=== PATIENT | male | born 1955 | race Caucasian/White ===

== ENCOUNTER 2023-02-10 19:54 | Outpatient (REF) | payer SELFPAY ==
[2023-02-10 15:43] LABS: ALT 36 U/L (16-63); AST 28 U/L (15-37); Albumin 3.8 g/dL (3.4-5.0); Alkaline Phosphatase 88 U/L (46-116); Anion Gap 9.4 mmol/L (3-11); BUN 13 mg/dL (7-18); Bilirubin, Total 0.3 mg/dL (0.2-1.0); CO2 25.6 mmol/L (21.0-32.0); Calcium 9.1 mg/dL (8.5-10.1); Calculated LDL 156 mg/dL (<100); Chloride 101 mmol/L (98-107); Cholesterol 228 mg/dL (<200); Estimated GFR 83.52 (mL/min/1.73m2); Glucose 102 mg/dL (74-106); HDL Cholesterol 51 mg/dL (40-60); Potassium 3.6 mmol/L (3.5-5.1); Sodium 136 mmol/L (136-145); Total Protein 7.8 g/dL (6.4-8.2); Triglyceride 106 mg/dL (<150)
--- OUTSIDE RECORDS SUMMARY | 2023-02-10 19:57 | XMS_ITS | CCD ---
Author Name Unknown Address [address] [place] [address] [phone] Organization Unknown Address [address] [place] [address] [phone] Care Team Providers Care Procurement Professional Logistics Name Role Phone JAIDEN OLEARY Attending Physician [phone] JAIDEN OLEARY Rounding (Secondary) Physician [phone] Vital Signs Unknown or Not Available. Allergies Allergy Code Allergy Type Reaction Status No Known Drug Allergies 0 No known drug allergies Active Procedures Unknown or Not Available. History of Immunizations Unknown or Not Available. Problems Unknown or Not Available. Results Unknown or Not Available. Active Medications Unknown or Not Available. Medications Administered During Visit Unknown or Not Available. Encounters Encounter Diagnosis Diagnosis Code Start Date Refusal of treatment by patient [id number] 04/29/2022 Social History Smoking Status Code Start Date End Date Former smoker [id number] Patient Decision Aids Unknown or Not Available. Discharge Instructions You were admitted to [facility] on 04/29/2022 08:29 with a principal diagnosis of Procedure and treatment not carried out because of patient's decision for other reasons You were discharged from [facility] on 04/29/2022 11:05 Should you have any questions prior to discharge, please contact a member of your healthcare team. If you have left the hospital and have any questions, please contact your primary care physician. Chief Complaint and Reason For Visit Unknown or Not Available. Function Status Unknown or Not Available. Plan of Care Unknown or Not Available. Referral/Transition of Care Unknown or Not Available.
--- OUTSIDE RECORDS SUMMARY | 2023-02-10 19:57 | XMS_ITS | CCD ---
Author Name Unknown Address [address] [place] [address] [phone] Organization Unknown Address [address] [address] [phone] Care Team Providers Care Hoop Driving Machine Operator Helper Name Role Phone MARYANA MOSER Attending Physician [phone] MARYANA MOSER Rounding (Secondary) Physician [phone] Vital Signs Unknown or Not Available. Allergies [...] Encounters Encounter Diagnosis Diagnosis Code Start Date Dislocation of acromioclavicular joint [id number] 03/06/2022 Social History Smoking Status Code Start Date End Date Former smoker 1425124 Patient Decision Aids Unknown or Not Available. Discharge Instructions You were admitted to [facility] on 03/06/2022 12:22 with a principal diagnosis of Dislocation of left acromioclavicular joint, 100%-200% displacement, initial encounter You were discharged from [facility] on 03/06/2022 00:00 Should you have any questions prior to [...]
--- OUTSIDE RECORDS SUMMARY | 2023-02-10 19:57 | XMS_ITS | CCD ---
Author Name Unknown Address [address] [place] [address] [phone] Organization Unknown Address [address] [place] [address] [phone] Care Team Providers Care Sprinkling System Irrigator Name Role Phone LION FRAGA Attending Physician [phone] LION FRAGA Rounding (Secondary) Physician [phone] Vital Signs Unknown or Not Available. 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 Discharge Instructions You were admitted to [facility] on 02/14/2022 12:22 with a principal diagnosis of Atherosclerotic heart disease of [place] coronary artery without angina pectoris You were discharged from [facility] on 02/14/2022 00:00 Should you have any questions prior [...]
--- OUTSIDE RECORDS SUMMARY | 2023-02-10 19:57 | XMS_ITS | CCD ---
Author Name Unknown Address [address] [place] [address] [phone] Organization Unknown Address [address] [place] [address] [phone] Care Team Providers Care Customer Service Leader Name Role Phone LION FRAGA Attending Physician [phone] LION FRAGA Rounding (Secondary) Physician [phone] Vital Signs Unknown or Not Available. Allergies Allergy Code Allergy Type Reaction Status No Known Drug Allergies 0 No known drug allergies Active Procedures Unknown or Not Available. History of Immunizations Unknown or Not Available. Problems Unknown or Not Available. Results BASIC METABOLIC PANEL (BMP) - Collect Date/Time: 10/02/2022 09:44 Test Name Code Test Result Test Units Test Ref Rang e GLUCOSE 2345-7 108 mg/dL L=70 H=116 BUN 3094-0 21 mg/dL L=6 H=25 CREATININE 2160-0 1.51 mg/dL L=0.67 H=1.17 SODIUM SERUM 2951-2 139 mmol/L L=136 H=145 POTASSIUM SERUM 2823-3 4.0 mmol/L L=3.4 H=5 .2 CHLORIDE SERUM 2075-0 99 mmol/L L=96 H=110 CARBON DIOXIDE (CO2) 2028-9 35 mmol/L L=22 H=34 ANION GAP 87726-8 5.3 mmol/L CALCIUM SERUM 86278-3 9.3 mg/dL L=8.2 H=10. 2 AGE 67 years eGFR (non-Afr.Amer.) 33610-8 47 mL/min eGFR (Afr-Lebanese) 70366-7 56 mL/min Active Medications Unknown or Not Available. Medications Administered During Visit Unknown or Not Available. 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 Discharge Instructions You were admitted to [facility] on 10/02/2022 15:35 with a principal diagnosis of Atherosclerotic heart disease of [place] coronary artery without angina pectoris You had the following tests done:BASIC METABOLIC PANEL (BMP) You were discharged from [facility] on 10/02/2022 00:00 Should you have any questions prior [...]
[2023-02-12 09:45] LABS: Hepatitis C Ab w Rflx HCV PCR Negative (Negative)
[2023-02-12 10:06] LABS: HIV-1/2 Ag & Ab Screen Negative (Negative)
== END 2023-02-10 19:55 | disposition home or self-care (01) ==
LOC: NCHCN 19:54
PROVIDERS: PCP Nurse Practitioner Family; Visit Provider Nurse Practitioner Family
DX: I10 Essential (primary) hypertension (principal); I25.10 Atherosclerotic heart disease of native coronary artery without angina pectoris; E66.9 Obesity, unspecified; Z11.4 Encounter for screening for human immunodeficiency virus [HIV]; I25.2 Old myocardial infarction; Z13.1 Encounter for screening for diabetes mellitus; Z11.59 Encounter for screening for other viral diseases
CPT/HCPCS: 80053; 80061; 86803; 87389; 83036

== ENCOUNTER 2023-04-17 09:44 | Outpatient (REF) | payer SELFPAY ==
[2023-04-17 16:17] LABS: BUN 16 mg/dL (7-18); CREATININE 1.1 mg/dL (0.70-1.30); Calcium 9.2 mg/dL (8.5-10.1); Calculated LDL 73 mg/dL (<100); Chloride 104 mmol/L (98-107); Cholesterol 128 mg/dL (<200); Glucose 94 mg/dL (74-106); HDL Cholesterol 42 mg/dL (40-60); Sodium 139 mmol/L (136-145); Triglyceride 65 mg/dL (<150)
== END 2023-04-17 09:45 | disposition home or self-care (01) ==
LOC: NCHCN 09:44
PROVIDERS: PCP Nurse Practitioner Family; Visit Provider Nurse Practitioner Family
DX: I10 Essential (primary) hypertension (principal); E78.00 Pure hypercholesterolemia, unspecified; I25.10 Atherosclerotic heart disease of native coronary artery without angina pectoris
CPT/HCPCS: 80048; 80061

== ENCOUNTER 2023-07-29 16:39 | Outpatient (REF) | payer SELFPAY ==
[2023-07-29 21:24] LABS: Anion Gap 7.9 mmol/L (3-11); BUN 12 mg/dL (7-18); CO2 27.1 mmol/L (21.0-32.0); CREATININE 1.1 mg/dL (0.70-1.30); Chloride 104 mmol/L (98-107); Estimated GFR 74.04 (mL/min/1.73m2); Glucose 113 mg/dL (74-106); Potassium 4.1 mmol/L (3.5-5.1); Sodium 139 mmol/L (136-145)
== END 2023-07-29 16:40 | disposition home or self-care (01) ==
LOC: NCHCN 16:39
PROVIDERS: PCP Nurse Practitioner Family; Visit Provider Nurse Practitioner Family
DX: I10 Essential (primary) hypertension (principal)
CPT/HCPCS: 80048

== ENCOUNTER 2024-06-23 16:25 | Outpatient (REF) | payer SELFPAY ==
[2024-06-23 14:55] LABS: ALT 36 U/L (16-63); AST 22 U/L (15-37); Albumin 3.5 g/dL (3.4-5.0); Alkaline Phosphatase 81 U/L (46-116); Anion Gap 7.5 mmol/L (3-11); BUN 12 mg/dL (7-18); Bilirubin, Total 0.43 mg/dL (0.2-1.0); CO2 28.5 mmol/L (21.0-32.0); CREATININE 1.1 mg/dL (0.70-1.30); Calcium 9.7 mg/dL (8.5-10.1); Calculated LDL 74 mg/dL (<100); Chloride 104 mmol/L (98-107); Cholesterol 141 mg/dL (<200); Estimated GFR 73.58 (mL/min/1.73m2); Glucose 91 mg/dL (74-106); HDL Cholesterol 56 mg/dL (40-60); Potassium 4.5 mmol/L (3.5-5.1); Sodium 140 mmol/L (136-145); Total Protein 7.4 g/dL (6.4-8.2); Triglyceride 59 mg/dL (<150)
--- OUTSIDE RECORDS SUMMARY | 2024-06-23 16:40 | XMS_ITS ---
Author Organization Unknown Address [address] [place] [address] [phone] Phone Care Team Providers Care Senior Project Leader/Team Lead Name Role Phone PHILLY Killian Attending Unavailable DORON Hawkins Primary Unavailable Social History Type Status Start Date End Date Code Code Syst em Smoking History Former smoker 3428466 SNOMED CT Sex Male Hospital Discharge Instructions Should you have any questions prior to discharge, please contact a member of your healthcare team. If you have left the hospital and have any questions, please contact your primary care physician. Reason For Referral No Data Found Allergies and Adverse Reactions Allergy Substance Reaction Severity Start Date Concern Status Co de Code System No Known Drug Allergies Moderate Active 611925772 SNOMED-CT Plan of Treatment CT CHEST W/O CONTRAST 03/25/2023 Encounters Encounter Diagnosis Start Date Code Code Sys tem 04/10/2022 [id number] SNOMED-CT Personal Care Team Section Performer Name Performer Role Active Date Inactive Da samaria
--- OUTSIDE RECORDS SUMMARY | 2024-06-23 16:40 | XMS_ITS ---
Author Organization Unknown Address [address] [place] [address] [phone] Phone Care Team Providers Care Senior Javascript Developer Name Role Phone ANIRUDH HWANG Attending Unavailable DORON Hawkins Primary Unavailable Social History Type Status Start Date End Date Code Code Syst em Smoking History Former smoker 4958930 SNOMED CT Sex Male Hospital Discharge Instructions [...] System No Known Drug Allergies Moderate Active 766555467 SNOMED-CT Plan of Treatment CT CHEST W/O CONTRAST 03/25/2023 Encounters Encounter Diagnosis Start Date Code Code Sys tem Refusal of treatment by patient 04/29/2022 [id number] SNOMED-CT Personal Care Team Section Performer Name Performer Role Active Date Inactive Da te
--- OUTSIDE RECORDS SUMMARY | 2024-06-23 16:40 | XMS_ITS ---
Author Organization Unknown Address [address] [place] [address] [phone] Phone Care Team Providers Care Entry Level Marketing Assistant Name Role Phone DESIRAE HOLLINS Registered Nurse Unavailable YAJAIRA Lee Attending Unavailable DORON Hawkins Primary Unavailable UNLISTED PROVIDER - REQUESTED Xhandoff Un available Results XR SHOULDER 2V OR MORE LT* - Completed: 02/15/2022 05:31 LOINC: LEFT SHOULDER - 4 VIEWS: No priors. There is a left acromioclavicular joint separation. No fracture is identified. The soft tissues are unremarkable. IMPRESSION:Left AC joint separation. Dictated by: ANTIA GILBERT MD Transcribed by: JANET 02/17/22/19:07 D Monday, February 14, 2022 2:36:24 PM [id number] Electronically Reviewed and Signed By: FARIHA GILBERT MD 02/18/22 09:17 Copy for: 185 HEALTH INFORMATION MGMT DISCHARGED Social History Type Status Start Date End Date Code Code Syst em Smoking History Former smoker 5916580 SNOMED CT Sex Male Vital Signs Vital Sign Value Unit Henefer Value Henefer Unit Date/Time Recent/Initial? Code Code System Body Mass Index 45.89 kg/m2 02/14/2022 13:55 Initial 34887 -5 LOINC Systolic Blood Pressure 139 mm[Hg] 02/14/2022 13:55 Initial 8480- 6 LOINC Diastolic Blood Pressure 77 mm[Hg] 02/14/2022 13:55 Initial 8462- 4 LOINC Body Surface Area 2.12 m2 02/14/2022 13:55 Initial 3140- 1 LOINC Height 152.400 0 cm 60.00 in 02/14/2022 13:55 Initial 8302- 2 LOINC O2 Saturation 100 % 2021 15:58 Most Recent 19886 -5 LOINC O2 Saturation 96 % 2021 13:55 Initial 66789 -5 LOINC Pulse 48.0 /min 02/14/2022 15:58 Most Recent 8867- 4 LOINC Pulse 55.0 /min 02/14/2022 13:55 Initial 8867- 4 LOINC Respiration 17 /min 02/15/20 15:58 Most Recent 9279- 1 LOINC Respiration 20 /min 02/15/20 13:55 Initial 9279- 1 LOINC Temperature 36.7 Marisel 98.1 F 02/15/20 13:55 Initial 8310- 5 LOINC Weight 106.59 kg 235.00 lbs 02/14/2022 13:55 Initial 39334 -7 [facility] Hospital Discharge Instructions Should you have any questions prior to discharge, please contact a member of your healthcare team. If you have left the hospital and have any questions, please contact your primary care physician. Reason For Referral No Data Found Allergies and Adverse Reactions Allergy Substance Reaction Severity Start Date Concern Status Co de Code System No Known Drug Allergies Moderate Active 444509654 SNOMED-CT Plan of Treatment CT CHEST W/O CONTRAST 03/25/2023 Encounters Encounter Diagnosis Start Date Code Code Sys tem Unspecified dislocation of l eft acromioclavicular joint, initial encounter 02/14/2022 SNOMED-CT Personal Care Team Section Performer Name Performer Role Active Date Inactive Da samaria
--- OUTSIDE RECORDS SUMMARY | 2024-06-23 16:40 | XMS_ITS ---
Author Organization Unknown Address [address] [place] [address] [phone] Phone Care Team Providers Care Hand Stonecutter Name Role Phone EHSAN Harris Attending Unavailable DORON Hawkins Primary Unavailable Social History Type Status Start Date End Date Code Code Syst em Smoking History Former smoker 0697488 SNOMED CT Sex Male Hospital Discharge Instructions [...] System No Known Drug Allergies Moderate Active 582527185 SNOMED-CT Plan of Treatment CT CHEST W/O CONTRAST 03/25/2023 Encounters Encounter Diagnosis Start Date Code Code Sys tem Dislocation of acromioclavicular joint 03/06/2022 26 2564195 SNOMED-CT Personal Care Team Section Performer Name Performer Role Active Date Inactive Da samaria
--- OUTSIDE RECORDS SUMMARY | 2024-06-23 16:40 | XMS_ITS ---
Author Organization Unknown Address [address] [place] [address] [phone] Phone Care Team Providers Care Discount Clerk Name Role Phone PHILLY Killian Attending Unavailable Social History Type Status Start Date End Date Code Code Syst em Smoking History Former smoker 1306849 SNOMED CT Sex Male Hospital Discharge Instructions [...] System No Known Drug Allergies Moderate Active 034966352 SNOMED-CT Plan of Treatment CT CHEST W/O CONTRAST 03/25/2023 Encounters Encounter Diagnosis Start Date Code Code Sys tem Atherosclerotic heart diseas e of [place] coronary artery without angina pectoris 02/14/2022 SNOMED-CT Personal Care Team Section Performer Name Performer Role Active Date Inactive Da te
--- OUTSIDE RECORDS SUMMARY | 2024-06-23 16:41 | XMS_ITS ---
Author Organization [facility] Address [address] [place] [address] Care Team Providers Care Concrete Mixing Plant Laborer Name Role Phone Jaz Lyon Primary Care Provider Active Problems Problem Noted Date Diagnosed Date Patient nonadherent with med ication regimen due to financial hardship 05/31/2024 HFrEF (heart failure with re duced ejection fraction) ([facility]) 05/30/2024 NSTEMI (non-ST elevated myocardial infarction) ( [facility]) 05/27/2024 Acute on chronic combined sy stolic and diastolic congestive heart failure ([facility]) 05/27/2024 Nonrheumatic aortic valve stenosis 05/27/2024 STEMI (ST elevation myocardial infarction) ([facility]) 10/19/2023 Non-recurrent unilateral ing uinal hernia without obstruction or gangrene 03/31/2019 ST elevation myocardial infarction (STEMI) ([facility]) 10/08/2015 BPH (benign prostatic hyperplasia) 10/08/2015 Obesity 10/08/2015 HLD (hyperlipidemia) 10/08/2015 Depression 10/08/2015 Tubular adenoma of colon 10/08/2015 Melanoma ([facility]) 10/08/2015 Overview: S/p excision 2008 HTN (hypertension) 10/08/2015 Current Oncology Plans No current plan information found. Past Plans No past plan information found. Radiation Treatments * No radiation treatments are documented for this patient in [facility]. Treatments may have been administered in another system. Lifetime Dose Tracking * Chemical Lifetime Dose Automatic Entry Manual Entr y Fluoro Time 15.8 minutes 0 minutes 15.8 minutes Air Kerma 936 mGy 0 mGy 936 mGy Dose Area Product 72,302 mGy-cm2 0 mGy-cm2 72,302 m Gy-cm2
--- OUTSIDE RECORDS SUMMARY | 2024-06-23 16:41 | XMS_ITS ---
Author Organization Unknown Address [address] [place] [address] [phone] Phone Care Team Providers Care Carpenter Form Name Role Phone PHILLY Killian Attending Unavailable DORON Hawkins Primary Unavailable Results BASIC METABOLIC PANEL (BMP) - Collect Date/Time: 10/02/2022 09:44 [facility] ID: [id number] - [id number] [address], [place], [address] LOINC: 35594-1 Test Value Unit Reference Range Code Code System Flag GLUCOSE 108 mg/dL L=70 H=116 2345-7 LOINC BUN 21 mg/dL L=6 H=25 3094-0 LOINC CREATININE 1.51 mg/dL L=0.67 H=1.17 2160-0 LOINC H SODIUM SERUM 139 mmol/L L=136 H=145 2951-2 LOINC POTASSIUM SERUM 4.0 mmol/L L=3.4 H=5.2 2823-3 LOINC CHLORIDE SERUM 99 mmol/L L=96 H=110 2075-0 LOINC CARBON DIOXIDE (CO2) 35 mmol/L L=22 H=34 2028-9 LOINC H ANION GAP 5.3 mmol/L 84490-6 LOINC CALCIUM SERUM 9.3 mg/dL L=8.2 H=10.2 97076-2 LOINC AGE 67 years eGFR (non-Afr.Amer.) 47 mL/min 84818-8 LOINC eGFR (Afr-[place] Islander) 56 mL/min 09096-6 LOINC Social History Type Status Start Date End Date Code Code Syst em Smoking History Former smoker 7237093 SNOMED CT Sex Male Hospital Discharge Instructions [...] System No Known Drug Allergies Moderate Active 932934263 SNOMED-CT Plan of Treatment CT CHEST W/O CONTRAST 03/25/2023 Encounters Encounter Diagnosis Start Date Code Code Sys tem 10/02/2022 [id number] SNOMED-CT Personal Care Team Section Performer Name Performer Role Active Date Inactive Rod mera
--- OUTSIDE RECORDS SUMMARY | 2024-06-23 16:41 | XMS_ITS | Clinical Summary ---
Author Organization [facility] Address [address] [place] [address] Care Team Providers Care Punch Finisher Name Role Phone Jaz Lyon Primary Care Provider Allergies Active Allergy Reactions Criticality Noted Date Comments Fosinopril Cough 10/08/2015 Medications Medication Sig Dispensed Refills Start Date End Date Status Multivitamins with Minerals tablet Take 1 Tab by mouth daily Active acetaminophen (TYLENOL) 325 mg capsule Take by mouth as needed. Active diclofenac sodium gel Please see attached for detailed directions. 08/10/2023 Active nicotine (NICODERM CQ) 21 mg/24 hr patch APPLY 1 PATCH TO SKIN ONCE A DAY 07/08/2023 Active aspirin chewable 81 mg tabletIndication s:Coronary artery disease involving eyak coronary artery of eyak heart without angina pectoris Take 1 Tablet by mouth daily. 30 Tablet 11 06/01/2024 Active losartan (COZAAR) 25 mg tabletIndication s:HFrEF (heart failure with reduced ejection fraction) ([facility]) Take 1 Tablet by mouth daily. 30 Tablet 11 05/31/2024 Active rosuvastatin (CRESTOR) 40 mg tabletIndication s:Coronary artery disease involving eyak coronary artery of eyak heart without angina pectoris Take 1 Tablet by mouth daily. 90 Tablet 3 06/01/2024 Active spironolactone (ALDACTONE) 25 mg tabletIndication s:HFrEF (heart failure with reduced ejection fraction) ([facility]) Take 1 Tablet by mouth daily. 90 Tablet 3 06/01/2024 Active metoprolol SUCCinate (TOPROL-XL) 25 mg tabletIndication s:HFrEF (heart failure with reduced ejection fraction) ([facility]),Morales ry artery disease involving eyak coronary artery of eyak heart without angina pectoris Take 1 Tablet by mouth daily. 90 Tablet 3 05/31/2024 Active buPROPion (WELLBUTRIN XL) 150 mg XL tablet Take 300 mg by mouth daily. 4 Discontinued(Isabella ent Stopped Taking) terazosin (HYTRIN) 10 mg capsule Take 10 mg by mouth at bedtime 4 Discontinued hydrochlorothiaz joe (HYDRODIURIL) 25 mg tablet Take 25 mg by mouth daily 4 Discontinued(Isabella ent Stopped Taking) aspirin 81 mg EC tablet Take 1 Tab by mouth daily 90 Tab 3 10/09/2015 4 Discontinued metoprolol SUCCinate (TOPROL-XL) 25 mg tablet Take 1 Tablet by mouth daily. 90 Tablet 3 10/22/2023 4 Discontinued rosuvastatin (CRESTOR) 40 mg tablet Take 1 Tablet by mouth daily for 90 days. 90 Tablet 3 10/22/2023 4 Discontinued spironolactone (ALDACTONE) 25 mg tablet Take 1 Tablet by mouth daily for 90 days. 90 Tablet 3 10/22/2023 4 Discontinued nicotine polacrilex (COMMIT) 2 mg lozenge HOLD 1 PIECE TO INSIDE OF MOUTH (BUCCAL) EVERY TWO HOURS NEEDED NEEDED FOR NICOTINE CRAVINGS 07/08/2023 4 Discontinued losartan (COZAAR) 25 mg tablet Take 1 Tablet by mouth daily. 30 Tablet 5 05/31/2024 4 Discontinued metoprolol SUCCinate (TOPROL-XL) 25 mg tabletIndication s:HFrEF (heart failure with reduced ejection fraction) ([facility]),Morales ry artery disease involving eyak coronary artery of eyak heart without angina pectoris Take 1 Tablet by mouth daily. 90 Tablet 3 05/31/2024 4 Discontinued Active Problems Problem Noted Date Diagnosed Date Patient nonadherent with med ication regimen due to financial hardship 05/31/2024 HFrEF (heart failure with re duced ejection fraction) ([facility]) 05/30/2024 NSTEMI (non-ST elevated myocardial infarction) ( [facility]) 05/27/2024 Acute on chronic combined sy stolic and diastolic congestive heart failure ([facility]) 05/27/2024 Nonrheumatic aortic valve stenosis 05/27/2024 STEMI (ST elevation myocardial infarction) ([facility]) 10/19/2023 Non-recurrent unilateral ing uinal hernia without obstruction or gangrene 03/31/2019 ST elevation myocardial infarction (STEMI) ([facility]) 10/08/2015 BPH (benign prostatic hyperplasia) 10/08/2015 Obesity 10/08/2015 HLD (hyperlipidemia) 10/08/2015 Depression 10/08/2015 Tubular adenoma of colon 10/08/2015 Melanoma ([facility]) 10/08/2015 Overview: S/p excision 2009 HTN (hypertension) 10/08/2015 Encounters Date Type Department Care Team Description 06/13/2024 Telephone [facility] Cardiology - [address] [place], [place] [phone] Wilberto Ocasio MD Appointment Related 06/13/2024 Telephone [facility] Cardiothoracic Surgery [address] [phone] Livier Ribera MD Appointment Related (Cancel 1000 appt on 06/13/24) 06/02/2024 Telephone [facility] Cardiothoracic Surgery [address] [phone] Livier Ribera MD Appointment Related 05/30/2024 13:10 EDT Ancillary Procedure [facility] Vascular Surgery [address] [id number] 05/30/2024 13:05 EDT Ancillary Procedure [facility] Vascular Surgery [address] [id number] 05/28/2024 11:09 EDT - 05/28/2024 12:09 EDT Surgery [facility] Invasive Cardiology Unit [address] [place] [id number] Don Mcgregor MD Left Heart Cath 05/27/2024 8:15 EDT - 05/31/2024 11:04 EDT Hospital Encounter [facility] Specialty Surgery Unit [address] [place] [id number] Glenis Cifuentes MD Carey, Kevin T, MD Khadanga, Sherrie, MD Acute on chronic combined systolic and diastolic congestive heart failure (HCC-CMS) (Primary Dx); Nonrheumatic aortic valve stenosis; NSTEMI (non-ST elevated myocardial infarction) ([facility]); HFrEF (heart failure with reduced ejection fraction) ([facility]); Primary hypertension; Coronary artery disease involving eyak coronary artery of eyak heart without angina pectoris; CAD, multiple vessel Discharge Disposition: Home or Self Care 05/27/2024 Travel from Last 3 Months Immunizations Name Administration Dates Next Due Influenza Vaccine Quad (AFLURIA) PF 0.5 ml IM (3 yrs+) 10/09/2015 Surgical History Surgery Date Site/Laterality Comments ORTHOPEDIC SURGERY CARDIAC SURGERY HERNIA REPAIR Medical History Medical History Date Comments Hypertension Obesity Melanoma ([facility]) 2008 excised Right inguinal hernia Heart attack ([facility]) Family History Medical History Relation Comments Heart Attack Brother Relation Status Comments Brother Social History Tobacco Use Types Packs/Day Years Used Date Smoking Tobacco: Former Cigarettes 0.5 20 1 - 07/08/2015 Smokeless Tobacco: Never Tobacco Cessation:Counseling Given: Not Answered Alcohol Use Standard Drinks/Week Comments Not Currently 8 (1 standard drink = 0.6 oz pur e alcohol) rare PHQ-2 Answer Date Recorded PHQ-2 Score 0 04/22/2020 PRAPARE - Transportation Answer Date Re corded In the past 12 months, has l ack of transportation kept you from medical appointments or from getting medications? No 09/22 In the past 12 months, has l ack of transportation kept you from meetings, work, or from getting things needed for daily living? No 10/19/2023 Housing Stability Vital Sign Answer Charli e Recorded In the last 12 months, was t here a time when you were not able to pay the mortgage or rent on time? No 05/30/2024 Number of Times Moved in the Last Year Not on fi le 05/30/2024 At any time in the past 12 m [facility], were you homeless or living in a nursing home (including now)? No 05/30/2024 Interpersonal Safety Answer Date Record ed Physically Hurt Never 04/22/2020 Verbally Threaten Not on file 04/22/2020 Sex and Gender Information Value Date Recorded Sex Assigned at Not on file Gender Identity Male 11/13/2019 2:37 EST Sexual Orientation Not on file Obstetrics History Last Filed Vital Signs Vital Sign Reading Time Taken Comments Blood Pressure 150/90 05/31/2024 0805 EDT Pulse 64 05/28/2024 1225 EDT Temperature 36.8 ??C (98.2 ??F) 05/31/2024 0805 EDT Respiratory Rate 18 05/31/2024 0805 EDT Oxygen Saturation 97% 05/31/2024 0420 EDT Inhaled Oxygen Concentration - - Weight 88.9 kg (195 lb 15.8 oz) 05/31/2024 0420 EDT Height 175.3 cm (5' 9) 05/27/2024 1305 EDT Body Mass Index 28.94 05/27/2024 1305 EDT Plan of Treatment Upcoming Encounters Date Type Department Care Team (Late st Contact Info) Description 07/12/2024 16:45 EDT Office Visit [facility] Cardiology - [address] [id number] [place] [address] Wilberto Ocasio MD [address] [phone] Health Maintenance Due Date Last Done Comments RSV Immunization ( o r 60+ Years) (1 - 1-dose 60+ series) 2017 Fall Risk Screening 2022 COVID-19 Vaccine ( season) 2024 Hepatitis C Screen Completed 02/10/2023 Medical Devices Implanted Type Area Manager Configuration Device Identifier Shelf Expiration Date Model / Serial / Lot Stent Rangel 3.0 X 22mm Red [employer] Rx Coronary Stent System [employer] [id number] x - [id number] Implanted:Qt y: 1 on 10/19/2023 by Eva Bryan MD at [facility] Drug Eluting Stent N/A: Coronary [employer] [id number] 06/11/2026 [id number] / / [id number] Procedures Procedure Name Priority Date/Time Associated Diagnosis Comments ECG REPORT - SCANNED 2024 12:17 EDT BASIC METABOLIC PANEL (BMP) Routine 05/31/2024 8:17 EDT US VEIN MAPPING Routine 05/30/2024 14:08 EDT US CAROTID-VERTEBRAL DUPLEX Routine 05/30/2024 14:07 EDT HEPARIN LEVEL - UNFRACTIONATED HEPARIN STAT 05/30/2024 5:50 EDT VITAMIN D (25,OH) Routine 05/30/2024 5:5 0 EDT MAGNESIUM Routine 05/30/2024 5:50 EDT ELECTROLYTES Routine 05/30/2024 5:50 EDT CREATININE Routine 05/30/2024 5:50 EDT BUN Routine 05/30/2024 5:50 EDT HEPARIN LEVEL - UNFRACTIONATED HEPARIN STAT 05/29/2024 18:24 EDT HEPARIN LEVEL - UNFRACTIONATED HEPARIN STAT 05/29/2024 12:21 EDT MAGNESIUM Add-On 05/29/2024 5:47 EDT HEPARIN LEVEL - UNFRACTIONATED HEPARIN STAT 05/29/2024 5:47 EDT ELECTROLYTES Routine 05/29/2024 5:47 EDT CREATININE Routine 05/29/2024 5:47 EDT BUN Routine 05/29/2024 5:47 EDT COMPLETE BLOOD COUNT AND DIFFERENTIAL Routine 05/29/2024 5:47 EDT CARDIAC CATHETERIZATION Routine 05/28/20 11:52 EDT NSTEMI (non-ST elevated myocardial infarction) ([facility]) HEPARIN LEVEL - UNFRACTIONATED HEPARIN STAT 05/28/2024 3:12 EDT ELECTROLYTES Routine 05/28/2024 3:12 EDT CREATININE Routine 05/28/2024 3:12 EDT BUN Routine 05/28/2024 3:12 EDT HEPARIN LEVEL - UNFRACTIONATED HEPARIN STAT 05/27/2024 21:02 EDT TROPONIN I Routine 05/27/2024 18:32 EDT TRANSTHORACIC ECHO (TTE) COMPLETE Routine 05/27/2024 14:55 EDT HEPARIN LEVEL - UNFRACTIONATED HEPARIN STAT 05/27/2024 14:48 EDT ECG REPORT - SCANNED 05/27/2024 13:45 EDT TROPONIN I STAT 05/27/2024 11:48 EDT XR CHEST 2 VIEWS STAT 05/27/2024 8:39 EDT LIPID PROFILE (INCLUDES CHOLESTEROL, TRIGLYCERIDES, HDL, LDL) Add-On 05/27/2024 8:27 EDT NT PRO BNP STAT Add-on 05/27/2024 8:27 EDT HOLD BLUE TOP STAT 05/27/2024 8:27 EDT MAGNESIUM STAT 05/27/2024 8:27 EDT TROPONIN I STAT 05/27/2024 8:27 EDT BASIC METABOLIC PANEL (BMP) STAT 05/27/2024 8:27 EDT HEMOGLOBIN A1C Add-On 05/27/2024 8:26 EDT COMPLETE BLOOD COUNT AND DIFFERENTIAL STAT 05/27/2024 8:26 EDT EKG 12-LEAD STAT 05/27/2024 8:24 EDT HEPATITIS C AB W REFLEX TO HCV RNA BY PCR Routine 02/10/2023 8:40 EDT from Last 3 Months or Most Recently Relevant to Health Maintenance Results * ECG REPORT - SCANNED (2024 12:17 EDT) 2024 12:1 7 EDT Scan 2 Patient Care Director PROCEDURE/MINOR SHARITA GICAL ORDERABLES * (ABNORMAL) BASIC METABOLIC PANEL (BMP) (05/31/2024 8:17 EDT) Only the most recent of2 resultswithin the time period is included. Sodium 140 136 - 145 mmol/L 05/31/2024 9:18 [facility] Potassium 3.8 3.5 - 5.0 mmol/L 05/31/2024 9:18 [facility] Chloride 104 96 - 110 mmol/L 05/31/2024 9:18 [facility] CO2 Total 24 22 - 32 mmol/L 05/31/2024 9:18 [facility] Anion Gap 12 5 - 14 mmol/L 05/31/2024 9:18 [facility] Glucose 139(H) 70 - 99 mg/dl 05/31/2024 9:18 [facility] Calcium 9.5 8.5 - 10.5 mg/dL 05/31/2024 9:18 [facility] BUN 15 10 - 26 mg/dL 05/31/2024 9:18 [facility] Creatinine 0.97 0.66 - 1.25 mg/dL 05/31/2024 9:18 [facility] eGFR 86 >60 mL/min/1.73 m2 05/31/2024 9:18 [facility] Blood VENOUS BLOOD / Unknown Venipuncture / Unknown 05/31/2024 8:17 EDT 05/31/2024 8:49 EDT Manjual Harkins NP CHEMISTRY & BLOOD GAS ORDERABLES [facility] [address], [place] [phone] * US VEIN MAPPING: CABG (05/30/2024 14:08 EDT) Left GSPT jean-paul 0.51 cm [facility] Right GSPT jean-paul 0.53 cm [facility] POINT [facility] CARE Left GSMC jean-paul 0.32 cm [facility] POINT OF CARE Right GSMC jean-paul 0.35 cm [facility] POINT OF CARE Left GSK jean-paul 0.42 cm [facility] P OINT OF CARE Right GSK jean-paul 0.39 cm [facility] POINT OF CARE Left GSDT jean-paul 0.43 cm [facility] POINT OF CARE Right GSDT jean-paul 0.51 cm [facility] POINT OF CARE Left GSJ jean-paul 0.72 cm [facility] P OINT OF CARE Right GSJ jean-paul 0.73 cm [facility] POINT OF CARE UPPER ARTERIAL LEFT ULNAR DISTAL DIAMETER 0.31 cm [facility] POINT OF CARE LEFT UA RADIAL MID SYS DIAMETER 0.37 cm [facility] POINT OF CARE Left GSMT jean-paul 0.47 cm [facility] POINT OF CARE Right GSMT jean-paul 0.48 cm [facility] POINT OF CARE Left Great Saphenous Vein Ankle Diameter 0.26 cm [facility] POINT O F CARE Right Great Saphenous Vein Ankle Diameter 0.35 cm [facility] POINT O F CARE UPPER ARTERIAL LEFT RADIAL PROX DIAMETER 0.40 cm [facility] POINT OF CARE Left GSPC jean-paul 0.37 cm [facility] POINT OF CARE Right GSPC jean-paul 0.31 cm [facility] POINT OF CARE Left GSDC jean-paul 0.38 cm [facility] POINT OF CARE Right GSDC jean-paul 0.36 cm [facility] POINT OF CARE UPPER ARTERIAL LEFT RADIAL DIST DIAMETER 0.34 cm [facility] POINT OF CARE Anatomical Region Laterality Modality Vascular Ultrasound Narrative 06/01/2024 7:43 EDT ?The left jackson arch is complete. ?Negative for deep and superficial vein thrombosis in the bilateral lower extremities. ?The bilateral great saphenous veins were measured and evaluated as below: Left Upper Arterial The left palmar arch was Complete. Right Lower Venous Other The right external iliac, common femoral, proximal greater saphenous, proximal profunda femoris, femoral, and popliteal veins demonstrate normal Doppler flow/waveforms and compression. Left Lower Venous Other The left external iliac, common femoral, proximal greater saphenous, proximal profunda femoris, femoral, and popliteal veins demonstrate normal Doppler flow/waveforms and compression. CABG HPI and Indications Pre-op mapping for CABG. CABG Past Medical History CAD, Hyperlipidemia, Former tobacco use and Hypertension. Oniel Lee PA-C IMG US VASCULAR ORDE ALEJANDRO * US CAROTID-VERTEBRAL DUPLEX BILATERAL (05/30/2024 14:07 EDT) Left CCA dist sys -42 cm/s [facility] POINT OF CARE Left CCA dist turpin -12 cm/s [facility] POINT [facility] C[facility] Left CCA prox sys 51 cm/s [facility] POINT [facility] C[facility] Left CCA prox turpin 11 cm/s [facility] POINT OF CARE Left ICA dist sys -31 cm/s [facility] POINT OF CARE Left ICA dist turpin -13 cm/s [facility] POINT OF CARE Left ICA prox sys -92 cm/s [facility] POINT OF CARE Left ICA prox turpin -26 cm/s [facility] POINT OF CARE Left ECA sys -74 cm/s [facility] P OINT OF CARE Left subclavian sys 59 cm/s [facility] POINT OF CARE Left vertebral sys 36 cm/s [facility] POINT OF CARE LEFT VERTEBRAL ARTERY D 11 cm/s [facility] POINT OF CARE Left prox ICA/distal CCA sys ratio 2.2 [facility] POINT OF CARE Right cca dist sys 29 cm/s [facility] POINT OF CARE Right CCA dist turpin 8 cm/s [facility] POINT OF CARE Right CCA prox sys 35 cm/s [facility] POINT OF CARE Right CCA prox turpin 7 cm/s [facility] POINT OF CARE Right ICA dist sys -49 cm/s [facility] POINT OF CARE Right ICA dist turpin -18 cm/s [facility] POINT OF CARE Right ICA mid sys 32 cm/s [facility] POINT OF CARE Right ICA mid turpin 12 cm/s [facility] POINT OF CARE Right ICA prox sys -81 cm/s [facility] POINT OF CARE Right ICA prox turpin -27 cm/s [facility] POINT OF CARE Right eca sys -73 cm/s [facility] POINT OF CARE Right subclavian sys 68 cm/s [facility] POINT O F CARE Right vertebral sys 31 cm/s [facility] POINT OF CARE RIGHT VERTEBRAL ARTERY D 12 cm/s [facility] POINT OF CARE Right prox ICA/distal CCA sys ratio 2.8 [facility] POINT OF CARE Anatomical Region Laterality Modality Vascular Ultrasound Narrative 06/01/2024 7:41 EDT ?16-49% stenosis within the bilateral proximal internal carotid arteries. ?The bilateral vertebral arteries are patent with normal antegrade flow. Right Carotid Plaque in the right proximal internal carotid was irregular and calcified. The right vertebral artery had antegrade flow. Left Carotid Plaque in the left proximal internal carotid was irregular and calcified. The left vertebral artery had antegrade flow. Cerebrovascular HPI and Indications Pre-operative workup for CABG Cerebrovascular Past Medical History CAD, Hyperlipidemia, Hypertension and Former tobacco use. Oniel Lee PA-C IMG US VASCULAR ORDLorin ALLEN * (ABNORMAL) VITAMIN D (25,OH) (05/30/2024 5:50 EDT) 25OH Vitamin D Tot 14(L) 30 - 100 ng/mL 05/30/2024 11:41 EDT [facility] Comment: Vitamin D 25,OH Interpretive Ranges: Deficiency: ??<10.0 ng/mL Insufficiency: ??10.0 - 30.0 ng/mL Sufficiency: ??30.0 - 100.0 ng/mL Toxicity: ??>100.0 ng/mL Blood VENOUS BLOOD / Unknown Venipuncture / Unknown 05/30/2024 5:50 EDT 05/30/2024 6:17 EDT Doe Urbina MD CHEMISTRY & BLOOD GA S ORDERABLES Performing Organization Address [facility] Co de Phone Number [facility] [address] [place] [address] * HEPARIN LEVEL - UNFRACTIONATED HEPARIN (05/30/2024 5:50 EDT) Only the most recent of7 resultswithin the time period is included. Heparin Level-UFH 0.38 Therapeutic Range: 0.30 - 0.70 IU/mL 05/30/2024 6:46 EDT [facility] Comment:Unfractionated hepar in therapeutic range = 0.3-0.7 IU/ml - This test is not intended for monitoring direct Xa inhibitors, direct thrombin inhibitors, or fondaparinux.- Exogenous ATIII is NOT supplied in this assay. For unexpected or persistently low levels, consider measuring patient's ATIII level. Results will be overestimated in the presence of direct Xa inhibitors (rivaroxaban, apixaban, edoxaban). Blood VENOUS BLOOD / Unknown Venipuncture / Unknown 05/30/2024 5:50 EDT 05/30/2024 6:14 EDT Doe Urbina MD HEMATOLOGY & PF4 ORD ERABLES Performing Organization Address City/[facility]/ZIP Co de Phone Number [facility] [address] [place] [address] * BUN (05/30/2024 5:50 EDT) Only the most recent of3 resultswithin the time period is included. BUN 13 10 - 26 mg/dL 05/30/2024 6:49 EDT [facility] Blood VENOUS BLOOD / Unknown Venipuncture / Unknown 05/30/2024 5:50 EDT 05/30/2024 6:17 EDT Glenis Tafoya MD CHEMISTRY & BLOOD GA S ORDERABLES Performing Organization Address City/[facility] Co de Phone Number [facility] [address] [place] [address] * MAGNESIUM (05/30/2024 5:50 EDT) Only the most recent of3 resultswithin the time period is included. Magnesium 2.1 1.7 - 2.8 mg/dL 05/30/2024 6:49 EDT [facility] Blood VENOUS BLOOD / Unknown Venipuncture / Unknown 05/30/2024 5:50 EDT 05/30/2024 6:17 EDT Doe Urbina MD CHEMISTRY & BLOOD GA S ORDERABLES Performing Organization Address [facility] de Phone Number [facility] [address] [place] [id number] * CREATININE (05/30/2024 5:50 EDT) Only the most recent of3 resultswithin the time period is included. Creatinine 0.93 0.66 - 1.25 mg/dL 05/30/2024 6:49 EDT [facility] eGFR 91 >60 mL/min/1.73 m2 05/30/2024 6:49 EDT [facility] Blood VENOUS BLOOD / Unknown Venipuncture / Unknown 05/30/2024 5:50 EDT 05/30/2024 6:17 EDT Glenis Tafoya MD CHEMISTRY & BLOOD GA S ORDERABLES Performing Organization Address [facility] Co de Phone Number [facility] [address] [place] [id number] * ELECTROLYTES (05/30/2024 5:50 EDT) Only the most recent of3 resultswithin the time period is included. Sodium 139 136 - 145 mmol/L 05/30/2024 6:49 EDT [facility] Potassium 4.1 3.5 - 5.0 mmol/L 05/30/2024 6:49 T [facility] Chloride 106 96 - 110 mmol/L 05/30/2024 6:49 [facility] CO2 Total 22 22 - 32 mmol/L 05/30/2024 6:49 EDT [facility] Anion Gap 11 5 - 14 mmol/L 05/30/2024 6:49 [facility] Blood VENOUS BLOOD / Unknown Venipuncture / Unknown 05/30/2024 5:50 EDT 05/30/2024 6:17 EDT Glenis Tafoya MD CHEMISTRY & BLOOD GA S ORDERABLES [facility] [address] [phone] * COMPLETE BLOOD COUNT AND DIFFERENTIAL (05/29/2024 5:47 EDT) Only the most recent of2 resultswithin the time period is included. WBC 7.06 4.00 - 10.40 K/cmm 05/29/2024 5:59 [facility] RBC 4.65 4.36 - 5.78 M/cmm 05/29/2024 5:59 [facility] Hemoglobin 14.4 13.8 - 17.3 g/dL 05/29/2024 5:59 [facility] HCT 41.9 39.5 - 50.2 % 05/29/2024 5:59 [facility] MCV 90 81 - 95 fL 05/29/2024 5:59 [facility] MCH 31.0 27.6 - 33.0 pg 05/29/2024 5:59 [facility] MCHC 34.4 32.8 - 36.4 g/dL 05/29/2024 5:59 [facility] RDW-CV 13.2 <14.2 % 05/29/2024 5:59 [facility] RDW-SD 43.6 <46.0 fl 05/29/2024 5:59 [facility] PLT 151 141 - 377 K/cmm 05/29/2024 5:59 [facility] MPV 11.2 9.5 - 12.7 fL 05/29/2024 5:59 [facility] % Neutrophils 70.4 % 05/29/2024 5:59 [facility] % Lymphocytes 16.4 % 05/29/2024 5:59 [facility] % Monocytes 9.9 % 05/29/2024 5:59 [facility] % Eosinophils 2.5 % 05/29/2024 5:59 [facility] % Basophils 0.7 % 05/29/2024 5:59 [facility] % Immature Grans 0.1 % 05/29/20 5:59 [facility] Absolute Neutrophils 4.96 2.20 - 8.85 K/cmm 05/29/2024 5:59 [facility] Absolute Lymphocytes 1.16 1.09 - 3.30 K/cmm 05/29/2024 5:59 [facility] Absolute Monocytes 0.70 0.10 - 0.80 K/cmm 05/29/2024 5:59 [facility] Absolute Eosinophils 0.18 0.03 - 0.61 K/cmm 05/29/2024 5:59 [facility] ABS Basophils 0.05 0.01 - 0.11 K/cmm 05/29/2024 5:59 [facility] Absolute Immature Grans 0.01 0.00 - 0.06 K/cmm 05/29/2024 5:59 [facility] Type of Differential: Auto 05/29/2024 5:59 [facility] Blood VENOUS BLOOD / Unknown Venipuncture / Unknown 05/29/2024 5:47 EDT 05/29/2024 5:52 EDT Glenis Tafoya MD PACKAGES & DNA PROBE ORDERABLES [facility] [address] [place] [address] * LEFT HEART CATH (05/28/2024 11:52 EDT) Anatomical Region Laterality Modality Pediatric Intensive Physician 05/28/2024 11:3 8 EDT Narrative 06/01/2024 9:26 EDT Cardiology [address] [place] [address] Catheterization Laboratory Study Patient: René Rivera Study Date: ??05/28/2024 ? : ? 1955 Referring: Doe Urbina MD Diagnostic Attending: ??Don Mcgregor ATTESTATION: IDr. Libyb was the initial author of this report. Dr. Don Mcgregor was present and supervising for the entire procedure. I, Dr. Don Mcgregor have reviewed and agreed with the findings of this report. PROCEDURE PLAN: A diagnostic study was performed without intervention. RESEARCH STUDY: Patient is not enrolled in any research studies. IMPRESSIONS: The study demonstrates severe coronary artery disease, predominantly involving the LAD and RCA, status post drug-eluting stent placement. Stent restenosis is present. Residual at risk territory is large. Coronary bypass grafting is indicated. SUMMARY: 1. History of present illness: Dyspnea. Known aortic stenosis. 2. LAD: Proximal vessel stenosis: There is a diffuse, 80%in-stent recurrent stenosis. 3. 2nd diagonal: Proximal vessel stenosis: There is an 80%stenosis. 4. Right coronary: Mid-vessel stenosis: There is a 99%stenosis. There is DOE grade 0 flow (no flow) ?? across the lesion. RECOMMENDATIONS: A cardiac surgeon should be consulted for coronary artery bypass grafting. This consultation has been discussed with the referring physician. HISTORY: Dyspnea. ??Known aortic stenosis. ??PMH: ??Congestive Heart Failure LABS, PRIOR TESTS, PROCEDURES AND SURGERY: Blood tests: ?Serum creatinine (current admission) of 0.88 mg/dl. Hematocrit of 42.7%. ??Hemoglobin (pre-procedure) of 14.3 g/dl. STUDY DATA: Location: ??Catheterization laboratory. Sex: male. Patient is 68year(s) old. Height: 175.3cm. Weight: 91.6kg. BSA: 2.14m^2. PROCEDURES PERFORMED: ?Right radial artery access. ?Right coronary angiography. ?Left coronary angiography. ANESTHESIA: Conscious sedation was administered. PROCEDURE: 1. The patient was brought to the laboratory in an in the fasting state state. A baseline ECG was ?? recorded. Surface ECG leads, automatic cuff blood pressure measurements, and pulse oximetric ?? signals were monitored. 2. The planned puncture sites were prepped with chlorhexidine and draped in the usual sterile ?? manner. 3. Local anesthesia was provided. 2% Lidocaine was administered to the access site(s). 4. A 6FR/.021 GlideSheath Slender sheath was advanced into the right radial artery access. A ?? catheter was placed through the sheath in the right radial artery access. 5. Selective right coronary angiography was performed. A 5 FR Edwin catheter was introduced. ?? Contrast was injected. Images were obtained using multiple projections. 6. Selective left coronary angiography was performed. A 5 FR Edwin catheter was introduced. Contrast ?? was injected. Images were obtained using multiple projections. 7. Right radial artery hemostasis was obtained. 8. Right radial artery hemostasis was obtained. Mechanical compression was applied. STUDY COMPLETION: The estimated blood loss was 10ml. All catheters introduced during the procedure were removed. ?? The patient tolerated the procedure well. Radiation exposure: ??Fluoroscopy time: 2.2min. Total time: 2.2min. Contrast: ?? Isovue 45ml (total dose). ??Isovue 155ml (wasted). CORONARY ARTERIES: The coronary circulation is right dominant. Left main: ??There are minor luminal irregularities. LAD: Prior intervention: stent, in the proximal LAD. ??Proximal vessel stenosis: There is a diffuse, 80%in-stent recurrent stenosis. 2nd diagonal: ??Proximal vessel stenosis: There is an 80%stenosis. 2nd obtuse marginal: ??Proximal vessel stenosis: There is a 40%stenosis. Right coronary: ??Mid-vessel stenosis: There is a 99%stenosis. ??There is DOE grade 0 flow (no flow) across the lesion. Right posterior descending: Collateral flow from the second septal to the mid RPDA. RCA posterolateral extension: Collateral flow from the distalcircumflex. Electronically signed by Don Mcgregor Jr., MD 2024-06-01 09:26 Procedure Note Don Mcgregor MD - 06/01/[address] [place] [address] Catheterization Laboratory Study Patient: René Rivera Study Date: 05/28/2024 : 1955 Referring: Doe Urbina MD Diagnostic Attending: Don Mcgregor ATTESTATION: Dr. Libby Weber was the initial author of this report. Dr. Don Mcgregor was present and supervising for the entire procedure. Gus, Dr. Don Mcgregor have reviewed and agreed with the findings of this report. PROCEDURE PLAN: A diagnostic study was performed without intervention. RESEARCH STUDY: Patient is not enrolled in any research studies. IMPRESSIONS: The study demonstrates severe coronary artery disease, predominantly involving the LAD and RCA, status post drug-eluting stent placement. Stent restenosis is present. Residual at risk territory is large. Coronary bypass grafting is indicated. SUMMARY: 1. History of present illness: Dyspnea. Known aortic stenosis. 2. LAD: Proximal vessel stenosis: There is a diffuse, 80%in-stentrecurrent stenosis. 3. 2nd diagonal: Proximal vessel stenosis: There is an 80%stenosis. 4. Right coronary: Mid-vessel stenosis: There is a 99%stenosis. There isTIMI grade 0 flow (no flow) across the lesion. RECOMMENDATIONS: A cardiac surgeon should be consulted for coronary artery bypass grafting. This consultation has been discussed with the referring physician. HISTORY: Dyspnea. Known aortic stenosis. PMH: Congestive Heart Failure LABS, PRIOR TESTS, PROCEDURES AND SURGERY: Blood tests: Serum creatinine (current admission) of 0.88 mg/dl. Hematocrit of 42.7%. Hemoglobin (pre-procedure) of 14.3 g/dl. STUDY DATA: Location: Catheterization laboratory. Sex: male. Patient is 68year(s) old. Height: 175.3cm. Weight: 91.6kg. BSA: 2.14m^2. PROCEDURES PERFORMED: Right radial artery access. Right coronary angiography. Left coronary angiography. ANESTHESIA: Conscious sedation was administered. PROCEDURE: 1. The patient was brought to the laboratory in an in the fasting statestate. A baseline ECG was recorded. Surface ECG leads, automatic cuff blood pressuremeasurements, and pulse oximetric signals were monitored. 2. The planned puncture sites were prepped with chlorhexidine and drapedin the usual sterile manner. 3. Local anesthesia was provided. 2% Lidocaine was administered to theaccess site(s). 4. A 6FR/.021 GlideSheath Slender sheath was advanced into the rightradial artery access. A catheter was placed through the sheath in the right radial arteryaccess. 5. Selective right coronary angiography was performed. A 5 FR Jackycatheter was introduced. Contrast was injected. Images were obtained using multipleprojections. 6. Selective left coronary angiography was performed. A 5 FR Jackycatheter was introduced. Contrast was injected. Images were obtained using multiple projections. 7. Right radial artery hemostasis was obtained. 8. Right radial artery hemostasis was obtained. Mechanical compression wasapplied. STUDY COMPLETION: The estimated blood loss was 10ml. All catheters introduced during the procedure were removed. The patient tolerated the procedure well. Radiation exposure: Fluoroscopy time: 2.2min. Total time: 2.2min. Contrast: Isovue 45ml (total dose). Isovue 155ml (wasted). CORONARY ARTERIES: The coronary circulation is right dominant. Left main: There are minor luminal irregularities. LAD: Prior intervention: stent, in the proximal LAD. Proximal vessel stenosis: There is a diffuse, 80%in-stent recurrent stenosis. 2nd diagonal: Proximal vessel stenosis: There is an 80%stenosis. 2nd obtuse marginal: Proximal vessel stenosis: There is a 40%stenosis. Right coronary: Mid-vessel stenosis: There is a 99%stenosis. There is DOE grade 0 flow (no flow) across the lesion. Right posterior descending: Collateral flow from the second septal to the mid RPDA. RCA posterolateral extension: Collateral flow from the distalcircumflex. Electronically signed by Don Mcgregor Jr., MD 2024-06-01 09:26 Doe Urbina MD CARDIAC CATH ORDERAB LES * (ABNORMAL) TROPONIN I (05/27/2024 18:32 EDT) Only the most recent of3 resultswithin the time period is included. Troponin I (ng/mL) 0.064(H) <0.034 ng/mL 05/27/2024 19:10 EDT [facility] Blood VENOUS BLOOD / Unknown Venipuncture / Unknown 05/27/2024 18:32 EDT 05/27/2024 18:38 EDT Narrative [facility] - 05/27/2024 19:10 EDT The results of this assay can be falsely lowered due to the consumption of Biotin. Glenis Tafoya MD CHEMISTRY & BLOOD GA S ORDERABLES [facility] [address] [place] [id number] * TRANSTHORACIC ECHO (TTE) COMPLETE W/DOPPLER W/CF W/ CONTRAST (05/27/2024 14:55 EDT) Mitral deceleration time 257 ms [facility] AV DOI 0.35 [facility] LV Diastolic Volume 167 mL [facility] LV Systolic Volume 97 mL [facility] Mitral A-wave peak velocity 0.6 m/s [facility] AR Max Chinedu 3.75 m/s [facility] Mitral E-wave peak velocity 0.7 m/s [facility] Mitral peak gradient, D 2 mmHg [facility] Aortic peak gradient, S 41 mmHg [facility] Stroke volume (SV), LVOT DP 81 ml [facility] Aortic valve VTI, S 71.9 cm [facility] Aortic valve peak velocity, S 3.2 m/s [facility] LVOT VTI, S 23.5 cm [facility] LVOT peak velocity, S 1.1 m/s [facility] LVOT area 3.5 cm2 [facility] LVOT ID, S 2.1 cm [facility] LV IVRT, DP 99 msec [facility] AV LVOT peak gradient 5 mmHg [facility] Velocity ratio, mean, LVOT/AV 0.37 [facility] Aortic mean gradient, S 24 mmHg [facility] AV regurgitation pressure 1/2 time 614 ms [facility] Aortic valve area, peak velocity 1.2 cm2 [facility] Aortic valve area VTI 1.1 cm2 [facility] LVOT mean gradient, S 3 mmHg [facility] LV ejection fraction, 1-p A4C 38 % [facility] LV ejection fraction, 1-p A2C 34 % [facility] Aortic valve mean velocity, S 2.2 m/s [facility] Aortic valve area 1.3 cm2 [facility] Aortic root ID 3.5 cm [facility] Ascending aorta ID, a-p 3.5 cm [facility] EF 37 % [facility] LV ID, ES, PLAX 4.6 2.1 - 4.0 cm [facility] LV PW thickness, ED, PLAX 1.1 0.6 - 1.1 cm [facility] LV ID, ED, PLAX 5.8 3.5 - 6.0 cm [facility] LV E/e', lateral 5.7 [facility] LA volume, ES, BP 70.0 ml [facility] LA Atrial Length A2C 5.7 cm [facility] LA volumes, ES, A4C 58.0 ml [facility] Pulmonic valve mean velocity, S 1 cm/s [facility] LA ID/bsa, A-P 1.7 cm/m2 [facility] LA ID, A-P, ES 3.7 cm [facility] LV end-diastolic volume, 1-p A4C 201 ml [facility] LV end diastolic volume 1-p A2C 216 ml [facility] Stroke index (SV/bsa) LVOT DP 36.0 ml/m2 [facility] LA/aortic root ratio 1.06 [facility] LV E/e', lateral 12.8 [facility] LV E/e', medial 13.9 [facility] LV e', lateral 5.70 cm/s [facility] LV e', medial 5.20 cm/s [facility] LVOT mean velocity, S 0.8 m/s [facility] IVS thickness, ED, PLAX 1.0 cm [facility] Aortic Valve Regurgitant Pressure Gradient 56.3 mmHg [facility] Aortic Insufficiency Deceleration Time 179 cm/s2 [facility] LV E/e', average 13 [facility] GLS 8.0 % [facility] Anatomical Region Laterality Modality Ultrasound Narrative 05/27/2024 16:09 EDT ?Left??Ventricle: The left ventricular cavity was in the upper limits of normal in size. Left ventricular systolic function was moderately decreased with an ejection fraction of 35-40%. There was severe hypokinesis to akinesis of the mid-apical anterior, anterolateral gustafson and entire apex. ?Right??Ventricle: The right ventricular cavity was normal in size. Right ventricular systolic function was normal. ?Aortic??Valve: There was moderate aortic valve stenosis. There was trace aortic valve regurgitation. AV Peak Velocity: 3.2 m/s. AV Mean Gradient: 24 mmHg. AV Area VTI: 1.1 cm2. ?Mitral??Valve: There was mild mitral regurgitation. Left Ventricle The left ventricular cavity was in the upper limits of normal in size. Left ventricular systolic function was moderately decreased with an ejection fraction of 35-40%. Left ventricular diastolic parameters were normal. Left ventricular wall thickness was at the upper limits of normal. There was severe hypokinesis to akinesis of the mid-apical anterior, anterolateral gustafson and entire apex. Global longitudinal strain was abnormal (-8%). No left ventricular thrombus visualized. Right Ventricle The right ventricular cavity was normal in size. Right ventricular systolic function was normal. Left Atrium Left atrial cavity was in the upper limits of normal in size. Right Atrium The right atrium was normal in size. IVC/SVC The inferior vena cava was normal in size. The inferior vena cava demonstrated a diameter of <=21 mm and collapses >50%; therefore, the right atrial pressure is estimated at 0-5 mmHg. Mitral Valve Mitral valve structure was normal. There was mild mitral regurgitation. There was no significant mitral valve stenosis. Tricuspid Valve Tricuspid valve structure was normal. There was trace tricuspid valve regurgitation. There was no tricuspid valve stenosis. Aortic Valve The aortic valve structure was probably trileaflet. The aortic leaflets moderately calcified. There was moderate aortic valve stenosis. There was trace aortic valve regurgitation. AV Peak Velocity: 3.2 m/s. AV Mean Gradient: 24 mmHg. AV Area VTI: 1.1 cm2. Pulmonic Valve The pulmonic valve was not well visualized. There was no significant pulmonic valve regurgitation. There was no pulmonic valve stenosis. Ascending Aorta The aortic root was normal in size. The visualized proximal ascending aorta was normal in size. Pericardium There was no pericardial effusion. Pulmonic Artery Unable to assess pulmonary artery pressure due to suboptimal tricuspid regurgitation envelope. Study Details Study status: Routine. Transthoracic echocardiography. M-Mode, complete 2D, complete spectral Doppler, and color Doppler.The study was interpreted by [facility]. Pertinent images and digital data are archived for permanent storage and are available for subsequent review. Scanning was performed from the apical, parasternal, subcostal and suprasternal acoustic windows. Definity contrast was used during the study. Overall the study quality was suboptimal. Images were obtained using cardiac ultrasound machine EPIQ #14. Doe Urbina MD CARDIAC ECHO ORDERAB LES * ECG REPORT - SCANNED (05/27/2024 13:45 EDT) 05/27/2024 13:4 5 EDT Scan 2 Patient Care Director PROCEDURE/MINOR SHARITA GICAL ORDERABLES * XR CHEST 2 VIEWS (05/27/2024 8:39 EDT) Anatomical Region Laterality Modality Computed Radiogr aphy 05/27/2024 8:51 EDT Impressions 05/27/2024 8:51 EDT Interstitial pulmonary edema. I have personally reviewed the images and the above interpretation and agree with the findings. [id number] Narrative 05/27/2024 8:51 EDT XR CHEST 2 VIEWS ??05/27/2024 8:30 AM Clinical History/comments: chest pain Comparison: None. Technique: Frontal and lateral views of the chest. Findings: Lungs: Indistinctness of the pulmonary vasculature. Interlobular septal thickening is present in the lung bases. No lobar consolidation. Pleura/diaphragms: Trace fissural fluid. No pneumothorax. Cardiac and mediastinal contours: Coronary stents in place. The cardiomediastinal silhouette is normal in size and contour. Soft tissues and extrathoracic findings: ??Normal. Bones: Normal. Resulting Agency Comment [id number] Procedure Note Sixto Brown MD - 05/27/2024 XR CHEST 2 VIEWS 05/27/2024 8:30 AM Clinical History/comments: chest pain Comparison: None. Technique: Frontal and lateral views of the chest. Findings: Lungs: Indistinctness of the pulmonary vasculature. Interlobular septalthickening is present in the lung bases. No lobar consolidation. Pleura/diaphragms: Trace fissural fluid. No pneumothorax. Cardiac and mediastinal contours: Coronary stents in place. Thecardiomediastinal silhouette is normal in size and contour. Soft tissues and extrathoracic findings: Normal. Bones: Normal. IMPRESSION Interstitial pulmonary edema. I have personally reviewed the images and the above interpretation andagree with the findings. [id number] Glenis Tafoya MD IMG DIAGNOSTIC IMAGI NG ORDERABLES * HOLD BLUE TOP (05/27/2024 8:27 EDT) Hold Hold 05/27/2024 9:45 EDT [facility] Blood VENOUS BLOOD / Unknown Venipuncture / Unknown 05/27/2024 8:27 EDT 05/27/2024 8:36 EDT Glenis Tafoya MD LAB INFO SERVICE AND SUPPORT & PHONE RESULT Performing Organization Address City/[facility] Co de Phone Number [facility] [address] [place] [address] * (ABNORMAL) NT PRO BNP (05/27/2024 8:27 EDT) NT-pro BNP 3,420(H) <299 pg/mL 05/27/2024 9:53 EDT [facility] Comment: In the acute setting NT-proBNP values <300 pg/mL have a 98% NPV for excluding acute heart failure. In outpatient populations, NT-proBNP values <125 have a 99% NPV for excluding heart failure. Blood VENOUS BLOOD / Unknown Venipuncture / Unknown 05/27/2024 8:27 EDT 05/27/2024 8:30 EDT Glenis Tafoya MD CHEMISTRY & BLOOD GA S ORDERABLES [facility] [address] [place] [address] * (ABNORMAL) LIPID PROFILE (INCLUDES CHOLESTEROL, TRIGLYCERIDES, HDL, LDL) (05/27/2024 8:27 EDT) Cholesterol 183 <200 mg/dL 05/27/2024 14:59 EDT [facility] Comment:Note that therapeuti c goals will differ between patients based on cardiac risk factors and current medical therapy. HDL 39(L) >=40 mg/dl 05/27/2024 14:59 EDT [facility] Comment:Note that therapeuti c goals will differ between patients based on cardiac risk factors and current medical therapy. LDL, Calculated 129 <160 mg/dL 14:59 T [facility] Comment:Note that therapeuti c goals will differ between patients based on cardiac risk factors and current medical therapy. Triglyceride 75 <=150 mg/dL 05/27/2024 14:59 EDT [facility] Comment:Note that therapeuti c goals will differ between patients based on cardiac risk factors and current medical therapy. Chol/HDL Ratio 4.7 See Note 05/27/2024 14:59 T [facility] Comment:No reference range h as been established for CHOL/HDL ratio. Non HDL Cholesterol 144 <160 mg/dL 05/27/2024 14:59 T [facility] Comment:Note that therapeuti c goals will differ between patients based on cardiac risk factors and current medical therapy. Blood VENOUS BLOOD / Unknown Venipuncture / Unknown 05/27/2024 8:27 EDT 05/27/2024 8:30 EDT Glenis Tafoya MD CHEMISTRY & BLOOD GA S ORDERABLES [facility] [address], [place] [id number] * HEMOGLOBIN A1C (05/27/2024 8:26 EDT) Hemoglobin A1c 5.3 <5.7 % 05/27/2024 20:16 EDT [facility] Comment: Glycemic Status References: Normal: ??<5.7% Pre-Diabetes: ??5.7% - 6.4% Diagnostic of Diabetes: ??> or = 6.5% (if confirmed) Est Avg Glucose 105 mg/dL 20:16 EDT [facility] Comment:The eAG represents t he A1c result expressed as average glucose in mg/dL. Blood VENOUS BLOOD / Unknown Venipuncture / Unknown 05/27/2024 8:26 EDT 05/27/2024 8:30 EDT Glenis Tafoya MD CHEMISTRY & BLOOD GA S ORDERABLES Performing Organization Address [facility]/State/[facility] Co de Phone Number [facility] [address] [place] [address] * EKG 12-LEAD (05/27/2024 8:24 EDT) 05/27/2024 8:24 EDT Narrative [facility] - 05/27/2024 13:30 EDT ?[facility] ? Test Date: ?2024-05-27 Pat Name: ? RENÉ RIVERA ? Department: ?? ED ? Room: ? AC01 Gender: ? Male ? 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 [id number] : ?1955 ? Requested By: ALTON Archer Number: [id number] ? Reading MD: ?? DOE URBINA MD ? Measurements Intervals ?[place] ? Rate: ? 71 ? P: ?38 LA: ? 189 ?QRS: ?30 QRSD: ? 102 ?T: ?93 QT: ? 376 ? QTc: ?410 ? Interpretive Statements SINUS RHYTHM WITH OCCASIONAL SUPRAVENTRICULAR PREMATURE COMPLEXES ANTERIOR MYOCARDIAL INFARCTION , PROBABLY RECENT ACUTE HI Compared to ECG 10/22/2023 07:50:59 Sinus bradycardia no longer present Myocardial infarct finding still present I reviewed the tracing and have either agreed or edited the findings in this report. Electronically Signed On 05-27-2024 13:30:19 EDT by DOE URBINA MD. Procedure Note Doe Urbina MD - 05/27/2024 [facility] Test Date: 2024-05-27 Pat Name: RENÉ RIVERA Department: ED Room: [facility] Gender: Male Concaving Machine Operator: [id number] : 1955 Requested By: ALTON ANGELES Order Number: [id number] Reading MD: DOE URBINA MD Measurements Intervals [place] Rate: 71 P: 38 LA: 189 QRS: 30 QRSD: 102 T: 93 QT: 376 QTc: 410 Interpretive Statements SINUS RHYTHM WITH OCCASIONAL SUPRAVENTRICULAR PREMATURE COMPLEXES ANTERIOR MYOCARDIAL INFARCTION , PROBABLY RECENT ACUTE HI Compared to ECG 10/22/2023 07:50:59 Sinus bradycardia no longer present Myocardial infarct finding still present I reviewed the tracing and have either agreed or edited the findings inthis report. Electronically Signed On 05-27-2024 13:30:19 EDT by DOE TELLEZ. Glenis Tafoya MD CARDIAC ECG ORDERABL ES Performing Organization Address [facility] Co de Phone Number [facility] * HEPATITIS C AB W REFLEX TO HCV RNA BY PCR (02/10/2023 8:40 EDT) Hep C Antibody Negative Negative 02/12/2023 9:40 EDT [facility] Blood VENOUS BLOOD / Unknown 02/10/2023 8:40 EDT 02/11/2023 18:03 EDT Provider Outr Resulting Lab CHEMISTRY & BLOOD GAS ORDERABLES Performing Organization Address [facility] Co de Phone Number [facility] [address] [place] [address] from Last 3 Months or Most Recently Relevant to Health Maintenance Advance Directives For more information, please contact: [phone] * Limitation of Treatment (Latest Code Status on File) Date Activated Date Inactivated Comments 05/27/2024 15:07 05/31/2024 13:04 Question Answer Comments When the patient has NO PULSE: DNR When the patient HAS A PULSE and is in respiratory distress/failure: Do not intubate (DNI) Who Made the Decision? Patient * Full Code Date Activated Date Inactivated Comments 05/27/2024 14:29 05/27/2024 15:07 Question Answer Comments When the patient has NO PULSE: Full Code / CPR Who Made the Decision? Default/Not Discussed * Full Code Date Activated Date Inactivated Comments 10/19/2023 2:15 10/22/2023 12:58 Question Answer Comments When the patient has NO PULSE: Full Code / CPR Who Made the Decision? Default/Not Discussed * Full Code Date Activated Date Inactivated Comments 10/08/2015 7:36 10/09/2015 16:08 Question Answer Comments Reason for decision includes: Full code consistent with overall plan of care Who participated in the discussion? Not Discusse d * Full Code Date Activated Date Inactivated Comments 10/08/2015 7:15 10/08/2015 7:36 Question Answer Comments Reason for decision includes: Full code consistent with overall plan of care Who participated in the discussion? Patient Care Teams Punch Finisher Relationship Specialty Start Date End Date Jaz Lyon [place] [facility] [address] [place] [address] PCP - General Family Medicine - Primary Care 05/27/24
--- OUTSIDE RECORDS SUMMARY | 2024-06-23 16:41 | XMS_ITS | Referral Summary ---
Author Organization [facility] Address [address] [place] [address] Care Team Providers Care Physical Medicine Physician Name Role Phone Jaz Lyon Primary Care Provider Encounters Date Type Department Care Team Description 06/13/2024 Telephone [facility] Cardiology - [address] [place], [place] [phone] Wilberto Ocasio MD Appointment Related 06/13/2024 Telephone [facility] Cardiothoracic Surgery [address] [id number] Livier Ribera MD Appointment Related (Cancel 1000 appt on 06/13/24) 06/02/2024 Telephone [facility] Cardiothoracic Surgery [address] [phone] Livier Ribera MD Appointment Related 05/27/2024 8:15 EDT - 05/31/2024 11:04 EDT Hospital Encounter [facility] Specialty Surgery Unit [address] [place] [phone] Glenis Tafoya MD Carey, Kevin T, MD Khadanga, Sherrie, MD Acute on chronic combined systolic and diastolic congestive heart failure (HCC-CMS) (Primary Dx); Nonrheumatic aortic valve stenosis; NSTEMI (non-ST elevated myocardial infarction) (HCC-CMS); HFrEF (heart failure with reduced ejection fraction) ([facility]); Primary hypertension; Coronary artery disease involving otoe-missouria coronary artery of otoe-missouria heart without angina pectoris; CAD, multiple vessel Discharge Disposition: Home or Self Care 05/30/2024 13:10 EDT Ancillary Procedure [facility] Vascular Surgery [facility] [address] [place] [address] 05/30/2024 13:05 EDT Ancillary Procedure [facility] Vascular Surgery [facility] [address] [place] [address] 05/28/2024 11:09 EDT - 05/28/2024 12:09 EDT Surgery [facility] Invasive Cardiology Unit [address] [place] [address] Don Mcgregor MD Left Heart Cath 05/27/2024 Travel from Last 3 Months Allergies Active Allergy Reactions Criticality Noted Date [...] 81 mg tabletIndication s:Coronary artery disease involving otoe-missouria coronary artery of otoe-missouria heart without angina pectoris Take 1 Tablet by mouth daily. 30 Tablet 11 06/01/2024 Active losartan (COZAAR) 25 mg tabletIndication s:HFrEF (heart failure with reduced ejection fraction) ([facility]) Take 1 Tablet by mouth daily. 30 Tablet 11 05/31/2024 Active rosuvastatin (CRESTOR) 40 mg tabletIndication s:Coronary artery disease involving otoe-missouria coronary artery of otoe-missouria heart without angina pectoris Take 1 Tablet by mouth daily. 90 Tablet 3 06/01/2024 Active spironolactone (ALDACTONE) 25 mg tabletIndication s:HFrEF (heart failure with reduced ejection fraction) ([facility]-CMS) Take 1 Tablet by mouth daily. 90 Tablet 3 06/01/2024 Active metoprolol SUCCinate (TOPROL-XL) 25 mg tabletIndication s:HFrEF (heart failure with reduced ejection fraction) ([facility]),[place] artery disease involving otoe-missouria coronary artery of otoe-missouria heart without angina pectoris Take 1 Tablet [...] s:HFrEF (heart failure with reduced ejection fraction) ([facility]),[place] artery disease involving otoe-missouria coronary artery of otoe-missouria heart without angina pectoris Take 1 Tablet by mouth daily. 90 Tablet 3 05/31/2024 4 Discontinued Active Problems Problem Noted Date Diagnosed Date Patient nonadherent with med ication regimen due to financial hardship 05/31/2024 HFrEF (heart failure with re duced ejection fraction) ([facility]) 05/30/2024 NSTEMI (non-ST elevated myocardial infarction) ( [facility]) 05/27/2024 Acute on chronic combined sy stolic and diastolic congestive heart failure ([facility]) 05/27/2024 Nonrheumatic aortic valve stenosis 05/27/2024 STEMI (ST elevation myocardial infarction) ([facility]) 10/19/2023 Non-recurrent unilateral ing uinal hernia without obstruction or gangrene 03/31/2019 ST elevation myocardial infarction (STEMI) ([facility]) 10/08/2015 BPH (benign prostatic hyperplasia) 10/08/2015 Obesity 10/08/2015 HLD (hyperlipidemia) 10/08/2015 Depression 10/08/2015 Tubular adenoma of colon 10/08/2015 Melanoma ([facility]) 10/08/2015 Overview: S/p excision 2008 HTN (hypertension) 10/08/2015 Immunizations Name Administration Dates Next Due Influenza Vaccine Quad (AFLURIA) PF 0.5 ml IM (3 yrs+) 10/09/2015 Social History Tobacco Use Types Packs/Day Years [...] any time in the past 12 [address] [place], were you homeless or living in a penitentiary (including now)? No 05/30/2024 Interpersonal Safety Answer Date Record ed Physically Hurt Never 04/22/2020 Verbally Threaten Not on file 04/22/2020 Sex and Gender Information Value Date Recorded Sex Assigned at Not on file Gender Identity Male 11/13/2019 2:37 EST Sexual Orientation Not on file Last Filed Vital Signs Vital Sign Reading [...] Body Mass Index 28.94 05/27/2024 1305 EDT Functional Status Functional Status Response Date of Assess ment Are you deaf or do you have serious difficulty h earing? No 05/27/2024 Are you blind or do you have serious difficulty seeing, even when wearing glasses? No 10/19/2023 Do you have serious difficul ty walking or climbing stairs? (5 years old or older) No 10/19/2023 Do you have difficulty dress ing or bathing? (5 years old or older) No 10/19/2023 Because of a physical, menta l, or emotional condition, do you have difficulty doing errands alone such as visiting a doctor's office or shopping? (15 years old or older) No 10/19/2023 Cognitive Status Response Date of Assessm ent Because of a physical, menta l, or emotional condition, do you have serious difficulty concentrating, remembering, or making decisions? (5 years old or older) No 10/19/2023 Plan of Treatment Upcoming Encounters Date Type Department Care Team (Late st Contact Info) Description 07/12/2024 16:45 EDT Office Visit [facility] Cardiology [place] [address] [place] [address] Wilberto Ocasio MD [address] [employer] [address] [place] [phone] Medical Devices Implanted Type Area Timber Treating Tank Operator Device Identifier Shelf Expiration Date Model / Serial / Lot Stent [place] 3.0 X 22mm [employer] Coronary Stent System [place] [id number] x - [id number] Implanted:Qt y: 1 on 10/19/2023 by Eva Bryan MD at [facility] Drug Eluting Stent N/A: Coronary [employer] [id number] 06/11/2026 [id number] / / [id number] Procedures Procedure Name Priority Date/Time Associated Diagnosis [...] 11:52 EDT NSTEMI (non-ST elevated myocardial infarction) (HCC-CMS) HEPARIN LEVEL - UNFRACTIONATED HEPARIN STAT 05/28/2024 [...] EDT) 2024 12:1 7 EDT Scan 2 Grain Elevator Motor Starter PROCEDURE/MINOR SHARITA GICAL ORDERABLES * (ABNORMAL) BASIC METABOLIC PANEL (BMP) (05/31/2024 8:17 EDT) Only the most recent of2 resultswithin the time period is included. Sodium 140 136 - 145 mmol/L 05/31/2024 9:18 [facility] Potassium 3.8 3.5 - 5.0 mmol/L 05/31/2024 9:18 [facility] Chloride 104 96 - 110 mmol/L 05/31/2024 9:18 [facility] CO2 Total 24 22 - 32 mmol/L 05/31/2024 9:18 [facility] Anion Gap 12 5 - 14 mmol/L 05/31/2024 9:18 [facility] Glucose 139(H) 70 - 99 mg/dl 05/31/2024 9:18 [facility] Calcium 9.5 8.5 - 10.5 mg/dL 05/31/2024 9:18 [facility] BUN 15 10 - 26 mg/dL 05/31/2024 9:18 EDT [facility] Creatinine 0.97 0.66 - 1.25 mg/dL 05/31/2024 9:18 EDT [facility] eGFR 86 >60 mL/min/1.73 m2 05/31/2024 9:18 EDT [facility] Blood VENOUS BLOOD / Unknown Venipuncture / Unknown 05/31/2024 8:17 EDT 05/31/2024 8:49 EDT Manjula Harkins NP CHEMISTRY & BLOOD GAS ORDERABLES [facility] [address] [place] [address] * US VEIN MAPPING: CABG (05/30/2024 14:08 [...] Hypertension. Oniel Lee PA-C IMG US VASCULAR DANICA ALLEN * US CAROTID-VERTEBRAL DUPLEX BILATERAL (05/30/2024 14:07 [...] use. Oniel Lee PA-C IMG US VASCULAR ORDE ALEJANDRO * (ABNORMAL) VITAMIN D (25,OH) (05/30/2024 5:50 EDT) 25OH Vitamin D Tot 14(L) 30 - 100 ng/mL 05/30/2024 11:41 EDT [facility] Comment: Vitamin D 25,OH Interpretive Ranges: Deficiency: ??<10.0 ng/mL Insufficiency: ??10.0 - 30.0 ng/mL Sufficiency: ??30.0 - 100.0 ng/mL Toxicity: ??>100.0 ng/mL Blood VENOUS BLOOD / Unknown Venipuncture / Unknown 05/30/2024 5:50 EDT 05/30/2024 6:17 EDT Doe Urbina MD CHEMISTRY & BLOOD GA S ORDERABLES Performing Organization Address [facility] Co de Phone Number [facility] [address] [place] [address] * HEPARIN LEVEL - UNFRACTIONATED HEPARIN (05/30/2024 5:50 EDT) Only the most recent of7 resultswithin the time period is included. [facility] Heparin Level-UFH 0.38 Therapeutic Range: 0.30 - 0.70 IU/mL 05/30/2024 6:46 EDT [facility] Comment:Unfractionated hepar in therapeutic range [...] & PF4 ORD ERABLES Performing Organization Address [facility] Co de Phone Number [facility] [address] [place] [address] * BUN (05/30/2024 5:50 EDT) Only the most recent of3 resultswithin the time period is included. Pathologist [facility] BUN 13 10 - 26 mg/dL 05/30/2024 6:49 EDT [facility] Blood VENOUS BLOOD / Unknown Venipuncture / Unknown 05/30/2024 5:50 EDT 05/30/2024 6:17 EDT Glenis Tafoya MD CHEMISTRY & BLOOD GA S ORDERABLES [facility] [address] [place] [address] * MAGNESIUM (05/30/2024 5:50 EDT) Only the most recent of3 resultswithin the time period is included. Magnesium 2.1 1.7 - 2.8 mg/dL 05/30/2024 6:49 EDT [facility] Blood VENOUS BLOOD / Unknown Venipuncture / Unknown 05/30/2024 5:50 EDT 05/30/2024 6:17 EDT Doe Urbina MD CHEMISTRY & BLOOD GA S ORDERABLES Performing Organization Address City/[facility] Co de Phone Number [facility] [address] [place] [address] * CREATININE (05/30/2024 5:50 EDT) Only the most recent of3 resultswithin the time period is included. Creatinine 0.93 0.66 - 1.25 mg/dL 05/30/2024 6:49 EDT [facility] eGFR 91 >60 mL/min/1.73 m2 05/30/2024 6:49 EDT [facility] Blood VENOUS BLOOD / Unknown Venipuncture / Unknown 05/30/2024 5:50 EDT 05/30/2024 6:17 EDT Glenis Tafoya MD CHEMISTRY & BLOOD GA S ORDERABLES [facility] [address] [place] [address] * ELECTROLYTES (05/30/2024 5:50 EDT) Only the most recent of3 resultswithin the time period is included. Pathologist [facility] Sodium 139 136 - 145 mmol/L 05/30/2024 6:49 EDT [facility] Potassium 4.1 3.5 - 5.0 mmol/L 05/30/2024 6:49 EDT [facility] Chloride 106 96 - 110 mmol/L 05/30/2024 6:49 EDT [facility] CO2 Total 22 22 - 32 mmol/L 05/30/2024 6:49 EDT [facility] Anion Gap 11 5 - 14 mmol/L 05/30/2024 6:49 T [facility] Blood VENOUS BLOOD / Unknown Venipuncture / Unknown 05/30/2024 5:50 EDT 05/30/2024 6:17 EDT Glenis Tafoya MD CHEMISTRY & BLOOD GA S ORDERABLES [facility] [address] [place] [address] * COMPLETE BLOOD COUNT AND DIFFERENTIAL (05/29/2024 5:47 EDT) Only the most recent of2 resultswithin the time period is included. WBC 7.06 4.00 - 10.40 K/cmm 05/29/2024 5:59 EDT [facility] RBC 4.65 4.36 - 5.78 M/cmm 05/29/2024 5:59 EDT [facility] Hemoglobin 14.4 13.8 - 17.3 g/dL 05/29/2024 5:59 EDT [facility] HCT 41.9 39.5 - 50.2 % 05/29/2024 5:59 EDT [facility] MCV 90 81 - 95 fL 05/29/2024 5:59 EDT [facility] MCH 31.0 27.6 - 33.0 pg 05/29/2024 5:59 [facility] MCHC 34.4 32.8 - 36.4 g/dL 05/29/2024 5:59 [facility] RDW-CV 13.2 <14.2 % 05/29/2024 5:59 [facility] RDW-SD 43.6 <46.0 fl 05/29/2024 5:59 [facility] PLT 151 141 - 377 K/cmm 05/29/2024 5:59 [facility] MPV 11.2 9.5 - 12.7 fL 05/29/2024 5:59 [facility] % Neutrophils 70.4 % 05/29/2024 5:59 [facility] % Lymphocytes 16.4 % 05/29/2024 5:59 [facility] % Monocytes 9.9 % 05/29/2024 5:59 [facility] % Eosinophils 2.5 % 05/29/2024 5:59 [facility] % Basophils 0.7 % 05/29/2024 5:59 [facility] % Immature Grans 0.1 % 05/29/20 5:59 [facility] Absolute Neutrophils 4.96 2.20 - 8.85 K/cmm 05/29/2024 5:59 [facility] Absolute Lymphocytes 1.16 1.09 - 3.30 K/cmm 05/29/2024 5:59 [facility] Absolute Monocytes 0.70 0.10 - 0.80 K/cmm 05/29/2024 5:59 [facility] Absolute Eosinophils 0.18 0.03 - 0.61 K/cmm 05/29/2024 5:59 [facility] ABS Basophils 0.05 0.01 - 0.11 K/cmm 05/29/2024 5:59 [facility] Absolute Immature Grans 0.01 0.00 - 0.06 K/cmm 05/29/2024 5:59 EDT [facility] Type of Differential: Auto 05/29/2024 5:59 EDT [facility] Blood VENOUS BLOOD / Unknown Venipuncture / Unknown 05/29/2024 5:47 EDT 05/29/2024 5:52 EDT Glenis Tafoya MD PACKAGES & DNA PROBE ORDERABLES [facility] [address] [place] [address] * LEFT HEART CATH (05/28/2024 11:52 EDT) Anatomical Region Laterality Modality Produce Specialist 05/28/2024 11:3 8 EDT Narrative 06/01/2024 9:26 EDT Cardiology [address] [place] [address] Catheterization Laboratory Study Patient: René Rivera Study Date: ??05/28/2024 ? : ? 1955 Referring: Doe Urbina MD Diagnostic Attending: ??Don Mcgregor ATTESTATION: IDr. Libby was the initial author of this report. [...] Note Don Mcgregor MD - 06/01/[address] [place] [address] Catheterization Laboratory Study Patient: René Rivera Study Date: 05/28/2024 : 1955 Referring: Doe Urbina MD Diagnostic Attending: Don Mcgregor ATTESTATION: I, Dr. Libby Jeronimo was the initial author of this report. [...] (ng/mL) 0.064(H) <0.034 ng/mL 05/27/2024 19:10 EDT [facility] Blood VENOUS BLOOD / Unknown Venipuncture / Unknown 05/27/2024 18:32 EDT 05/27/2024 18:38 EDT Narrative [facility] - 05/27/2024 19:10 EDT The results of this assay can be falsely lowered due to the consumption of Biotin. Glenis Tafoya MD CHEMISTRY & BLOOD GA S ORDERABLES [facility] [address] [place] [address] * TRANSTHORACIC ECHO (TTE) COMPLETE W/DOPPLER W/CF [...] Aortic valve mean velocity, S 2.2 m/s [facility] POINT OF CARE Aortic valve area 1.3 cm2 [facility] POINT OF CARE Aortic root ID 3.5 cm [facility] POINT [facility] C[facility] Ascending aorta ID, a-p 3.5 cm [facility] POINT OF CARE EF 37 % [facility] POIN T OF CARE LV ID, ES, PLAX 4.6 2.1 - 4.0 cm [facility] C[facility] LV PW thickness, ED, PLAX 1.1 0.6 - 1.1 cm [facility] LV ID, ED, PLAX 5.8 3.5 - 6.0 cm [facility] C[facility] LV E/e', lateral 5.7 [facility] POINT [facility] C[facility] LA volume, ES, BP 70.0 ml [facility] LA Atrial Length A2C 5.7 cm [facility]INT [facility] C[facility] LA volumes, ES, A4C 58.0 ml [facility] Pulmonic valve mean velocity, S 1 cm/s [facility] LA ID/bsa, A-P 1.7 cm/m2 [facility] LA ID, A-P, ES 3.7 cm [facility] LV end-diastolic volume, 1-p A4C 201 ml [facility] POINT [facility] CARE LV end diastolic volume 1-p A2C 216 ml [facility] POINT OF CARE Stroke index (SV/bsa) LVOT DP 36.0 ml/m2 [facility] LA/aortic root ratio 1.06 [facility] LV E/e', lateral 12.8 [facility]INT [facility] LV E/e', medial 13.9 [facility] N POINT OF CARE LV e', lateral 5.70 cm/s [facility] POINT OF CARE LV e', medial 5.20 cm/s [facility] C[facility] LVOT mean velocity, S 0.8 m/s [facility] POINT OF CARE IVS thickness, ED, PLAX 1.0 cm [facility] POINT OF CARE Aortic Valve Regurgitant Pressure [...] color Doppler.The study was interpreted by [facility]. Pertinent images and [...] EDT) 05/27/2024 13:4 5 EDT Scan 2 Grain Elevator Motor Starter PROCEDURE/MINOR SHARITA GICAL ORDERABLES * XR CHEST 2 VIEWS (05/27/2024 8:39 EDT) Anatomical Region Laterality Modality Computed Radiogr aphy 05/27/2024 8:51 EDT Impressions 05/27/2024 8:51 EDT Interstitial pulmonary edema. I have personally reviewed the images and the above interpretation and agree with the findings. [id number] Narrative 05/27/2024 8:51 EDT XR CHEST 2 [...] findings: ??Normal. Bones: Normal. Resulting Agency Comment [id number] Procedure Note Sixto Brown MD - 05/27/2024 [...] the above interpretation andagree with the findings. [id number] Glenis Tafoya MD IMG DIAGNOSTIC IMAGI NG ORDERABLES * HOLD BLUE TOP (05/27/2024 8:27 EDT) Hold Hold 05/27/2024 9:45 EDT [facility] Blood VENOUS BLOOD / Unknown Venipuncture / Unknown 05/27/2024 8:27 EDT 05/27/2024 8:36 EDT Glenis Tafoya MD LAB INFO SERVICE AND SUPPORT & PHONE RESULT [facility] [address] [place] [address] * (ABNORMAL) NT PRO BNP (05/27/2024 8:27 EDT) NT-pro BNP 3,420(H) <299 pg/mL 05/27/2024 9:53 EDT [facility] Comment: In the acute setting NT-proBNP values <300 pg/mL have a 98% NPV for excluding acute heart failure. In outpatient populations, NT-proBNP values <125 have a 99% NPV for excluding heart failure. Blood VENOUS BLOOD / Unknown Venipuncture / Unknown 05/27/2024 8:27 EDT 05/27/2024 8:30 EDT Glenis Tafoya MD CHEMISTRY & BLOOD GA S ORDERABLES Performing Organization Address [facility] Co de Phone Number [facility] [address] [place] [address] * (ABNORMAL) LIPID PROFILE (INCLUDES CHOLESTEROL, TRIGLYCERIDES, HDL, LDL) (05/27/2024 8:27 EDT) Cholesterol 183 <200 mg/dL 05/27/2024 14:59 EDT [facility] Comment:Note that therapeuti c goals will differ between patients based on cardiac risk factors and current medical therapy. HDL 39(L) >=40 mg/dl 05/27/2024 14:59 EDT [facility] Comment:Note that therapeuti c goals will differ between patients based on cardiac risk factors and current medical therapy. LDL, Calculated 129 <160 mg/dL 14:59 EDT [facility] Comment:Note that therapeuti c goals will differ between patients based on cardiac risk factors and current medical therapy. Triglyceride 75 <=150 mg/dL 05/27/2024 14:59 T [facility] Comment:Note that therapeuti c goals will differ between patients based on cardiac risk factors and current medical therapy. Chol/HDL Ratio 4.7 See Note 05/27/2024 14:59 T [facility] Comment:No reference range h as been established for CHOL/HDL ratio. Non HDL Cholesterol 144 <160 mg/dL 05/27/2024 14:59 T [facility] Comment:Note that therapeuti c goals will differ between patients based on cardiac risk factors and current medical therapy. Blood VENOUS BLOOD / Unknown Venipuncture / Unknown 05/27/2024 8:27 EDT 05/27/2024 8:30 EDT Glenis Tafoya MD CHEMISTRY & BLOOD GA S ORDERABLES Performing Organization Address City/[facility]/ZIP Co de Phone Number [facility] [address] [place] [address] * HEMOGLOBIN A1C (05/27/2024 8:26 EDT) Hemoglobin A1c 5.3 <5.7 % 05/27/2024 20:16 EDT [facility] Comment: Glycemic Status References: Normal: ??<5.7% Pre-Diabetes: ??5.7% - 6.4% Diagnostic of Diabetes: ??> or = 6.5% (if confirmed) Est Avg Glucose 105 mg/dL 20:16 EDT [facility] Comment:The eAG represents t he A1c result expressed as average glucose in mg/dL. Blood VENOUS BLOOD / Unknown Venipuncture / Unknown 05/27/2024 8:26 EDT 05/27/2024 8:30 EDT Glenis Tafoya MD CHEMISTRY & BLOOD GA S ORDERABLES [facility] [address] [place] [address] * EKG 12-LEAD (05/27/2024 8:24 EDT) 05/27/2024 8:24 EDT Narrative [facility] EKG - 05/27/2024 13:30 EDT ?[facility] Emergency ? Test Date: ?2024-05-27 Pat Name: ? RENÉ RIVERA ? Department: ?? ED ? Room: ? AC01 Gender: ? Male ? Business Data Analyst: ?? [id number] : ?1955 ? Requested By: ALTON ANGELES Order Number: [id number] ? Reading MD: ?? DOE URBINA MD ? Measurements Intervals ?[place] ? Rate: ? 71 ? P: ?38 KS: ? 189 ?QRS: ?30 QRSD: ? 102 [...] Note Doe Urbina MD - 05/27/2024 [facility] Test Date: 2024-05-27 Pat Name: RENÉ RIVERA Department: ED Room: [facility] Gender: Male Business Data Analyst: [id number] : 1955 Requested By: ALTON ANGELES Order Number: [id number] Reading MD: DOE URBINA MD Measurements Intervals [place] Rate: 71 P: 38 KS: 189 QRS: 30 QRSD: 102 T: 93 [...] Glenis Tafoya MD CARDIAC ECG ORDERABL ES [facility] EKG * HEPATITIS C AB W REFLEX TO HCV RNA BY PCR (02/10/2023 8:40 EDT) Hep C Antibody Negative Negative 02/12/2023 9:40 EDT [facility] Blood VENOUS BLOOD / Unknown 02/10/2023 8:40 EDT 02/11/2023 18:03 EDT Provider Outr Resulting Lab CHEMISTRY & BLOOD GAS ORDERABLES [facility] [address] [place] [address] from Last 3 Months or Most Recently Relevant to Health Maintenance Advance Directives For more information, please contact: [phone] * Limitation of Treatment (Latest Code Status [...] participated in the discussion? Patient Care Teams Physical Medicine Physician Relationship Specialty Start Date End Date Jaz Lyon PA [address] [place] [address] PCP - General Family Medicine - Primary Care 05/27/24
--- OUTSIDE RECORDS SUMMARY | 2024-06-23 16:41 | XMS_ITS | Encounter Summary ---
Author Organization [facility] Address [address] [place] [address] Care Team Providers Care Honeycomb Blanket Maker Name Role Phone Jaz Lyon Primary Care Provider Reason for Visit * Reason Onset Date Comments Appointment Related 06/13/2024 Encounter Details Date Type Department Care Team (Late st Contact Info) Description 06/13/2024 Telephone [facility] Cardiology - [address] [place] [address] Wilberto Ocasio MD 1 [facility] [address] [place] [address] Appointment Related Social History Tobacco Use Types Packs/Day Years Used Date Smoking Tobacco: Former Cigarettes 0.5 20 1 - 07/08/2015 Smokeless Tobacco: Never Alcohol Use Standard Drinks/Week Comments Not Currently [...] any time in the past 12 m onths, were you homeless or living in a long term (including now)? No 05/30/2024 Interpersonal Safety Answer Date Record ed Physically Hurt Never 04/22/2020 Verbally Threaten Not on file 04/22/2020 Sex and Gender Information Value Date Recorded Sex Assigned at Not on file Gender Identity Male 11/13/2019 2:37 EST Sexual Orientation Not on file documented as of this encounter Functional Status Functional Status Response Date of [...] (5 years old or older) No 10/19/2023 documented as of this encounter Miscellaneous Notes * Telephone Encounter - Adriana Feldman - 06/13/2024 0807 EDT Left message for patient as we have a cancellation with Dr. Ocasio tomorrow 06/14, at 4:45. documented in this encounter Plan of Treatment Upcoming Encounters Date Type Department Care Team (Late st Contact Info) Description 07/12/2024 16:45 EDT Office Visit [facility] Cardiology - [place] [address] Wilberto Ocasio MD 1 [facility] [address] [place] [address] documented as of this encounter Visit Diagnoses Not on filedocumented in this encounter Care Teams Honeycomb Blanket Maker Relationship Specialty Start Date End Date Jaz Lyon PA [address] [place] [address] PCP - General Family Medicine - Primary Care 05/27/24 documented as of this encounter
--- OUTSIDE RECORDS SUMMARY | 2024-06-23 16:41 | XMS_ITS | Encounter Summary ---
Author Organization [facility] Address [address] [place] [address] Care Team Providers Care Space And Missile Operations Spacelift Name Role Phone Jaz Lyon Primary Care Provider Reason for Visit * Reason Onset Date Comments Appointment Related 06/13/2024 Cancel 1000 appt on 06/13/24 Encounter Details Date Type Department Care Team (Late st Contact Info) Description 06/13/2024 Telephone [facility] [address] [place], [place] [address] Livier Ribera MD [address] [facility], [address] [place] [address] Appointment Related (Cancel 1000 appt on 06/13/24) Social History Tobacco Use Types Packs/Day Years [...] any time in the past 12 m [facility], were you homeless or living in a detention (including now)? No 05/30/2024 Interpersonal Safety Answer [...] encounter Miscellaneous Notes * Telephone Encounter - Tabatha Chapin - 06/13/2024 0749 EDT PAS Message: Patient called to cancel their appointment with Livier Ribera MD on 06/13/24 at 1000 due to wanting to wait and see what Dr. Ocasio says before scheduling. Patient would like a call back to reschedule? No, patient will call back to reschedule. documented in this encounter Plan of Treatment Upcoming Encounters Date Type Department Care Team (Late st Contact Info) Description 07/12/2024 16:45 EDT [facility] Cardiology [place] [address] Wilberto Ocasio MD 1 [facility] [address] [place] [address] documented as of this encounter Visit Diagnoses Not on filedocumented in this encounter Care Teams Space And Missile Operations Spacelift Relationship Specialty Start Date End Date Jaz Lyon PA [address] [place] [address] PCP - General Family Medicine - Primary Care 05/27/24 documented as of this encounter
--- OUTSIDE RECORDS SUMMARY | 2024-06-23 16:41 | XMS_ITS | Encounter Summary ---
Author Organization [facility] Address [address] [place] [address] Care Team Providers Care Safety Teacher Name Role Phone Jaz Lyon Primary Care Provider Reason for Visit * Reason Onset Date Comments Appointment Related 06/02/2024 Encounter Details Date Type Department Care Team (Late st Contact Info) Description 06/02/2024 Telephone [facility] Cardiothoracic Surgery - [address] [address] Livier Ribera MD 111 [facility], [address] [place] [address] Appointment Related Social History Tobacco Use Types [...] any time in the past 12 m [facility], were you homeless or living in a usp (including now)? No 05/30/2024 Interpersonal Safety Answer [...] encounter Miscellaneous Notes * Telephone Encounter - Farhana Murphy - 06/02/2024 1442 EDT TC to patient to advise of two appointments on 06/13. Patient is aware to arrive at 8:00 am for an 8:15 am Echocardiogram. At 10:00 am, patient will meet with Dr Ribera in the clinic. Did not reachpatient, but left details on his voicemail. Waiting for patient to call the office and confirm these appointments. documented in this encounter Plan of Treatment Upcoming Encounters Date Type Department Care Team (Late st Contact Info) Description 07/12/2024 16:45 EDT Office Visit [facility] Cardiology [place] [address] Wilberto Ocasio MD 1 [facility] [address] [place] [address] documented as of this encounter Visit Diagnoses Not on filedocumented in this encounter Care Teams Safety Teacher Relationship Specialty Start Date End Date Jaz Lyon PA [facility] [address] [place], [place] [phone] PCP - General Family Medicine - Primary Care 05/27/24 documented as of this encounter
--- OUTSIDE RECORDS SUMMARY | 2024-06-23 16:41 | XMS_ITS ---
Author Organization Unknown Address [address] [place] [phone] Phone Care Team Providers Care Auto Specialty Services Manager Name Role Phone TIFFANIE PAINTING Registered Nurse Unavailab rosalino Garcia Attending Unavailable UNLISTED PROVIDER - REQUESTED Xhandoff Un available Results TROPONIN HIGH SENSITIVITY* - Collect Date/Time: 10/18/2023 23:30 [facility] ID: [id number] [address] [place] [address], [address] LOINC: 48467-9 Test Value Unit Reference Range Code Code System Flag TROPONIN HS 166.9 pg/mL L=0.0 H=60.4 HH Specimen seq. ADM. PTT PARTIAL THROMBOPLASTIN T MIKE* - Collect Date/Time: 10/18/2023 23:30 [facility] ID: [id number] [address] [place] [address], [id number] LOINC: 49682-6 Test Value Unit Reference Range Code Code System Flag PTT 27.0 seconds L=24.5 H=32.8 92206-0 LOINC PT PROTHROMBIN TIME* - Colle ct Date/Time: 10/18/2023 23:30 [facility] ID: [id number] [address] [place] [address], [address] LOINC: 5902-2 Test Value Unit Reference Range Code Code System Flag PROTIME 10.2 seconds L=9.3 H=11.4 5902-2 LOINC INR 0.98 L=2.00 H=3.00 92680-2 LOINC L COMPREHENSIVE METABOLIC PANE L (CMP) - Collect Date/Time: 10/18/2023 23:30 [facility] ID: [id number] [address] [place] [address], [address] LOINC: 59050-9 Test Value Unit Reference Range Code Code System Flag GLUCOSE 154 mg/dL L=70 H=116 2345-7 LOINC H BUN 15 mg/dL L=6 H=25 3094-0 LOINC CREATININE 1.16 mg/dL L=0.67 H=1.17 2160-0 LOINC SODIUM SERUM 136 mmol/L L=136 H=145 2951-2 LOINC POTASSIUM SERUM 3.3 mmol/L L=3.4 H=5.2 2823-3 LOINC L CHLORIDE SERUM 98 mmol/L L=96 H=110 2075-0 LOINC CARBON DIOXIDE (CO2) 29 mmol/L L=22 H=34 2028-9 LOINC ANION GAP 8.8 mmol/L 72205-7 LOINC CALCIUM SERUM 9.6 mg/dL L=8.2 H=10.2 26490-8 LOINC BILIRUBIN TOTAL 0.5 mg/dL L=0.0 H=1.3 1975-2 LOINC ALK. PHOS. 82 U/L L=46 H=116 6768-6 LOINC SGOT (AST) 21 U/L L=15 H=37 1920-8 LOINC SGPT (ALT) 24 U/L L=12 H=78 1742-6 LOINC TOTAL PROTEIN 7.5 gm/dL L=6.0 H=8.0 2885-2 LOINC ALBUMIN 3.4 gm/dL L=3.4 H=5.0 1751-7 LOINC AGE 68 years eGFR (non-Afr.Amer.) 63 mL/min 14114-1 LOINC eGFR (Afr-Cypriot) 76 mL/min 31727-9 [facility] - Colle ct Date/Time: 10/18/2023 23:30 [facility] ID: [id number] [address] [place], [place], [address] LOINC: 89615-6 Test Value Unit Reference Range Code Code System Flag WBC 9.19 th/cmm L=5.00 H=10.00 6690-2 LOINC NEUT % 79.5 % L=40.0 H=80.0 LYMPH % 10.8 % L=10.0 H=50.0 MONO % 7.0 % L=2.0 H=12.0 71031-8 LOINC EOS % 1.7 % L=0.0 H=8.0 BASO % 0.5 % L=0.0 H=3.0 IG % 0.5 % L=0.0 H=1.1 2514-8 LOINC NRBC % 0.0 % L=0.0 H=0.0 47041-5 LOINC NEUT abs count 7.3 th/cmm L=1.6 H=8.4 751-8 LOINC LYMPH abs count 1.0 th/cmm L=1.5 H=4.0 731-0 LOINC L MONO abs count 0.6 th/cmm L=0.2 H=1.0 742-7 LOINC EOS abs count 0.2 th/cmm L=0.0 H=0.5 711-2 LOINC BASO abs count 0.1 th/cmm L=0.0 H=0.2 704-7 LOINC IG abs count 0.1 th/cmm L=0.0 H=0.1 20434-7 LOINC NRBC abs count 0.0 mil/cmm L=0.0 H=0.0 71720-4 LOINC RBC 5.18 mil/cmm L=4.30 H=6.20 789-8 LOINC HEMOGLOBIN 15.9 gm/dL L=13.0 H=17.0 718-7 LOINC HEMATOCRIT 48 % L=45 H=52 4544-3 LOINC MCV 92 fL L=82 H=92 787-2 LOINC MCH 30.7 pg L=27.0 H=31.0 785-6 LOINC MCHC 33.3 % L=32.0 H=36.0 786-4 LOINC RDW-SD 43.8 fL L=39.0 H=49.0 788-0 LOINC PLATELET COUNT 169 th/cmm L=150 H=450 777-3 LOINC BNP (PRO-B NATRIURETIC PEPTI DE) - Collect Date/Time: 10/18/2023 23:30 [facility] ID: [id number] [address] [place] [address], [address] LOINC: 07842-6 Test Value Unit Reference Range Code Code System Flag NT-proBNP 1684.0 pg/mL L=0.0 H=125 55749-9 LOINC H XR CHEST PORTABLE OR 1V - Co mpleted: 10/18/2023 23:37 LOINC: [facility] RADIOLOGY [place], [place] [address] PACS PIPE CAULKER REPORT Patient Name: TRUDY RIVERA Mitra MRN: Sex: : Age: [id number] M [id number] Account: Accession: Admit: StayType: [id number] 10/18/2023 E/R Ordered: Order ID: Submitted: Ordering Provider: 10/18/2023 23:25 [id number] DIMA MEDINA Completed: Technologist: Resulted: 10/18/2023 23:37 CLB 10/19/2023 08:00 Study Description: XR CHEST PORTABLE OR 1V Study Reason: Chest Pain TECHNIQUE: 2D digital imaging was performed. COMPARISON: Prior chest x-ray 2015. FINDINGS: Single AP view Cardiomegaly again noted. Left coronary artery stent noted. Mediastinum unchanged. Pulmonary venous hypertension pattern. No obvious airspace pulmonary edema. No curly B-lines. No obvious pleural effusions. IMPRESSION: As above. Recommend nonportable PA and lateral views when clinically possible. Report Digitally Signed by Johnnie Monterroso on 10/19/2023 08:00 AM EST Social History Type Status Start Date End Date Code Code Syst em Smoking History Former smoker 4003005 SNOMED CT Sex Male Vital Signs Vital Sign Value Unit [place] Value [place] Unit Date/Time Recent/Initial? Code Code System Body Mass Index 36.76 kg/m2 10/18/2023 23:25 Initial 29961 -5 LOINC Systolic Blood Pressure 211 mm[Hg] 10/18/2023 23:25 Initial 8480- 6 LOINC Diastolic Blood Pressure 151 mm[Hg] 10/18/2023 23:25 Initial 8462- 4 LOINC Body Surface Area 2.34 m2 10/18/2023 23:25 Initial 3140- 1 LOINC Height 175.260 0 cm 69.00 in 10/18/2023 23:25 Initial 8302- 2 LOINC O2 Saturation 99 % 2023 23:25 Initial 63694 -5 LOINC Pulse 99.0 /min 10/18/2023 23:25 Initial 8867- 4 LOINC Respiration 20 /min 10/18/19 24 23:25 Initial 9279- 1 LOINC Temperature 36.0 Marisel 96.8 F 10/18/19 24 23:25 Initial 8310- 5 LOINC Weight 112.90 kg 248.90 lbs 10/18/2023 23:25 Initial 03356 -7 LOINC Hospital Discharge Instructions Should you have any questions prior to discharge, please contact a member of your healthcare team. If you have left the hospital and have any questions, please contact your primary care physician. Reason For Referral No Data Found Allergies and Adverse Reactions Allergy Substance Reaction Severity Start Date Concern Status Co de Code System No Known Drug Allergies Moderate Active 098604806 SNOMED-CT Plan of Treatment CT CHEST W/O CONTRAST 03/25/2023 Encounters Encounter Diagnosis Start Date Code Code Sys tem Acute ST segment elevation myocardial infarction 10/18 088319227 SNOMED-CT Personal Care Team Section Performer Name Performer Role Active Date Inactive Da te
--- OUTSIDE RECORDS SUMMARY | 2024-06-23 16:42 | XMS_ITS | Encounter Summary ---
Author Organization [facility] Address [address] [place] [address] Care Team Providers Care Slip Injector And Applicator Name Role Phone Jaz Lyon Primary Care Provider Encounter Details Date Type Department Care Team (Late st Contact Info) Description 05/30/2024 13:10 EDT Ancillary Procedure [facility] Vascular Surgery - Main [place] [address] [place], [place] [phone] Social History Tobacco Use Types Packs/Day Years [...] any time in the past 12 m [facility], were you homeless or living in a skilled nursing (including now)? No 05/30/2024 Interpersonal Safety Answer [...] No 10/19/2023 documented as of this encounter Plan of Treatment Upcoming Encounters Date Type Department Care Team (Late st Contact Info) Description 07/12/2024 16:45 EDT Office Visit [facility] Cardiology [place] [address] Wilberto Ocasio MD 1 [facility] 1 [place] [address] documented as of this encounter Procedures Procedure Name Priority Date/Time Associated Diagnosis Comments US CAROTID-VERTEBRAL DUPLEX Routine 05/30/2024 14:07 EDT documented in this encounter Results * US CAROTID-VERTEBRAL DUPLEX BILATERAL (05/30/2024 14:07 [...] Former tobacco use. Oniel Lee PA-C IMG VASCULAR ORDLorin ALLEN documented in this encounter Visit Diagnoses Not on filedocumented in this encounter Care Teams Slip Injector And Applicator Relationship Specialty Start Date End Date Jaz Lyon PA [address] [place] [address] PCP - General Family Medicine - Primary Care 05/27/24 documented as of this encounter
--- OUTSIDE RECORDS SUMMARY | 2024-06-23 16:42 | XMS_ITS | Encounter Summary ---
Author Organization [facility] Address [address] [place] [address] Care Team Providers Care Service Coordinator Elderly Facility Name Role Phone Jaz Lyon Primary Care Provider Encounter Details Date Type Department Care Team (Latest Contact Info) Description 05/27/2024 Travel Social History Tobacco Use Types Packs/Day Years [...] things needed for daily living? No 10/19/2023 Interpersonal Safety Answer Date Record ed Physically [...] Info) Description 07/12/2024 16:45 EDT Office Visit [facility] Cardiology - [address] [place], [place] [phone] Wilberto Ocasio MD 1 [facility] [address] [place] [phone] documented as of this encounter Visit Diagnoses Not on filedocumented in this encounter Care Teams Service Coordinator Elderly Facility Relationship Specialty Start Date End Date Jaz Lyon PA [address] [place] [address] PCP - General Family Medicine - Primary Care 05/27/24 documented as of this encounter
--- OUTSIDE RECORDS SUMMARY | 2024-06-23 16:42 | XMS_ITS | Encounter Summary ---
Author Organization [facility] Address [address] [place] [address] Care Team Providers Care Wet Sander Name Role Phone Jaz Lyon Primary Care Provider Reason for Referral * Cardiology (Routine/Next Available) - Receiving Office to Obtain Authorization Specialty Diagnoses / Procedures Referred By Contac t Referred To Contact Diagnoses HFrEF (heart failure with reduced ejection fraction) ([facility]) CAD, multiple vessel Procedures TRANSTHORACIC ECHO (TTE) COMPLETE GA ECHO TTHRC R-T 2D W/WOM-MODE COMPL SPEC&COLR D Shawna Tracy NP [address] [phone] [facility] Referral ID Status Reason Start Date Expiration Date Visits Requested Visits Authorized [id number] Receiving Office to Obtain Authorization 05/31/2024 1 1 * Consult (Routine/Next Available) - Closed Specialty Diagnoses / Procedures Referred By Contac t Referred To Contact Cardiothoracic Surgery Diagnoses 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 angina pectoris CAD, multiple vessel Shawna Tracy NP [address] [phone] Livier Ribera MD 111 [facility], [address] [place] [address] Referral ID Status Reason Start Date Expiration Date V isits Requested Visits Authorized [id number] Closed Specialty Services Required 05/31/2024 1 1 Question Answer Reason for Request: follow up after recent hospitalization- same day echocardiogram requested by Dr. Ribera Expected Discharge Date (Inpatient Only): 05/31/2024 * Follow Up (Routine/Next Available) - New Request Specialty Diagnoses / Procedures Referred By Clarissa salas Referred To Contact Diagnoses Nonrheumatic aortic valve stenosis NSTEMI (non-ST elevated myocardial infarction) ([facility]) HFrEF (heart failure with reduced ejection fraction) ([facility]) Primary hypertension Manjula Harkins NP [address] [place] [phone] [address]az Lorenzo [address] [phone] Referral ID Status Reason Start Date Expiration Date Visits Requested Visits Authorized [id number] New Request Continuity of Care 05/30/2024 1 1 Question Answer Reason for Request: NSTEMI, LHC MV CAD, HFrEF, mod Expected Discharge Date (Inpatient Only): 05/31/2024 * Follow Up (Routine/Next Available) - Receiving Office to Obtain Authorization Specialty Diagnoses / Procedures Referred By Clarissa salas Referred To Contact Cardiology Diagnoses Nonrheumatic aortic valve stenosis NSTEMI (non-ST elevated myocardial infarction) ([facility]) HFrEF (heart failure with reduced ejection fraction) ([facility]) Primary hypertension Manjula Harkins NP [address] [phone] Wilberto Ocasio MD [address] [place] [phone] Referral ID Status Reason Start Date Expiration Date Visits Requested Visits Authorized [id number] Receiving Office to Obtain Authorization Specialty Services Required 05/30/2024 1 1 Question Answer Please choose one of the following condition categories: Chest Pain Is an acute coronary syndrome suspected? No Is the patient at low risk of CAD (Man age <45, Woman age <55, no known history of coronary artery disease, symptoms more likely non-anginal: non-exertional, lateral, lasting seconds, sharp, pleuritic or positional)? No Does the patient have a known history of CAD (imaging evidence of CAD, positive stress test, history of stents or CABG in the past)? Yes Select '2 Weeks' as 'Expected date' below, ensure patient is on Aspirin and high intensity statin unless contraindicated. Obtain EKG, lipid panel, a1c (if feasible), liver enzymes, BMP, blood pressure, click 'Yes' to continue Yes Scheduling Comments (optional ? describe specific scheduling needs if applicable): [facility] [place] [facility] Reason for Request: NSTEMI - LHC MV CAD, HFrEF Expected Discharge Date (Inpatient Only): 05/31/2024 Comments [facility] [place] [facility] Reason for Visit * Reason Comments Chest Pain BIBEMS from home--pt reporting 5/10 chest pain starting this morning, radiating to neck, pt diaphoretic on EMS arrival, SOB. Hx of CT and CHF. Pt reports not taking lasix for past 4 months, pitting edema in BLE. SpO2 84% on RA on EMS arrival, 94% on RA in ED. Pt received 324 aspirin, 3 doses SL nitro, and 1 nitro paste with EMS. A&Ox4 on arrival. Encounter Details Date Type Department Care Team (Late st Contact Info) Description 05/27/2024 8:15 EDT - 05/31/2024 11:04 EDT Hospital Encounter [facility] [address] [place] [phone] Glenis Tafoya MD 111 [facility], [address] [place] [address] Doe Urbina MD 62 [facility] [address] [place] [address] Dacia Rawls MD 62 [facility] [address] [place] [phone] Acute on chronic combined systolic and diastolic congestive heart failure (HCC-CMS) (Primary Dx); Nonrheumatic aortic valve stenosis; NSTEMI (non-ST elevated myocardial infarction) ([facility]); HFrEF (heart failure with reduced ejection fraction) ([facility]); Primary hypertension; 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 angina pectoris; CAD, multiple vessel Discharge Disposition: Home or Self Care Social History Tobacco Use Types Packs/Day Years [...] any time in the past 12 m [facility], were you homeless or living in a fpc (including now)? No 05/30/2024 Interpersonal Safety Answer Date Record ed Physically Hurt Never 04/22/2020 Verbally Threaten Not on file 04/22/2020 Sex and Gender Information Value Date Recorded Sex Assigned at Not on file Gender Identity Male 11/13/2019 2:37 EST Sexual Orientation Not on file documented as of this encounter Last Filed Vital Signs Vital Sign Reading [...] Body Mass Index 28.94 05/27/2024 1305 EDT documented in this encounter Functional Status Functional Status Response [...] No 10/19/2023 documented as of this encounter Discharge Summaries * Shawna Tracy NP - 05/31/2024 0952 EDT Images from the original note were not included. Cardiology Discharge Summary Primary Care Provider: Jaz Lyon Attending Physician: Dacia Rawls MD Admit Date: 05/27/2024 Discharge Date: 05/31/24 Disposition: home Please note: Items to follow up on are listed in red. Problems Presenting chief complaint: chest pain Final Hospital Diagnosis: NSTEMI, Acute on Chronic HFrEF Additional Problems Managed in the Hospital Active Hospital Problems Diagnosis Date Noted *Acute on chronic combined systolic and diastolic congestive heart failure ([facility]) 05/27/2024 Patient nonadherent with medication regimen due to financial hardship 05/31/2024 HFrEF (heart failure with reduced ejection fraction) ([facility]) 05/30/2024 NSTEMI (non-ST elevated myocardial infarction) ([facility]) 05/27/2024 Nonrheumatic aortic valve stenosis 05/27/2024 Resolved Hospital Problems No resolved problems to display. Cardiac Imaging & Procedures Transthoracic Echocardiogram Results have been documented within the past 5 years for the following orders TRANSTHORACIC ECHO (TTE) COMPLETE Interpretation Summary Left Ventricle: The left ventricular cavity was in the upper limits of normal in size. Left ventricular systolic function was moderately decreased with an ejection fraction of 35-40%. There was severe hypokinesis to akinesis of the mid-apical anterior, anterolateral gustafson and entire apex. Right Ventricle: The right ventricular cavity was normal in size. Right ventricular systolic function was normal. Aortic Valve: There was moderate aortic valve stenosis. There was trace aortic valve regurgitation.AV Peak Velocity: 3.2 m/s. AV Mean Gradient: 24 mmHg. AV Area VTI: 1.1 cm2. Mitral Valve: There was mild mitral regurgitation. Invasive Coronary Angiogram (Left Heart Catheterization) Procedures by Don Mcgregor MD (05/28/2024 11:47) Diagnostic Cardiac Study Results Left main: Minor luminal irregularities. Left anterior descending: Prox 80% edge restenosis of prior stent, with 20% ISR. Ostial D2 70%. (Two LEBRON layers) Left circumflex: Distal 50%. Right coronary artery: Dominant. 100% prox with collaterals from LCA. Post-Procedure Diagnostic Conclusion: Cardiac surgery is indicated. ISR of prior stents, poor medical compliance. LAD/RCA disease, mod LCx disease. Plan: Aspirin 81mg PO daily. High intensity statin therapy PO daily. Transthoracic echocardiography. CTS Consult Discontinue P2Y12 therapy Hospital Course René Rivera is a 68 y.o. male with CAD s/p PCI with LAD stent in 2015 (thrombosed after stopping clopidogrel, re-stented 09/2023 in setting of STEMI), HFrEF with prior EF of 40-45%, mod ( echo10/19/23), HTN, HLD, BPH, depression, medication nonadherence due to lack of insurance, who presented on 05/27/24 with recurrent chest after stopping all his medications except aspirin back in January 2024 due to cost. He was admitted to Cardiology service for NSTEMI and Acute on Chronic HFrEF. Initial work up notable for EKG with ST elevation in V3 and submillimeter in V4 not meeting STEMI criteria with ST ischemic changes, troponin mildly elevated 0.035-->0.086-->0.064. Transthoracic echocardiogram revealed LVEF of 35-40%, severe hypokinesis to akinesis of the mid-apical anterior,anterolateral gustafson and entire apex, moderate (AV Peak Velocity: 3.2 m/s. AV Mean Gradient: 24 mm Hg. AV Area VTI: 1.1 cm2), and mild MR. Underwent invasive coronary angiography on 05/28/24 and was found to have proximal 80% edge restenosis of prior stent, with 20% in stent restenosis with 2 prior stents in that area. Cardiothoracic surgery was then consulted for consideration of CABG. Patient has been instructed on cardiac catheterization access site care and instructions given in After Visit Summary (AVS). Patient was counseled on tobacco use and is in action stage to quit using NRT at discharge through Quit Line. For heart failure management, patient was successfully diuresed inpatient, with goal output achieved on IV Lasix 20 mg and 40 mg (two doses total). Guideline Directed Medical Therapy (GDMT) for heartfailure was titrated inpatient, with patient discharged on a regimen of losartan 25 mg daily, spironolactone 25 mg daily, and metoprolol succinate 25 mg daily. Patient remained euvolemic without requiring maintenance diuresis with a loop diuretic. Heart failure nurse education completed inpatient to emphasize importance of lifestyle changes which included: weighing self daily to monitor for fluidstatus changes, working toward a healthy weight, limiting sodium to 2g/day, limiting fluids to 2L (64 oz, or 8 cups)/day, taking medications as prescribed, being active, treating coexisting co-morbidities, using CPAP if known LEONIDES. Financial services as well as Case management met with patient to assist with obtaining insurance coverage. Additionally patient has been referred to [facility], he knows he must call to complete application. Case management provided 30 days of medications at discharge. Hospitalization course was otherwise uncomplicated. In the 24 hrs prior to discharge, telemetry free of arrhythmias and patient ambulatory on day of discharge without angina off heparin drip, and hasbeen deemed stable to pursue CABG outpatient. Cardiothoracic surgery recommended heart failure optimization prior to surgery. Patient has been referred to follow up with Cardiology at [facility] in 4 weeks with Wilberto Ocasio MD (as a new patient). Cardiac Rehab not ordered until patient has been evaluated outpatient. See below for items needing follow up at appointments. Patient has been referred to follow up with PCP for post discharge visit in 2-4 weeks. Items to Follow up on At Post-Discharge Appointment(s): Management of Chronic Coronary Disease: [ ] Goal >50% LDL reduction or LDL-C <70, ideally <55 per guidelines. LDL was noted to be 129 during admission (not taking statin prior to arrival). [ ] aspirin 81 mg daily indefinitely, decision made to not place on DAPT this admission per attendings Dr. Mcgregor and Dr. Rawls after ISR was found to be the NSTEMI precipitant [ ] high intensity statin daily for life (or maximally tolerated dose) Heart Failure Follow Up [ ] Further Goal Directed Medical Therapy (GDMT) titration at follow up appointments. Suggested next step: add empagliflozin after HAP coverage/insurance started if affordable. If this is pursued, monitor for UTI (has history of BPH but no retention noted here) [ ] Diuretic titration [ ] Repeat TTE in 4 weeks same day as CTS appointment per Dr. Ribera Lab Follow up: [ ] See lab orders. Patient knows to come to any [facility] lab location in 1 week. Labs to be copied to PCP and Dr. Ocasio [ ] PCP or cardiology outpatient appointment: recheck lipid panel in 6-8 weeks, recommend escalation of lipid therapy if LDL not at goal Primary Care Follow Up Appointment: Referred to PCP for post discharge follow up in 2-4 weeks [ ] Cardiovascular health: [ ] influenza, Covid-19, pneumococcal vaccinations per CDC guidelines [ ] Mediterranean and DASH diet [ ] habitual physical activity including activities to reduce sitting time and to increase aerobic and resistance exercise (ideally 150 minutes/week of moderate intensity exercise, or 20-30 min/day most days) [ ] Maintain or work toward a healthy weight [ ] QUIT tobacco, avoid e-cigarettes [ ] Limit alcohol to 2 drinks/day for men, 1 drink/day for women; nondrinkers should not start drinking. Of note, any amount of alcohol increases risk for episodes of atrial fibrillation. [ ] Goal BP <130/80 [ ] consider sleep study outpatient if risk factors or concern for LEONIDES [ ] follow up on incidental findings on imaging studies: [ ] mild carotid artery disease on US, needs routine monitoring US CAROTID-VERTEBRAL DUPLEX (05/30/2024 14:07) Discharge Medication List: Medication List START taking these medications aspirin chewable 81 mg tablet; Take 1 Tablet by mouth daily.; Start taking on: June 01, 2024; Replaces: aspirin 81 mg EC tablet losartan 25 mg tablet; Commonly known as: COZAAR; Take 1 Tablet by mouth daily. rosuvastatin 40 mg tablet; Commonly known as: CRESTOR; Take 1 Tablet by mouth daily.; Start taking on: June 01, 2024 spironolactone 25 mg tablet; Commonly known as: ALDACTONE; Take 1 Tablet by mouth daily.; Start taking on: June 01, 2024 CONTINUE taking these medications metoprolol SUCCinate 25 mg tablet; Commonly known as: TOPROL-XL; Take 1 Tablet by mouth daily. nicotine 21 mg/24 hr patch; Commonly known as: NICODERM CQ TylenoL 325 mg capsule; Generic drug: acetaminophen STOP taking these medications aspirin 81 mg EC tablet; Replaced by: aspirin chewable 81 mg tablet nicotine polacrilex 2 mg lozenge; Commonly known as: COMMIT terazosin 10 mg capsule; Commonly known as: HYTRIN ASK your doctor about these medications diclofenac sodium gel Multivitamins with Minerals tablet tablet Medications were carefully reconciled at discharge and checked for affordability. Non-Cardiac Imaging & Procedures US VEIN MAPPING US CAROTID-VERTEBRAL DUPLEX TRANSTHORACIC ECHO (TTE) COMPLETE Final Result XR CHEST 2 VIEWS Final Result Interstitial pulmonary edema. I have personally reviewed the images and the above interpretation and agree with the findings. [id number] OTR [employer] PROCEDURE (Results Pending) TRANSTHORACIC ECHO (TTE) COMPLETE (Results Pending) Transition of Care Plans Condition at Admission: Serious Condition at Discharge Good Assessment at Discharge BP (!) 150/90 (BP Cuff Location: Right arm, BP Patient Position: Sitting) Pulse 64 Temp 36.8 ??C (98.2 ??F) (Oral) Resp 18 Ht 175.3 cm (69) Wt 88.9 kg (195 lb 15.8 oz) SpO2 97% BMI 28.94 kg/m?? Physical Exam Vitals and nursing note reviewed. Constitutional: General: He is not in acute distress. Appearance: Normal appearance. He is not ill-appearing or diaphoretic. Eyes: Pupils: Pupils are equal, round, and reactive to light. Neck: Thyroid: No thyromegaly. Vascular: No carotid bruit, hepatojugular reflux or JVD. Trachea: Trachea normal. Cardiovascular: Rate and Rhythm: Normal rate and regular rhythm. Heart sounds: Murmur heard. Systolic murmur is present with a grade of 2/6. No friction rub. No gallop. Pulmonary: Effort: Pulmonary effort is normal. Breath sounds: Examination of the right-lower field reveals decreased breath sounds. Examination ofthe left-lower field reveals decreased breath sounds. Decreased breath sounds present. No wheezing,rhonchi or rales. Chest: Chest wall: No tenderness. Abdominal: General: Bowel sounds are normal. There is no distension. Palpations: Abdomen is soft. Tenderness: There is no abdominal tenderness. There is no guarding. Musculoskeletal: General: Normal range of motion. Cervical back: Normal range of motion. Right lower leg: No edema. Left lower leg: No edema. Skin: General: Skin is warm and dry. Capillary Refill: Capillary refill takes less than 2 seconds. Neurological: General: No focal deficit present. Mental Status: He is alert and oriented to person, place, and time. Mental status is at baseline. Psychiatric: Mood and Affect: Mood normal. Behavior: Behavior normal. Thought Content: Thought content normal. Judgment: Judgment normal. Is the patient being discharged with a diagnosis of Heart Failure? 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 Results Pending at Discharge Test results still pending from this admission None Last Lab Results at Discharge BMP: Lab Results Component Value Date NA 140 05/31/2024 K 3.8 05/31/2024 CL 104 05/31/2024 CO2 24 05/31/2024 BUN 15 05/31/2024 CREATININE 0.97 05/31/2024 SERGLU 139 (H) 05/31/2024 CALCIUM 9.5 05/31/2024 CALCGFR 86 05/31/2024 CBC: Lab Results Component Value Date WBC 7.06 05/29/2024 HGB 14.4 05/29/2024 HCT 41.9 05/29/2024 MCV 90 05/29/2024 PLT 151 05/29/2024 Lipid Profile: Lab Results Component Value Date CHOL 183 05/27/2024 TRIG 75 05/27/2024 HDL 39 (L) 05/27/2024 LDLBASE 129 05/27/2024 CHOLHDL 4.7 05/27/2024 Lab Results Component Value Date HGBA1C 5.3 05/27/2024 Discharge Follow Up Referrals & Appointments: Follow-up appointments and procedures Amb Consult/Follow Up Primary Care Physician Outside of Network Reason for Request: NSTEMI, LHC MV CAD, HFrEF, mod Expected Discharge Date (Inpatient Only): 05/31/2024 Authorizing Provider: Manjula Harkins NP Amb Consult/Follow Up Cardiology [facility] [place] [facility] Please choose one of the following condition categories: Chest Pain Is an acute coronary syndrome suspected?: No Is the patient at low risk of CAD (Man age <45, Woman age <55, no known history of coronary artery disease, symptoms more likely non-anginal: non-exertional, lateral, lasting seconds, sharp, pleuritic or positional)?: No Does the patient have a known history of CAD (imaging evidence of CAD, positive stress test, history of stents or CABG in the past)?: Yes Select '2 Weeks' as 'Expected date' below, ensure patient is on Aspirin and high intensity statin unless contraindicated. Obtain EKG, lipid panel, a1c (if feasible), liver enzymes, BMP, blood pressure, click 'Yes' to continue: Yes Scheduling Comments (optional - describe specific scheduling needs if applicable): [facility] [place] [facility] Reason for Request: NSTEMI - LHC MV CAD, HFrEF Expected Discharge Date (Inpatient Only): 05/31/2024 Authorizing Provider: Manjula Harkins NP Amb Consult/Follow Up Cardiothoracic Surgery Reason for Request: follow up after recent hospitalization- same day echocardiogram requested by Dr. Ribera Expected Discharge Date (Inpatient Only): 05/31/2024 Authorizing Provider: Shawna Tracy NP Lab Follow Up: Follow-up labs and tests TRANSTHORACIC ECHO (TTE) COMPLETE Complete by: May 31, 2024 Authorizing Provider: Shawna Tracy NP Basic Metabolic Panel (BMP) Complete by: Jun 07, 2024 (Approximate) Scheduling Instructions: Blood Test and Fasting How long do I have to fast for before a blood test? - If a fasting blood test is ordered, you should not have anything to eat or drink (except water) for at least eight hours. This usually involves an overnight fast. - You should continue to take any prescription medications, unless your physician directed you not to take them. - Smoking and exercise may affect your results as well, so you should refrain from these activitiesas much as possible during this time. If you have any concerns about refraining from food for this period of time, talk to your physician. Authorizing Provider: Shawna Tracy, LEAD ETL DEVELOPER Reviewed discharge plan of care and patient seen with Dr. Rawls, the attending dressage judge on service. I spent a total of 7 minutes on the date of this encounter meeting with the patient and reviewing documentation/coordinating care as described in the above note. We discussed discharge instructions, medications, and activity restrictions. At time of discharge, patient felt well and wishes to be disc harged. Discharge medications and instructions reviewed with patient who verbalized understanding. Questions answered to his satisfaction. Shawna Tracy, MSN, CHIMNEY SUPERVISOR BRICK-C Nurse Practitioner, [facility] Cardiology Associated attestation - Dacia Rawls MD - 05/31/2024 1220 EDT Patient provided with meds; follow up arranged with outpatient cardiology (Dr. Ocasio) and CTS for further discussion regarding surgical intervention. I interviewed and examined the patient on the day of discharge and agree with the findings and planof care to include discharge documented in the resident's/fellow's note. I personally spent more than 30 minutes discharging the patient. Dacia Rawls MD [employer], #[id number] documented in this encounter Discharge Instructions * Discharge Instr - Other Orders* Yolie Pierce RN - 05/30/2024 12:54 EDT Remember the acronym GILBERTO - Diet: low salt (2000mg of sodium per day). Avoid high sodium foods. - Activity: daily moderate activity for 30 minutes - Medication administration: refer to the After Visit Summary - Everyday weight: weigh yourself daily and record in weight log - Symptom monitoring and follow though: call your doctor's office If you experience rapid weight gain (3 pounds in a day or 5 or more pounds in a week), increased shortness of breath, or increase legswelling. Be sure to check your Heart Failure Zone every day. At the time of discharge, it is expected that you will have been started on new cardiac medications. Continue these medications until advised by a doctor. New refills will be required at follow up with your primary care provider or dressage judge. * Attachments The following attachments cannot be sent through Care Everywhere. * Heart Failure (Filipino) * Heart Failure Zones: General Info (Filipino) documented in this encounter Medications at Time of Discharge Medication Sig Dispensed Refills Start Date End Date acetaminophen (TYLENOL) 325 mg capsule Take by mouth as needed. aspirin chewable 81 mg tabletIndications:Morales ry artery disease involving rosebud coronary artery of rosebud heart without angina pectoris Take 1 Tablet by mouth daily. 30 Tablet 11 06/01/2024 diclofenac sodium gel Please see attached for detailed directions. 08/10/2023 losartan (COZAAR) 25 mg tabletIndications:HFrEF (heart failure with reduced ejection fraction) ([facility]) Take 1 Tablet by mouth daily. 30 Tablet 11 05/31/2024 metoprolol SUCCinate (TOPROL-XL) 25 mg tabletIndications:HFrEF (heart failure with reduced ejection fraction) ([facility]),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 angina pectoris Take 1 Tablet by mouth daily. 90 Tablet 3 05/31/2024 Multivitamins with Minerals tablet Take 1 Tab by mouth daily nicotine (NICODERM CQ) 21 mg/24 hr patch APPLY 1 PATCH TO SKIN ONCE A DAY 07/08/2023 rosuvastatin (CRESTOR) 40 mg tabletIndications:Morales ry artery disease involving rosebud coronary artery of rosebud heart without angina pectoris Take 1 Tablet by mouth daily. 90 Tablet 3 06/01/2024 spironolactone (ALDACTONE) 25 mg tabletIndications:HFrEF (heart failure with reduced ejection fraction) ([facility]-CMS) Take 1 Tablet by mouth daily. 90 Tablet 3 06/01/2024 documented as of this encounter Ordered Prescriptions Prescription Sig Dispensed Refills Start Date End Da te metoprolol SUCCinate (TOPROL-XL) 25 mg tabletIndications:HFrEF (heart failure with reduced ejection fraction) (HCC-CMS),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 angina pectoris Take 1 Tablet by mouth daily. 90 Tablet 3 05/31/2024 spironolactone (ALDACTONE) 25 mg tabletIndications:HFrEF (heart failure with reduced ejection fraction) (HCC-CMS) Take 1 Tablet by mouth daily. 90 Tablet 3 06/01/2024 rosuvastatin (CRESTOR) 40 mg tabletIndications:Coronar y artery disease involving rosebud coronary artery of rosebud heart without angina pectoris Take 1 Tablet by mouth daily. 90 Tablet 3 06/01/2024 losartan (COZAAR) 25 mg tabletIndications:HFrEF (heart failure with reduced ejection fraction) (HCC-CMS) Take 1 Tablet by mouth daily. 30 Tablet 05/31/2024 aspirin chewable 81 mg tabletIndications:Coronar y artery disease involving rosebud coronary artery of rosebud heart without angina pectoris Take 1 Tablet by mouth daily. 30 Tablet 11 06/01/2024 metoprolol SUCCinate (TOPROL-XL) 25 mg tabletIndications:HFrEF (heart failure with reduced ejection fraction) ([facility]-CMS),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 angina pectoris Take 1 Tablet by mouth daily. 90 Tablet 3 05/31/2024 05/31/2024 losartan (COZAAR) 25 mg tablet Take 1 Tablet by mouth daily. 30 Tablet 5 05/31/2024 05/31/2024 documented in this encounter Discharge Disposition Disposition Code Departure Means Destination Comment s Home or Self Shelter documented in this encounter Progress Notes * Miroslava Blair - 05/31/2024 1104 EDT DISCHARGE DATE/TIME: 05/31/24 DESTINATION: Home (If discharging to [facility]) COVID swab ordered and completed: TRANSPORTATION: Taxi- [employer] ACCEPTING MD AND NUMBER: WONG RN REPORT/UNIT: NA SENIOR EXECUTIVE COMPENSATION ANALYST/CHARGE/MD NOTIFIED (Y/N): Y FORMS: (Acute to acute, COLST, MOLST, JONNA, Screen, PASRR, Ambulance): NA IM SIGNED (Y/NA): NA HOME HEALTH: Not recommended DME: NA PHARMACY/PRESCRIPTIONS: Sent home with 30 days of prescriptions paid for by CM as patient is uninsured. Patient given info about HAP MEDS TO BEDS UTILIZED : YES Patient and/or family who participated in discharge plan: Patient OTHER: Patient stated that he needed help coordinating ride home. He wanted cab set up for 11:45. CM returned to room to let patient know about ride and patient had left the floor. He told nursing he did not want to wait for ride and would find his own way home. CM was concerned about this as patient lives in [place]. CM tracked patient down in pharmacy gave patient information about cab ride set up with [employer] to his home in [place] at 11:45 and asked him to be out front of the [employer] atthat time for the ride. Patient stated he need to go to security to receive some items and then would proceed to the ride at 11:45. Patient has information about Medicaid, Medicare, Financial Assistance and Hap for follow up at home. Needs to return in one month for follow up surgery. Miroslava Blair MS, CCC-OFFICE AUTOMATION TECHNICIAN Registered Private Duty Nurse II * Manjula Harkins NP - 05/30/2024 1602 EDT Cardiology Progress note Service Date: 05/30/2024 Admit Date: 05/27/2024 8:15 Reason for Admission: 68 y.o. male admitted with a chief complaint of chest pain and SOB and now with a principal diagnosis of NSTEMI and MV CAD on [facility] 05/28/24. Events/ Procedures in the last 24 Hours: -NAEO Subjective/Objective Subjective Mr. Rivera reports he ambulated 5 laps while on heparin gtt without chest pain or dyspnea. Mr Rivera denies chest pain, chest pressure/discomfort with exertion, dyspnea, fatigue, palpitations, paroxysmal nocturnal dyspnea, lower extremity edema, lightheadedness. Review of Systems A ten point review of systems was performed. Pertinent positives are listed above in HPI, all others are negative. Objective Vital Signs Patient Vitals for the past 8 hrs: BP Heart Rate Resp Temp SpO2 05/30/24 1251 130/88 56 BPM 16 36.6 ??C (97.9 ??F) 93 % Weight: No data found. No intake or output data in the 24 hours ending 05/30/24 1742 Physical Exam General appearance: alert, cooperative, no distress Skin: Skin color, temperature, turgor normal. No rashes apparent Eyes: conjunctivae/corneas clear. PERRL, EOM's intact Throat/Mouth: normal findings: oropharynx pink & moist without lesions or evidence of thrush Neck: supple, symmetrical, trachea midline, no carotid bruit, and no JVD Lungs: clear to auscultation bilaterally Heart: regular rate and rhythm, S1, S2 normal, + systolic murmur, no rub Abdomen: soft, non-tender; bowel sounds normal; no organomegaly Extremities: extremities warm, no cyanosis, 1+ pitting edema L>R to mid diaz chica, 2+ radial, DP, PT pulses bilat Neurologic: Grossly normal, moving all 4 extremities, no focal deficit Mental Status: awake and alert; oriented to person, place, and time Psych: normal mood and affect Is PICC or central line present? No, PICC/Central line not present. Medications Reviewed: Current Facility-Administered Medications Medication Route Frequency acetaminophen (TYLENOL) tablet 650 mg oral Q6H PRN aspirin chewable tablet 81 mg oral DAILY bisacodyL (DULCOLAX) suppository 10 mg rectal Daily PRN losartan (COZAAR) tablet 25 mg oral DAILY metoprolol SUCCinate (TOPROL-XL) tablet 25 mg oral DAILY nicotine polacrilex (COMMIT) 2 mg lozenge 2 mg oral Q4H PRN polyethylene glycol 3350 (MIRALAX) packet 17 g oral Daily PRN ramelteon (ROZEREM) tablet 8 mg oral AT BEDTIME PRN rosuvastatin (CRESTOR) tablet 40 mg oral DAILY senna (SENOKOT) tablet 2 Tablet oral QHS sodium chloride 0.9 % (flush) flush 5 mL intravenous Q8H spironolactone (ALDACTONE) tablet 25 mg oral DAILY Labs Reviewed: CBC: Recent Labs 05/29/24 0547 WBC 7.06 HGB 14.4 HCT 41.9 MCV 90 PLT 151 BMP: Recent Labs 05/28/24 0312 05/29/24 0547 05/30/24 0550 CREATININE 0.88 0.85 0.93 BUN 14 16 13 NA 138 136 139 K 3.2* 4.5 4.1 CL 103 105 106 CO2 26 21* 22 MG -- 2.0 2.1 Coags: No results for input(s): PROTIME, INR, PTT in the last 72 hours. LFTs: No results for input(s): ALT, AST, GGT, ALKPHOS, TBIL in the last 72 hours. Cardiac Biomarkers: Recent Labs 05/27/24 1832 TROPONINI 0.064* Lipids: No results for input(s): CHOL, TRIG, HDL, LDLBASE, CHOLHDL in the last 72 hours. [facility] 05/28/24 Dr. Mcgregor Diagnostic Cardiac Study Results Left main: Minor luminal irregularities. Left anterior descending: Prox 80% edge restenosis of prior stent, with 20% ISR. Ostial D2 70%. (Two LEBRON layers) Left circumflex: Distal 50%. Right coronary artery: Dominant. 100% prox with collaterals from LCA. Post-Procedure Diagnostic Conclusion: Cardiac surgery is indicated. ISR of prior stents, poor medical compliance. LAD/RCA disease, mod LCx disease. Echo 05/27/2024: Left Ventricle The left ventricular cavity was in the upper limits of normal in size. Left ventricular systolic function was moderately decreased with an ejection fraction of 35-40%. Left ventriculardiastolic parameters were normal. Left ventricular wall thickness [...] The right atrium was normal in size. Aortic Valve The aortic valve structure was probably trileaflet. The aortic leaflets moderately calcified. There was moderate aortic valve stenosis. There was trace aortic valve regurgitation. AV Peak Velocity: 3.2 m/s. AV Mean Gradient: 24 mmHg. AV Area VTI: 1.1 cm2. Mitral Valve Mitral valve structure was normal. There was mild mitral regurgitation. There was no significant mitral valve stenosis. Tricuspid Valve Tricuspid valve structure was normal. There was trace tricuspid valve regurgitation. There was no tricuspid valve stenosis. Pulmonic Valve The pulmonic valve was not well visualized. There was no significant pulmonic valve regurgitation. There was no pulmonic valve stenosis. Pulmonic Artery Unable to assess pulmonary artery pressure due to suboptimal tricuspid regurgitation envelope. Ascending Aorta The aortic root was normal in size. The visualized proximal ascending aorta was normal in size. Pericardium There was no pericardial effusion. IVC/SVC The inferior vena cava was normal in size. The inferior vena cava demonstrated a diameter of <=21 mm and collapses >50%; therefore, the right atrial pressure is estimated at 0-5 mmHg. Telemetry: yes, Normal sinus rhythm, PVC/PACs Assessment/Plan Assessment/Plan Rodney Rivera is a 68 y.o. male w/ PMH of HTN, HLD, BPH, depression, HFrEF (EF 40-45%), CAD s/p PCIwith LAD stent in 2015 (thrombosed after stopping clopidogrel, re-stented 09/2023 in setting of STEMI), mod (echo 10/19/23) who presents with dyspnea after stopping all his medications except aspirin due to cost in January 2024, admitted for NSTEMI, found to have MV CAD on [facility] 05/28/24 , mod - AV area 1.1 cm2 echo 05/27/24, CTS consulted appreciate recs. CM and outpatient pharmacy contacted as well regarding identifying affordable meds for improvement in med compliance. #NSTEMI #MV CAD - C 05/28/24 #HFrEF exacerbation - LVEF 35-40% Echo (TTE) 05/27/24 #mod (AV mean grad 24 mmHg, AV area 1.1 cm2 Echo TTE 05/27/24) #HTN #HLD #BPH -Cont ASA 81mg daily -Restarted on Metoprolol 25mg XL daily -Started Losartan 25mg daily 05/30/24 - hx of cough with leeann-i -Restarted Spironolactone 25mg daily -Restarted Rosuvastatin 40mg daily -Discontinued empagliflozin, isosorbide mononitrate, ezetimibe that were restarted inpt due to unaffordable as he does not currently have medical or medication insurance -discontinued heparin gtt 05/30 afternoon -daily BMP -class 1 tele - HF nurse consult- appreciate HF education and written information - 2 gram sodium restriction, 2L fluid restriction, daily weights - ambulate in alvarez off heparin, assess for anginal symptoms #Nicotine dependence - Patient previously smoking 3/4 pack per day. - 2mg lozenges q4h PRN # Currently does not have medical or medication insurance - See CM note 05/30/24- provided with info to call and start applicationf for [facility] program to assist with medication cost - [facility] financial depart were helping him apply for Medicaid and he was given [employer] information to call and to request assistance with applying for Medicare - VTE Prophylaxis Compression Stockings and Ambulate Discharge Plan Home or self care pending CT surg schedule availability Dr Rawls is the attending today at time of service, was on site and available for questions at all times. I spent a total of 35 minutes at the patient's bedside and in direct floor time, solely dedicated to this patient, on this date of service. Manjula Harkins NP 05/30/2024 * Miroslava Blair - 05/30/2024 1307 EDT Initial Case Management/Social Work Assessment and Discharge Plan/Readmission Risk Assessment REASON FOR ADMISSION: Acute on chronic combined systolic and diastolic congestive heart failure (HCC-CMS) Patient understands reason for admission: Yes PATIENT INFO VERIFIED: PCP, Contact Info, Address Type of housing (single family, condo, apartment, prison, single room occupancy, [facility] funded hotel room, group fpc) - [facility] Who does the patient live with? Alone Does the patient have access to their own bedroom/bathroom/kitchen - or is it shared with others? Own Discharge Delay Risk Assessment 1. Disease/Medical Condition: Diseases or conditions that result in ADL decline or continuous medical treatment 2. Hospitalization: Unplanned admission 3. Family Structure: Living alone Major Barrier day total 1-6: 2 Risk for Delayed Discharge: At Risk For Delayed Discharge 7. Economic situation: Worried about living expenses, Uninsured Major Barrier day total 7-8: 2 Risk for Delayed Discharge: At Risk For Delayed Discharge Minor or major discharge risk delay(s) present?: No discharge barriers identified (BARRIERS PRESENT) Does the patient meet criteria to be escalated?: Yes How was escalation determined?: Registered Private Duty Nurse discretion LIVING ARRANGEMENTS AND ACCESSIBILITY ISSUES: Living Arrangements: Alone, Private residence Levels: 1 Stairs to enter: 1 Handicap access: Railings into home Bathroom located on bedroom level?: Yes What in home social supports are available to the patient? Children Is 24/7 care available? No ADVANCED DIRECTIVES, POA &/or COLST IN PLACE: DIRECTIVES FOR FINANCES: TRANSPORTATION: Transportation: Self, Family Final Discharge Destination: Home CULTURAL, PROTESTANT and/or LANGUAGE factors affecting health care/discharge planning: Spiritual/Cultural Requests: Completed Insurance Information: Self Pay Nutrition: DISCHARGE RISK ASSESSMENT: Lives at home with limited or no community support;Polypharmacy, > 7 medications;Diagnosis of CHF Total # selected above: Score of 2 - 4: This patient is at MODERATE RISK for re-hospitalization Tentative plan to address the risk of re-hospitalization for those at HIGH MODERATE RISK: Bring risk factors to attention of team to be addressed RAPT TOOL: Age: [age] Gender: Male Ambulation distance: 2 or more blocks (600ft) Gait device: None Community Services: Home health, MOW, [facility]-none of one time a week Will you live with someone who will care for you?: No RAPT Tool Score: 8 Expected Discharge Disposition: Home or Self Care SBIRT: SASQ (Single Alcohol Screening Question) How many times in the past year have you had 5 or more drinks in a single day?: Never How many times in the past year have you used an illegal drug or used a prescription medication fornon-medical reasons?: Never Intervention in place/initiated?: No, not indicated FUNCTIONAL STATUS: Activities patient requires assistance: None Assistive Devices: None COMMUNITY RESOURCES/SUPPORTS: Primary Care Provider: Jaz Lyon PCP Verified: Specialists: None Type of Home Health Services: None DME Provider: Pharmacy: [facility]/pharmacy #[id number] - [place], [place] - [address] [facility] [address] Home Health: Other: [facility] TRANSITION PLAN: 68 y.o. male presented with dyspnea admitted for NSTEMI and volume overload. CM met with patient at bedside. Patient reports living alone in a one story [facility] in [place], [place]. Patient reports that he is an independent ambulator at baseline without the use of an assistive device.Patient is independent with all ADLs and IADLs including driving. Patient denies any or other community service supports. He does have social support from his children. At this time the patient is concerned about not having insurance to pay for his hospital stay or medications. He reported that he had spoken with the [facility] financial services department. They were able to help him apply for Medicaid. They gave him a card for [employer] to assist him in applying for Medicare. Patient called [employer] and left a message. They are also going to give him the paperwork toapply for the [facility] financial assistance program. CM gave the patient information to call to start application for HAP program to assist with the cost of medications. Patient states he will call this afternoon. CM will continue to follow and address needs as they arise. Miroslava Blair MS, CCC-OFFICE AUTOMATION TECHNICIAN Registered Private Duty Nurse II MIROSLAVA BLAIR 05/30/2024 13:07 * Lasha Pan - 05/30/2024 1253 EDT [facility] Spiritual Care General Clerk Note Re: René Rivera : 1955, AGE: 68 y.o. ROOM: [facility]/[id number] Spirituality: Taoist Patient is Taoist and has been Anointed (In cases of end of life care this would be considered Last Rites.) BACKGROUND Request for Taoist Sacraments ASSESSMENT Patient is Taoist and a professor of communication and writing was requested for prayer and sacramental needs Upset that he has not been able to attend christian for the past year due to health and transportationproblems. Rodney was comforted and encouraged by the support and visit INTERVENTIONS Supportive presence, active listening, spiritual counseling, prayer and sacraments Family support CARE PLAN The unit stonemason helper will be available for further spiritual support as needed. RECOMMENDATIONS Please reach out if their is need for further sacramental support TIME STAMP: 45 minutes Thank you for the opportunity to provide for this patient's/family's spiritual needs. LASHA PAN, [facility] General Clerk Manager Laboratory * Delfino Duron MD - 05/29/2024 0718 EDT Medicine Progress Note Service Date: 05/29/2024 Admit Date: 05/27/2024 8:15 Reason for Admission: 68 y.o. male presented with dyspnea admitted for NSTEMI and volume overload. 24 Hour Events: - NAEO Subjective Doing well this AM. Reports breathing comfortably, with no chest pain. Leg swelling feels at baseline. Understands that the [facility] revealed re-occlusion of his stents and that multiple vessels are impacted; anxious to meet with the surgery team tomorrow but agrees it's best to get all the information you can before making any decisions. Review of Systems: A 10 point ROS was performed with pertinent positives and negatives noted in the HPI Subjective/Objective Objective Vital Signs: BP Min: 129/87 Max: 164/102 BP MAP Min: 96 mm Hg Max: 115 mm Hg Pulse From Oximetry Min: 61 BPM Max: 98 BPM Resp Min: 15 Max: 18 Temp Min: 36.6 ??C (97.9 ??F) Max: 37.5 ??C (99.5 ??F) SpO2 Min: 95 % Max: 98 % O2 Device: None O2 Flow Rate (L/min) Min: 0 l/min Max: 2 l/min Weight : 91.6 kg (202 lb) Weight Min: 91.6 kg (202 lb) Min taken time: 05/27/24 1641 Max: 108 kg (238 lb) Max taken time: 05/27/24 1305 I&O: Intake/Output Summary (Last 24 hours) at 05/29/2024 0719 Last data filed at 05/29/2024 0419 Gross per 24 hour Intake 445 ml Output 1525 ml Net -1080 ml Physical Exam General: Alert and oriented, NAD HEENT: Normocephalic/atraumatic, face is symmetric, no scars/discoloration/masses, moist mucus membranes, conjunctivae/sclera clear Resp: Normal WOB on RA. CTA b/l, no stridor/wheezes/rales/rhonchi CVS: RRR, no gallops, soft systolic murmur present GI: No abd distension, normal BS, soft and non-tender to palpation Psych: Normal affect Extremities: Appear warm & well perfused, trace LE edema up to knee Skin: Warm, dry Labs: CBC: Recent Labs 05/27/24 0826 05/29/24 0547 WBC 11.24* 7.06 NEUTROABS 9.33* 4.96 HGB 14.3 14.4 MCV 93 90 PLT 151 151 Electrolytes: Recent Labs 05/27/24 0827 05/28/24 0312 05/29/24 0547 NA 140 138 136 K 3.5 3.2* 4.5 CL 106 103 105 CO2 26 26 21* BUN 17 14 16 CREATININE 0.94 0.88 0.85 CALCGFR 89 95 96 MG 2.0 -- -- Calcium: Recent Labs 05/27/24 0827 CALCIUM 8.6 Cardiac Markers: Recent Labs 05/27/24 0827 05/27/24 1148 05/27/24 1832 TROPONINI 0.035* 0.086* 0.064* NTBNP 3,420* -- -- Lipids: Recent Labs 05/27/24 0827 CHOL 183 TRIG 75 LDLBASE 129 HDL 39* Diabetic markers: Recent Labs 05/27/24 0826 HGBA1C 5.3 Imaging: - XR CHEST 2 VIEWS Result Date: 05/27/2024 Interstitial pulmonary edema. I have personally reviewed the images and the above interpretation and agree with the findings. [id number] [facility] - Diagnostic Cardiac Study Results Left main: Minor luminal irregularities. Left anterior descending: Prox 80% edge restenosis of prior stent, with 20% ISR. Ostial D2 70%. (Two LEBRON layers) Left circumflex: Distal 50%. Right coronary artery: Dominant. 100% prox with collaterals from LCA. Post-Procedure Diagnostic Conclusion: Cardiac surgery is indicated. ISR of prior stents, poor medical compliance. LAD/RCA disease, mod LCx disease. Assessment/Plan Assessment 68 y.o. male w/ PMH s/o HTN, HLD, BPH, depression, HFrEF (EF 40-45%), CAD s/p PCI with LAD stent [id number] (thrombosed after stopping clopidogrel, re-stented 09/2023 iso STEMI) who presents with dyspneaafter stopping all his medications except aspirin d/t cost, admitted for concern of re-occlusion and NSTEMI. Plan for restarting BRICK OR BLOCK MAKER meds, CT surgery consult, and for financial supports. Plan #NSTEMI Presented with dyspnea, no CP. Concern for re-occlusion iso missing medications since stopping everything except ASA. Trop peaked at 0.086. Cardiac surgery is indicated. ISR of prior stents, poor medical compliance. LAD/RCA disease, mod LCx disease. -restarting BRICK OR BLOCK MAKER cardiac meds -ASA 81mg/day - spironolactone 25mg - isosorbitride mononitrate 30mg - empagliflozin 10mg - metoprolol succinate 25mg -Hep gtt -hold BRICK OR BLOCK MAKER plavix -rosuvastatin 40mg/day -tele -consult nutrition #HFrEF exacerbation #mod TTE in September with left ventricular systolic function was mild to moderately decreased with an ejection fraction of 40-45% with hypokinesis of the mid-apical inferoseptal wall and apex; now with akinesis of anterolateral gustafson and entire apex, and an EF reduced to 35-40%. Now appearing euvolemic. -GDMT as above -consult HF ed #Medication non-adherence Stopped medications, doctor's appts, and cardiac rehab d/t losing insurance and cost. -Consult CM, appreciate recs and support -Make sure there's good f/u with PCP and cards after d/c #HTN #HLD #BPH -Holding BRICK OR BLOCK MAKER hydrochlorothiazide 25mg, terazosin 10mg; can evaluate pressures this admission following addition of GDMT medications. - Started ezetimibe 10mg daily #Nicotine dependence - Patient previously smoking 3/4 pack per day. - 2mg lozenges q4h PRN Code: DNR Diet: DIET HEART HEALTHY VTE Prophylaxis: hep gtt Consults: none Discharge Plan: pending clinical improvement DELFINO DURON MD 05/29/2024 7:22 05/29/24 7:19 Associated attestation - Doe Urbina MD - 05/29/2024 1234 EDT I have personally seen and examined the patient and reviewed the attached note and agree with the general findings unless noted otherwise. Doe Urbina MD Cardiology Attending * Antonietta Mares - 05/28/2024 4536 EDT [facility] Spiritual Care Note Re: René Rivera : 1955, AGE: 68 y.o. ROOM: [facility]/[id number] Spirituality: Taoist BACKGROUND Initial visit with patient in context of spiritual care order placed to support Sabianism patient. Visit ended after brief time due to arrival of treatment food service team member and patient's wish to speak with them. ASSESSMENT Beliefs & Values Patient stated he is Sabianism, and karly is very important part of his life. 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 Karly was of support during dissolution of his marriage several years ago. Patient says I'm a 'Roaming Taoist' - after his local parish in [place] closed, he has attendedvarious other area churches. Connections To be assessed Coping To be assessed Meaning Making To be assessed INTERVENTIONS General Clerk introduced self and spiritual care; initiated spiritual assessment. Compassionate presence. CARE PLAN Visit curtailed due to arrival of another treatment food service team member. This stonemason helper will refer to -call stonemason helper for follow-up. RECOMMENDATIONS NA TIME STAMP: 10 minutes ANTONIETTA MARES [facility] General Clerk [place] 131 Thank you for the opportunity to provide for this patient's/family's spiritual needs. * Nai Lozano - 05/28/2024 1141 EDT Medicine Progress Note Service Date: 05/28/2024 Admit Date: 05/27/2024 8:15 Reason for Admission: 68 y.o. male presented with dyspnea admitted for NSTEMI and volume overload. 24 Hour Events: - NAEO Subjective Doing well this AM. Resp improved. Reports having not taken any of this meds other than ASA since January d/t cost and now doesn't have insurance. Otherwise has been trying to improve his health by eating better and walking more. Feels LE edema chronic but improved with exercise. Was not able to complete previous cardiac rehab d/t cost. Also stopped seeing PCP. Review of Systems: A 10 point ROS was performed with pertinent positives and negatives noted in the HPI Subjective/Objective Objective Vital Signs: BP Min: 126/80 Max: 156/96 BP MAP Min: 91 mm Hg Max: 110 mm Hg Pulse From Oximetry Min: 61 BPM Max: 68 BPM Resp Min: 15 Max: 25 Temp Min: 36.6 ??C (97.9 ??F) Max: 37.3 ??C (99.1 ??F) SpO2 Min: 94 % Max: 98 % O2 Device: Nasal cannula O2 Flow Rate (L/min) Min: 0 l/min Max: 2 l/min Weight : 91.6 kg (202 lb) Weight Min: 91.6 kg (202 lb) Min taken time: 05/27/24 1641 Max: 108 kg (238 lb) Max taken time: 05/27/24 1305 I&O: Intake/Output Summary (Last 24 hours) at 05/28/2024 1141 Last data filed at 05/28/2024 0750 Gross per 24 hour Intake 711 ml Output 2275 ml Net -1564 ml Physical Exam General: Alert and oriented, NAD HEENT: Normocephalic/atraumatic, face is symmetric, no scars/discoloration/masses, moist mucus membranes, conjunctivae/sclera clear Resp: Normal WOB on RA. CTA b/l, no stridor/wheezes/rales/rhonchi CVS: RRR, no gallops, systolic murmur present GI: No abd distension, normal BS, soft and non-tender to palpation Psych: Normal affect Extremities: Appear warm & well perfused, normal (2+) peripheral pulses and trace LE edema up to knee Skin: Warm, dry Medications: reviewed Labs: CBC: Recent Labs 05/27/24 0826 WBC 11.24* NEUTROABS 9.33* HGB 14.3 MCV 93 PLT 151 Anemia studies: No results found for: IRON, TIBC, LABIRON, FERRITIN, [id number], FOLATE Electrolytes: Recent Labs 05/27/24 0827 05/28/24 0312 NA 140 138 K 3.5 3.2* CL 106 103 CO2 26 26 BUN 17 14 CREATININE 0.94 0.88 CALCGFR 89 95 MG 2.0 -- Coags: No results for input(s): PROTIME, INR, PTT in the last 72 hours. Hepatic function/Nutrition: No results for input(s): AST, ALT, ALKPHOS, TBIL, CONJBILI, UNCONJBILI, TP, LABALBU, LIPASE in the last 72 hours. Calcium: Recent Labs 05/27/24 0827 CALCIUM 8.6 Lactic Acid: No results for input(s): LACTICACID, LACTATE in the last 72 hours. Inflammatory Markers: No results for input(s): DDIMER, SEDRATE, CRP, LDH, FIBRINOGEN, PSGN in the last 72 hours. Cardiac Markers: Recent Labs 05/27/24 0827 05/27/24 1148 05/27/24 1832 TROPONINI 0.035* 0.086* 0.064* NTBNP 3,420* -- -- Lipids: Recent Labs 05/27/24 0827 CHOL 183 TRIG 75 LDLBASE 129 HDL 39* Thyroid Function: No results found for: TSH, FRET4, FREET4, P8WMOC2 Diabetic markers: Recent Labs 05/27/24 0826 HGBA1C 5.3 BGLs: No results for input(s): GLUCOSEPOC in the last 72 hours. UA: Imaging: - XR CHEST 2 VIEWS Result Date: 05/27/2024 Interstitial pulmonary edema. I have personally reviewed the images and the above interpretation and agree with the findings. [id number] Micro: - COVID: No results found for: COVIDUV Assessment/Plan Assessment 68 y.o. male w/ PMH s/o HTN, HLD, BPH, depression, HFrEF (EF 40-45%), CAD s/p PCI with LAD stent [id number] (thrombosed after stopping clopidogrel, re-stented 09/2023 iso STEMI) who presents with dyspneaafter stopping all his medications except aspirin d/t cost, admitted for concern of re-occlusion and NSTEMI. Plan for C today, restart BRICK OR BLOCK MAKER meds, and for financial supports. Plan #NSTEMI Presented with dyspnea, no CP. Concern for re-occlusion iso missing medications since stopping everything except ASA. S/p aspirin load. Trop peaked at 0.086. -restarting BRICK OR BLOCK MAKER cardiac meds -ASA 81mg/day - spironolactone 25mg - isosorbitride mononitrate 30mg - empagliflozin 10mg - metoprolol succinate 25mg -Hep gtt -hold BRICK OR BLOCK MAKER plavix -rosuvastatin 40mg/day -tele -[facility] -consult nutrition #HFrEF exacerbation #mod TTE in September with left ventricular systolic function was mild to moderately decreased with an ejection fraction of 40-45% with hypokinesis of the mid-apical inferoseptal wall and apex; now with akinesis of anterolateral gustafson and entire apex, and an EF reduced to 35-40%. -GDMT as above -consider diuresis after LHC -consult HF ed #Medication non-adherence Stopped medications, doctor's appts, and cardiac rehab d/t losing insurance and cost. -Consult CM, appreciate recs and support -Make sure there's good f/u with PCP and cards after d/c #HTN #HLD #BPH -Holding BRICK OR BLOCK MAKER hydrochlorothiazide 25mg, terazosin 10mg; can evaluate pressures this admission following addition of GDMT medications. #Nicotine dependence - Patient previously smoking 3/4 pack per day. - 2mg lozenges q4h PRN Code: DNR Diet: DIET NPO AFTER MIDNIGHT with Exceptions - Allow; meds, sips VTE Prophylaxis: hep gtt Consults: none Discharge Plan: pending clinical improvement Nai Lozano MD Internal Medicine PGY-2 Pager #[phone] 05/28/24 11:41 Associated attestation - Shawna Siddiqui MD - 05/28/2024 9331 EDT I have seen and evaluated the patient. I agree with the assessment and plan as outlined by Dr. Lozano. CTS consult. Shawna Siddiqui MD [facility] * Dell Sanderson RN - 05/27/2024 7603 EDT FOUR EYES SKIN ASSESSMENT Four Eyes skin assessment was performed on admission to the unit by CUONG Herman and CUONG Chow Patient has the following devices at the time of this assessment: Peripheral IV. Device related pressure injury present? No All skin intact verified by: Dell Sanderson RN. Last Margarito Score: Instructions: Add LDA for any identified wounds Add Elmore image for any suspected PI or non surgical wounds Order wound consult if suspected PI identified If Margarito is < or = to 16, initiate Pressure Injury Prevention Bundle ([id number]). 05/27/2024 17:16 documented in this encounter H&P Notes * Delfino Duron MD - 05/27/2024 1402 EDT Hospital Medicine Admission History & Physical Service Date: 05/27/2024 Admit Date: 05/27/2024 Primary Care Provider: Jaz Lyon Chief Complaint: Chest Pain, Shortness of breath HPI René Rivera is a 68 y.o. male with a PMHx of HTN, HLD, BPH, depression, HFrEF with prior EF of40-45%, CAD s/p PCI with LAD stent in 2015 (thrombosed after stopping clopidogrel, re-stented 09/2023 iso STEMI) who presents with recurrent chest pain after stopping all his medications except aspirin back in January due to cost. Patient states that he had been trying to exercise more this summer since his last heart attack, with lots of walking, biking and swimming, but has been experiencing an achy 5/10 chest pain for a couple weeks with exertion, for which he would sit and take a break with good resolution. When he woke up at 06:00 this morning, his chest pain suddenly worsened with a severe onset of shortness of breath, which felt similar to his two pervious STEMI episodes and had a neighbor called EMS for him. He took 3 of his Aspirin 81mg, and EMS gave him an additional aspirin 81mg. The chest pain does not radiate to anywhere else and his shortness of breath improved after receiving Nitroglycerin; he reports no shortness of breath or chest pain at the time of admission. He also describes that his leg edema has been unchanged and that they have had some swelling and heaviness for many years, often worse inthe winter time. Patient quit smoking this morning; previously had smoked 3/4 pack a day for the last 2 years after a successful 6 years of cessation following his first heart attack in 2016. Not currently using alcohol for the last 3 months, though has significant previous usage. Patient notes that he isn't currently following up with a dressage judge and has also not been able to see his PCP due to cost. He lives alone and is [employer]; karly plays a large role in his life. Review of Systems A complete 10 point ROS was performed and pertinent positive and negative findings listed in HPI, otherwise negative. Past Medical History: Diagnosis Date Heart attack (HCC-CMS) Hypertension Melanoma (HCC-CMS) 2009 excised Obesity Right inguinal hernia Past Surgical History: Procedure Laterality Date CARDIAC SURGERY HERNIA REPAIR ORTHOPEDIC SURGERY Social History Tobacco Use Smoking status: Former Current packs/day: 0.00 Average packs/day: 0.5 packs/day for 20.0 years (10.0 ttl pk-yrs) Types: Cigarettes Start date: 07/08/1995 Quit date: 07/08/2015 Years since quittin.8 Smokeless tobacco: Never Substance Use Topics Alcohol use: Not Currently Alcohol/week: 8.0 standard drinks of alcohol Types: 8 Cans of beer per week Comment: rare Family History Problem Relation Age of Onset Heart Attack Brother 65 Allergies Allergen Reactions Fosinopril Cough Objective Vitals Temp: [35.6 ??C (96 ??F)] , Heart Rate: [67 BPM-83 BPM] , Pulse: [68-83] , Resp: [13-25] , BP: (141-154)/(74-91) , SpO2: [94 %-96 %] , Numeric Pain Level (Scale 1-10): 6 Weight: Weight : (!) 108 kg (238 lb) Body mass index is 35.15 kg/m??. Physical Exam General: Resting comfortably in bed, no acute distress Head: Normocephalic, atraumatic Eyes: EOM intact, sclera anicteric, no conjunctival pallor Ears: External ears normal, hearing intact to voice Nose: No discharge or deformities Mouth: Moist mucus membranes, no exudates or pharyngeal erythema Neck: Supple, nontender Chest/Back: No rib cage tenderness, no midline back pain, no CVA tenderness Heart: Regular rate end rhythm, systolic murmur Lungs: Subtle crackles in bilateral lung brower, to mid field. Abdomen: No tenderness to palpation, nondistended, no guarding, peritoneal signs, or masses : Deferred Extremities: 1+ pitting edema in both legs proximal to the tibia MSK: Normal ROM, no deformities or tenderness to extremities Neuro: Alert and oriented X4. CN II-XII grossly intact. Freely moves all extremities, speech is normal without evidence of aphasia or dysphonia. Gait is normal without ataxia Skin: [place], warm, and dry. No rashes, lesions, or ecchymosis Psych: Normal mood and affect, normal behavior Labs I have personally reviewed Recent Labs 05/27/24 0826 WBC 11.24* RBC 4.57 HGB 14.3 HCT 42.7 MCV 93 MCH 31.3 MCHC 33.5 PLT 151 NEUTROABS 9.33* Recent Labs 05/27/24 0827 NA 140 K 3.5 CL 106 CO2 26 BUN 17 CREATININE 0.94 CALCIUM 8.6 MG 2.0 Recent Labs 05/27/24 1148 TROPONINI 0.086* Imaging XR CHEST 2 VIEWS 05/27/2024 8:30 AM Interstitial pulmonary edema. TTE 05/27/24 Left Ventricle: The left ventricular cavity was in the upper limits of normal in size. Left ventricular systolic function was moderately decreased with an ejection fraction of 35-40%. There was severe hypokinesis to akinesis of the mid-apical anterior, anterolateral gustafson and entire apex. Right Ventricle: The right ventricular cavity was normal in size. Right ventricular systolic function was normal. Aortic Valve: There was moderate aortic valve stenosis. There was trace aortic valve regurgitation.AV Peak Velocity: 3.2 m/s. AV Mean Gradient: 24 mmHg. AV Area VTI: 1.1 cm2. Mitral Valve: There was mild mitral regurgitation. Assessment René Rivera is a 68 y.o. male with a PMHx significant for HTN, HLD, BPH, depression, CAD s/p PCI with LAD stent in 2015 (thrombosed after stopping clopidogrel, re-stented 09/2023 iso STEMI) who presents with recurrent chest pain after stopping all his medications except aspirin back in January due to cost, raising concern for repeated occlusion. Patient likely to benefit from case management support in connecting to insurance coverage and ongoing medical and social supports. Plan #STEMI Symptomatic, with a history of angina with exertion. ECG without ST elevations. Troponin elevated and currently uptrending, 0.035 -> 0.086. Concerning for occlusive ischemia. - NPO at midnight pending possible intervention - Loaded with aspirin 324mg at symptom onset - begun on heparin gtt in ED - TTE with severe hypokinesis to akinesis of the mid-apical anterior, anterolateral gustafson and entire apex. - will plan to resume BRICK OR BLOCK MAKER cardiac medications tomorrow - spironolactone 25mg - isosorbitride mononitrate 30mg - empagliflozin 10mg - metoprolol succinate 25mg - aspirin 81 mg daily - holding clopidogrel 75 mg daily - telemetry - trop trending to peak - lipid profile and A1c ordered Volume overload, HFrEF - TTE in September with left ventricular systolic function was mild to moderately decreased with an ejection fraction of 40-45% with hypokinesis of the mid-apical inferoseptal wall and apex; now with akinesis of anterolateral gustafson and entire apex, and an EF reduced to 35-40%. - received lasix 20mg in ED HTN HLD BPH Holding BRICK OR BLOCK MAKER hydrochlorothiazide 25mg, terazosin 10mg; can evaluate pressures this admission following addition of GDMT medications. Nicotine dependence - Patient previously smoking 3/4 pack per day. - 2mg lozenges q4h PRN VTE Prophylaxis Pharmacologic Prophylaxis: heparin gtt Code: Limitation of Treatment DNR Do not intubate (DNI) Discharge Plan Home or self care Consults None Admission status Inpatient admission due to anticipated duration of hospitalization is two midnights or greater due to NSTEMI. DELFINO DURON MD 05/27/2024 15:31 Associated attestation - Doe Urbina MD - 05/27/2024 1715 EDT I have personally seen and examined the patient and reviewed the attached note and agree with the general findings unless noted otherwise. Doe Urbina MD Cardiology Attending documented in this encounter Procedure Notes * Don Mcgregor MD - 05/28/2024 1147 EDT Cardiovascular Catheterization Laboratory Preliminary Report -- Catheterization Date of Service/Procedure: 05/28/2024 Attending Physician: Don Mcgregor MD Fellow: Libby Jeronimo MD Pre-Procedure Diagnosis /NCDR Indication: René Rivera is a 68 y.o. year old male with ACS <= 24 hrs and stable known CAD. Chest Pain Symptom Assessment: Typical Angina Heart Failure: No CHSA Clinical Frailty Scale: 4: Vulnerable Prior Stress Testing? No Anesthesia: A moderate level of anesthesia/conscious sedation was used in addition to local anesthesia. Access: Right radial artery Procedure: He was brought to [facility] Cardiac Catheterization Laboratory for the procedure: Diagnostic coronary/graft angiography. Closure: TR Band Post-Procedure Condition: The condition of the patient was Good. Complications: None. IV Contrast Total: 45 mL X-ray Dose: 229 mGy Estimated Blood Loss: Minimal. Unless otherwise noted,there were no specimens removed, cultures obtained, or drains retained. Research Study: Patient is not enrolled in a research study. Diagnostic Cardiac Study Results Left main: Minor luminal irregularities. Left anterior descending: Prox 80% edge restenosis of prior stent, with 20% ISR. Ostial D2 70%. (Two LEBRON layers) Left circumflex: Distal 50%. Right coronary artery: Dominant. 100% prox with collaterals from LCA. Post-Procedure Diagnostic Conclusion: Cardiac surgery is indicated. ISR of prior stents, poor medical compliance. LAD/RCA disease, mod LCx disease. Plan: Aspirin 81mg PO daily. High intensity statin therapy PO daily. Transthoracic echocardiography. CTS Consult Discontinue P2Y12 therapy At the completion of the procedure, the attending physician has explained the findings, therapies, any complications and treatment plan to the patient. With the patients consent, all family members and patient support persons who were present at the conclusion of the procedure have been notified ofthese results and treatment plans as well. Don Mcgregor MD PagerNumber: [phone] 05/28/2024 11:47 documented in this encounter Consult Notes * Oniel Lee PA-C - 05/30/2024 1012 EDT Cardiothoracic Surgery Consult Chief Complaint: Dyspnea, CAD, moderate HPI: Our service was asked to consult on René Rivera for consideration of cardiac surgery. Thepatient is a 68 y.o. male with a history of HTN, HLD, BPH, depression, HFrEF, CAD s/p PCI to LAD [id number] (thrombosed after stopping clopidogrel requiring repeat PCI 09/2023) who presented to the hospital with exertional chest pain and shortness of breath that felt similar to his previous STEMI episodes. Mr. Rivera reports that his primary symptom was shortness of breath that led to his hospitalization. He also notes long-standing lower extremity swelling that has worsened in recent months. Since admission his breathing is improving and his LE swelling has improved. He denies chest pain, syncope, orthopnea. He was previously on plavix, but he reports stopping this in January due to his prescription running out. He reports quitting smoking around the time of his first stent in 2016. Per chart review there is documentation that he has been smoking more recently. He reports a history of alcohol use, though he says he has not had beer in 3-4 months. He reports putting whiskey in his coffee. Denies other drug use. Has not seen a dentist in years and reports that his fillings are falling out. PMH PSH Past Medical History: Diagnosis Date Heart attack ([facility]) Hypertension Melanoma ([facility]) 2009 excised Obesity Right inguinal hernia Past Surgical History: Procedure Laterality Date CARDIAC SURGERY HERNIA REPAIR ORTHOPEDIC SURGERY Social History Family History Social History Tobacco Use Smoking status: Former Current packs/day: 0.00 Average packs/day: 0.5 packs/day for 20.0 years (10.0 ttl pk-yrs) Types: Cigarettes Start date: 07/08/1995 Quit date: 07/08/2015 Years since quittin.9 Smokeless tobacco: Never Substance Use Topics Alcohol use: Not Currently Alcohol/week: 8.0 standard drinks of alcohol Types: 8 Cans of beer per week Comment: rare Family History Problem Relation Age of Onset Heart Attack Brother 65 Medications Current Outpatient Medications Medication Instructions acetaminophen (TYLENOL) 325 mg capsule PRN aspirin 81 mg, oral, DAILY buPROPion (WELLBUTRIN XL) 300 mg, DAILY diclofenac sodium gel Please see attached for detailed directions. hydroCHLOROthiazide (HYDRODIURIL) 25 mg, DAILY metoprolol SUCCinate (TOPROL-XL) 25 mg, oral, DAILY Multivitamins with Minerals tablet 1 Tablet, DAILY nicotine (NICODERM CQ) 21 mg/24 hr patch APPLY 1 PATCH TO SKIN ONCE A DAY nicotine polacrilex (COMMIT) 2 mg lozenge HOLD 1 PIECE TO INSIDE OF MOUTH (BUCCAL) EVERY TWO HOURS NEEDED NEEDED FOR NICOTINE CRAVINGS terazosin (HYTRIN) 10 mg, AT BEDTIME Allergies Allergies Allergen Reactions Fosinopril Cough ROS: I performed a 10 point review of systems. Pertinent positives per HPI. All others negative. OBJECTIVE: VS: Blood pressure (!) 146/91, pulse 64, temperature 36.7 ??C (98.1 ??F), temperature source Oral, resp. rate 16, height 175.3 cm (69), weight 89.4 kg (197 lb 1.5 oz), SpO2 95%. Gen: awake, alert, NAD HEENT: soft, no carotid bruits, no cervical lymphadenopathy, poor dentition Chest: No obvious chest wall deformities. CV: RRR, +S1S2, +Systolic murmur, 2+ DP & radials bilat Pulm: CTAB, no crackles, wheezes or rhonchi Abd/GI: Soft, NT, ND, +BS Skin/Ext: Warm, dry, no obvious lesions, 1+ pitting edema to mid tibia Neuro: Awake, A&Ox3, ADAME well Psych: Awake, A&Ox3, normal exam Labs: Lab Results Component Value Date/Time WBC 7.06 05/29/2024 05:47 HGB 14.4 05/29/2024 05:47 HCT 41.9 05/29/2024 05:47 PLT 151 05/29/2024 05:47 NA 139 05/30/2024 05:50 K 4.1 05/30/2024 05:50 CL 106 05/30/2024 05:50 CO2 22 05/30/2024 05:50 BUN 13 05/30/2024 05:50 CREATININE 0.93 05/30/2024 05:50 INR 1.1 10/08/2015 08:57 HGBA1C 5.3 05/27/2024 08:26 Chest x-ray (05/27/24): Interstitial pulmonary edema. TTE (05/27/24): Left Ventricle: The left ventricular cavity was in the upper limits of normal in size. Left ventricular systolic function was moderately decreased with an ejection fraction of 35-40%. There was severe hypokinesis to akinesis of the mid-apical anterior, anterolateral gustafson and entire apex. Right Ventricle: The right ventricular cavity was normal in size. Right ventricular systolic function was normal. Aortic Valve: There was moderate aortic valve stenosis. There was trace aortic valve regurgitation.AV Peak Velocity: 3.2 m/s. AV Mean Gradient: 24 mmHg. AV Area VTI: 1.1 cm2. Mitral Valve: There was mild mitral regurgitation. LHC (05/28/24): Left main: Minor luminal irregularities. Left anterior descending: Prox 80% edge restenosis of prior stent, with 20% ISR. Ostial D2 70%. (Two LEBRON layers) Left circumflex: Distal 50%. Right coronary artery: Dominant. 100% prox with collaterals from LCA. I personally visualized the cardiologic images and reviewed the laboratory values. STS ACSD Operative Risk Calculator Procedure Type: CABG + AVR Perioperative Outcome Estimate % Operative Mortality 2.96% Morbidity & Mortality 13.9% Stroke 1.84% Renal Failure 1.83% Reoperation 4.8% Prolonged Ventilation 9.65% Deep Sternal Wound Infection 0.194% Long Hospital Stay (>14 days) 9.37% Short Hospital Stay (<6 days) 24.8% ASSESSMENT: René Rivera is a 68 y.o. male with a history of HTN, HL, CAD, poor medication compliance who presented with multivessel CAD. Patient will be discussed with Dr. Ribera when available. Risk Factors HTN Yes HLD Yes GERD No Diabetes Mellitus No Cardiac Family History Yes COPD Unknown Atrial Fibrillation No Alcohol Abuse Unknown CHF Yes Tobacco Yes PLAN: Discussed with Dr. Ribera - we recommend outpatient follow up in 3-4 weeks after heart failure optimization. Repeat echo at that time. Routine pre-operative lab work in place. Will need T&S drawn day before surgery. Vein Mapping and Carotid studies ordered. Chest imaging completed. LHC & Echo completed. Medication Instructions (as applicable): Continue heparin gtt per protocol, do not stop pre-operatively. Please hold LEEANN/ARB the day before and day of surgery. If patient is on insulin please order insulin gtt starting the evening before surgery. If patient is MSSA/MRSA positive will need CHG/mupirocin BID x5 days (or sooner) pre-op. If MSSA/MRSA negative, will just need CHG the night before and morning of surgery. Patient should be on ASA unless contraindicated. For patients with CAD, they should additionally beon a BB and high intensity statin unless contraindicated. Appreciate care by primary team, please contact our team with any changes or concerns. Will continue to follow daily. Oniel Lee PA-C Cardiothoracic Surgery, pager #[phone] 05/30/2024 10:12 Associated attestation - Livier Ribera MD - 05/31/2024 1444 EDT Attestation: I saw and examined the patient 06/01/2024. I agree with the resident's/LEAD ETL DEVELOPER/PA's findingsand plans as documented. 62-year-old patient presented with shortness of breath and chest pain along with worsening lower extremity edema. Of note he had recently stopped taking his medications. Heart catheterization revealed multivessel disease, and TTE showed an EF of 35 to 40%, severe hypokinesis to akinesis of the mid apical anterior, anterolateral gustafson, and entire apex. There was also moderate aortic valve stenosis. He came in with heart failure symptoms with just a mildly increased troponin bump in the setting ofpoor medication compliance. Would recommend discharge to home with medical optimization, and then he should return to see me in clinic along with a repeat TTE in 4 weeks. Can discuss revascularization and possible AVR at that time. Livier Ribera MD 05/31/2024 14:40 * Ashli Gomez RD - 05/29/2024 1226 EDTAssociated Order(s): CONSULT NUTRITION Cx for diet education: Wt Readings from Last 12 Encounters: 05/27/24 91.6 kg (202 lb) 10/19/23 (!) 112.8 kg (248 lb 10.9 oz) 11/13/19 (!) 111.1 kg (245 lb) 03/31/19 (!) 111.6 kg (246 lb) Pt has lost ~50# since 10/14 d/t exercise and cutting back calories. He has been walking, biking andswimming. He is on a limited budget and is unable to spend money on fresh F/V. We discussed low sodium diet for his CHF: he doesn't use added salt, reads labels and has been cutting back on foods that are hi in sodium as able. We discussed using frozen F/V as a substitute for fresh. HH diet has mostly same parameters: avoiding processed foods, avoiding fast food restaurants, cured meats. Writing infor provided and he verbalized good understanding D/t age would check vit D level Ashli Gomez RD * Keyur Ortiz - 05/29/2024 1141 EDTAssociated Order(s): CONSULT PASTORAL CARE [facility] Spiritual Care Note Re: René Rivera : 1955, AGE: 68 y.o. ROOM: [facility]/[place] [id number] BACKGROUND Follow up visit with patient who was visited by stonemason helperwarner Mares yesterday. 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 He reflected on times when he leanedon his karly to support him through difficult times and wonders what God's will is for his upcomingchoice to pursue heart surgery vs not. Patient accepted stonemason helper's offer to make a referral to a professor of communication and writing so that he may receive Sacraments such as confession and communion. Values community and being of service. Connections Patient spoke about a complex dynamic with his children and ex-spouse. He has friends and feels that at times it is difficult to discuss things. Patient likes to attend Mass and go to Adoration however has not been able to do this recently. Coping Patient expressed finding it important to follow Taoist [employer] karly practices such as saying therosary, attending christian, going to adoration, and being of service to others. Patient expressed worry about cost of his medications and possible surgery. Meaning Making Patient finds meaning through his karly. He also likes to camp and spend time in nature. Being of service to others also seems to bring his life meaning. INTERVENTIONS Active and empathetic listening, validation and affirmation of feelings and strength, assessed needfor specific clergy support, theological reflection CARE PLAN General Clerk made request for a professor of communication and writing visit for sacramental support. RECOMMENDATIONS Continue to affirm and validate feelings; provide space for exploration of surgery vs not TIME STAMP: 30 minutes KEYUR ORTIZ [facility] Chaplain [place] 131 Thank you for the opportunity to provide for this patient's/family's spiritual needs. documented in this encounter ED Notes * Aleta Castellanos RN - 05/27/2024 1505 EDT Cardiology admitting team at bedside to speak with patient. * Aleta Castellanos RN - 05/27/2024 1359 EDT dental service technician at bedside to perform echo. * Aleta Castellanos RN - 05/27/2024 1035 EDT Pt ambulatory to bathroom with steady gait, voided 400mL light yellow urine in urinal. * Aleta Castellanos RN - 05/27/2024 1017 EDT Pt independently ambulatory to bathroom with steady gait. 400mL clear yellow urine voided. Pt returned to [facility], placed back on continuous cardiac monitoring, reporting chest pain 6/10 at this time. * Aleta Castellanos RN - 05/27/2024 0847 EDT Medical student at bedside to evaluate patient. * Aleta Castellanos RN - 05/27/2024 0833 EDT Pt reports that he hasn't been taking any of his medications for the past several months due to finances. Pt states he has not been able to afford any of his medications, and has also not been ableto see his PCP for several months due to finances. Pt states he is supposed to be taking HTN medications and lasix. * Teddy Davis - 05/27/2024 0827 EDT 12 Lead EKG Performed by TEDDY DAVIS and shown to Dr. Tafoya. * Jason Ashton MD - 05/27/2024 0815 EDT Emergency Department Visit Medical Decision Making Relevant Data as of 05/27/24 1600 Fri May 27, 2024 0830 EKG on my independent interpretation shows sinus rhythm, rate 71, anterolateral Q waves (previously demonstrated on old EKG in 11/10/2023) no reciprocal depressions [AC] 0929 68-year-old male with history of CAD status post multiple left heart cath and recent LEBRON to the LAD in October 2023, who presents with chest pain and shortness of breath that worsened this morning but began in previous days. Of note, patient is not taking medications except for aspirin due tocost. Currently uninsured. Patient was hypoxic in the field, treated with aspirin and nitro. Improvement in shortness of breath and hypoxia on arrival, chest pain persist at 4-10. Patient appears comfortable on exam but has evidence of mild fluid overload with lower extremity edema. Chest x-ray shows some degree of interstitial edema. Patient's first troponin was subtly elevated, consistent with NSTEMI, with nonischemic EKG. Given his medication noncompliance, history of CAD and elevated troponin, will discuss with cardiology [CW] 6092 Discussed case with cardiology. They agree to admit the patient for decompensated CHF, medication noncompliance, troponin elevation [CW] Relevant Data User Index [AC] Glenis Tafoya MD [CW] Jason Ashton MD 09:38 Phone consultation with cardiology. 11:38 Phone consultation with cardiology who will come see the patient. At this time, the patient was hemodynamically stable for admission to Cardiology under the care of Dr. Urbina. Medical Decision Making Problems Addressed: Acute on chronic combined systolic and diastolic congestive heart failure (HCC- CMS): complicated acute illness or injury Amount and/or Complexity of Data Reviewed Labs: ordered. Radiology: ordered. Risk OTC drugs. Prescription drug management. Decision regarding hospitalization. Final diagnoses: Acute on chronic combined systolic and diastolic congestive heart failure (HCC-CMS) Disposition: Admitted Chief complaint: Chest Pain HPI Rodney Rivera is a 68 y.o. male with a history of 2 STEMI's, hyperlipidemia, hypertension, aorticstenosis, melanoma, and depression who presents to the ED via EMS for chest pain. Per EMS, the patient was given Asprin and Nitroglycerin en route. Patient states that he had been experiencing a constant achy 5/10 chest pain for a couple weeks which hasn't been a show stopper and could live with it. Patient reports that he woke up around 06:00 this morning and when he rolled over, his chest pain suddenly worsened with a severe onset of shortness of breath. Patient reports that he knew he was having a heart attack as it felt similar to his two pervious episodes and had a neighbor call EMS for him as his phone was in the other room and moving exacerbated the shortness of breath. Patient details that the chest pain does not radiate to anywhere else and his shortness of breath has since been alleviated after receiving Nitroglycerin. Patient notes that he regularly takes Asprin and took 3 81 mg Asprin's this morning after the onset of the chest pain. Patient notes that he wasn't experiencing lightheadedness or dizziness until after having received the Nitroglycerin. Patient denies chills, fever, cough, or sore throat. Patient reports that he has had stents placed in the past and replaced as well due to occlusion of those stents. Patient reports that he hasn't been taking any of his prescribed medications since December due to cost besides the Asprin and hasn't seen a PCP in awhile for the same reason. Patient notes that he isn't currently following up with a dressage judge. History was provided by: Patient, EMS, EMR. Records reviewed include: Prior cardiology notes, prior discharge from October Patient's pertinent PMH, FH, SH were reviewed and edited as necessary. Nursing notes reviewed. A medical screening exam was performed. Physical Exam BP 141/74 Pulse 68 Temp (!) 35.6 ??C (96 ??F) (Oral) Resp 25 Ht 175.3 cm (69) Wt (!) 108kg (238 lb) SpO2 96% BMI 35.15 kg/m?? Physical Exam General: Resting comfortably in bed with eyes closed, no acute distress Head: Normocephalic, atraumatic Eyes: EOM intact, sclera anicteric, no conjunctival pallor Ears: External ears normal, hearing intact to voice Nose: No discharge or deformities Mouth: Moist mucus membranes, no exudates or pharyngeal erythema Neck: Supple, nontender Chest/Back: No rib cage tenderness, no midline back pain, no CVA tenderness Heart: Regular rate end rhythm, systolic murmur Lungs: Subtle crackles in bilateral lung brower. Abdomen: No tenderness to palpation, nondistended, no guarding, peritoneal signs, or masses : Deferred Extremities: 1+ pitting edema in both legs proximal to the tibia MSK: Normal ROM, no deformities or tenderness to extremities Neuro: Alert and oriented X4. CN II-XII grossly intact. Freely moves all extremities, speech is normal without evidence of aphasia or dysphonia. Gait is normal without ataxia Skin: [place], warm, and dry. No rashes, lesions, or ecchymosis Psych: Normal mood and affect, normal behavior Procedures Procedures This documentation is recorded by Bhupinder Pina acting as Scribe under the direction and presence of Glenis Tafoya MD and Jason Ashton MD. Glenis Tafoya MD and Jason Ashton MD: I personally performed the services recorded by thescribe in my presence. I confirm the scribe's documentation has been reviewed by me to accurately and completely record my work, treatment, procedures, and medical decision making. Note has been documented by Bhupinder Pina on 05/27/2024 Associated attestation - Glenis Tafoya MD - 05/27/2024 1623 EDT I, Glenis Tafoya MD, performed a history and exam of this patient and discussed the case with the resident. I have reviewed and edited this note, and the documentation is consistent with my findings,assessment and plan. I fully participated in the medical decision making. documented in this encounter Miscellaneous Notes * Plan of Care - Tiffany Salamanca RN - 05/31/2024 0941 EDT Discharge Note D - Patient ordered for discharge today, home with self care. A - Patient given prescriptions, medication information sheets and After Visit Summary. Medication list, follow up appointments and care instructions reviewed with patient. IVs removed with catheter intact, and ID band removed. R - Patient questions reviewed and addressed prior to discharge. Patient left the unit ambulatory with personal beongings in stable condition. No distress noted. 05/31/2024 9:41 TIFFANY SALAMANCA RN * Plan of Care - Carolyn Ruelas RN - 05/31/2024 0450 EDT Images from the original note were not included. Data: HD 4 for nstemi. Action: Heparin drip discontinued prior to start of shift. Pt ambulated multiple times around the unit, with no reports of CP or EKG changes noted on telemetry. Compliant with 2L fluid restriction. Continues to have 7/10 L shoulder pain (baseline musculoskeletal) treated with tylenol prn and heating pads. Response: Pt ready for DC Problem: Daily Care Plan Goals Goal: Care Plan Documentation Outcome: Ongoing Flowsheets (Taken 05/30/20242029) Area of Focus: Discharge Plan Goal This Shift: DC 05/31 CAROLYN RUELAS RN 05/31/2024 4:51 * Heart Failure Education - Yolie Pierce RN - 05/30/2024 1258 EDT Heart failure nurse clinician reviewed heart failure education with pt at the bedside this morning.Please see Education tab for education provided and pt's response. Yolie Pierce RN, CHFN Heart Failure Nurse Clinician Secure Chat or pager #[phone] * Plan of Care - Melanie Mcpherson RN - 05/30/2024 1213 EDT Images from the original note were not included. Problem: High Fall Risk: Goal: Patient will Remain Free of Falls due to Med. Side Effects Outcome: Ongoing Problem: Daily Care Plan Goals Goal: Care Plan Documentation Outcome: Ongoing Problem: Sensory: Goal: Ability to compensate for vision loss will be supported Outcome: Ongoing Problem: Safety: Goal: Ability to remain free from injury related to excessive bleeding will improve Outcome: Ongoing Goal: Will remain free from falls Outcome: Ongoing Problem: Medication: Goal: Risk for medication side effects will decrease Outcome: Ongoing * Plan of Care - Dorian William RN - 05/29/2024 1429 EDT Data: Assumed care of patient at 0700, POD 1 from [facility] showing multivessel disease. NSR on tele withsome PVCs, BP elevated this AM, improved following medications. Ambulating independently in the room and hallways, heparin gtt infusing as ordered. Action: Scheduled meds given as ordered, patient with 7 beats of VTACH this afternoon, asymptomatic, MD notified. Repositioning self in the chair/bed. Response: Up in the chair, call camarena within reach, awaiting formal CT surgery consult this week. DORIAN WILLIAM RN 05/29/2024 14:29 ' * Plan of Care - Yara Brandt LICSW - 05/28/2024 1803 EDT CM Note: Chart reviewed to include H&P. 05/28/24 1802 Discharge Delay Risk Assessment 1. Disease/Medical Condition 5 2. Hospitalization 2 3. Family Structure 1 (Unable to verify at time of chart review) Major Barrier day total 1-6 3 Risk for Delayed Discharge At Risk For Delayed Discharge 7. Economic situation 1;2 Major Barrier day total 7-8 2 Risk for Delayed Discharge At Risk For Delayed Discharge Minor or major discharge risk delay(s) present? No discharge barriers identified (BARRIERS PRESENT) Does the patient meet criteria to be escalated? Yes How was escalation determined? Per screening tool CM to follow and to assess for discharge planning needs. LAWANDA CABAN, [facility] # [id number] Covering Weekend CM * Plan of Care - Dell Sanderson RN - 05/28/2024 1659 EDT Images from the original note were not included. Data: René Rivera is a 68 y.o. male with a PMHx of HTN, HLD, BPH, depression, HFrEF with priorEF of 40-45%, CAD s/p PCI with LAD stent in 2015 (thrombosed after stopping clopidogrel, re-stented09/2023 iso STEMI) who presents with recurrent chest pain. Action: Patient return to room from brine room laborer post left heart cath with TR band to right wrist. TR band removed following hospital guidelines and time frame. Response: Patient toleration TR band removal. Will continue to monitor closely. DELL SANDERSON RN 05/28/2024 Problem: High Fall Risk: Goal: Patient will Remain Free of Falls due to Med. Side Effects Outcome: Ongoing Problem: Daily Care Plan Goals Goal: Care Plan Documentation Outcome: Ongoing Problem: Safety: Goal: Ability to remain free from injury related to excessive bleeding will improve Outcome: Ongoing Problem: Medication: Goal: Risk for medication side effects will decrease Outcome: Ongoing DELL SANDERSON RN 05/28/2024 documented in this encounter Plan of Treatment Upcoming Encounters Date Type Department Care Team (Late st Contact Info) Description 07/12/2024 16:45 EDT Office Visit [facility] Cardiology - [facility] [address] [place] [address] Wilberto Ocasio MD [address] [facility] [address] [place] [id number] Scheduled Orders Name Type Priority Associated Diagnoses Order Schedule TRANSTHORACIC ECHO (TTE) COMPLETE Echocardiography Routine HFrEF (heart failure with reduced ejection fraction) ([facility]) CAD, multiple vessel Expected: 05/31/2024, Expires: 05/31/2026 BASIC METABOLIC PANEL (BMP) Lab Routine HFrEF (heart failure with reduced ejection fraction) ([facility]) Expected: 06/07/2024 (Approximate), Expires: 06/30/2024 Scheduled Referrals Name Type Priority Associated Diagnoses Order Schedule AMB CONS/FOLLOW UP CARDIOLOGY Outpatient Referral Routine/Next Available Nonrheumatic aortic valve stenosis NSTEMI (non-ST elevated myocardial infarction) (HCC-CMS) HFrEF (heart failure with reduced ejection fraction) (HCC-CMS) Primary hypertension Expected: 06/13/2024 (Approximate), Expires: 05/30/2025 AMB CONS/FOLLOW UP PRIMARY CARE PHYSICIAN - EXTERNAL Outpatient Referral Routine/Next Available Nonrheumatic aortic valve stenosis NSTEMI (non-ST elevated myocardial infarction) ([facility]) HFrEF (heart failure with reduced ejection fraction) ([facility]) Primary hypertension Expected: 06/06/2024 (Approximate), Expires: 05/30/2025 AMB CONS/FOLLOW UP CARDIOTHORACIC SURGERY Outpatient Referral Routine/Next Available 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 angina pectoris CAD, multiple vessel Expected: 06/21/2024 (Approximate), Expires: 05/31/2025 documented as of this encounter Procedures Procedure Name Priority Date/Time Associated Diagnosis Comments ECG REPORT - SCANNED 2024 12:17 EDT BASIC METABOLIC PANEL (BMP) Routine 05/31/2024 8:17 EDT US VEIN MAPPING Routine 05/30/2024 14:08 EDT US CAROTID-VERTEBRAL DUPLEX Routine 05/30/2024 14:07 EDT VITAMIN D (25,OH) Routine 05/30/2024 5:5 0 EDT HEPARIN LEVEL - UNFRACTIONATED HEPARIN STAT 05/30/2024 5:50 EDT BUN Routine 05/30/2024 5:50 EDT MAGNESIUM Routine 05/30/2024 5:50 EDT CREATININE Routine 05/30/2024 5:50 EDT ELECTROLYTES Routine 05/30/2024 5:50 EDT HEPARIN LEVEL - UNFRACTIONATED HEPARIN STAT 05/29/2024 18:24 EDT HEPARIN LEVEL - UNFRACTIONATED HEPARIN STAT 05/29/2024 12:21 EDT HEPARIN LEVEL - UNFRACTIONATED HEPARIN STAT 05/29/2024 5:47 EDT COMPLETE BLOOD COUNT AND DIFFERENTIAL Routine 05/29/2024 5:47 EDT BUN Routine 05/29/2024 5:47 EDT MAGNESIUM Add-On 05/29/2024 5:47 EDT CREATININE Routine 05/29/2024 5:47 EDT ELECTROLYTES Routine 05/29/2024 5:47 EDT CARDIAC CATHETERIZATION Routine 05/28/20 24 11:52 EDT NSTEMI (non-ST elevated myocardial infarction) ([facility]) HEPARIN LEVEL - UNFRACTIONATED HEPARIN STAT 05/28/2024 3:12 EDT BUN Routine 05/28/2024 3:12 EDT CREATININE Routine 05/28/2024 3:12 EDT ELECTROLYTES Routine 05/28/2024 3:12 EDT HEPARIN LEVEL - UNFRACTIONATED HEPARIN STAT 05/27/2024 21:02 EDT TROPONIN I Routine 05/27/2024 18:32 EDT TRANSTHORACIC ECHO (TTE) COMPLETE Routine 05/27/2024 14:55 EDT HEPARIN LEVEL - UNFRACTIONATED HEPARIN STAT 05/27/2024 14:48 EDT ECG REPORT - SCANNED 05/27/2024 13:45 EDT TROPONIN I STAT 05/27/2024 11:48 EDT XR CHEST 2 VIEWS STAT 05/27/2024 8:39 EDT HOLD BLUE TOP STAT 05/27/2024 8:27 EDT TROPONIN I STAT 05/27/2024 8:27 EDT NT PRO BNP STAT Add-on 05/27/2024 8:27 EDT MAGNESIUM STAT 05/27/2024 8:27 EDT LIPID PROFILE (INCLUDES CHOLESTEROL, TRIGLYCERIDES, HDL, LDL) Add-On 05/27/2024 8:27 EDT BASIC METABOLIC PANEL (BMP) STAT 05/27/2024 8:27 EDT COMPLETE BLOOD COUNT AND DIFFERENTIAL STAT 05/27/2024 8:26 EDT HEMOGLOBIN A1C Add-On 05/27/2024 8:26 EDT EKG 12-LEAD STAT 05/27/2024 8:24 EDT documented in this encounter Results * ECG REPORT - SCANNED (2024 12:17 EDT) 2024 12:1 7 EDT Scan 2 Human Geography Instructor PROCEDURE/MINOR SHARITA GICAL ORDERABLES * (ABNORMAL) BASIC METABOLIC PANEL (BMP) (05/31/2024 8:17 EDT) Sodium 140 136 - 145 mmol/L 05/31/2024 9:[address] [facility] Potassium 3.8 3.5 - 5.0 mmol/L 05/31/2024 9:[address] [facility] Chloride 104 96 - 110 mmol/L 05/31/2024 9:[address] [facility] CO2 Total 24 22 - 32 mmol/L 05/31/2024 9:[address] [facility] Anion Gap 12 5 - 14 mmol/L 05/31/2024 9:[address] [facility] Glucose 139(H) 70 - 99 mg/dl 05/31/2024 9:[address] [facility] Calcium 9.5 8.5 - 10.5 mg/dL 05/31/2024 9:[address] [facility] BUN 15 10 - 26 mg/dL 05/31/2024 9:[address] [facility] Creatinine 0.97 0.66 - 1.25 mg/dL 05/31/2024 9:[address] [facility] eGFR 86 >60 mL/min/1.73 m2 05/31/2024 9:[address] [facility] Blood VENOUS BLOOD / Unknown Venipuncture / Unknown 05/31/2024 8:17 EDT 05/31/2024 8:49 EDT Manjula Harkins LEAD ETL DEVELOPER CHEMISTRY & BLOOD GAS ORDERABLES [facility] [address] [place] [address] * US VEIN MAPPING: CABG (05/30/2024 14:08 [...] use and Hypertension. Oniel Lee PA-C IMG VASCULAR DANICA ALLEN * US CAROTID-VERTEBRAL DUPLEX [...] Hyperlipidemia, Hypertension and Former tobacco use. Oniel B Jesus PA-C IMG US VASCULAR ORDE RABLES * MAGNESIUM (05/30/2024 5:50 EDT) [facility] Magnesium 2.1 1.7 - 2.8 mg/dL 05/30/2024 6:[address] [facility] Blood VENOUS BLOOD / Unknown Venipuncture / Unknown 05/30/2024 5:50 EDT 05/30/2024 6:17 EDT Doe Urbina MD CHEMISTRY & BLOOD GA S ORDERABLES [facility] [address] [place] [address] * HEPARIN LEVEL - UNFRACTIONATED HEPARIN (05/30/2024 5:50 EDT) [facility] Heparin Level-UFH 0.38 Therapeutic Range: 0.30 - 0.70 IU/mL 05/30/2024 6:[address] [facility] Comment:Unfractionated hepar in therapeutic [...] Urbina MD HEMATOLOGY & PF4 ORD ERABLES [facility] [address] [place] [address] * (ABNORMAL) VITAMIN D (25,OH) (05/30/2024 5:50 EDT) [facility] 25OH Vitamin D Tot 14(L) 30 - 100 ng/mL 05/30/2024 11:[address] [facility] Comment: Vitamin D 25,OH Interpretive Ranges: Deficiency: ??<10.0 ng/mL Insufficiency: ??10.0 - 30.0 ng/mL Sufficiency: ??30.0 - 100.0 ng/mL Toxicity: ??>100.0 ng/mL Blood VENOUS BLOOD / Unknown Venipuncture / Unknown 05/30/2024 5:50 EDT 05/30/2024 6:17 EDT Doe Urbina MD CHEMISTRY & BLOOD GA S ORDERABLES Performing Organization Address [facility] de Phone Number [facility] [address] [place] [address] * ELECTROLYTES (05/30/2024 5:50 EDT) Sodium 139 136 - 145 mmol/L 05/30/2024 6:[address] [facility] Potassium 4.1 3.5 - 5.0 mmol/L 05/30/2024 6:[address] [facility] Chloride 106 96 - 110 mmol/L 05/30/2024 6:[address] [facility] CO2 Total 22 22 - 32 mmol/L 05/30/2024 6:[address] [facility] Anion Gap 11 5 - 14 mmol/L 05/30/2024 6:[address] [facility] Blood VENOUS BLOOD / Unknown Venipuncture / Unknown 05/30/2024 5:50 EDT 05/30/2024 6:17 EDT Glenis Tafoya MD CHEMISTRY & BLOOD GA S ORDERABLES Performing Organization Address [facility] Phone Number [facility] [address] [place] [address] * CREATININE (05/30/2024 5:50 EDT) Creatinine 0.93 0.66 - 1.25 mg/dL 05/30/2024 6:[address] [facility] eGFR 91 >60 mL/min/1.73 m2 05/30/2024 6:[address] [facility] Blood VENOUS BLOOD / Unknown Venipuncture / Unknown 05/30/2024 5:50 EDT 05/30/2024 6:17 EDT Glenis Tafoya MD CHEMISTRY & BLOOD GA S ORDERABLES [facility] [address] [place] [address] * BUN (05/30/2024 5:50 EDT) BUN 13 10 - 26 mg/dL 05/30/2024 6:[address] [facility] Blood VENOUS BLOOD / Unknown Venipuncture / Unknown 05/30/2024 5:50 EDT 05/30/2024 6:17 EDT Glenis Tafoya MD CHEMISTRY & BLOOD GA S ORDERABLES Performing Organization Address [facility] de Phone Number [facility] [address] [place] [address] * HEPARIN LEVEL - UNFRACTIONATED HEPARIN (05/29/2024 18:24 EDT) Heparin Level-UFH 0.40 Therapeutic Range: 0.30 - 0.70 IU/mL 05/29/2024 18:[address] [facility] Comment:Unfractionated hepar in therapeutic [...] BLOOD / Unknown Venipuncture / Unknown 05/29/2024 18:24 EDT 05/29/2024 18:31 EDT Doe Urbina MD HEMATOLOGY & PF4 ORD ERABLES Performing Organization Address City/[facility]/ZIP Co de Phone Number [facility] [address] [place], [place] [phone] * HEPARIN LEVEL - UNFRACTIONATED HEPARIN (05/29/2024 12:21 EDT) Heparin Level-UFH 0.43 Therapeutic Range: 0.30 - 0.70 IU/mL 05/29/2024 12:[address] [facility] Comment:Unfractionated hepar in therapeutic [...] BLOOD / Unknown Venipuncture / Unknown 05/29/2024 12:21 EDT 05/29/2024 12:26 EDT Doe Urbina MD HEMATOLOGY & PF4 ORD ERABLES Performing Organization Address [facility] Co de Phone Number [facility] [address] [place] [phone] * MAGNESIUM (05/29/2024 5:47 EDT) Magnesium 2.0 1.7 - 2.8 mg/dL 05/29/2024 8:[address] [facility] Blood VENOUS BLOOD / Unknown Venipuncture / Unknown 05/29/2024 5:47 EDT 05/29/2024 6:08 EDT Doe Urbina MD CHEMISTRY & BLOOD GA S ORDERABLES [facility] [address] [place] [id number] * COMPLETE BLOOD COUNT AND DIFFERENTIAL (05/29/2024 5:47 EDT) WBC 7.06 4.00 - 10.40 K/cmm 05/29/2024 5:59 [facility] RBC 4.65 4.36 - 5.78 M/cmm 05/29/2024 5:59 [facility] Hemoglobin 14.4 13.8 - 17.3 g/dL 05/29/2024 5:59 [facility] HCT 41.9 39.5 - 50.2 % 05/29/2024 5:59 [facility] MCV 90 81 - 95 fL 05/29/2024 5:59 [facility] MCH 31.0 27.6 - 33.0 pg 05/29/2024 5:59 [facility] MCHC 34.4 32.8 - 36.4 g/dL 05/29/2024 5:59 [facility] RDW-CV 13.2 <14.2 % 05/29/2024 5:59 [facility] RDW-SD 43.6 <46.0 fl 05/29/2024 5:59 [facility] PLT 151 141 - 377 K/cmm 05/29/2024 5:59 [facility] MPV 11.2 9.5 - 12.7 fL 05/29/2024 5:59 [facility] % Neutrophils 70.4 % 05/29/2024 5:59 [facility] % Lymphocytes 16.4 % 05/29/2024 5:59 [facility] % Monocytes 9.9 % 05/29/2024 5:59 [facility] % Eosinophils 2.5 % 05/29/2024 5:59 [facility] % Basophils 0.7 % 05/29/2024 5:59 [facility] % Immature Grans 0.1 % 09/08/20 24 5:[address] [facility] Absolute Neutrophils 4.96 2.20 - 8.85 K/cmm 05/29/2024 5:59 [facility] Absolute Lymphocytes 1.16 1.09 - 3.30 K/cmm 05/29/2024 5:59 [facility] Absolute Monocytes 0.70 0.10 - 0.80 K/cmm 05/29/2024 5:59 [facility] Absolute Eosinophils 0.18 0.03 - 0.61 K/cmm 05/29/2024 5:59 [facility] ABS Basophils 0.05 0.01 - 0.11 K/cmm 05/29/2024 5:59 [facility] Absolute Immature Grans 0.01 0.00 - 0.06 K/cmm 05/29/2024 5:59 [facility] Type of Differential: Auto 05/29/2024 5:59 [facility] Blood VENOUS BLOOD / Unknown Venipuncture / Unknown 05/29/2024 5:47 EDT 05/29/2024 5:52 EDT Glenis Tafoya MD PACKAGES & DNA PROBE ORDERABLES [facility] [address] [place] [id number] * HEPARIN LEVEL - UNFRACTIONATED HEPARIN (05/29/2024 5:47 EDT) Heparin Level-UFH 0.27 Therapeutic Range: 0.30 - 0.70 IU/mL 05/29/2024 6:[address] [facility] Comment: Unfractionated heparin therapeutic range = 0.3-0.7 IU/ml - This test is not intended for monitoring direct Xa inhibitors, direct thrombin inhibitors, or fondaparinux.- Exogenous ATIII is NOT supplied in this assay. For unexpected or persistently low levels, consider measuring patient's ATIII level. Results will be overestimated in the presence of direct Xa inhibitors (rivaroxaban, apixaban, edoxaban). Sample retested, result confirmed Blood VENOUS BLOOD / Unknown Venipuncture / Unknown 05/29/2024 5:47 EDT 05/29/2024 5:57 EDT Doe Urbina MD HEMATOLOGY & PF4 ORD ERABLES Performing Organization Address City/[facility]/ZIP Co de Phone Number [facility] [address] [place] [address] * (ABNORMAL) ELECTROLYTES (05/29/2024 5:47 EDT) Sodium 136 136 - 145 mmol/L 05/29/2024 6:[address] [facility] Potassium 4.5 3.5 - 5.0 mmol/L 05/29/2024 6:[address] [facility] Chloride 105 96 - 110 mmol/L 05/29/2024 6:[address] [facility] CO2 Total 21(L) 22 - 32 mmol/L 05/29/2024 6:[address] [facility] Anion Gap 10 5 - 14 mmol/L 05/29/2024 6:[address] [facility] Blood VENOUS BLOOD / Unknown Venipuncture / Unknown 05/29/2024 5:47 EDT 05/29/2024 6:08 EDT Glenis Tafoya MD CHEMISTRY & BLOOD GA S ORDERABLES Performing Organization Address [facility] Co de Phone Number [facility] [address] [place] [address] * CREATININE (05/29/2024 5:47 EDT) Creatinine 0.85 0.66 - 1.25 mg/dL 05/29/2024 6:[address] [facility] eGFR 96 >60 mL/min/1.73 m2 05/29/2024 6:[address] [facility] Blood VENOUS BLOOD / Unknown Venipuncture / Unknown 05/29/2024 5:47 EDT 05/29/2024 6:08 EDT Glenis Tafoya MD CHEMISTRY & BLOOD GA S ORDERABLES Performing Organization Address City/[facility]/ZIP Co de Phone Number [facility] [address] [place] [address] * BUN (05/29/2024 5:47 EDT) BUN 16 10 - 26 mg/dL 05/29/2024 6:[address] [facility] Blood VENOUS BLOOD / Unknown Venipuncture / Unknown 05/29/2024 5:47 EDT 05/29/2024 6:08 EDT Glenis Tafoya MD CHEMISTRY & BLOOD GA S ORDERABLES Performing Organization Address City/[facility] Co de Phone Number [facility] [address] [place] [address] * LEFT HEART CATH (05/28/2024 11:52 EDT) Anatomical Region Laterality Modality Conveyor Console Operator 05/28/2024 11:3 8 EDT Narrative 06/01/2024 9:26 EDT [address] [place], [place] [id number] Catheterization Laboratory Study Patient: René Rivera Study Date: ??05/28/2024 ? : ? 1955 Referring: Doe Urbina MD Diagnostic Attending: ??Don Mcgregor ATTESTATION: I, Dr. Libby Jeronimo was [...] Note Don Mcgregor MD - 06/01/[address] [place] [id number] Catheterization Laboratory Study Patient: René Rivera Study [...] Urbina MD CARDIAC CATH ORDERAB LES * HEPARIN LEVEL - UNFRACTIONATED HEPARIN (05/28/2024 3:12 EDT) Heparin Level-UFH 0.32 Therapeutic Range: 0.30 - 0.70 IU/mL 05/28/2024 3:[address] [facility] Comment:Unfractionated hepar in therapeutic [...] VENOUS BLOOD / Unknown Venipuncture / Unknown 05/28/2024 3:12 EDT 05/28/2024 3:26 EDT Doe Urbina MD HEMATOLOGY & PF4 ORD ERABLES Performing Organization Address [facility]/ZIP Co de Phone Number [facility] [address] [place] [address] * (ABNORMAL) ELECTROLYTES (05/28/2024 3:12 EDT) Pathologist [facility] Sodium 138 136 - 145 mmol/L 05/28/2024 4:[address] [facility] Potassium 3.2(L) 3.5 - 5.0 mmol/L 05/28/2024 4:[address] [facility] Chloride 103 96 - 110 mmol/L 05/28/2024 4:[address] [facility] CO2 Total 26 22 - 32 mmol/L 05/28/2024 4:[address] [facility] Anion Gap 9 5 - 14 mmol/L [facility]/28[facility]2024 [facility] Blood VENOUS BLOOD / Unknown Venipuncture / Unknown 05/28/2024 3:12 EDT 05/28/2024 3:24 EDT Glenis Tafoya MD CHEMISTRY & BLOOD GA S ORDERABLES Performing Organization Address [facility]/ZIP Co de Phone Number [facility] [address] [place] [phone] * CREATININE (05/28/2024 3:12 EDT) [facility] Creatinine 0.88 0.66 - 1.25 mg/dL 05/28/2024 4:[address] [facility] eGFR 95 >60 mL/min/1.73 m2 05/28/2024 4:[address] [facility] Blood VENOUS BLOOD / Unknown Venipuncture / Unknown 05/28/2024 3:12 EDT 05/28/2024 3:24 EDT Glenis Tafoya MD CHEMISTRY & BLOOD GA S ORDERABLES [facility] [address] [place] [address] * BUN (05/28/2024 3:12 EDT) [facility] BUN 14 10 - 26 mg/dL 05/28/2024 4:[address] [facility] Blood VENOUS BLOOD / Unknown Venipuncture / Unknown 05/28/2024 3:12 EDT 05/28/2024 3:24 EDT Glenis Tafoya MD CHEMISTRY & BLOOD GA S ORDERABLES Performing Organization Address City/[facility]/ZIP Co de Phone Number [facility] [address] [place] [id number] * HEPARIN LEVEL - UNFRACTIONATED HEPARIN (05/27/2024 21:02 EDT) Pathologist [facility] Heparin Level-UFH 0.43 Therapeutic Range: 0.30 - 0.70 IU/mL 05/27/2024 21:[address] [facility] Comment:Unfractionated hepar in therapeutic [...] BLOOD / Unknown Venipuncture / Unknown 05/27/2024 21:02 EDT 05/27/2024 21:08 EDT Glenis Tafoya MD HEMATOLOGY & PF4 ORD ERABLES Performing Organization Address [facility]/ZIP Co de Phone Number [facility] [address] [place] [address] * (ABNORMAL) TROPONIN I (05/27/2024 18:32 EDT) [facility] Troponin I (ng/mL) 0.064(H) <0.034 ng/mL 05/27/2024 19:[address] [facility] Blood VENOUS BLOOD / Unknown Venipuncture / Unknown 05/27/2024 18:32 EDT 05/27/2024 18:[address] [facility] - 05/27/2024 19:10 EDT The results of this assay can be falsely lowered due to the consumption of Biotin. Glenis Tafoya MD CHEMISTRY & BLOOD GA S ORDERABLES Performing Organization Address [facility] Co de Phone Number [facility] [address] [place] [id number] * TRANSTHORACIC ECHO (TTE) COMPLETE W/DOPPLER W/CF W/ CONTRAST (05/27/2024 14:55 EDT) [facility] Mitral deceleration time 257 ms [facility] POIN [...] CARE LVOT mean velocity, S 0.8 m/s [facility] POINT OF CARE IVS thickness, ED, PLAX [...] Urbina MD CARDIAC ECHO ORDERAB LES * HEPARIN LEVEL - UNFRACTIONATED HEPARIN (05/27/2024 14:48 EDT) Heparin Level-UFH 0.04 Therapeutic Range: 0.30 - 0.70 IU/mL 05/27/2024 15:[address] [facility] Comment:Unfractionated hepar in therapeutic [...] BLOOD / Unknown Venipuncture / Unknown 05/27/2024 14:48 EDT 05/27/2024 14:54 EDT Glenis Tafoya MD HEMATOLOGY & PF4 ORD ERABLES Performing Organization Address [facility] Co de Phone Number [facility] [address] [place] [address] * ECG REPORT - SCANNED (05/27/2024 13:45 EDT) 05/27/2024 13:4 5 EDT Scan 2 Human Geography Instructor PROCEDURE/MINOR SHARITA GICAL ORDERABLES * (ABNORMAL) TROPONIN I (05/27/2024 11:48 EDT) Troponin I (ng/mL) 0.086(H) <0.034 ng/mL 05/27/2024 12:[address] [facility] Blood VENOUS BLOOD / Unknown Venipuncture / Unknown 05/27/2024 11:48 EDT 05/27/2024 11:[address] [facility] - 05/27/2024 12:20 EDT The results of this assay can be falsely lowered due to the consumption of Biotin. Glenis Tafoya MD CHEMISTRY & BLOOD GA S ORDERABLES Performing Organization Address [facility]/ZIP Co de Phone Number [facility] [address] [place] [address] * XR CHEST 2 VIEWS (05/27/2024 8:39 EDT) Anatomical Region Laterality Modality Computed Radiogr aphy 05/27/2024 8:51 EDT Impressions 05/27/2024 8:51 EDT Interstitial pulmonary edema. I have personally reviewed the images and the above interpretation and agree with the findings. [id number] Narrative 05/27/2024 8:51 EDT XR CHEST 2 [...] findings: ??Normal. Bones: Normal. Resulting Agency Comment [id number] Procedure Note Sixto Brown MD - 05/27/2024 [...] the above interpretation andagree with the findings. [id number] Glenis Tafoya MD IMG DIAGNOSTIC IMAGI NG ORDERABLES * (ABNORMAL) LIPID PROFILE (INCLUDES CHOLESTEROL, TRIGLYCERIDES, HDL, LDL) (05/27/2024 8:27 EDT) Cholesterol 183 <200 mg/dL 05/27/2024 14:[address] [facility] Comment:Note that therapeuti c goals will differ between patients based on cardiac risk factors and current medical therapy. HDL 39(L) >=40 mg/dl 05/27/2024 14:59 [facility] Comment:Note that therapeuti c goals will differ between patients based on cardiac risk factors and current medical therapy. LDL, Calculated 129 <160 mg/dL 14:59 [facility] Comment:Note that therapeuti c goals will differ between patients based on cardiac risk factors and current medical therapy. Triglyceride 75 <=150 mg/dL 05/27/2024 14:59 [facility] Comment:Note that therapeuti c goals will differ between patients based on cardiac risk factors and current medical therapy. Chol/HDL Ratio 4.7 See Note 05/27/2024 14:59 [facility] Comment:No reference range h as been established for CHOL/HDL ratio. Non HDL Cholesterol 144 <160 mg/dL 05/27/2024 14:59 [facility] Comment:Note that therapeuti c goals will differ between patients based on cardiac risk factors and current medical therapy. Blood VENOUS BLOOD / Unknown Venipuncture / Unknown 05/27/2024 8:27 EDT 05/27/2024 8:30 EDT Glenis Tafoya MD CHEMISTRY & BLOOD GA S ORDERABLES [facility] [address] [place] [address] * (ABNORMAL) NT PRO BNP (05/27/2024 8:27 EDT) NT-pro BNP 3,420(H) <299 pg/mL 05/27/2024 9:[address] [facility] Comment: In the acute setting NT-proBNP values <300 pg/mL have a 98% NPV for excluding acute heart failure. In outpatient populations, NT-proBNP values <125 have a 99% NPV for excluding heart failure. Blood VENOUS BLOOD / Unknown Venipuncture / Unknown 05/27/2024 8:27 EDT 05/27/2024 8:30 EDT Glenis Tafoya MD CHEMISTRY & BLOOD GA S ORDERABLES [facility] [address] [place] [address] * HOLD BLUE TOP (05/27/2024 8:27 EDT) Hold Hold 05/27/2024 9:[address] [facility] Blood VENOUS BLOOD / Unknown Venipuncture / Unknown 05/27/2024 8:27 EDT 05/27/2024 8:36 EDT Glenis Tafoya MD LAB INFO SERVICE AND SUPPORT & PHONE RESULT Performing Organization Address [facility] de Phone Number [facility] [address] [place] [address] * MAGNESIUM (05/27/2024 8:27 EDT) Pathologist [facility] Magnesium 2.0 1.7 - 2.8 mg/dL 05/27/2024 8:[address] [facility] Blood VENOUS BLOOD / Unknown Venipuncture / Unknown 05/27/2024 8:27 EDT 05/27/2024 8:30 EDT Glenis Tafoya MD CHEMISTRY & BLOOD GA S ORDERABLES Performing Organization Address [facility] Co de Phone Number [facility] [address] [place] [address] * (ABNORMAL) TROPONIN I (05/27/2024 8:27 EDT) Troponin I (ng/mL) 0.035(H) <0.034 ng/mL 05/27/2024 9:[address] [facility] Blood VENOUS BLOOD / Unknown Venipuncture / Unknown 05/27/2024 8:27 EDT 05/27/2024 8:[address] [facility] - 05/27/2024 9:09 EDT The results of this assay can be falsely lowered due to the consumption of Biotin. Glenis Tafoya MD CHEMISTRY & BLOOD GA S ORDERABLES Performing Organization Address City/[facility]/ZIP Co de Phone Number [facility] [address] [place] [address] * (ABNORMAL) BASIC METABOLIC PANEL (BMP) (05/27/2024 8:27 EDT) Sodium 140 136 - 145 mmol/L 05/27/2024 8:[address] [facility] Potassium 3.5 3.5 - 5.0 mmol/L 05/27/2024 8:[address] [facility] Chloride 106 96 - 110 mmol/L 05/27/2024 8:[address] [facility] CO2 Total 26 22 - 32 mmol/L 05/27/2024 8:[address] [facility] Anion Gap 8 5 - 14 mmol/L 05/27/2024 8:55 [facility] Glucose 124(H) 70 - 99 mg/dl 05/27/2024 8:[address] [facility] Calcium 8.6 8.5 - 10.5 mg/dL 05/27/2024 8:55 [facility] BUN 17 10 - 26 mg/dL 05/27/2024 8:55 [facility] Creatinine 0.94 0.66 - 1.25 mg/dL 05/27/2024 8:[address] [facility] eGFR 89 >60 mL/min/1.73 m2 05/27/2024 8:55 [facility] Blood VENOUS BLOOD / Unknown Venipuncture / Unknown 05/27/2024 8:27 EDT 05/27/2024 8:30 EDT Glenis Tafoya MD CHEMISTRY & BLOOD GA S ORDERABLES Performing Organization Address City/[facility]/ZIP Co de Phone Number [facility] [address] [place] [address] * HEMOGLOBIN A1C (05/27/2024 8:26 EDT) Pathologist [facility] Hemoglobin A1c 5.3 <5.7 % 05/27/2024 20:[address] [facility] Comment: Glycemic Status References: Normal: ??<5.7% Pre-Diabetes: ??5.7% - 6.4% Diagnostic of Diabetes: ??> or = 6.5% (if confirmed) Est Avg Glucose 105 mg/dL 20:[address] [facility] Comment:The eAG represents t he A1c result expressed as average glucose in mg/dL. Blood VENOUS BLOOD / Unknown Venipuncture / Unknown 05/27/2024 8:26 EDT 05/27/2024 8:30 EDT Glenis Tafoya MD CHEMISTRY & BLOOD GA S ORDERABLES [facility] [address] [place], [place] [id number] * (ABNORMAL) COMPLETE BLOOD COUNT AND DIFFERENTIAL (05/27/2024 8:26 EDT) [facility] WBC 11.24(H) 4.00 - 10.40 K/cmm 05/27/2024 9:00 [facility] RBC 4.57 4.36 - 5.78 M/cmm 05/27/2024 9:00 [facility] Hemoglobin 14.3 13.8 - 17.3 g/dL 05/27/2024 9:00 [facility] HCT 42.7 39.5 - 50.2 % 05/27/2024 9:00 [facility] MCV 93 81 - 95 fL 05/27/2024 [facility]00 [facility] MCH 31.3 27.6 - 33.0 pg 05/27/2024 9:00 [facility] MCHC 33.5 32.8 - 36.4 g/dL 05/27/2024 9:00 [facility] RDW-CV 13.4 <14.2 % 05/27/2024 9:00 [facility] RDW-SD 46.3(H) <46.0 fl 05/27/2024 9:00 [facility] PLT 151 141 - 377 K/cmm 05/27/2024 9:00 [facility] MPV 11.5 9.5 - 12.7 fL 05/27/2024 9:00 [facility] % Neutrophils 82.9 % 05/27/2024 9:00 [facility] % Lymphocytes 7.5 % 05/27/2024 9:00 [facility] % Monocytes 6.9 % 05/27/2024 9:00 [facility] % Eosinophils 2.0 % 05/27/2024 9:00 [facility] % Basophils 0.4 % 05/27/2024 9:00 [facility] % Immature Grans 0.3 % 05/27/20 9:00 [facility] Absolute Neutrophils 9.33(H) 2.20 - 8.85 K/cmm 05/27/2024 9:00 [facility] Absolute Lymphocytes 0.84(L) 1.09 - 3.30 K/cmm 05/27/2024 9:00 [facility] Absolute Monocytes 0.77 0.10 - 0.80 K/cmm 05/27/2024 9:00 [facility] Absolute Eosinophils 0.22 0.03 - 0.61 K/cmm 05/27/2024 9:00 [facility] ABS Basophils 0.05 0.01 - 0.11 K/cmm 05/27/2024 9:00 [facility] Absolute Immature Grans 0.03 0.00 - 0.06 K/cmm 05/27/2024 9:00 [facility] Type of Differential: Auto 05/27/2024 9:[address] [facility] Blood VENOUS BLOOD / Unknown Venipuncture / Unknown 05/27/2024 8:26 EDT 05/27/2024 8:30 EDT Glenis Tafoya MD PACKAGES & DNA PROBE ORDERABLES Performing Organization Address [facility]/State/ZIP Co de Phone Number [facility] [address] [place] [address] * EKG 12-LEAD (05/27/2024 8:24 EDT) 05/27/2024 8:[address] [facility] EKG - 05/27/2024 13:30 EDT ?[facility] ? Test Date: ?2024-05-27 Pat Name: ? RENÉ MIGUEL ? Department: ?? ED ? Room: ? AC01 Gender: ? Male ? Api Product Manager: ?? [id number] : ?1955 ? Requested By: ALTON ANGELES Order Number: [id number] ? Reading : ?? DOE URBINA MD ? Measurements Intervals ?[place] ? Rate: ? 71 ? P: ?38 GA: ? 189 ?QRS: ?30 QRSD: ? 102 ?T: ?93 QT: ? 376 ? QTc: ?410 ? Interpretive Statements SINUS RHYTHM WITH OCCASIONAL SUPRAVENTRICULAR PREMATURE COMPLEXES ANTERIOR MYOCARDIAL INFARCTION , PROBABLY RECENT ACUTE CT Compared to ECG 10/22/2023 07:50:59 Sinus bradycardia no longer present Myocardial infarct finding still present I reviewed the tracing and have either agreed or edited the findings in this report. Electronically Signed On 05-27-2024 13:30:19 EDT by DOE URBINA MD. Procedure Note Doe Urbina MD - 05/27/2024 [facility] Test Date: 2024-05-27 Pat Name: RENÉ RIVERA Department: ED Room: [facility] Gender: Male Api Product Manager: [id number] : 1955 Requested By: ALTON ANGELES Order Number: [id number] Reading MD: DOE URBINA MD Measurements Intervals [place] Rate: 71 P: 38 GA: 189 QRS: 30 QRSD: 102 T: 93 QT: 376 QTc: 410 Interpretive Statements SINUS RHYTHM WITH OCCASIONAL SUPRAVENTRICULAR PREMATURE COMPLEXES ANTERIOR MYOCARDIAL INFARCTION , PROBABLY RECENT ACUTE CT Compared to ECG 10/22/2023 07:50:59 Sinus bradycardia no longer present Myocardial infarct finding still present I reviewed the tracing and have either agreed or edited the findings inthis report. Electronically Signed On 05-27-2024 13:30:19 EDT by DOE TELLEZ. Glenis Tafoya MD CARDIAC ECG ORDERABL ES [facility] EKG documented in this encounter Visit Diagnoses Diagnosis Acute on chronic combined systolic and diastolic congestive heart failure (HCC-CMS)- Primary Acute on chronic combined systolic and diastolic heart failure Acute on chronic combined systolic and diastolic congestive heart failure (HCC- CMS) Acute on chronic combined systolic and diastolic heart failure Nonrheumatic aortic valve stenosis Aortic valve disorders NSTEMI (non-ST elevated myocardial infarction) ([facility]-CMS) Acute myocardial infarction, subendocardial infarction, episode of care unspecified HFrEF (heart failure with reduced ejection fraction) ([facility]-CMS) Heart failure, unspecified Primary hypertension Unspecified essential hypertension 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 angina pectoris CAD, multiple vessel Coronary atherosclerosis of unspecified type of vessel, rosebud or graft NSTEMI (non-ST elevated myocardial infarction) ([facility]) Acute myocardial infarction, subendocardial infarction, episode of care unspecified Nonrheumatic aortic valve stenosis Aortic valve disorders HFrEF (heart failure with reduced ejection fraction) ([facility]-CMS) Heart failure, unspecified Patient nonadherent with medication regimen due to financial hardship NSTEMI (non-ST elevated myocardial infarction) ([facility]) Acute myocardial infarction, subendocardial infarction, episode of care unspecified documented in this encounter Admitting Diagnoses Diagnosis NSTEMI (non-ST elevated myocardial infarction) ([facility]-CMS) Acute myocardial infarction, subendocardial infarction, episode of care unspecified documented in this encounter Administered Medications Inactive Administered Medications - up to 3 most recent administrations Medication Order MAR Action Action Date Dose Rate Site acetaminophen (TYLENOL) tablet 650 mg 650 mg, oral, EVERY 6 HOURS PRN, Starting on Thu05/27/24 at 1432, Until Thu05/31/24 at 1304, Pain, Fever, Routine Given 05/31/2024 4:20 EDT 650 mg Given 05/30/2024 20:30 EDT 650 mg Given 05/30/2024 7:25 EDT 650 mg aspirin chewable tablet 81 mg 81 mg, oral, DAILY, First dose on 05/28/24 at 0900, Until Discontinued, Routine Given 05/31/2024 8:14 EDT 81 mg Given 05/30/2024 8:12 EDT 81 mg Given 05/29/2024 8:13 EDT 81 mg empagliflozin (JARDIANCE) tablet 10 mg 10 mg, oral, DAILY, First dose on 05/28/24 at 0900, Until Discontinued, Indications: chronic heart failure, Routine Given 05/30/2024 8:11 EDT 10 mg Given 05/29/2024 8:13 EDT 10 mg Given 05/28/2024 9:00 EDT 10 mg ezetimibe (ZETIA) tablet 10 mg 10 mg, oral, DAILY, First dose on 05/29/24 at 0900, Until Discontinued, Routine Given 05/30/2024 8:12 EDT 10 mg Given 05/29/2024 8:13 EDT 10 mg furosemide (LASIX) injection 20 mg 20 mg, intravenous, NOW X1, 1 dose, On Thu05/27/24 at 0930, STAT Given 05/27/2024 9:40 EDT 20 mg furosemide (LASIX) injection 40 mg 40 mg, intravenous, NOW X1, 1 dose, On Thu05/27/24 at 1745, Routine Given 05/27/2024 18:15 EDT 40 mg heparin 100 units/mL bolus from bag 3,000 Units 3,000 Units (rounded from 2,996 Units = 35 Units/kg ? 85.6 kg Adjusted weight), intravenous, EVERY 6 HOURS PRN, Starting on Thu05/27/24 at 2004, Until Thu05/30/24 at 1503, per current UFH level, STAT Given 05/29/2024 6:30 EDT 3,000 Units heparin 100 units/mL bolus from bag 6,000 Units 6,000 Units (rounded from 5,992 Units = 70 Units/kg ? 85.6 kg Adjusted weight), intravenous, NOW X1, 1 dose, On Thu05/27/24 at 1415, STAT Given 05/27/2024 14:58 EDT 6,000 Units heparin in 1/2 NS 25,000 unit/250 mL infusion 0-35 Units/kg/hr ? 85.6 kg Adjusted weight (0-29.96 mL/hr, rounded to 0-30 mL/hr), intravenous, CONTINUOUS, Starting on Thu05/27/24 at 1415, Until Thu05/30/24 at 1503, STAT New Bag 05/30/2024 6:22 EDT 1,450 Units/hr 14.5 mL/hr Rate Documented 05/29/2024 16:35 EDT 1,450 Units/hr 14.5 m L/hr New Bag 05/29/2024 13:25 EDT 1,450 Units/hr 14.5 mL/hr isosorbide MONOnitrate (IMDUR) CR tablet 30 mg 30 mg, oral, DAILY, First dose on Thu05/28/24 at 0900, Until Discontinued, Routine Given 05/30/2024 8:11 EDT 30 mg Given 05/29/2024 8:13 EDT 30 mg Given 05/28/2024 8:59 EDT 30 mg losartan (COZAAR) tablet 25 mg 25 mg, oral, DAILY, First dose on Thu05/30/24 at 1315, Until Discontinued, Routine Given 05/31/2024 8:14 EDT 25 mg Given 05/30/2024 14:22 EDT 25 mg metoprolol SUCCinate (TOPROL-XL) tablet 25 mg 25 mg, oral, DAILY, First dose on Thu05/28/24 at 0900, Until Discontinued, Routine Given 05/31/2024 8:14 EDT 25 mg Given 05/30/2024 8:11 EDT 25 mg Given 05/29/2024 8:13 EDT 25 mg nicotine polacrilex (COMMIT) 2 mg lozenge 2 mg 2 mg, oral, EVERY 4 HOURS PRN, Starting on Thu05/27/24 at 1546, Until Thu05/31/24 at 1304, Smoking Cessation, Routine Given 05/30/2024 20:41 EDT 2 mg perflutren lipid microspheres (DEFINITY) 0.165 mg in sodium chloride (PF) 1 mL 0.165 mg, intravenous, NOW X1, 1 dose, On Thu05/27/24 at 1500, Routine Given 05/27/2024 14:49 EDT 2 mL potassium chloride SA (KLOR-CON M20) tablet 40 mEq 40 mEq, oral, EVERY 2 HOURS, 2 doses, First dose on Thu05/28/24 at 0630, Last dose on Thu05/28/24 at 0800, Routine Given 05/28/2024 9:00 EDT 40 mEq Given 05/28/2024 6:25 EDT 40 mEq rosuvastatin (CRESTOR) tablet 40 mg 40 mg, oral, DAILY, First dose on Thu05/28/24 at 0900, Until Discontinued, Routine Given 05/31/2024 8:17 EDT 40 mg Given 05/30/2024 8:11 EDT 40 mg Given 05/29/2024 8:13 EDT 40 mg senna (SENOKOT) tablet 2 Tablet 2 Tablet, oral, AT BEDTIME, First dose on Thu05/27/24 at 2100, Until Discontinued, Routine Given 05/30/2024 20:30 EDT 2 Tablets Given 05/29/2024 20:28 EDT 2 Tablets Given 05/27/2024 20:58 EDT 2 Tablets sodium chloride 0.9 % (flush) flush 5 mL 5 mL, intravenous, EVERY 8 HOURS, First dose on Thu05/27/24 at 1600, Until Discontinued, Routine, Release Given 05/31/2024 8:14 EDT 5 mL Given 05/30/2024 23:25 EDT 5 mL Given 05/30/2024 16:12 EDT 5 mL spironolactone (ALDACTONE) tablet 25 mg 25 mg, oral, DAILY, First dose on Thu05/28/24 at 0900, Until Discontinued, Routine Given 05/31/2024 8:14 EDT 25 mg Given 05/30/2024 8:12 EDT 25 mg Given 05/29/2024 8:13 EDT 25 mg documented in this encounter Discontinued Medications Medication Sig Discontinue Reason Start Date End Da te hydrochlorothiazide (HYDRODIURIL) 25 mg tablet Take 25 mg by mouth daily Patient Stopped Taking 05/30/2024 buPROPion (WELLBUTRIN XL) 150 mg XL tablet Take 300 mg by mouth daily. Patient Stopped Taking 05/30/2024 metoprolol SUCCinate (TOPROL-XL) 25 mg tablet Take 1 Tablet by mouth daily. 10/22/2023 05/31/2024 losartan (COZAAR) 25 mg tablet Take 1 Tablet by mouth daily. 05/31/2024 05/31/2024 metoprolol SUCCinate (TOPROL-XL) 25 mg tabletIndications:HFrE F (heart failure with reduced ejection fraction) ([facility]),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 angina pectoris Take 1 Tablet by mouth daily. 05/31/2024 05/31/2024 terazosin (HYTRIN) 10 mg capsule Take 10 mg by mouth at bedtime 05/31/2024 aspirin 81 mg EC tablet Take 1 Tab by mouth daily 10/09/2015 05/31/2024 rosuvastatin (CRESTOR) 40 mg tablet Take 1 Tablet by mouth daily for 90 days. 10/22/2023 05/31/2024 spironolactone (ALDACTONE) 25 mg tablet Take 1 Tablet by mouth daily for 90 days. 10/22/2023 05/31/2024 nicotine polacrilex (COMMIT) 2 mg lozenge HOLD 1 PIECE TO INSIDE OF MOUTH (BUCCAL) EVERY TWO HOURS NEEDED NEEDED FOR NICOTINE CRAVINGS 07/08/2023 05/31/2024 documented as of this encounter Historical Medications * This list may reflect changes made after this encounter. Medication Sig Dispensed Refills Start Date End Date nicotine (NICODERM CQ) 21 mg/24 hr patch APPLY 1 PATCH TO SKIN ONCE A DAY 07/08/2023 diclofenac sodium gel Please see attached for detailed directions. 08/10/2023 nicotine polacrilex (COMMIT) 2 mg lozenge HOLD 1 PIECE TO INSIDE OF MOUTH (BUCCAL) EVERY TWO HOURS NEEDED NEEDED FOR NICOTINE CRAVINGS 07/08/2023 05/31/2024 added in this encounter Active and Recently Administered Medications Times are shown in EDT. Scheduled Medication Order 05/29/2024 05/30/2024 05/31/2024 aspirin chewable tablet 81 mg 81 mg, oral, DAILY, First dose on 05/28/24 at 0900, Until Discontinued, Routine 0813 (Given - Provider: Dorian William RN) 0812 (Given - Provider: Melanie Mcpherson RN) 0814 (Given - Provider: Tiffany Salamanca RN) empagliflozin (JARDIANCE) tablet 10 mg (CANCELED) 10 mg, oral, DAILY, First dose on 05/28/24 at 0900, Until Discontinued, Indications: chronic heart failure, Routine 08 (Given - Provider: Dorian William RN) 0811 (Given - Provider: Melanie Mcpherson RN) ezetimibe (ZETIA) tablet 10 mg (CANCELED) 10 mg, oral, DAILY, First dose on 05/29/24 at 0900, Until Discontinued, Routine 08 (Given - Provider: Dorian William RN) 0812 (Given - Provider: Melanie Mcpherson RN) isosorbide MONOnitrate (IMDUR) CR tablet 30 mg (CANCELED) 30 mg, oral, DAILY, First dose on 05/28/24 at 0900, Until Discontinued, Routine 812 (Given - Provider: Dorian William RN) 08 (Given - Provider: Melanie Mcpherson RN) losartan (COZAAR) tablet 25 mg 25 mg, oral, DAILY, First dose on 05/30/24 at 1315, Until Discontinued, Routine 1422 (Given - Provider: Melanie Mcpherson RN) 0814 (Given - Provider: Tiffany Salamanca RN) metoprolol SUCCinate (TOPROL-XL) tablet 25 mg 25 mg, oral, DAILY, First dose on 05/28/24 at 0900, Until Discontinued, Routine 08 (Given - Provider: Dorian William RN) 08 (Given - Provider: Melanie Mcpherson RN) 0814 (Given - Provider: Tiffany Salamanca RN) rosuvastatin (CRESTOR) tablet 40 mg 40 mg, oral, DAILY, First dose on 05/28/24 at 0900, Until Discontinued, Routine 08 (Given - Provider: Dorian William RN) 08 (Given - Provider: Melanie Mcpherson RN) 0817 (Given - Provider: Tiffany Salamanca RN) senna (SENOKOT) tablet 2 Tablet 2 Tablet, oral, AT BEDTIME, First dose on Thu05/27/24 at 2100, Until Discontinued, Routine 2027 (Given - Provider: Nancy Medina RN) 2030 (Given - Provider: Carolyn Ruelas RN) sodium chloride 0.9 % (flush) flush 5 mL 5 mL, intravenous, EVERY 8 HOURS, First dose on Thu05/27/24 at 1600, Until Discontinued, Routine, Release 0815 (Given - Provider: Dorian William RN)1634 (Given - Provider: Zak Tiwari RN)2358 (Not Given - Provider: Nancy Medina RN - Reason: Other - Comment: Given with assessment) 0812 (Given - Provider: Melanie Mcpherson RN)1612 (Given - Provider: Melanie Mcpherson RN)2325 (Given - Provider: Carolyn Ruelas, RN) 0814 (Given - Provider: Tiffany Salamanca RN) spironolactone (ALDACTONE) tablet 25 mg 25 mg, oral, DAILY, First dose on Thu05/28/24 at 0900, Until Discontinued, Routine 0813 (Given - Provider: Dorian William RN) 0812 (Given - Provider: Melanie Mcpherson RN) 0814 (Given - Provider: Tiffany Salamanca RN) Continuous Medication Order 05/29/2024 05/30/2024 05/31/2024 heparin in 1/2 NS 25,000 unit/250 mL infusion (CANCELED) 0-35 Units/kg/hr ? 85.6 kg Adjusted weight (0-29.96 mL/hr, rounded to 0-30 mL/hr), intravenous, CONTINUOUS, Starting on Thu05/27/24 at 1415, Until Thu05/30/24 at 1503, STAT 0628 (Rate Change - Provider: Nancy Medina RN)1114 (Rate Documented - Provider: Aarti Nixon RN - Comment: Added ~2hrs of volume to Alaris pump settings)1325 (New Bag - Provider: Dorian William RN)1635 (Rate Documented - Provider: Zak Tiwari RN) 0622 (New Bag - Provider: Nancy Medina RN)1515 (IV Stopped - Provider: Melanie Mcpherson RN) PRN Medication Order 05/29/2024 05/30/2024 05/31/2024 acetaminophen (TYLENOL) tablet 650 mg 650 mg, oral, EVERY 6 HOURS PRN, Starting on Thu05/27/24 at 1432, Until Thu05/31/24 at 1304, Pain, Fever, Routine 2027 (Given - Provider: Nancy Medina RN) 0725 (Given - Provider: Melanie Mcpherson RN)2029 (Given - Provider: Carolyn Ruelas, RN) 0420 (Given - Provider: Carolyn Ruelas RN) bisacodyL (DULCOLAX) suppository 10 mg 10 mg, rectal, DAILY PRN, Starting on Thu05/27/24 at 1432, Until Thu05/31/24 at 1304, Constipation, Routine heparin 100 units/mL bolus from bag 3,000 Units (CANCELED)(Linked Group 1) 3,000 Units (rounded from 2,996 Units = 35 Units/kg ? 85.6 kg Adjusted weight), intravenous, EVERY 6 HOURS PRN, Starting on Thu05/27/24 at 2004, Until Thu05/30/24 at 1503, per current UFH level, STAT 0630 (Given - Provider: Nancy Medina RN) nicotine polacrilex (COMMIT) 2 mg lozenge 2 mg 2 mg, oral, EVERY 4 HOURS PRN, Starting on Thu05/27/24 at 1546, Until Thu05/31/24 at 1304, Smoking Cessation, Routine 2040 (Given - Provider: Carolyn Ruelas RN) polyethylene glycol 3350 (MIRALAX) packet 17 g 17 g, oral, DAILY PRN, Starting on Thu05/27/24 at 1432, Until Thu05/31/24 at 1304, Constipation, Routine ramelteon (ROZEREM) tablet 8 mg 8 mg, oral, AT BEDTIME PRN, Starting on Thu05/27/24 at 1432, Until Thu05/31/24 at 1304, Sleep, Routine Linked Groups Order Group 1: heparin 100 units/mL bolus from bag 6,000 Units (CANCELED) 6,000 Units (rounded from 5,992 Units = 70 Units/kg ? 85.6 kg Adjusted weight), intravenous, EVERY 6 HOURS PRN, Starting on Thu05/27/24 at 2004, Until Thu05/30/24 at 1503, per current UFH level, STAT Or heparin 100 units/mL bolus from bag 3,000 Units (CANCELED)Jump to med 3,000 Units (rounded from 2,996 Units = 35 Units/kg ? 85.6 kg Adjusted weight), intravenous, EVERY 6 HOURS PRN, Starting on Thu05/27/24 at 2004, Until 05/30/24 at 1503, per current UFH level, STAT documented in this encounter Orders Medications Ordered That Theron ht Not Have Been Administered Count Last Ordered Date First Ordered Date fentaNYL citrate (PF) 50 mcg/mL injection 1 05/28/2024 fentaNYL citrate (PF) injection 1 4 heparin 1,000 unit/mL injection 1 4 iopamidoL (ISOVUE-370) injection 1 05/28/20 24 lidocaine (PF) 20 mg/mL (2 %) injection 1 0 05/28/2024 midazolam (PF) (VERSED) 1 mg/mL injection 1 05/28/2024 midazolam (PF) (VERSED) injection 1 024 nitroglycerin 100 mcg/mL syringe 1 05/28/20 24 potassium chloride (KLOR-CON ) packet 40 mEq 1 05/28/2024 sodium chloride 0.9 % (NS) infusion 1 05/28 verapamil (ISOPTIN) 2.5 mg/mL injection 2 0 05/28/2024 aspirin EC tablet 325 mg 1 05/27/2024 bisacodyL (DULCOLAX) suppository 10 mg 1 heparin 100 units/mL bolus f rom bag 6,000 Units 1 05/27/2024 polyethylene glycol 3350 (CT RALAX) packet 17 g 1 05/27/2024 ramelteon (ROZEREM) tablet 8 mg 1 Diet Count Last Ordered Date First Orde red Date DISCHARGE DIET 3 05/30/2024 Nursing Count Last Ordered Date First Orde red Date ACTIVITY INSTRUCTIONS 1 05/30/2024 BATHING INSTRUCTIONS 1 05/30/2024 WOUND CARE INSTRUCTIONS 2 05/30/2024 PATIENT AT LOW RISK FOR VTE: RISK OF MECHANICAL PROPHYLAXIS OUTWEIGHS 1 05/28/2024 PATIENT AT LOW RISK FOR VTE: RISK OF PHARMACOLOGIC PROPHYLAXIS OUTWEIG 1 05/28/2024 VTE PHARMACOLOGIC PROPHYLAXI S CURRENTLY ORDERED OR ON ALTERNATIVE THER 1 05/27/2024 Consult Count Last Ordered Date First Orde red Date CONSULT HEART FAILURE 1 05/28/2024 CONSULT NUTRITION 1 05/28/2024 CONSULT PASTORAL CARE 1 05/27/2024 Admission Count Last Ordered Date First Orde red Date ADMIT TO INPATIENT 1 05/27/2024 Transfer Count Last Ordered Date First Orde red Date ED BED REQUEST 1 05/27/2024 Discharge Count Last Ordered Date First Orde red Date DISCHARGE PATIENT 1 05/31/2024 Legal Count Last Ordered Date First Orde red Date MISCELLANEOUS DISCHARGE INSTRUCTIONS 2 05/2024 Case Request Count Last Ordered Date First Orde red Date CASE REQUEST OTR [employer] 1 05/28/2024 documented in this encounter Care Teams Wet Sander Relationship Specialty Start Date End Date Jaz Lyon PA [address] [place] [address] PCP - General Family Medicine - Primary Care 05/27/24 documented as of this encounter
--- OUTSIDE RECORDS SUMMARY | 2024-06-23 16:42 | XMS_ITS | Encounter Summary ---
Author Organization [facility] Address [address] [place] [address] Care Team Providers Care Patient Financial Representative Name Role Phone Jaz Lyon Primary Care Provider Reason for Visit * Reason Comments Chest Pain BIBEMS from home--pt reporting 5/10 chest pain starting this morning, radiating to neck, pt diaphoretic on EMS arrival, SOB. Hx of VA and CHF. Pt reports not taking lasix for past 4 months, pitting edema in BLE. SpO2 84% on RA on EMS arrival, 94% on RA in ED. Pt received 324 aspirin, 3 doses SL nitro, and 1 nitro paste with EMS. A&Ox4 on arrival. Encounter Details Date Type Department Care Team (Late st Contact Info) Description 05/28/2024 11:09 EDT - 05/28/2024 12:09 EDT Surgery [facility] Invasive Cardiology Unit [address] [place] [id number] Don Mcgregor MD [address] [facility], Level [address] [place] [address] Left Heart Cath Surgery Details Date/Time Status Location OR Service Patient Class Case Class Case Type Trauma Case? 05/28/24 1109 Posted [facility] Architectural Wood Model Maker Architectural Wood Model Maker 2 Interventional Cardiology Inpatient Panel 1 Procedure LRB Anes Op Region Wound Class Comments Left Heart Cath N/A None Chest Surgeon Surgeon Role Service Panel Don Mcgregor MD Primary Interventional Cardi ology 1 Libby Jeronimo DO Fellow Interventional Cardiolo gy 1 documented in this encounter Social History Tobacco Use Types Packs/Day Years [...] Sign Reading Time Taken Comments Blood Pressure 157/85 05/28/2024 1149 EDT Pulse 61 05/28/2024 0906 EDT Temperature 36.6 ??C (97.9 ??F) 05/28/2024 0906 EDT Respiratory Rate 16 05/28/2024 1149 EDT Oxygen Saturation 98% 05/28/2024 1149 EDT Inhaled Oxygen Concentration - - Weight 91.6 kg (202 lb) 05/27/2024 1641 EDT Height 175.3 cm (5' 9) 05/27/2024 [...] combined systolic and diastolic congestive heart failure ([facility]) 05/27/2024 Patient nonadherent with medication regimen due to financial hardship 05/31/2024 HFrEF (heart failure with reduced ejection fraction) ([facility]) 05/30/2024 NSTEMI (non-ST elevated myocardial infarction) ([facility]) 05/27/2024 Nonrheumatic aortic valve stenosis 05/27/2024 [...] coverage. Additionally patient has been referred to [facility], he knows he must call to complete [...] referred to follow up with Cardiology at [facility] in 4 weeks with Wilberto Ocasio MD [...] appointments. Suggested next step: add empagliflozin after [facility] coverage/insurance started if affordable. If this is pursued, monitor for UTI (has history of BPH but no retention noted here) [ ] Diuretic titration [ ] Repeat TTE in 4 weeks same day as CTS appointment per Dr. Ribera Lab Follow up: [ ] See lab orders. Patient knows to come to any [facility] lab location in 1 week. Labs to [...] above interpretation and agree with the findings. [id number] PC MAINTENANCE TECHNICIAN PROCEDURE (Results Pending) TRANSTHORACIC ECHO (TTE) COMPLETE [...] Discharge Date (Inpatient Only): 05/31/2024 Authorizing Provider: Manjual Harkins NP Amb Consult/Follow Up Cardiology [facility] [place] [facility] Please choose one of the following [...] describe specific scheduling needs if applicable): [facility] [place] [facility] Reason for Request: NSTEMI - LHC [...] talk to your physician. Authorizing Provider: Shawna Tracy NP Reviewed discharge plan of care and patient seen with Dr. Rawls, the attending concept artist on service. I spent a total of [...] answered to his satisfaction. Shawna Tracy, MSN, BIRD TENDER-C Nurse Practitioner, [facility] Cardiology Associated attestation - Dacia Rawls MD [...] minutes discharging the patient. Dacia Rawls MD Associate Material Handler, #[id number] documented in this encounter Discharge Instructions * Discharge Instr - Other Orders* Yolie Pierce, CUONG - 05/30/2024 12:54 EDT Remember the acronym [...] up with your primary care provider or concept artist. * Attachments The following attachments cannot be sent through Care Everywhere. * Heart Failure (East Timorese) * Heart Failure Zones: General Info ([place]orese) documented in this encounter Medications at Time of Discharge Medication Sig Dispensed Refills Start Date End Date acetaminophen (TYLENOL) 325 mg capsule Take by mouth as needed. aspirin chewable 81 mg tabletIndications:Morales ry artery disease involving yering[place] coronary artery of [place]ering[place] heart without angina pectoris Take 1 Tablet by mouth daily. 30 Tablet 11 06/01/2024 diclofenac sodium gel Please see attached for detailed directions. 08/10/2023 losartan (COZAAR) 25 mg tabletIndications:HFrEF (heart failure with reduced ejection fraction) ([facility]) Take 1 Tablet by mouth daily. 30 Tablet 05/31/2024 metoprolol SUCCinate (TOPROL-XL) 25 mg tabletIndications:HFrEF (heart failure with reduced ejection fraction) ([facility]),Coronary artery disease involving yering[place] coronary artery of [place] heart without angina pectoris Take 1 Tablet by mouth daily. 90 Tablet 3 05/31/2024 Multivitamins with Minerals tablet Take 1 Tab by mouth daily nicotine (NICODERM CQ) 21 mg/24 hr patch APPLY 1 PATCH TO SKIN ONCE A DAY 07/08/2023 rosuvastatin (CRESTOR) 40 mg tabletIndications:Morales ry artery disease involving y[place] coronary artery of y[place] heart without angina pectoris Take 1 Tablet by mouth daily. 90 Tablet 3 06/01/2024 spironolactone (ALDACTONE) 25 mg tabletIndications:HFrEF (heart failure with reduced ejection fraction) ([facility]) Take 1 Tablet by mouth daily. 90 Tablet 06/01/2024 documented as of this encounter Ordered Prescriptions Prescription Sig Dispensed Refills Start Date End Da te metoprolol SUCCinate (TOPROL-XL) 25 mg tabletIndications:HFrEF (heart failure with reduced ejection fraction) ([facility]),Coronary artery disease involving yering[place] coronary artery of y[place] heart without angina pectoris Take 1 Tablet by mouth daily. 90 Tablet 05/31/2024 spironolactone (ALDACTONE) 25 mg tabletIndications:HFrEF (heart failure with reduced ejection fraction) ([facility]) Take 1 Tablet by mouth daily. 90 Tablet 06/01/2024 rosuvastatin (CRESTOR) 40 mg tabletIndications:Coronar y artery disease involving yering[place] coronary artery of yering[place] heart without angina pectoris Take 1 Tablet by mouth daily. 90 Tablet 06/01/2024 losartan (COZAAR) 25 mg tabletIndications:HFrEF (heart failure with reduced ejection fraction) ([facility]) Take 1 Tablet by mouth daily. 30 Tablet 05/31/2024 aspirin chewable 81 mg tabletIndications:Coronar y artery disease involving yering[place] coronary artery of yering[place] heart without angina pectoris Take 1 Tablet by mouth daily. 30 Tablet 06/01/2024 metoprolol SUCCinate (TOPROL-XL) 25 mg tabletIndications:HFrEF (heart failure with reduced ejection fraction) ([facility]),Coronary artery disease involving y[place] coronary artery of yering[place] heart without angina pectoris Take 1 Tablet by mouth daily. 90 Tablet 3 05/31/2024 05/31/2024 losartan (COZAAR) 25 mg tablet Take 1 Tablet by mouth daily. 30 Tablet 5 05/31/2024 05/31/2024 documented in this encounter Discharge Disposition Disposition Code Departure Means Destination Comment s Home or Self Mcc documented in this encounter Progress Notes * Miroslava Blair - 05/31/2024 1104 EDT DISCHARGE DATE/TIME: 05/31/24 DESTINATION: Home (If discharging to [facility]) COVID swab ordered and completed: TRANSPORTATION: Taxi- [employer] ACCEPTING MD AND NUMBER: NA RN REPORT/UNIT: NA SALVAGE WORKER/CHARGE/MD NOTIFIED (Y/N): Y FORMS: (Acute to acute, [...] concerned about this as patient lives in [place]. CM tracked patient down in pharmacy gave patient information about cab ride set up with [employer] to his home in [place] at 11:45 and asked him to be out front of the [facility] atthat time for the ride. Patient stated he need to go to security to receive some items and then would proceed to the ride at 11:45. Patient has information about Medicaid, Medicare, Financial Assistance and Hap for follow up at home. Needs to return in one month for follow up surgery. Miroslava Blair MS, CCC-MANAGED CARE NURSE Analysis Intern II * Manjula Harkins NP - 05/30/2024 1602 EDT Cardiology Progress note Service Date: 05/30/2024 Admit Date: 05/27/2024 8:15 Reason for Admission: 68 y.o. male admitted with a chief complaint of chest pain and SOB and now with a principal diagnosis of NSTEMI and MV CAD on [facility] 05/28/24. Events/ Procedures in the [...] LDLBASE, CHOLHDL in the last 72 hours. [facility] 05/28/24 Dr. Mcgregor Diagnostic Cardiac [...] NSTEMI, found to have MV CAD on [facility] 05/28/24 , mod - AV area 1.1 cm2 echo 05/27/24, CTS consulted appreciate recs. CM and outpatient pharmacy contacted as well regarding identifying affordable meds for improvement in med compliance. #NSTEMI #MV CAD - [facility] 05/28/24 #HFrEF exacerbation - LVEF 35-40% Echo (TTE) 05/27/24 #mod (AV mean grad 24 mmHg, AV area 1.1 cm2 Echo TTE 05/27/24) #HTN #HLD #BPH -Cont ASA 81mg daily -Restarted on Metoprolol 25mg XL daily -Started Losartan 25mg daily 05/30/24 - hx of cough with ann-i -Restarted Spironolactone 25mg daily -Restarted Rosuvastatin 40mg [...] info to call and start applicationf for HAP program to assist with medication cost - [facility] financial depart were helping him apply for Medicaid and he was given tado information to call and to request assistance [...] family, condo, apartment, prison, single room occupancy, [facility] funded hotel room, group assisted) - [facility] Who does the patient live with? [...] be escalated?: Yes How was escalation determined?: Analysis Intern discretion LIVING ARRANGEMENTS AND ACCESSIBILITY ISSUES: Living Arrangements: Alone, Private residence Levels: 1 Stairs to enter: 1 Handicap access: Railings into home Bathroom located on bedroom level?: Yes What in home social supports are available to the patient? Children Is 24/7 care available? No ADVANCED DIRECTIVES, POA &/or COLST IN PLACE: DIRECTIVES FOR FINANCES: TRANSPORTATION: Transportation: Self, Family Final Discharge Destination: Home CULTURAL, ISLAM and/or LANGUAGE factors affecting health care/discharge planning: [...] device: None Community Services: Home health, MOW, SASH-none of one time a week Will you [...] Home Health Services: None DME Provider: Pharmacy: [facility]/pharmacy #[id number] - [place], [place] - [address] [facility] [address] Home Health: Other: [facility] H[facility]ITAL TRANSITION PLAN: 68 y.o. male presented with dyspnea admitted for NSTEMI and volume overload. CM met with patient at bedside. Patient reports living alone in a one story [facility] in [place], [place]. Patient reports that he is an [...] reported that he had spoken with the [facility] financial services department. They were able to help him apply for Medicaid. They gave him a card for invi to assist him in applying for Medicare. Patient called tado and left a message. They are also going to give him the paperwork toapply for the [facility] financial assistance program. CM gave the patient information to call to start application for HAP program to assist with the cost of medications. Patient states he will call this afternoon. CM will continue to follow and address needs as they arise. Miroslava Blair MS, CCC-MANAGED CARE NURSE Analysis Intern II MIROSLAVA BLAIR 05/30/2024 13:07 * Luly Pan - 05/30/2024 1253 EDT [facility] Spiritual Care Prison Classification Counselor Note Re: René Rivera : 1955, AGE: 68 y.o. ROOM: [place] [address] Spirituality: Faith Patient is Faith and has been Anointed (In cases of end of life care this would be considered Last Rites.) BACKGROUND Request for Faith Sacraments ASSESSMENT Patient is Faith and a malt house supervisor was requested for prayer and sacramental needs Upset that he has not been able to attend methodist for the past year due to health and transportationproblems. Rodney was comforted and encouraged by the support and visit INTERVENTIONS Supportive presence, active listening, spiritual counseling, prayer and sacraments Family support CARE PLAN The unit culture manager will be available for further spiritual support as needed. RECOMMENDATIONS Please reach out if their is need for further sacramental support TIME STAMP: 45 minutes Thank you for the opportunity to provide for this patient's/family's spiritual needs. LULY PAN, [facility] Prison Classification Counselor Avionics Test Technician * Delfino Duron MD - 05/29/2024 0718 EDT Medicine Progress Note Service Date: 05/29/2024 Admit Date: 05/27/2024 8:15 Reason for Admission: 68 y.o. male presented with dyspnea admitted for NSTEMI and volume overload. 24 Hour Events: - NAEO Subjective Doing well this AM. Reports breathing comfortably, with no chest pain. Leg swelling feels at baseline. Understands that the [facility] revealed re-occlusion of his stents [...] above interpretation and agree with the findings. [id number] [facility] - Diagnostic Cardiac Study Results [...] 40-45%), CAD s/p PCI with LAD stent [id number] (thrombosed after stopping clopidogrel, re-stented 09/2023 iso STEMI) who presents with dyspneaafter stopping all his medications except aspirin d/t cost, admitted for concern of re-occlusion and NSTEMI. Plan for restarting METEOROLOGICAL OBSERVER meds, CT surgery consult, and CM for financial supports. Plan #NSTEMI Presented with dyspnea, no CP. Concern for re-occlusion iso missing medications since stopping everything except ASA. Trop peaked at 0.086. Cardiac surgery is indicated. ISR of prior stents, poor medical compliance. LAD/RCA disease, mod LCx disease. -restarting METEOROLOGICAL OBSERVER cardiac meds -ASA 81mg/day - spironolactone 25mg - isosorbitride mononitrate 30mg - empagliflozin 10mg - metoprolol succinate 25mg -Hep gtt -hold METEOROLOGICAL OBSERVER plavix -rosuvastatin 40mg/day -tele -consult nutrition #HFrEF [...] cards after d/c #HTN #HLD #BPH -Holding METEOROLOGICAL OBSERVER hydrochlorothiazide 25mg, terazosin 10mg; can evaluate pressures [...] Cardiology Attending * Antonietta Mares - 05/28/2024 1151 EDT [facility] Spiritual Care Note Re: René Rivera : 1955, AGE: 68 y.o. ROOM: [facility] [address] Spirituality: Faith BACKGROUND Initial visit with patient in context of spiritual care order placed to support Congregation patient. Visit ended after brief time due to arrival of treatment coding team lead and patient's wish to speak with them. ASSESSMENT Beliefs & Values Patient stated he is Congregation, and karly is very important part of his life. He at one point considered becoming a deacon in the methodist. Karly was of support during dissolution of his marriage several years ago. Patient says I'm a 'Roaming Faith' - after his local parish in [facility], he has attendedvarious other area churches. Connections To be assessed Coping To be assessed Meaning Making To be assessed INTERVENTIONS Prison Classification Counselor introduced self and spiritual care; initiated spiritual assessment. Compassionate presence. CARE PLAN Visit curtailed due to arrival of another treatment coding team lead. This culture manager will refer to -call culture manager for follow-up. RECOMMENDATIONS NA TIME STAMP: 10 minutes ANTONIETTA MARES [facility] Prison Classification Counselor [place] [address] Thank you for the opportunity [...] Medications: reviewed Labs: CBC: Recent Labs 05/27/24 08 WBC 11.24* NEUTROABS 9.33* HGB 14.3 MCV 93 PLT 151 Anemia studies: No results found for: IRON, TIBC, LABIRON, FERRITIN, [id number], FOLATE Electrolytes: Recent Labs 05/27/24 0827 05/28/24 [...] last 72 hours. Calcium: Recent Labs 05/27/24 08 CALCIUM 8.6 Lactic Acid: No results for input(s): LACTICACID, LACTATE in the last 72 hours. Inflammatory Markers: No results for input(s): DDIMER, SEDRATE, CRP, LDH, FIBRINOGEN, PSGN in the last 72 hours. Cardiac Markers: Recent Labs 05/27/24 0827 05/27/24 1148 05/27/24 1832 TROPONINI 0.035* 0.086* 0.064* NTBNP 3,420* -- -- Lipids: Recent Labs 05/27/24826 CHOL 183 TRIG 75 LDLBASE 129 HDL 39* Thyroid Function: No results found for: TSH, FRET4, FREET4, T5EBJN4 Diabetic markers: Recent Labs 05/27/24 0826 HGBA1C 5.3 BGLs: No results for input(s): GLUCOSEPOC in the last 72 hours. UA: Imaging: - XR CHEST 2 VIEWS Result Date: 05/27/2024 Interstitial pulmonary edema. I have personally reviewed the images and the above interpretation and agree with the findings. [id number] Micro: - COVID: No results found for: COVIDUV Assessment/Plan Assessment 68 y.o. male w/ PMH s/o HTN, HLD, BPH, depression, HFrEF (EF 40-45%), CAD s/p PCI with LAD stent [id number] (thrombosed after stopping clopidogrel, re-stented 09/2023 iso STEMI) who presents with dyspneaafter stopping all his medications except aspirin d/t cost, admitted for concern of re-occlusion and NSTEMI. Plan for LHC today, restart METEOROLOGICAL OBSERVER meds, and CM for financial supports. Plan #NSTEMI Presented with dyspnea, no CP. Concern for re-occlusion iso missing medications since stopping everything except ASA. S/p aspirin load. Trop peaked at 0.086. -restarting METEOROLOGICAL OBSERVER cardiac meds -ASA 81mg/day - spironolactone 25mg - isosorbitride mononitrate 30mg - empagliflozin 10mg - metoprolol succinate 25mg -Hep gtt -hold METEOROLOGICAL OBSERVER plavix -rosuvastatin 40mg/day -tele -[facility] -consult nutrition #HFrEF exacerbation #mod [...] cards after d/c #HTN #HLD #BPH -Holding METEOROLOGICAL OBSERVER hydrochlorothiazide 25mg, terazosin 10mg; can evaluate pressures this admission following addition of GDMT medications. #Nicotine dependence - Patient previously smoking 3/4 pack per day. - 2mg lozenges q4h PRN Code: DNR Diet: DIET NPO AFTER MIDNIGHT with Exceptions - Allow; meds, sips VTE Prophylaxis: hep gtt Consults: none Discharge Plan: pending clinical improvement Nai Lozano MD Internal Medicine PGY-2 Pager #[phone] 05/28/24 11:41 Associated attestation - Shawna Siddiqui MD - 05/28/2024 3098 EDT I have seen and evaluated the patient. I agree with the assessment and plan as outlined by Dr. Lozano. CTS consult. Shawna Siddiqui MD [facility] * Virgil Sanderson RN - 05/27/2024 1715 EDT FOUR EYES SKIN ASSESSMENT Four Eyes skin assessment was performed on admission to the unit by CUONG Herman and CUONG Chow Patient has the following devices at the time of this assessment: Peripheral IV. Device related pressure injury present? No All skin intact verified by: Virgil Sanderson RN. Last Margarito Score: Instructions: Add LDA for any identified wounds Add [place] image for any suspected PI or non surgical wounds Order wound consult if suspected PI identified If Margarito is < or = to 16, initiate Pressure Injury Prevention Bundle ([id number]). 05/27/2024 17:16 documented in this encounter H&P [...] he isn't currently following up with a concept artist and has also not been able to see his PCP due to cost. He lives alone and is Congregation; karly plays a large role in his life. Review of Systems A complete 10 point ROS was performed and pertinent positive and negative findings listed in HPI, otherwise negative. Past Medical History: Diagnosis Date Heart attack ([facility]) Hypertension Melanoma ([facility]) 2008 excised Obesity Right inguinal hernia Past Surgical [...] dysphonia. Gait is normal without ataxia Skin: [place], warm, and dry. No rashes, lesions, or [...] entire apex. - will plan to resume METEOROLOGICAL OBSERVER cardiac medications tomorrow - spironolactone 25mg - [...] 20mg in ED HTN HLD BPH Holding METEOROLOGICAL OBSERVER hydrochlorothiazide 25mg, terazosin 10mg; can evaluate pressures [...] attestation - Doe Urbina MD - 05/27/2024 9135 EDT I have personally seen and examined the patient and reviewed the attached note and agree with the general findings unless noted otherwise. Doe rUbina MD Cardiology Attending documented in this encounter [...] artery Procedure: He was brought to [facility] Cardiac Catheterization Laboratory for the procedure: [...] plans as well. Don Mcgregor MD PagerNumber: [phone] 05/28/2024 11:47 documented in this encounter Consult Notes * Oniel Lee PA-C - 05/30/2024 1012 EDT Cardiothoracic Surgery Consult Chief Complaint: Dyspnea, CAD, moderate HPI: Our service was asked to consult on René Rivera for consideration of cardiac surgery. Thepatient is a 68 y.o. male with a history of HTN, HLD, BPH, depression, HFrEF, CAD s/p PCI to LAD [id number] (thrombosed after stopping clopidogrel requiring repeat PCI [...] the time of his first stent in 2015. Per chart review there is documentation that [...] Past Medical History: Diagnosis Date Heart attack ([facility]) Hypertension Melanoma ([facility]) 2009 excised Obesity Right inguinal hernia [...] protocol, do not stop pre-operatively. Please hold ANN/ARB the day before and day of surgery. [...] or concerns. Will continue to follow daily. PIERRE BahenaC Cardiothoracic Surgery, pager #[phone] 05/30/2024 10:12 Associated attestation - Livier Ribera MD - 05/31/2024 1444 EDT Attestation: I saw and examined the patient 06/01/2024. I agree with the resident's/OPTICS MANUFACTURING TECHNICIAN/PA's findingsand plans as documented. 62-year-old patient presented [...] Livier Ribera MD 05/31/2024 14:40 * Ashli Gomez, PAT - 05/29/2024 1226 EDTAssociated Order(s): CONSULT NUTRITION [...] vit D level Ashli Gomez RD * Bonifacio Ortiz - 05/29/2024 1141 EDTAssociated Order(s): CONSULT PASTORAL CARE [facility] Spiritual Care Note Re: René Rivera : 1955, AGE: 68 y.o. ROOM: [facility]/[id number] BACKGROUND Follow up visit with patient who was visited by chaplain Antonietta Mares yesterday. ASSESSMENT Beliefs & Values Patient is Faith and finds his spirituality very important. He reflected on times when he leanedon his karly to support him through difficult times and wonders what God's will is for his upcomingchoice to pursue heart surgery vs not. Patient accepted culture manager's offer to make a referral to a malt house supervisor so that he may receive Sacraments such [...] Patient expressed finding it important to follow Faith Jewish karly practices such as saying therosary, attending methodist, going to adoration, and being of service [...] specific clergy support, theological reflection CARE PLAN Prison Classification Counselor made request for a malt house supervisor visit for sacramental support. RECOMMENDATIONS Continue to affirm and validate feelings; provide space for exploration of surgery vs not TIME STAMP: 30 minutes BONIFACIO ORTIZ [facility] [place] [address] Thank you for the opportunity to provide for this patient's/family's spiritual needs. documented in this encounter ED Notes * Aleta Castellanos RN - 05/27/2024 1505 EDT Cardiology admitting team at bedside to speak with patient. * Aleta Castellanos RN - 05/27/2024 1359 EDT vehicle operator technician at bedside to perform echo. * Aleta Castellanos RN - 05/27/2024 1035 EDT Pt ambulatory to bathroom with steady gait, voided 400mL light yellow urine in urinal. * Aleta Castellanos RN - 05/27/2024 1017 EDT Pt independently ambulatory to bathroom with steady gait. 400mL clear yellow urine voided. Pt returned to [facility], placed back on continuous cardiac monitoring, reporting [...] elevated troponin, will discuss with cardiology [CW] [id number] Discussed case with cardiology. They agree to admit the patient for decompensated CHF, medication noncompliance, troponin elevation [CW] Relevant Data User Index [AC] Karthik Tafoya MD [CW] Jason Ashton MD 09:38 [...] Asprin and hasn't seen a PCP in [facility] for the same reason. Patient notes that he isn't currently following up with a concept artist. History was provided by: Patient, EMS, EMR. [...] dysphonia. Gait is normal without ataxia Skin: Embden, warm, and dry. No rashes, lesions, or ecchymosis Psych: Normal mood and affect, normal behavior Procedures Procedures This documentation is recorded by Bhupinder Pina acting as Scribe under the direction and presence of Karthik Tafoya MD and Jason Ashton MD. Karthik Tafoya MD and Jason Ashton MD: I personally performed the services recorded by yaelriall in my presence. I confirm the scribe's documentation has been reviewed by me to accurately and completely record my work, treatment, procedures, and medical decision making. Note has been documented by Bhupinder Pina on 05/27/2024 Associated attestation - Karthik Tafoya MD - 05/27/2024 1623 EDT I, Karthik Tafoya MD, performed a history and exam of this patient and discussed the case with the resident. I have reviewed and edited this note, and the documentation is consistent with my findings,assessment and plan. I fully participated in the medical decision making. documented in this encounter Miscellaneous Notes * Plan of Care - John Salamanca RN - 05/31/2024 0941 EDT Discharge [...] stable condition. No distress noted. 05/31/2024 9:41 JOHN SALAMANCA RN * Plan of Care - Lesa Ruelas RN - 05/31/2024 0450 EDT Images [...] Discharge Plan Goal This Shift: DC 05/31 LESA RUELAS RN 05/31/2024 4:51 * Heart Failure Education - Yolie Pierce RN - 05/30/2024 1258 EDT Heart failure nurse clinician reviewed heart failure education with pt at the bedside this morning.Please see Education tab for education provided and pt's response. Yolie Pierce RN, CHFN Heart Failure Nurse Clinician Secure Chat or pager #[phone] * Plan of Care - Melanie Mcpherson [...] Outcome: Ongoing * Plan of Care - Selina William RN - 05/29/2024 1429 EDT Data: Assumed care of patient at 0700, POD 1 from [facility] showing multivessel disease. NSR on [...] awaiting formal CT surgery consult this week. SELINA WILLIAM RN 05/29/2024 14:29 ' * Plan [...] assess for discharge planning needs. LAWANDA CABAN, CCM # [id number] Covering Weekend CM * Plan of Care - Virgil Sanderson RN - 05/28/2024 1534 EDT Images from the original note were not included. Data: René Rivera is a 68 y.o. male with a PMHx of HTN, HLD, BPH, depression, HFrEF with priorEF of 40-45%, CAD s/p PCI with LAD stent in 2015 (thrombosed after stopping clopidogrel, re-stented09/2023 iso STEMI) who presents with recurrent chest pain. Action: Patient return to room from label maker post left heart cath with TR band to right wrist. TR band removed following hospital guidelines and time frame. Response: Patient toleration TR band removal. Will continue to monitor closely. VIRGIL SANDERSON RN 05/28/2024 Problem: High Fall Risk: Goal: Patient will Remain Free of Falls due to Med. Side Effects Outcome: Ongoing Problem: Daily Care Plan Goals Goal: Care Plan Documentation Outcome: Ongoing Problem: Safety: Goal: Ability to remain free from injury related to excessive bleeding will improve Outcome: Ongoing Problem: Medication: Goal: Risk for medication side effects will decrease Outcome: Ongoing VIRGIL SANDERSON RN 05/28/2024 documented in this encounter Plan of Treatment Upcoming Encounters Date Type Department Care Team (Late st Contact Info) Description 07/12/2024 16:45 EDT Office Visit [place] [facility] Cardiology - [address] [place] [address] Wilberto Ocasio MD 1 [facility] Level [address] [place] [address] Scheduled Orders Name Type Priority Associated Diagnoses Order Schedule TRANSTHORACIC ECHO (TTE) COMPLETE Echocardiography Routine HFrEF (heart failure with reduced ejection fraction) ([facility]) CAD, multiple vessel Expected: 05/31/2024, Expires: 05/31/2026 BASIC METABOLIC PANEL (BMP) Lab Routine HFrEF (heart failure with reduced ejection fraction) ([facility]) Expected: 06/07/2024 (Approximate), Expires: 06/30/2024 Scheduled Referrals Name Type Priority Associated Diagnoses Order Schedule AMB CONS/FOLLOW UP CARDIOLOGY Outpatient Referral Routine/Next Available Nonrheumatic aortic valve stenosis NSTEMI (non-ST elevated myocardial infarction) ([facility]) HFrEF (heart failure with reduced ejection fraction) ([facility]) Primary hypertension Expected: 06/13/2024 (Approximate), Expires: 05/30/2025 AMB CONS/FOLLOW UP PRIMARY CARE PHYSICIAN - EXTERNAL Outpatient Referral Routine/Next Available Nonrheumatic aortic valve stenosis NSTEMI (non-ST elevated myocardial infarction) ([facility]) HFrEF (heart failure with reduced ejection fraction) ([facility]) Primary hypertension Expected: 06/06/2024 (Approximate), Expires: 05/30/2025 AMB CONS/FOLLOW UP CARDIOTHORACIC SURGERY Outpatient Referral Routine/Next Available Coronary artery disease involving [place] coronary artery of [place] heart without angina pectoris CAD, multiple vessel [...] 11:52 EDT NSTEMI (non-ST elevated myocardial infarction) ([facility]) HEPARIN LEVEL - UNFRACTIONATED HEPARIN STAT 05/28/2024 [...] EDT) 2024 12:1 7 EDT Scan 2 Distribution Estimator PROCEDURE/MINOR SHARITA GICAL ORDERABLES * (ABNORMAL) BASIC METABOLIC PANEL (BMP) (05/31/2024 8:17 EDT) Sodium 140 136 - 145 mmol/L 05/31/2024 9:18 EDT [facility] Potassium 3.8 3.5 - 5.0 mmol/L 05/31/2024 9:18 [facility] Chloride 104 96 - 110 mmol/L 05/31/2024 9:18 [facility] CO2 Total 24 22 - 32 mmol/L 05/31/2024 9:18 [facility] Anion Gap 12 5 - 14 mmol/L 05/31/2024 9:18 [facility] Glucose 139(H) 70 - 99 mg/dl 05/31/2024 9:18 [facility] Calcium 9.5 8.5 - 10.5 mg/dL 05/31/2024 9:18 [facility] BUN 15 10 - 26 mg/dL 05/31/2024 9:18 [facility] Creatinine 0.97 0.66 - 1.25 mg/dL 05/31/2024 9:18 [facility] eGFR 86 >60 mL/min/1.73 m2 05/31/2024 9:18 [facility] Blood VENOUS BLOOD / Unknown Venipuncture / Unknown 05/31/2024 8:17 EDT 05/31/2024 8:49 EDT Manjula Harkins NP CHEMISTRY & BLOOD GAS ORDERABLES [facility] [address] [place] [address] * US VEIN MAPPING: CABG (05/30/2024 14:08 [...] Oniel Lee PA-C IMG US VASCULAR ORDE ABYBRIDGETTE * US CAROTID-VERTEBRAL DUPLEX BILATERAL (05/30/2024 14:07 [...] tobacco use. Oniel Lee PA-C IMG VASCULAR ORDE RABLES * MAGNESIUM (05/30/2024 5:50 EDT) Pathologist [facility] Magnesium 2.1 1.7 - 2.8 mg/dL 05/30/2024 6:49 EDT [facility] Blood VENOUS BLOOD / Unknown Venipuncture / Unknown 05/30/2024 5:50 EDT 05/30/2024 6:17 EDT Doe Urbina MD CHEMISTRY & BLOOD GA S ORDERABLES [facility] [address] [place] [address] * HEPARIN LEVEL - UNFRACTIONATED HEPARIN (05/30/2024 5:50 EDT) Heparin Level-UFH 0.38 Therapeutic Range: 0.30 - 0.70 IU/mL 05/30/2024 6:46 EDT [facility] Comment:Unfractionated hepar in therapeutic range [...] & PF4 ORD ERABLES Performing Organization Address City/[facility]/ZIP Co de Phone Number [facility] [address] [place] [address] * (ABNORMAL) VITAMIN D (25,OH) (05/30/2024 5:50 EDT) 25OH Vitamin D Tot 14(L) 30 - 100 ng/mL 05/30/2024 11:41 EDT [facility] Comment: Vitamin D 25,OH Interpretive Ranges: Deficiency: ??<10.0 ng/mL Insufficiency: ??10.0 - 30.0 ng/mL Sufficiency: ??30.0 - 100.0 ng/mL Toxicity: ??>100.0 ng/mL Blood VENOUS BLOOD / Unknown Venipuncture / Unknown 05/30/2024 5:50 EDT 05/30/2024 6:17 EDT Doe Urbina MD CHEMISTRY & BLOOD GA S ORDERABLES Performing Organization Address [facility]/ZIP Co de Phone Number [facility] [address] [place] [address] * ELECTROLYTES (05/30/2024 5:50 EDT) Pathologist [facility] Sodium 139 136 - 145 mmol/L 05/30/2024 6:49 EDT [facility] Potassium 4.1 3.5 - 5.0 mmol/L 05/30/2024 6:49 EDT [facility] Chloride 106 96 - 110 mmol/L 05/30/2024 6:49 EDT [facility] CO2 Total 22 22 - 32 mmol/L 05/30/2024 6:49 EDT [facility] Anion Gap 11 5 - 14 mmol/L 05/30/2024 6:49 EDT [facility] Blood VENOUS BLOOD / Unknown Venipuncture / Unknown 05/30/2024 5:50 EDT 05/30/2024 6:17 EDT Karthik Tafoya MD CHEMISTRY & BLOOD GA S ORDERABLES [facility] [address] [place], [place] [id number] * CREATININE (05/30/2024 5:50 EDT) Creatinine 0.93 0.66 - 1.25 mg/dL 05/30/2024 6:49 EDT [facility] eGFR 91 >60 mL/min/1.73 m2 05/30/2024 6:49 EDT [facility] Blood VENOUS BLOOD / Unknown Venipuncture / Unknown 05/30/2024 5:50 EDT 05/30/2024 6:17 EDT Narrative Authorizing Provider Result Stormy Tafoya MD CHEMISTRY & BLOOD GA S ORDERABLES [facility] [address] [place], [place] [phone] * BUN (05/30/2024 5:50 EDT) BUN 13 10 - 26 mg/dL 05/30/2024 6:49 EDT [facility] Blood VENOUS BLOOD / Unknown Venipuncture / Unknown 05/30/2024 5:50 EDT 05/30/2024 6:17 EDT Karthik Tafoya MD CHEMISTRY & BLOOD GA S ORDERABLES [facility] [address] [place] [address] * HEPARIN LEVEL - UNFRACTIONATED HEPARIN (05/29/2024 18:24 EDT) Heparin Level-UFH 0.40 Therapeutic Range: 0.30 - 0.70 IU/mL 05/29/2024 18:52 EDT [facility] Comment:Unfractionated hepar in therapeutic range [...] Urbina MD HEMATOLOGY & PF4 ORD ERABLES [facility] [address] [place] [address] * HEPARIN LEVEL - UNFRACTIONATED HEPARIN (05/29/2024 12:21 EDT) Heparin Level-UFH 0.43 Therapeutic Range: 0.30 - 0.70 IU/mL 05/29/2024 12:48 EDT [facility] Comment:Unfractionated hepar in therapeutic range [...] & PF4 ORD ERABLES Performing Organization Address City/[facility]/ZIP Co de Phone Number [facility] [address] [place] [address] * MAGNESIUM (05/29/2024 5:47 EDT) Pathologist [facility] Magnesium 2.0 1.7 - 2.8 mg/dL 05/29/2024 8:25 EDT [facility] Blood VENOUS BLOOD / Unknown Venipuncture / Unknown 05/29/2024 5:47 EDT 05/29/2024 6:08 EDT Doe Urbina MD CHEMISTRY & BLOOD GA S ORDERABLES Performing Organization Address [facility]/ZIP Co de Phone Number [facility] [address] [place] [address] * COMPLETE BLOOD COUNT AND DIFFERENTIAL (05/29/2024 5:47 EDT) [facility] WBC 7.06 4.00 - 10.40 K/cmm 05/29/2024 5:59 EDT [facility] RBC 4.65 4.36 - 5.78 M/cmm 05/29/2024 5:59 EDT [facility] Hemoglobin 14.4 13.8 - 17.3 g/dL 05/29/2024 [facility] 41.9 39.5 - 50.2 % 05/29/2024 5:59 [facility] MCV 90 81 - 95 fL 05/29/2024 5:59 EDT [facility] MCH 31.0 27.6 - 33.0 pg 05/29/2024 5:59 EDT [facility] MCHC 34.4 32.8 - 36.4 g/dL 05/29/2024 5:59 EDT [facility] RDW-CV 13.2 <14.2 % 05/29/2024 5:59 EDT [facility] RDW-SD 43.6 <46.0 fl 05/29/2024 5:59 [facility] PLT 151 141 - 377 K/cmm 05/29/2024 5:59 [facility] MPV 11.2 9.5 - 12.7 fL 05/29/2024 5:59 [facility] % Neutrophils 70.4 % 05/29/2024 5:59 [facility] % Lymphocytes 16.4 % 05/29/2024 5:59 [facility] % Monocytes 9.9 % 05/29/2024 5:59 [facility] % Eosinophils 2.5 % 05/29/2024 5:59 [facility] % Basophils 0.7 % 05/29/2024 5:59 [facility] % Immature Grans 0.1 % 05/29/20 5:59 [facility] Absolute Neutrophils 4.96 2.20 - 8.85 K/cmm 05/29/2024 5:59 [facility] Absolute Lymphocytes 1.16 1.09 - 3.30 K/cmm 05/29/2024 5:59 [facility] Absolute Monocytes 0.70 0.10 - 0.80 K/cmm 05/29/2024 5:59 [facility] Absolute Eosinophils 0.18 0.03 - 0.61 K/cmm 05/29/2024 5:59 [facility] ABS Basophils 0.05 0.01 - 0.11 K/cmm 05/29/2024 5:59 [facility] Absolute Immature Grans 0.01 0.00 - 0.06 K/cmm 05/29/2024 5:59 [facility] Type of Differential: Auto 05/29/2024 5:59 [facility] Blood VENOUS BLOOD / Unknown Venipuncture / Unknown 05/29/2024 5:47 EDT 05/29/2024 5:52 EDT Karthik Tafoya MD PACKAGES & DNA PROBE ORDERABLES [facility] [address] [place] [address] * HEPARIN LEVEL - UNFRACTIONATED HEPARIN (05/29/2024 5:47 EDT) Heparin Level-UFH 0.27 Therapeutic Range: 0.30 - 0.70 IU/mL 05/29/2024 6:25 EDT [facility] Comment: Unfractionated heparin therapeutic range [...] & PF4 ORD ERABLES Performing Organization Address [facility] Co de Phone Number [facility] [address] [place] [address] * (ABNORMAL) ELECTROLYTES (05/29/2024 5:47 EDT) Sodium 136 136 - 145 mmol/L 05/29/2024 6:36 EDT [facility] Potassium 4.5 3.5 - 5.0 mmol/L 05/29/2024 6:36 EDT [facility] Chloride 105 96 - 110 mmol/L 05/29/2024 6:36 EDT [facility] CO2 Total 21(L) 22 - 32 mmol/L 05/29/2024 6:36 EDT [facility] Anion Gap 10 5 - 14 mmol/L 05/29/2024 6:36 EDT [facility] Blood VENOUS BLOOD / Unknown Venipuncture / Unknown 05/29/2024 5:47 EDT 05/29/2024 6:08 EDT Karthik Tafoya MD CHEMISTRY & BLOOD GA S ORDERABLES Performing Organization Address City/[facility]/ZIP Co de Phone Number [facility] [address] [place], [place] [address] * CREATININE (05/29/2024 5:47 EDT) Creatinine 0.85 0.66 - 1.25 mg/dL 05/29/2024 6:36 EDT [facility] eGFR 96 >60 mL/min/1.73 m2 05/29/2024 6:36 EDT [facility] Blood VENOUS BLOOD / Unknown Venipuncture / Unknown 05/29/2024 5:47 EDT 05/29/2024 6:08 EDT Karthik Tafoya MD CHEMISTRY & BLOOD GA S ORDERABLES Performing Organization Address City/[facility]/ZIP Co de Phone Number [facility] [address] [place], [place] [phone] * BUN (05/29/2024 5:47 EDT) BUN 16 10 - 26 mg/dL 05/29/2024 6:36 EDT [facility] Blood VENOUS BLOOD / Unknown Venipuncture / Unknown 05/29/2024 5:47 EDT 05/29/2024 6:08 EDT Karthik Tafoya MD CHEMISTRY & BLOOD GA S ORDERABLES Performing Organization Address City/[facility]/ZIP Co de Phone Number [facility] [address] [place], [place] [phone] * LEFT HEART CATH (05/28/2024 11:52 EDT) Anatomical Region Laterality Modality Architectural Wood Model Maker 05/28/2024 11:3 8 EDT Narrative 06/01/2024 9:26 EDT Cardiology [address] [place] [address] Catheterization Laboratory Study Patient: René Rivera Study [...] Note Don Mcgregor MD - 06/01/[address] [place] [address] Catheterization Laboratory Study Patient: René Rivera Study [...] 0.30 - 0.70 IU/mL 05/28/2024 3:50 EDT [facility] Comment:Unfractionated hepar in therapeutic range [...] Urbina MD HEMATOLOGY & PF4 ORD ERABLES [facility] [address] [place] [address] * (ABNORMAL) ELECTROLYTES (05/28/2024 3:12 EDT) Sodium 138 136 - 145 mmol/L 05/28/2024 4:17 EDT [facility] Potassium 3.2(L) 3.5 - 5.0 mmol/L 05/28/2024 4:17 EDT [facility] Chloride 103 96 - 110 mmol/L 05/28/2024 4:17 EDT [facility] CO2 Total 26 22 - 32 mmol/L 05/28/2024 4:17 EDT [facility] Anion Gap 9 5 - 14 mmol/L 05/28/2024 4:17 EDT [facility] Blood VENOUS BLOOD / Unknown Venipuncture / Unknown 05/28/2024 3:12 EDT 05/28/2024 3:24 EDT Karthik Tafoya MD CHEMISTRY & BLOOD GA S ORDERABLES Performing Organization Address City/[facility]/ZIP Co de Phone Number [facility] [address] [place], [place] [phone] * CREATININE (05/28/2024 3:12 EDT) Creatinine 0.88 0.66 - 1.25 mg/dL 05/28/2024 4:17 EDT [facility] eGFR 95 >60 mL/min/1.73 m2 05/28/2024 4:17 EDT [facility] Blood VENOUS BLOOD / Unknown Venipuncture / Unknown 05/28/2024 3:12 EDT 05/28/2024 3:24 EDT Karthik Tafoya MD CHEMISTRY & BLOOD GA S ORDERABLES [facility] [address] [place], [place] [phone] * BUN (05/28/2024 3:12 EDT) BUN 14 10 - 26 mg/dL 05/28/2024 4:17 EDT [facility] Blood VENOUS BLOOD / Unknown Venipuncture / Unknown 05/28/2024 3:12 EDT 05/28/2024 3:24 EDT Karthik Tafoya MD CHEMISTRY & BLOOD GA S ORDERABLES Performing Organization Address [facility]/ZIP Co de Phone Number [facility] [address] [place] [address] * HEPARIN LEVEL - UNFRACTIONATED HEPARIN (05/27/2024 21:02 EDT) Heparin Level-UFH 0.43 Therapeutic Range: 0.30 - 0.70 IU/mL 05/27/2024 21:39 EDT [facility] Comment:Unfractionated hepar in therapeutic range [...] Unknown 05/27/2024 21:02 EDT 05/27/2024 21:08 EDT Karthik Tafoya MD HEMATOLOGY & PF4 ORD ERABLES Performing Organization Address [facility] Co de Phone Number [facility] [address] [place] [phone] * (ABNORMAL) TROPONIN I (05/27/2024 18:32 EDT) Troponin I (ng/mL) 0.064(H) <0.034 ng/mL 05/27/2024 19:10 EDT [facility] Blood VENOUS BLOOD / Unknown Venipuncture / Unknown 05/27/2024 18:32 EDT 05/27/2024 18:38 EDT Narrative [facility] - 05/27/2024 19:10 EDT The results of this assay can be falsely lowered due to the consumption of Biotin. Karthik Tafoya MD CHEMISTRY & BLOOD GA S ORDERABLES Performing Organization Address City/[facility]/ZIP Co de Phone Number [facility] [address] [place] [address] * TRANSTHORACIC ECHO (TTE) COMPLETE W/DOPPLER W/CF [...] color Doppler.The study was interpreted by [facility]. Pertinent images and [...] 0.30 - 0.70 IU/mL 05/27/2024 15:27 EDT [facility] Comment:Unfractionated hepar in therapeutic range [...] Unknown 05/27/2024 14:48 EDT 05/27/2024 14:54 EDT Karthik Tafoya MD HEMATOLOGY & PF4 ORD ERABLES [facility] [address] [place] [address] * ECG REPORT - SCANNED (05/27/2024 13:45 EDT) 05/27/2024 13:4 5 EDT Scan 2 Distribution Estimator PROCEDURE/MINOR SHARITA GICAL ORDERABLES * (ABNORMAL) TROPONIN I (05/27/2024 11:48 EDT) Troponin I (ng/mL) 0.086(H) <0.034 ng/mL 05/27/2024 12:20 EDT [facility] Blood VENOUS BLOOD / Unknown Venipuncture / Unknown 05/27/2024 11:48 EDT 05/27/2024 11:52 EDT Narrative [facility] - 05/27/2024 12:20 EDT The results of this assay can be falsely lowered due to the consumption of Biotin. Karthik Tafoya MD CHEMISTRY & BLOOD GA S ORDERABLES [facility] [address] [place] [address] * XR CHEST 2 VIEWS (05/27/2024 8:39 EDT) Anatomical Region Laterality Modality Computed Radiogr aphy 05/27/2024 8:51 EDT Impressions 05/27/2024 8:51 EDT Interstitial pulmonary edema. I have personally reviewed the images and the above interpretation and agree with the findings. [id number] Narrative 05/27/2024 8:51 EDT XR CHEST 2 [...] findings: ??Normal. Bones: Normal. Resulting Agency Comment [id number] Procedure Note Sixto Brown MD - 05/27/2024 [...] the above interpretation andagree with the findings. [id number] Karthik Tafoya MD IMG DIAGNOSTIC IMAGI NG ORDERABLES * (ABNORMAL) LIPID PROFILE (INCLUDES CHOLESTEROL, TRIGLYCERIDES, HDL, LDL) (05/27/2024 8:27 EDT) Cholesterol 183 <200 mg/dL 05/27/2024 14:59 [facility] Comment:Note that therapeuti c goals will differ between patients based on cardiac risk factors and current medical therapy. HDL 39(L) >=40 mg/dl 05/27/2024 14:59 [facility] Comment:Note that therapeuti c goals will differ between patients based on cardiac risk factors and current medical therapy. LDL, Calculated 129 <160 mg/dL 14:59 [facility] Comment:Note that therapeuti c goals will differ between patients based on cardiac risk factors and current medical therapy. Triglyceride 75 <=150 mg/dL 05/27/2024 14:59 [facility] Comment:Note that therapeuti c goals will differ between patients based on cardiac risk factors and current medical therapy. Chol/HDL Ratio 4.7 See Note 05/27/2024 14:59 [facility] Comment:No reference range h as been established for CHOL/HDL ratio. Non HDL Cholesterol 144 <160 mg/dL 05/27/2024 14:59 [facility] Comment:Note that therapeuti c goals will differ between patients based on cardiac risk factors and current medical therapy. Blood VENOUS BLOOD / Unknown Venipuncture / Unknown 05/27/2024 8:27 EDT 05/27/2024 8:30 EDT Karthik Tafoya MD CHEMISTRY & BLOOD GA S ORDERABLES Performing Organization Address [facility] Co de Phone Number [facility] [address] [place], [place] [address] * (ABNORMAL) NT PRO BNP (05/27/2024 8:27 EDT) NT-pro BNP 3,420(H) <299 pg/mL 05/27/2024 9:53 EDT [facility] Comment: In the acute setting NT-proBNP values <300 pg/mL have a 98% NPV for excluding acute heart failure. In outpatient populations, NT-proBNP values <125 have a 99% NPV for excluding heart failure. Blood VENOUS BLOOD / Unknown Venipuncture / Unknown 05/27/2024 8:27 EDT 05/27/2024 8:30 EDT Karthik Tafoya MD CHEMISTRY & BLOOD GA S ORDERABLES Performing Organization Address [facility] Co de Phone Number [facility] [address] [place] [phone] * HOLD BLUE TOP (05/27/2024 8:27 EDT) Hold Hold 05/27/2024 9:45 EDT [facility] Blood VENOUS BLOOD / Unknown Venipuncture / Unknown 05/27/2024 8:27 EDT 05/27/2024 8:36 EDT Karthik Tafoya MD LAB INFO SERVICE AND SUPPORT & PHONE RESULT Performing Organization Address [facility] Co de Phone Number [facility] [address] [place], [place] [phone] * MAGNESIUM (05/27/2024 8:27 EDT) Magnesium 2.0 1.7 - 2.8 mg/dL 05/27/2024 8:55 EDT [facility] [facility] Blood VENOUS BLOOD / Unknown Venipuncture / Unknown 05/27/2024 8:27 EDT 05/27/2024 8:30 EDT Karthik Tafoya MD CHEMISTRY & BLOOD GA S ORDERABLES Performing Organization Address [facility]/ZIP Co de Phone Number [facility] [address], [place] [id number] * (ABNORMAL) TROPONIN I (05/27/2024 8:27 EDT) Troponin I (ng/mL) 0.035(H) <0.034 ng/mL 05/27/2024 9:09 EDT [facility] Blood VENOUS BLOOD / Unknown Venipuncture / Unknown 05/27/2024 8:27 EDT 05/27/2024 8:30 EDT Narrative [facility] - 05/27/2024 9:09 EDT The results of this assay can be falsely lowered due to the consumption of Biotin. Karthik Tafoya MD CHEMISTRY & BLOOD GA S ORDERABLES Performing Organization Address [facility] Co de Phone Number [facility] [address] [place], [place] [phone] * (ABNORMAL) BASIC METABOLIC PANEL (BMP) (05/27/2024 8:27 EDT) Sodium 140 136 - 145 mmol/L 05/27/2024 8:55 EDT [facility] Potassium 3.5 3.5 - 5.0 mmol/L 05/27/2024 8:55 EDT [facility] Chloride 106 96 - 110 mmol/L 05/27/2024 8:55 EDT [facility] CO2 Total 26 22 - 32 mmol/L 05/27/2024 8:55 EDT [facility] Anion Gap 8 5 - 14 mmol/L 05/27/2024 8:55 EDT [facility] Glucose 124(H) 70 - 99 mg/dl 05/27/2024 8:55 EDT [facility] Calcium 8.6 8.5 - 10.5 mg/dL 05/27/2024 8:55 EDT [facility] BUN 17 10 - 26 mg/dL 05/27/2024 8:55 EDT [facility] Creatinine 0.94 0.66 - 1.25 mg/dL 05/27/2024 8:55 EDT [facility] eGFR 89 >60 mL/min/1.73 m2 05/27/2024 8:55 EDT [facility] Blood VENOUS BLOOD / Unknown Venipuncture / Unknown 05/27/2024 8:27 EDT 05/27/2024 8:30 EDT Narrative Authorizing Provider Result Stormy Tafoya MD CHEMISTRY & BLOOD GA S ORDERABLES Performing Organization Address [facility] de Phone Number [facility] [address] [place] [address] * HEMOGLOBIN A1C (05/27/2024 8:26 EDT) Hemoglobin A1c 5.3 <5.7 % 05/27/2024 20:16 EDT [facility] Comment: Glycemic Status References: Normal: ??<5.7% Pre-Diabetes: ??5.7% - 6.4% Diagnostic of Diabetes: ??> or = 6.5% (if confirmed) Est Avg Glucose 105 mg/dL 20:16 T [facility] Comment:The eAG represents t he A1c result expressed as average glucose in mg/dL. Blood VENOUS BLOOD / Unknown Venipuncture / Unknown 05/27/2024 8:26 EDT 05/27/2024 8:30 EDT Narrative Authorizing Provider Result Stormy Tafoya MD CHEMISTRY & BLOOD GA S ORDERABLES Performing Organization Address [facility] de Phone Number [facility] [address] [place] [address] * (ABNORMAL) COMPLETE BLOOD COUNT AND DIFFERENTIAL (05/27/2024 8:26 EDT) WBC 11.24(H) 4.00 - 10.40 K/cmm 05/27/2024 9:00 [facility] RBC 4.57 4.36 - 5.78 M/cmm 05/27/2024 9:00 [facility] Hemoglobin 14.3 13.8 - 17.3 g/dL 05/27/2024 9:00 [facility] HCT 42.7 39.5 - 50.2 % 05/27/2024 9:00 [facility] MCV 93 81 - 95 fL 05/27/2024 9:00 [facility] MCH 31.3 27.6 - 33.0 pg 05/27/2024 9:00 [facility] MCHC 33.5 32.8 - 36.4 g/dL 05/27/2024 9:00 [facility] RDW-CV 13.4 <14.2 % 05/27/2024 9:00 [facility] RDW-SD 46.3(H) <46.0 fl 05/27/2024 9:00 [facility] PLT 151 141 - 377 K/cmm 05/27/2024 9:00 [facility] MPV 11.5 9.5 - 12.7 fL 05/27/2024 9:00 [facility] % Neutrophils 82.9 % 05/27/2024 9:00 [facility] % Lymphocytes 7.5 % 05/27/2024 9:00 [facility] % Monocytes 6.9 % 05/27/2024 9:00 [facility] % Eosinophils 2.0 % 05/27/2024 9:00 [facility] % Basophils 0.4 % 05/27/2024 9:00 [facility] % Immature Grans 0.3 % 05/27/20 9:00 [facility] Absolute Neutrophils 9.33(H) 2.20 - 8.85 K/cmm 05/27/2024 9:00 EDT [facility] Absolute Lymphocytes 0.84(L) 1.09 - 3.30 K/cmm 05/27/2024 9:00 EDT [facility] Absolute Monocytes 0.77 0.10 - 0.80 K/cmm 05/27/2024 9:00 EDT [facility] Absolute Eosinophils 0.22 0.03 - 0.61 K/cmm 05/27/2024 9:00 EDT [facility] ABS Basophils 0.05 0.01 - 0.11 K/cmm 05/27/2024 9:00 EDT [facility] Absolute Immature Grans 0.03 0.00 - 0.06 K/cmm 05/27/2024 9:00 EDT [facility] Type of Differential: Auto 05/27/2024 9:00 EDT [facility] Blood VENOUS BLOOD / Unknown Venipuncture / Unknown 05/27/2024 8:26 EDT 05/27/2024 8:30 EDT Karthik Tafoya MD PACKAGES & DNA PROBE ORDERABLES Performing Organization Address [facility] Co de Phone Number [facility] [address] [place] [address] * EKG 12-LEAD (05/27/2024 8:24 EDT) 05/27/2024 8:24 EDT Narrative [facility] E[facility] - 05/27/2024 13:30 EDT ?[facility] ? Test Date: ?2024-05-27 Pat Name: ? RENÉ RIVERA ? Department: ?? ED ? Room: ? AC01 Gender: ? Male ? Senior Controls Technician: ?? [id number] : ?1955 ? Requested By: TAFOYA KARTHIK Order Number: [id number] ? Reading MD: ?? DOE URBINA MD ? Measurements Intervals ?[place] ? Rate: ? 71 ? P: ?38 VT: ? 189 ?QRS: ?30 QRSD: ? 102 ?T: ?93 QT: ? 376 ? QTc: ?410 ? Interpretive Statements SINUS RHYTHM WITH OCCASIONAL SUPRAVENTRICULAR PREMATURE COMPLEXES ANTERIOR MYOCARDIAL INFARCTION , PROBABLY RECENT ACUTE VA Compared to ECG 10/22/2023 07:50:59 Sinus bradycardia no longer present Myocardial infarct finding still present I reviewed the tracing and have either agreed or edited the findings in this report. Electronically Signed On 05-27-2024 13:30:19 EDT by DOE URBINA MD. Procedure Note Doe Urbina MD - 05/27/[address] [facility] Test Date: 2024-05-27 Pat Name: RENÉ RIVERA Department: ED Room: [facility] Gender: Male Senior Controls Technician: [id number] : 1955 Requested By: ALTON ANGELES Order Number: [id number] Reading MD: DOE URBINA MD Measurements Intervals [place] Rate: 71 P: 38 VT: 189 QRS: 30 QRSD: 102 T: 93 QT: 376 QTc: 410 Interpretive Statements SINUS RHYTHM WITH OCCASIONAL SUPRAVENTRICULAR PREMATURE COMPLEXES ANTERIOR MYOCARDIAL INFARCTION , PROBABLY RECENT ACUTE VA Compared to ECG 10/22/2023 07:50:59 Sinus bradycardia no longer present Myocardial infarct finding still present I reviewed the tracing and have either agreed or edited the findings inthis report. Electronically Signed On 05-27-2024 13:30:19 EDT by DOE TELLEZ. Karthik Tafoya MD CARDIAC ECG ORDERABL ES [facility] EKG documented in this encounter Visit Diagnoses Diagnosis Acute on chronic combined systolic and diastolic congestive heart failure (HCC-CMS)- Primary Acute on chronic combined systolic and diastolic heart failure Acute on chronic combined systolic and diastolic congestive heart failure (HCC- CMS) Acute on chronic combined systolic and diastolic heart failure Nonrheumatic aortic valve stenosis Aortic valve disorders NSTEMI (non-ST elevated myocardial infarction) ([facility]-CMS) Acute myocardial infarction, subendocardial infarction, episode of care unspecified HFrEF (heart failure with reduced ejection fraction) ([facility]-CMS) Heart failure, unspecified Primary hypertension Unspecified essential hypertension Coronary artery disease involving [place] coronary artery of [place] heart without angina pectoris CAD, multiple vessel Coronary atherosclerosis of unspecified type of vessel, [place] or graft NSTEMI (non-ST elevated myocardial infarction) ([facility]-CMS) Acute myocardial infarction, subendocardial infarction, episode of care unspecified Nonrheumatic aortic valve stenosis Aortic valve disorders NSTEMI (non-ST elevated myocardial infarction) ([facility]-CMS) Acute myocardial infarction, subendocardial infarction, episode of care unspecified documented in this encounter Admitting Diagnoses Diagnosis NSTEMI (non-ST elevated myocardial infarction) ([facility]-CMS) Acute myocardial infarction, subendocardial infarction, episode of [...] mg Given 05/29/2024 8:13 EDT 81 mg fentaNYL citrate (PF) injection PRN, Starting on 05/28/24 at 1135, Until 05/28/24 at 1152, Routine, Intraprocedure Given 05/28/2024 11:35 EDT 50 mcg iopamidoL (ISOVUE-370) injection PRN, Starting on 05/28/24 at 1147, Until 05/28/24 at 1152, Routine, Intraprocedure Given 05/28/2024 11:47 EDT 45 mL losartan (COZAAR) tablet 25 mg 25 mg, oral, DAILY, First dose on 05/30/24 at 1315, Until Discontinued, Routine Given 05/31/2024 8:14 EDT 25 mg Given 05/30/2024 14:22 EDT 25 mg metoprolol SUCCinate (TOPROL-XL) tablet 25 mg 25 mg, oral, DAILY, First dose on 05/28/24 at 0900, Until Discontinued, Routine Given 05/31/2024 8:14 EDT 25 mg Given 05/30/2024 8:11 EDT 25 mg Given 05/29/2024 8:13 EDT 25 mg midazolam (PF) (VERSED) injection PRN, Starting on 05/28/24 at 1134, Until 05/28/24 at 1152, Routine, Intraprocedure Given 05/28/2024 11:34 EDT 1 mg nicotine polacrilex (COMMIT) 2 mg lozenge 2 mg 2 mg, oral, EVERY 4 HOURS PRN, Starting on Thu05/27/24 at 1546, Until Thu05/31/24 at 1304, Smoking Cessation, Routine Given 05/30/2024 20:41 EDT 2 mg rosuvastatin (CRESTOR) tablet 40 mg 40 mg, [...] mL Given 05/30/2024 16:12 EDT 5 mL sodium chloride 0.9 % (NS) infusion FA IP EQF CONTINUOUS PRN FOR ONE STEP MEDS, Starting on 05/28/24 at 1125, Until 05/28/24 at 1152, Routine, Intraprocedure New Bag 05/28/2024 11:25 EDT 25 mL/hr 25 mL/hr spironolactone (ALDACTONE) tablet 25 mg 25 mg, [...] F (heart failure with reduced ejection fraction) ([facility]),Coronary artery disease involving [place] coronary artery of [place] heart without angina pectoris Take 1 Tablet [...] Until Discontinued, Routine 0813 (Given - Provider: Selina William RN) 0812 (Given - Provider: Melanie Mcpherson RN) 0814 (Given - Provider: John Salamanca RN) empagliflozin (JARDIANCE) tablet 10 mg (CANCELED) 10 mg, oral, DAILY, First dose on 05/28/24 at 0900, Until Discontinued, Indications: chronic heart failure, Routine 0813 (Given - Provider: Selina William RN) 0811 (Given - Provider: Melanie Mcpherson RN) ezetimibe (ZETIA) tablet 10 mg (CANCELED) 10 mg, oral, DAILY, First dose on 05/29/24 at 0900, Until Discontinued, Routine 0813 (Given - Provider: Selina William RN) 0812 (Given - Provider: Melanie Mcpherson RN) isosorbide MONOnitrate (IMDUR) CR tablet 30 mg (CANCELED) 30 mg, oral, DAILY, First dose on 05/28/24 at 0900, Until Discontinued, Routine 0813 (Given - Provider: Selina William RN) 0811 (Given - Provider: Melanie Mcpherson RN) losartan (COZAAR) tablet 25 mg 25 mg, oral, DAILY, First dose on 05/30/24 at 1315, Until Discontinued, Routine 1422 (Given - Provider: Melanie Mcpherson RN) 0814 (Given - Provider: John Salamanca RN) metoprolol SUCCinate (TOPROL-XL) tablet 25 mg 25 mg, oral, DAILY, First dose on 05/28/24 at 0900, Until Discontinued, Routine 0813 (Given - Provider: Selina William RN) 0811 (Given - Provider: Melanie Vida, RN) 0814 (Given - Provider: John Salamanca RN) rosuvastatin (CRESTOR) tablet 40 mg 40 mg, oral, DAILY, First dose on 05/28/24 at 0900, Until Discontinued, Routine 0813 (Given - Provider: Selina William RN) 0811 (Given - Provider: Melanie Mcpherson RN) 0817 (Given - Provider: John Salamanca RN) senna (SENOKOT) tablet 2 Tablet 2 Tablet, oral, AT BEDTIME, First dose on Thu05/27/24 at 2100, Until Discontinued, Routine 2027 (Given - Provider: Nancy Medina RN) 2029 (Given - Provider: Lesa Ruelas RN) sodium chloride 0.9 % (flush) flush 5 mL 5 mL, intravenous, EVERY 8 HOURS, First dose on Thu05/27/24 at 1600, Until Discontinued, Routine, Release 0815 (Given - Provider: Selina William RN)1634 (Given - Provider: Zak Tiwari RN)2358 (Not Given - Provider: Nancy Medina RN - Reason: Other - Comment: Given with assessment) 0812 (Given - Provider: Melanie Mcpherson RN)1612 (Given - Provider: Melanie Mcpherson, CUONG)2325 (Given - Provider: Lesa Ruelas RN) 0814 (Given - Provider: John Salamanca RN) spironolactone (ALDACTONE) tablet 25 mg 25 mg, oral, DAILY, First dose on 05/28/24 at 0900, Until Discontinued, Routine 08 (Given - Provider: Selina William RN) 0812 (Given - Provider: Melanie Mcpherson RN) 0814 (Given - Provider: John Salamanca RN) Continuous Medication Order 05/29/2024 05/30/2024 [...] Alaris pump settings)1325 (New Bag - Provider: Selina William, RN)1635 (Rate Documented - Provider: Zak Tiwari RN) 0622 (New Bag - Provider: Nancy Medina RN)1515 (IV Stopped - Provider: Melanie Mcpherson RN) PRN Medication Order 05/29/2024 05/30/2024 05/31/2024 acetaminophen (TYLENOL) tablet 650 mg 650 mg, oral, EVERY 6 HOURS PRN, Starting on Thu05/27/24 at 1432, Until Thu05/31/24 at 1304, Pain, Fever, Routine 2027 (Given - Provider: Nancy Medina RN) 07 (Given - Provider: Melanie Mcpherson, CUONG)2029 (Given - Provider: Lesa Ruelas RN) 042 (Given - Provider: Lesa Ruelas RN) bisacodyL (DULCOLAX) suppository 10 mg [...] Smoking Cessation, Routine 2040 (Given - Provider: Lesa Ruelas RN) polyethylene glycol 3350 (MIRALAX) packet [...] 6 HOURS PRN, Starting on Thu05/27/24 at 2003, Until Thu05/30/24 at 1503, per current UFH level, STAT Or heparin 100 units/mL bolus from bag 3,000 Units (CANCELED)Jump to med 3,000 Units (rounded from 2,996 Units = 35 Units/kg ? 85.6 kg Adjusted weight), intravenous, EVERY 6 HOURS PRN, Starting on Thu05/27/24 at 2003, Until Thu05/30/24 at 1503, per current UFH level, STAT documented in this encounter Orders Medications Ordered That Theron ht Not Have Been Administered Count Last Ordered Date First Ordered Date losartan (COZAAR) tablet 25 mg 1 05/30/2024 ezetimibe (ZETIA) tablet 10 mg 1 05/28/2024 fentaNYL citrate (PF) 50 mcg/mL injection 1 05/28/2024 heparin 1,000 unit/mL injection 1 lidocaine (PF) 20 mg/mL (2 %) injection 1 0 05/28/2024 midazolam (PF) (VERSED) 1 mg/mL injection 1 05/28/2024 nitroglycerin 100 mcg/mL syringe 1 05/28/20 potassium chloride (KLOR-CON ) packet 40 mEq 1 05/28/2024 potassium chloride SA (KLOR- CON M20) tablet 40 mEq 1 05/28/2024 verapamil (ISOPTIN) 2.5 mg/mL injection 2 0 05/28/2024 acetaminophen (TYLENOL) tablet 650 mg 1 02/2024 aspirin chewable tablet 81 mg 1 05/27/2024 aspirin EC tablet 325 mg 1 05/27/2024 bisacodyL (DULCOLAX) suppository 10 mg 1 empagliflozin (JARDIANCE) tablet 10 mg 1 furosemide (LASIX) injection 20 mg 1 2023 furosemide (LASIX) injection 40 mg 1 2023 heparin 100 units/mL bolus f rom bag 3,000 Units 1 05/27/2024 heparin 100 units/mL bolus f rom bag 6,000 Units 2 05/27/2024 heparin in 09/22 NS 25,000 uni t/250 mL infusion 1 05/27/2024 isosorbide MONOnitrate (IMDU R) CR tablet 30 mg 1 05/27/2024 metoprolol SUCCinate (TOPROL -XL) tablet 25 mg 1 05/27/2024 nicotine polacrilex (COMMIT) 2 mg lozenge 2 mg 1 05/27/2024 perflutren lipid microsphere s (DEFINITY) 0.165 mg in sodium chloride (PF) 1 mL 1 05/27/2024 polyethylene glycol 3350 (VA RALAX) packet 17 g 1 05/27/2024 ramelteon (ROZEREM) tablet 8 mg 1 rosuvastatin (CRESTOR) tablet 40 mg 1 05/27 senna (SENOKOT) tablet 2 Tablet 1 4 sodium chloride 0.9 % (flush) flush 5 mL 1 05/27/2024 spironolactone (ALDACTONE) tablet 25 mg 1 0 05/27/2024 Diet Count Last Ordered Date First Orde [...] Date First Orde red Date 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
--- OUTSIDE RECORDS SUMMARY | 2024-06-23 16:42 | XMS_ITS | Encounter Summary ---
Author Organization [facility] Address [address] [place] [address] Care Team Providers Care Supervisor Compressed Yeast Name Role Phone Vladiimr Simmons MD Primary Care Provider [phone] Encounter Details Date Type Department Care Team (Latest Contact Info) Description 10/19/2023 0:53 EST - 10/22/2023 10:55 EST Hospital Encounter [facility] Cardiac Unit [address] [place], [place] [id number] James Bryan MD [address] [place], [place] [id number] STEMI (ST elevation myocardial infarction) ([facility]) Discharge Disposition: Home or Self Care Social History Tobacco Use Types Packs/Day Years Used Date Smoking Tobacco: Former Cigarettes 0.5 20 1 - 07/08/2015 Smokeless Tobacco: Never Alcohol Use Standard Drinks/Week Comments Yes 8 (1 standard drink = 0.6 oz pur e alcohol) PHQ-2 Answer Date Recorded PHQ-2 Score 0 [...] Sign Reading Time Taken Comments Blood Pressure 141/72 10/22/2023 0815 EST Pulse 73 10/20/2023 2104 EST Temperature 36.7 ??C (98.1 ??F) 10/22/2023 0815 EST Respiratory Rate 16 10/22/2023 0815 EST Oxygen Saturation 97% 10/22/2023 0815 EST Inhaled Oxygen Concentration - - Weight 112.8 kg (248 lb 10.9 oz) 10/19/2023 1107 EST Height 175.3 cm (5' 9.02) 10/19/2023 1107 EST Body Mass Index 36.71 10/19/2023 1107 EST documented in this encounter Functional Status Functional Status Response Date of Assess ment Are you deaf or do you have serious difficulty h earing? No 10/19/2023 Are you blind or do you have [...] as of this encounter Discharge Summaries * James Bryan MD - 10/22/2023 0053 EST DISCHARGE SUMMARY ADMISSION DATE: 10/19/2023 DISCHARGE DATE: 10/22/2023 Dear Linus: I had the pleasure of caring for your patient, René Rivera, when he presented in transfer from [facility] with an anterior ST elevation GA. He is an exceptionally pleasant 68-year-old gentleman who has a prior history of stents to the LAD in 2016. He had recently stopped clopidogrel therapy. Heart catheterization shows that the left main is free of significant disease. The LAD has a 99% complex lesion in the mid vessel in a stented segment. The circumflex has a patent proximal stent. There is a 40% distal lesion. The RCA is dominant and is occluded consistent with chronic total occlusion. There are left to right collaterals. This is a new occlusion and was not present at the time of his prior heart catheterization in 2016. With the patient's permission, we went on to perform percutaneous intervention to the LAD with the placement of a drug- eluting stent within the prior stents inthe mid vessel. The stent was postdilated with a 3.5 mm NC balloon. Stent apposition and expansion was evaluated with intravascular ultrasound. The patient's procedure was performed through the rightradial approach without complication. Thereafter, the patient did reasonably well. He had dyspnea at rest that resolved once he was switched from ticagrelor to clopidogrel. He had some mild chest pain that appeared to improve with the addition of isosorbide mononitrate. On his first hospital night, he had marked nocturnal bradycardia. As an outpatient, he had been taking metoprolol ER 100 mg daily. This was stopped. Subsequently, he became significantly hypertensive and ultimately appeared to do well on a dose of metoprolol ER 25 mg daily. Today, the day of discharge, his temperature is 36.8 degrees Celsius, heart rate 50 per minute, blood pressure 128/73 mmHg. He feels well. During his hospitalization, he had no lower limb edema. This had been increasing for several months prior to admission. In view of his lower limb edema,empagliflozin 10 mg daily was added. Medications at the time of discharge: Aspirin 81 mg daily. Wellbutrin. Clopidogrel 75 mg daily. Empagliflozin 10 mg daily. Ezetimibe 10 mg daily. Hydrochlorothiazide 25 mg daily. Irbesartan 75 mg daily. Isosorbide mononitrate 30 mg daily. Metoprolol succinate XL 25 mg daily. Rosuvastatin 40 mg daily. Spironolactone 25 mg daily, which is a new medication this hospitalization. I asked the patient to stop his potassium supplements. In addition, the patient will continue Terazosin 10 mg daily. In summary, the patient presented with an anterior ST elevation GA. He had a 99% lesion in the mid portion of a previously placed stent. The fresh stent was placed and he subsequently did well. 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 This is new since his prior heart catheterization years ago. Certainly, if he has further angina, this lesion is amenable to percutaneous intervention Paige will be happy to arrange this. Overall, I would hope, however, that the patient will do well on medical therapy as above. He is scheduled to see you tomorrow. Please call me with any questions. I spent 60 minutes in his care today and most of that time was in patient education and arranging continuity of care. Sincerely, James Bryan MD / RA Confirmation: [id number] Dictation ID: [id number] cc: Linus Kimbrough MD, [facility], [address], [place] [address] Vladimir Simmons MD, [facility], [address] [place] [id number] James Bryan MD, [facility], [address] [place] [id number] documented in this encounter Medications at Time of Discharge Medication Sig Dispensed Refills Start Date End Date acetaminophen (TYLENOL) 325 mg capsule Take by mouth as needed. diclofenac sodium gel Please see attached for detailed directions. 08/10/2023 Multivitamins with Minerals tablet Take 1 Tab by mouth daily nicotine (NICODERM CQ) 21 mg/24 hr patch APPLY 1 PATCH TO SKIN ONCE A DAY 07/08/2023 aspirin 81 mg EC tablet Take 1 Tab by mouth daily 90 Tab 3 10/09/2015 05/31/2024 buPROPion (WELLBUTRIN XL) 150 mg XL tablet Take 300 mg by mouth daily. 05/30/2024 clopidogreL (PLAVIX) 75 mg tablet Take 1 Tablet by mouth daily for 90 days. 30 Tablet 3 10/22/2023 01/20/2024 empagliflozin (JARDIANCE) 10 mg tabletIndications:chron ic heart failure Take 1 Tablet by mouth daily for 90 days. 90 Tablet 3 10/22/2023 01/20/2024 ezetimibe (ZETIA) 10 mg tablet Take 1 Tablet by mouth daily for 90 days. 90 Tablet 10/22/2023 01/20/2024 hydrochlorothiazide (HYDRODIURIL) 25 mg tablet Take 25 mg by mouth daily 05/30/2024 irbesartan (AVAPRO) 75 mg tablet Take 1 Tablet by mouth daily for 90 days. 90 Tablet 3 10/22/2023 01/20/2024 isosorbide MONOnitrate (IMDUR) 30 mg CR tablet Take 1 Tablet by mouth daily for 90 days. 90 Tablet 10/22/2023 01/20/2024 metoprolol SUCCinate (TOPROL-XL) 25 mg tablet Take 1 Tablet by mouth daily. 90 Tablet 3 10/22/2023 05/31/2024 nicotine polacrilex (COMMIT) 2 mg lozenge HOLD 1 PIECE TO INSIDE OF MOUTH (BUCCAL) EVERY TWO HOURS NEEDED NEEDED FOR NICOTINE CRAVINGS 07/08/2023 05/31/2024 rosuvastatin (CRESTOR) 40 mg tablet Take 1 Tablet by mouth daily for 90 days. 90 Tablet 3 10/22/2023 05/31/2024 spironolactone (ALDACTONE) 25 mg tablet Take 1 Tablet by mouth daily for 90 days. 90 Tablet 3 10/22/2023 05/31/2024 terazosin (HYTRIN) 10 mg capsule Take 10 mg by mouth at bedtime 05/31/2024 documented as of this encounter Ordered Prescriptions Prescription Sig Dispensed Refills Start Date End Da te spironolactone (ALDACTONE) 25 mg tablet Take 1 Tablet by mouth daily for 90 days. 90 Tablet 3 10/22/2023 05/31/2024 isosorbide MONOnitrate (IMDUR) 30 mg CR tablet Take 1 Tablet by mouth daily for 90 days. 90 Tablet 10/22/2023 01/20/2024 irbesartan (AVAPRO) 75 mg tablet Take 1 Tablet by mouth daily for 90 days. 90 Tablet 3 10/22/2023 01/20/2024 ezetimibe (ZETIA) 10 mg tablet Take 1 Tablet by mouth daily for 90 days. 90 Tablet 10/22/2023 01/20/2024 empagliflozin (JARDIANCE) 10 mg tabletIndications:chronic heart failure Take 1 Tablet by mouth daily for 90 days. 90 Tablet 3 10/22/2023 01/20/2024 clopidogreL (PLAVIX) 75 mg tablet Take 1 Tablet by mouth daily for 90 days. 30 Tablet 3 10/22/2023 01/20/2024 rosuvastatin (CRESTOR) 40 mg tablet Take 1 Tablet by mouth daily for 90 days. 90 Tablet 3 10/22/2023 05/31/2024 metoprolol SUCCinate (TOPROL-XL) 25 mg tablet Take 1 Tablet by mouth daily. 90 Tablet 3 10/22/2023 05/31/2024 ticagrelor (BRILINTA) 90 mg tablet Take 1 Tablet by mouth 2 times daily. 60 Tablet 11 10/19/2023 10/22/2023 documented in this encounter Discharge Disposition Disposition Code Departure Means Destination Comment s Home or Self Senior Living documented in this encounter Progress Notes * Henrique Toscano - 10/21/2023 1600 EST [facility] Spiritual Care Note Encounter is through the ____ Palliative Care Service ____ Geriatric Service Re: René Rivera : 1955, AGE: 68 y.o. ROOM: [place] [address] Spirituality: Baptism BACKGROUND Patient reported making progress in his treatment and looking at the possibility of discharge tomorrow. He requested for Communion and blessings. No immediate pastoral concern at this time. INTERVENTIONS Provided less anxious presence, Communion and blessings. CARE PLAN None RECOMMENDATIONS None TIME STAMP: 15 minutes HENRIQUE TOSCANO [facility] [address] Thank you for the opportunity to provide for this patient's/family's spiritual needs. * James Bryan MD - 10/21/2023 1253 EST Daily Progress Note Admit Date: 10/19/2023 Hospital Day: LOS: 2 days Date of Service: 10/21/2023 Chief Complaint: Status post presentation with an anterior ST elevation GA 10/19/2023 with a thrombotic lesion in the stents that had been placed in the LAD in 2016. Treated with 1 additional drug-eluting stent. The circumflex stent was widely patent. The RCA is occluded which is new compared to prior angiograms. 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 Echo post GA showed an EF of 40 to 45% with apical hypokinesis and moderate aortic stenosis. The patient has mild hypokalemia with a potassium of 3.2 mEq/L. Peak troponin was 5. The patient has had sinus bradycardia overnight that appears improved today. Subjective: The patient reports that he is doing okay. Certainly he looks better than he did yesterday. He is sitting out in a chair. He walked in the corridors earlier and reports that he had to slow down because of central chest pain. He has lower limb edema is moderate in nature. He reports thishas been going on since July. It is worse in the left leg. He also reports ongoing shortness ofbreath with activity. He reports he is urinating a lot with the diuretic therapy. He denies currentchest pain. He denies syncope. His heart rate is better overnight with no further bradycardia. He is hypertensive today. Previously he was on metoprolol ER 100 mg daily which was on hold because of br adycardia. Past family/social history: Unchanged Current Facility-Administered Medications Medication Route Frequency acetaminophen (TYLENOL) tablet 650 mg oral Q4H PRN aspirin EC tablet 81 mg oral DAILY atropine 0.1 mg/mL syringe buPROPion (WELLBUTRIN XL) XL tablet 300 mg oral DAILY clopidogreL (PLAVIX) tablet 75 mg oral DAILY empagliflozin (JARDIANCE) tablet 10 mg oral DAILY ezetimibe (ZETIA) tablet 10 mg oral DAILY furosemide (LASIX) tablet 20 mg oral DAILY irbesartan (AVAPRO) tablet 75 mg oral DAILY isosorbide MONOnitrate (IMDUR) CR tablet 30 mg oral DAILY metoprolol SUCCinate (TOPROL-XL) tablet 50 mg oral DAILY ondansetron (PF) (ZOFRAN) injection 4 mg intravenous Q8H PRN rosuvastatin (CRESTOR) tablet 40 mg oral DAILY spironolactone (ALDACTONE) tablet 25 mg oral DAILY terazosin (HYTRIN) capsule 10 mg oral QHS Review of Systems: A ten point review of systems was performed and was negative except for pertinent positives noted in the HPI Objective/Physical Exam: VS: Patient Vitals for the past 8 hrs: BP Heart Rate Resp Temp SpO2 O2 Device 10/21/23 0824 (!) 173/96 64 BPM 16 36.8 ??C (98.2 ??F) 97 % None 10/21/23 0600 -- 67 BPM -- -- -- -- 10/21/23 0500 (!) 146/97 74 BPM 18 -- 96 % None Pain: Patient Vitals for the past 8 hrs: Numeric Pain Level (Scale 1-10) 10/21/23 0929 0 10/21/23 0824 0 10/21/23 0500 0 Weight: Weight : (!) 112.8 kg (248 lb 10.9 oz) Glucose Readings (last 8 readings): No results for input(s): GLUCOSEFINGE in the last 72 hours. I&O: Intake/Output Summary (Last 24 hours) at 10/21/2023 1253 Last data filed at 10/21/2023 1036 Gross per 24 hour Intake 1245 ml Output 2125 ml Net -880 ml Exam: General appearance: alert, fatigued, cooperative Skin: Skin color, temperature, turgor normal. No rashes or lesions Neck: supple, symmetrical, trachea midline Lungs: clear to auscultation bilaterally Heart: regular rate and rhythm, systolic murmur consistent with moderate aortic stenosis Abdomen: soft, non-tender; bowel sounds normal; no masses, no organomegaly Neurologic: Grossly normal Mental Status: awake and alert; oriented to person, place, and time Extremities: Moderate bilateral lower limb edema. Normal pulses. Data Review: I have independently visualized the EKGs which show persistent ST elevation through the septal and lateral leads. Labs: I have personally reviewed CBC: Lab Results Component Value Date WBC 7.38 10/21/2023 RBC 4.49 10/21/2023 HGB 13.9 10/21/2023 HCT 39.5 10/21/2023 MCV 88 10/21/2023 MCH 31.0 10/21/2023 MCHC 35.2 10/21/2023 PLT 165 10/21/2023 NEUTROABS 5.40 11/13/2019 BMP: Lab Results Component Value Date NA 138 10/21/2023 K 3.8 10/21/2023 CL 104 10/21/2023 CO2 24 10/21/2023 BUN 12 10/21/2023 CREATININE 0.98 10/21/2023 CALCIUM 8.9 10/21/2023 MG 2.3 11/13/2019 LABALBU 3.8 10/19/2023 Coagulation: Lab Results Component Value Date PROTIME 12.5 10/08/2015 Other studies: Telemetry: yes, Normal sinus rhythm Assessment/Problems: (update problem list daily as appropriate) Patient Active Problem List Diagnosis Date Noted *(H)STEMI (ST elevation myocardial infarction) ([facility]) 10/19/2023 Priority: Medium Non-recurrent unilateral inguinal hernia without obstruction or gangrene 03/31/2019 Priority: Medium ST elevation myocardial infarction (STEMI) ([facility]) 10/08/2015 Priority: Medium BPH (benign prostatic hyperplasia) 10/08/2015 Priority: Medium Obesity 10/08/2015 Priority: Medium HLD (hyperlipidemia) 10/08/2015 Priority: Medium Depression 10/08/2015 Priority: Medium Tubular adenoma of colon 10/08/2015 Priority: Medium Melanoma ([facility]) 10/08/2015 Priority: Medium S/p excision 2009 HTN (hypertension) 10/08/2015 Priority: Medium Plan: Status post presentation with an anterior ST elevation GA 10/19/2023 with a thrombotic lesion in thestents that had been placed in the LAD in 2015. Treated with 1 additional drug-eluting stent. The circumflex stent was widely patent. The RCA is occluded which is new compared to prior angiograms. 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 Echo post GA showed an EF of 40 to 45% with apical hypokinesis and moderate aortic stenosis. The patient has mild hypokalemia with a potassium of 3.2 mEq/L. Peak troponin was 5. The patient has had sinus bradycardia overnight that appears improved today. Subjective: The patient reports that he is doing okay. Certainly he looks better than he did yesterday. He is sitting out in a chair. He walked in the corridors earlier and reports that he had to slow down because of central chest pain. He has lower limb edema is moderate in nature. He reports thishas been going on since July. It is worse in the left leg. He also reports ongoing shortness ofbreath with activity. He reports he is urinating a lot with the diuretic therapy. He denies currentchest pain. He denies syncope. His heart rate is better overnight with no further bradycardia. He is hypertensive today. Previously he was on metoprolol ER 100 mg daily which was on hold because of br adycardia. EKGs show persistent anterolateral ST elevation. Patient had some chest pain while walking in the corridor today. He is hypertensive. His metoprolol ER 100 mg daily is on hold because of initial bradycardia. Today I will restart metoprolol ER 50 mg daily. Because of his lower limb edema I have added empagliflozin and spironolactone. Because of his chest pain I have added isosorbide mononitrate. He does have a chronic occlusion of the RCA which if he has persistent chest pain would be amenable to PCI. Patient does however look significantly better than he did yesterday. Once his blood pressureis under good control and he is tolerating the above medications, I hope to send him home. This will likely be tomorrow. He has chronic diastolic congestive heart failure. Discharge Plan: Home or self care Consults: None James Bryan MD 10/21/2023 12:53 * James Bryan MD - 10/20/2023 1319 EST Daily Progress Note Admit Date: 10/19/2023 Hospital Day: LOS: 1 day Date of Service: 10/20/2023 Chief Complaint: Status post presentation with an anterior ST elevation GA 10/19/2023 with a thrombotic lesion in the stents that had been placed in the LAD in 2015. Treated with 1 additional drug-eluting stent. The circumflex stent was widely patent. The RCA is occluded which is new compared to prior angiograms. 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 Echo post GA showed an EF of 40 to 45% with apical hypokinesis and moderate aortic stenosis. The patient has mild hypokalemia with a potassium of 3.2 mEq/L. Peak troponin was 5. The patient has had sinus bradycardia overnight that appears improved today. Subjective: Patient reports that he is doing okay. Yesterday he had episodes of difficulty getting a full breath. This was suspicious for a side effect from ticagrelor and this morning his ticagrelorwas stopped and clopidogrel was substituted. He had already received a loading dose of clopidogrel yesterday. In addition overnight the patient had sinus bradycardia with an intermittent junctional rhythm. Prior to admission the patient reports that he had been on metoprolol ER 100 mg daily. The patient reports that he feels well this morning. He denies any chest pain or chest pressure. He deniessyncope, presyncope, PND or orthopnea. He has however noted that he has bilateral lower limb edema. Past family/social history: Unchanged Current Facility-Administered Medications Medication Route Frequency acetaminophen (TYLENOL) tablet 650 mg oral Q4H PRN aspirin EC tablet 81 mg oral DAILY atropine 0.1 mg/mL syringe buPROPion (WELLBUTRIN XL) XL tablet 300 mg oral DAILY clopidogreL (PLAVIX) tablet 75 mg oral DAILY ezetimibe (ZETIA) tablet 10 mg oral DAILY furosemide (LASIX) tablet 20 mg oral DAILY ondansetron (PF) (ZOFRAN) injection 4 mg intravenous Q8H PRN potassium chloride SA (KLOR-CON M20) tablet 20 mEq oral BID rosuvastatin (CRESTOR) tablet 40 mg oral DAILY terazosin (HYTRIN) capsule 10 mg oral QHS Review of Systems: A ten point review of systems was performed. Pertinent positives are listed below, all others are negative: Constitutional: positive for fatigue Objective/Physical Exam: VS: Patient Vitals for the past 8 hrs: BP Heart Rate Resp Temp SpO2 O2 Flow Rate (L/min) O2 Device 10/20/23 1149 125/65 58 BPM 18 -- 96 % -- None 10/20/23 0913 126/80 60 BPM 19 36.7 ??C (98.1 ??F) 95 % -- None 10/20/23 0549 -- -- -- -- -- 2 l/min Nasal cannula Pain: Patient Vitals for the past 8 hrs: Numeric Pain Level (Scale 1-10) 10/20/23 0913 3 10/20/23 0549 4 Weight: Weight : (!) 112.8 kg (248 lb 10.9 oz) Glucose Readings (last 8 readings): No results for input(s): GLUCOSEFINGE in the last 72 hours. I&O: Intake/Output Summary (Last 24 hours) at 10/20/2023 1319 Last data filed at 10/20/2023 0549 Gross per 24 hour Intake 900 ml Output 1700 ml Net -800 ml Exam: General appearance: alert, fatigued, cooperative Skin: Skin color, temperature, turgor normal. No rashes or lesions Head: Normocephalic, without obvious abnormality, atraumatic Neck: supple, symmetrical, trachea midline and no JVD Lungs: clear to auscultation bilaterally Heart: regular rate and rhythm, systolic murmur: holosystolic 3/6, medium pitch at 2nd left intercostal space Abdomen: soft, non-tender; bowel sounds normal; no masses, no organomegaly Neurologic: Grossly normal Mental Status: awake and alert; oriented to person, place, and time Extremities: extremities warm, atraumatic, no cyanosis or edema positive pulses bilat Data Review: I have independently visualized the EKGs which postprocedure continue to show anteriorST elevation. Labs: I have personally reviewed CBC: Lab Results Component Value Date WBC 7.17 10/20/2023 RBC 4.14 (L) 10/20/2023 HGB 13.1 (L) 10/20/2023 HCT 37.1 (L) 10/20/2023 MCV 90 10/20/2023 MCH 31.6 10/20/2023 MCHC 35.3 10/20/2023 PLT 152 10/20/2023 NEUTROABS 5.40 11/13/2019 BMP: Lab Results Component Value Date NA 134 (L) 10/20/2023 K 3.2 (L) 10/20/2023 CL 100 10/20/2023 CO2 28 10/20/2023 BUN 12 10/20/2023 CREATININE 0.92 10/20/2023 CALCIUM 8.2 (L) 10/20/2023 MG 2.3 11/13/2019 LABALBU 3.8 10/19/2023 Coagulation: Lab Results Component Value Date PROTIME 12.5 10/08/2015 Cardiac markers: Lab Results Component Value Date TROPONINI 3.020 (H) 10/20/2023 TROPONINI 3.970 (H) 10/20/2023 TROPONINI 4.760 (H) 10/19/2023 Other studies: Findings Echo: Abnormal, and reviewed by myself: EF of 40 to 45% with moderate aortic stenosis. Assessment/Problems: (update problem list daily as appropriate) Patient Active Problem List Diagnosis Date Noted *(H)STEMI (ST elevation myocardial infarction) ([facility]) 10/19/2023 Priority: Medium Non-recurrent unilateral inguinal hernia without obstruction or gangrene 03/31/2019 Priority: Medium ST elevation myocardial infarction (STEMI) ([facility]) 10/08/2015 Priority: Medium BPH (benign prostatic hyperplasia) 10/08/2015 Priority: Medium Obesity 10/08/2015 Priority: Medium HLD (hyperlipidemia) 10/08/2015 Priority: Medium Depression 10/08/2015 Priority: Medium Tubular adenoma of colon 10/08/2015 Priority: Medium Melanoma ([facility]) 10/08/2015 Priority: Medium S/p excision 2009 HTN (hypertension) 10/08/2015 Priority: Medium Plan: Status post presentation with an anterior ST elevation GA 10/19/2023 with a thrombotic lesion in thestents that had been placed in the LAD in 2017. Treated with 1 additional drug-eluting stent. The circumflex stent was widely patent. The RCA is occluded which is new compared to prior angiograms. 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 Echo post GA showed an EF of 40 to 45% with apical hypokinesis and moderate aortic stenosis. The patient has mild hypokalemia with a potassium of 3.2 mEq/L. Peak troponin was 5. The patient has had sinus bradycardia overnight that appears improved today. Subjective: Patient reports that he is doing okay. Yesterday he had episodes of difficulty getting a full breath. This was suspicious for a side effect from ticagrelor and this morning his ticagrelorwas stopped and clopidogrel was substituted. He had already received a loading dose of clopidogrel yesterday. In addition overnight the patient had sinus bradycardia with an intermittent junctional rhythm. Prior to admission the patient reports that he had been on metoprolol ER 100 mg daily and this is currently on hold. The patient reports that he feels well this morning. He denies any chest pain or chest pressure. He denies syncope, presyncope, PND or orthopnea. He has however noted that he has bilateral lower limb edema. I reviewed his home medications with him. He is unsure of the doses but feels pretty confident thathe was on terazosin, rosuvastatin, metoprolol ER 100, nitroglycerin, losartan, Zetia, aspirin and hydrochloric thiazide. He reports that he had been on clopidogrel continuously but more recently stopped it because of nosebleeds. Anticipate discharge tomorrow if the patient is doing well. Coronary angiograms reviewed. The STORE COORDINATOR of the RCA would be amenable to PCI if the patient has ischemia and discharged. Discharge Plan: Home or self care Consults: None James Bryan MD 10/20/2023 13:19 * Henirque Toscano - 10/20/2023 1234 EST [facility] Spiritual Care Note Encounter is through the ____ Palliative Care Service ____ Geriatric Service Re: René Rivera : 1955, AGE: 68 y.o. ROOM: [facility]/[place] [address] Spirituality: Baptism BACKGROUND Initial pastoral care visit during rounds. René was sitting comfortably in recliner when I stepped into his space/room. He was receptive, engaged and interactive. Patient related to the Senior Advocate in a way that could be described as chatty and openly. Patient appears to be dealing with the following pastoral/spiritual issues - painful divorce, unresolved guilt, and the need to reconnect with God. ASSESSMENT Beliefs & Values He a devout Baptism who takes delights in [employer] works of [place]. Connections Patient has good family support system. Meaning Making Karly/family and placing one's hope and trust in God. Coping He appears to be coping well INTERVENTIONS Active listening, empathic and comforting presence. Administered the Sacramental needs of patient including anointing of the sick and Holy Communion. CARE PLAN Will continue to provide support as needed by patient during his hospitalization and treatment. RECOMMENDATIONS None TIME STAMP: 35 minutes HENRIQUE TOSCANO, [facility] Senior Advocate [place] [address] Thank you for the opportunity to provide for this patient's/family's spiritual needs. * Aida Anton RN - 10/20/2023 2929 EST Images from the original note were not included. Data: STEMI S/P LHC with PCI, right radial site intact. +pulses & neuro's intact. +1-2 ANDERZ, Lasix 2 mg po given. Patient is SB-SR with HR 50-60's with occasional PVC's, no ectopy today. Patient is alert & oriented x 3 with complaints of 4/10 anterior CANALES, Tylenol 650 mg po given. Patient on RA with diminished/clear lungs. Action: Assessments documented. Medications given per NOV. Encouraged to ambulate in alvarez as tolerated. Showered. VS & telemetry monitored for acute changes Response: Patient is comfortable AIDA ANTON RN 10/20/2023 18:48 * Tanesha Donahue - 10/19/2023 2718 EST Initial Case Management/Social Work Assessment and Discharge Plan/Readmission Risk Assessment REASON FOR ADMISSION: STEMI (ST elevation myocardial infarction) ([facility]) Patient understands reason for admission: PATIENT INFO VERIFIED: Type of housing (single family, condo, apartment, chcf, single room occupancy, [facility] funded hotel room, group mcfp) - private home Who does the patient live with? Lives alone Does the patient have access to their own bedroom/bathroom/kitchen - or is it shared with others? Yes Name of housing complex (ex [facility], [facility], etc)- N/A Housing Authority/Managing Organization - N/A Community Care Providers (complex case manager, [facility] nurse, etc) name and contact information- N/A Discharge Delay Risk Assessment 2. Hospitalization: Unplanned admission 3. Family Structure: Living alone Major Barrier day total 1-6: 2 7. Economic situation: Uninsured Major Barrier day total 7-8: 1 Risk for Delayed Discharge: At Risk For Delayed Discharge Does the patient meet criteria to be escalated?: No LIVING ARRANGEMENTS AND ACCESSIBILITY ISSUES: Living Arrangements: Alone Levels: 1 Stairs to enter: 1 Handicap access: None Bathroom located on bedroom level?: Yes What in home social supports are available to the patient? Children Is 24/7 care available? No ADVANCED DIRECTIVES, POA &/or COLST IN PLACE: Healthcare Directive: No, patient does not have advance directive for healthcare treatment DIRECTIVES FOR FINANCES: TRANSPORTATION: Transportation: Family Does the patient need discharge transport arranged?: No Expected Discharge on IV Antibiotics: No Final Discharge Destination: Home CULTURAL, CHRISTIAN and/or LANGUAGE factors affecting health care/discharge planning: Spiritual/Cultural Requests: None Insurance Information: None Nutrition: DISCHARGE RISK ASSESSMENT: Total # selected above: Tentative plan to address the risk of re-hospitalization for those at HIGH MODERATE RISK: RAPT TOOL: SBIRT: FUNCTIONAL STATUS: Activities patient requires assistance: None Assistive Devices: None COMMUNITY RESOURCES/SUPPORTS: Primary Care Provider: Valdimir Simmons PCP Verified: Specialists: Type of Home Health Services: None DME Provider: Pharmacy: [id number] - [place], [place] - [address] [facility] [address] Home Health: N/A Other: POST HOSPITAL TRANSITION PLAN: Patient lives in a ranch home alone in [place], [place]. He states he is independent with self care and home management. His daughter Maru is near by. Patient has no insurance. He has Medicare A because he is over 65, but no supplemental (Part B) or insurance for medication. He said he was working with someone at [facility]. I called there and she is no longer employed there but I was told that the patient should call [place] [facility] in his area ([phone]) and they could help him complete an application and also a Medicaid application. I checked with [facility] and was told that this would be the best course of action. He will be discharged on Plavix which I believe case management can cover for one month. Patient is aware and was given the number. CM will continue to follow. TANESHA DONAHUE 10/19/2023 13:48 documented in this encounter H&P Notes * Nikki Kaminski MD MPH - 10/19/2023 0014 EST Cardiology History & Physical Admite Date: (Not on file) Date of Service: 10/19/2023 LOS: 0 days Chief Complaint: STEMI Subjective/Objective Subjective HPI: René Rivera is a 68 y.o. male presented with chest pain w/ PMHx of CAD s/p PCI and stentsto LAD and Lcx 2015. He initially developed CP that came on with rest, so he called EMS. In the ED, ECG found to have ST elevations in anterior leads. Pt was started on hep gtt and loaded with ASA 324 mg. Pt received nitroglycerin and plavix. CXR was done. Meeting the pt in the ED, the pt endorses chest pain and denies shortness of breath. Social History: Deferred Family history: Deferred Allergies: Allergies Allergen Reactions Fosinopril Cough Objective Vitals: No data found. Physical Examination: General: Alert & awake, laying in bed in NAD. Resp: Normal WOB, CTAB. CV: RRR, no extra heart sounds. No JVD appreciated. Skin: Normal color, temperature, turgor. Extr: Pulses 2+ x 4 extremities, No LE edema Labs: CBC: No results for input(s): WBC, HGB, HCT, MCV, PLT, NEUTROABS in the last 72 hours. BMP: No results for input(s): NA, K, CL, CO2, BUN, CREATININE, CALCIUM, CALCCA, CAION,MG, PHOS, LABALBU in the last 72 hours. Coags: No results for input(s): PROTIME, INR, PTT in the last 72 hours. LFT: No results for input(s): TBIL, ALKPHOS, AST, ALT, LIPASE in the last 72 hours. Cardiac Markers: No results for input(s): CK, MB, CKMBINDEX, TROPONINI in the last 72 hours. Hemoglobin A1c: No results found for requested labs within last 30 days. Lipids: No results found for requested labs within last 30 days. Thyroid Function: No results for input(s): TSH, FRET4, FREET4 in the last 72 hours. No results found for requested labs within last 30 days[address] EC10/19/23 ST-Elevations Imaging/other studies: None Assessment René Rivera is a 68 y.o. male presented w/ angina admitted for STEMI w/ a PMHx of CAD s/p PCI and stents to LAD and Lcx 2015. Based on the elevated troponin and ST changes, there is an occlusionof the anterior heart. The patient is currently stable, and would benefit from a [facility] w/ PCI. Plan #STEMI Symptomatic. ECG with ST elevations in anterior leads. Troponin elevated. Etx: likely occlusive ischemia. Loaded with aspirin 324. - C - TTE complete - aspirin 81 mg daily - clopidogrel 75 mg daily - heparin gtt - telemetry - trop trend to peak - lipid profile and A1c - atorvostatin 80 mg daily Code status: full code, not discussed Diet: NPO for now VTE Prophylaxis: Hep gtt Consults: None Discharge: Unclear, pending resolution of above Nikki Kaminksi MD, MPH Internal Medicine, PGY-2 [facility] 10/19/23 0:48 Associated attestation - James Bryan MD - 10/19/2023 0211 EST Patient seen and examined with staff counsel. Acute chest pain starting several hours prior to admission. EKG consistent with an anterior ST elevation GA. Prior coronary angiograms reviewed whichshow a long stented segment in the LAD and a stent in the circumflex artery. The culprit lesion was what is likely a thrombotic lesion in the mid portion of the stented segmentthrough the mid to distal LAD. This was treated with placement of 1 further drug-eluting stent. Thepatient did well throughout the procedure and is hemodynamically stable. He reports he felt much better after the procedure. documented in this encounter Procedure Notes * James Bryan MD - 10/19/2023 0206 EST Cardiovascular Catheterization Laboratory Preliminary Report -- Catheterization Date of Service/Procedure: 10/19/2023 Attending Physician: James Bryan MD Fellow: [facility] Pre-Procedure Diagnosis /NCDR Indication: René Rivera is a 68 y.o. year old male with ACS <= 24 hrs. Chest Pain Symptom Assessment: Typical Angina NCDR Indication for PCI: STEMI - Immediate PCI for Acute STEMI If NOT STEMI or NSTE-ACS, Syntax Score: Intermediate Heart Failure: No CHSA Clinical Frailty Scale: 4: Vulnerable Prior Stress Testing? No Anesthesia: A moderate level of anesthesia/conscious sedation was used in addition to local anesthesia. Access: Right radial artery Procedure: He was brought to [facility] Cardiac Catheterization Laboratory for the procedure: Diagnostic coronary/graft angiography, Left heart cath, Coronary intervention (PCI), and Intravascular ultrasound. Closure: TR Band Post-Procedure Condition: The condition of the patient was Good. Complications: None. IV Contrast Total: 120 mL X-ray Dose: 707mGy Estimated Blood Loss: Minimal. Unless otherwise noted,there were no specimens removed, cultures obtained, or drains retained. Research Study: Patient is not enrolled in a research study. Diagnostic Cardiac Study Results Left main: Free of significant disease Left anterior descendin% mid stent lesion. Left circumflex: Patent stent. 40% distal lesion Right coronary artery: Dominant. STORE COORDINATOR mid vessel. Left to right collaterals. Grafts: none Left Ventriculography and Hemodynamic Results LVEDP 21mmHg Endovascular Study Results None Post-Procedure Diagnostic Conclusion: PCI is indicated. Interventional Procedure: Using standard technique, the LAD vessel was stented using a single LEBRON post dilated with a 3.5mm NC balloon. Plan: See post-procedure orders. At the completion of the procedure, the attending physician has explained the findings, therapies, any complications and treatment plan to the patient. With the patients consent, all family members and patient support persons who were present at the conclusion of the procedure have been notified ofthese results and treatment plans as well. Post Interventional Conclusion/Physician Disposition: (check one main category) Inpatient procedure, continue inpatient status (no procedural complication required) James Bryan MD PagerNumber: PAS 10/19/2023 2:06 documented in this encounter Miscellaneous Notes * Plan of Care - Bisi Rojas RN - 10/22/2023 0968 EST D: Pt s/p [facility] w/ 1 stent to LDA. Endorses mild episodes of chest pain that resolve with rest. Denies SOB, nausea, and all other pain. NSR/SB on tele, VSS. A: Pt disconnected from tele, IV removed, discharge teaching and medication education provided. R: Pt discharged to home via cab. Denies further questions at this time. * Plan of Care - Tiffany Mcwilliams RN - 10/21/2023 8394 EST Data: Pt. Admitted for a STEMI, s/p LHC on w/ 1x LEBRON to LAD. NSR on tele, HR's in the 60-80's. SBP 140-150. A&O x3. Independent in room. Mild chest discomfort reported after ambulation on unit. MD aware. UOP adequate per bedside urinal. RRA access site remains CDI. Action: Updated pt. With plan of care. Response: Environmental safety maintained. Call camarena within reach. Pt. Able to make needs known. Plan for DC tomorrow. TIFFANY MCWILLIAMS RN 10/21/2023 13:39 Problem: Daily Care Plan Goals Goal: Care Plan Documentation Outcome: Ongoing Problem: High Fall Risk: Goal: Patient will Remain Free of Falls due to Med. Side Effects Outcome: Ongoing Problem: High Fall Risk: Goal: Patient Will Remain Free from Fall-Related Injury Outcome: Ongoing * Plan of Care - Marcia Sampson RN - 10/21/2023 0619 EST Data: Pt is 68 y/o M admitted for STEMI. S/p LHC via RRA w/ 1xDES to LAD (99% ISR). SR/SB with occasional junctional beats and pvcs on tele, HR=30s-70s. A&Ox3. CG assist. Heart murmur present. Action: Pt medicated per NOV. Tele and VS monitored. Care clustered to promote rest. Neuro checks and q4 vitals performed. Response: Pt resting in room with call light in reach. Remained in NSR with some occasional premature beats, pt denied symptoms or chest pain. Remains slightly hypertensive but other VSS. Pt able to ambulate and perform ADLs independently. Reports feeling very well. MARCIA SAMPSON RN 10/21/2023 2:01 Problem: Daily Care Plan Goals Goal: Care Plan Documentation 10/21/2023 0200 by Marcia Sampson, RN Outcome: Ongoing Flowsheets (Taken 10/21/2023 001 by Cheryl Estrada, CUONG) Area of Focus: Circulatory Status Goal This Shift: vss 10/21/2023 0159 by Marcia Sampson, RN Outcome: Ongoing * Plan of Care - Cheryl Estrada RN - 10/20/2023 0658 EST Images from the original note were not included. Blood pressure 115/73, temperature 36.8 ??C (98.2 ??F), temperature source Oral, resp. rate 20, height 175.3 cm (69.02), weight (!) 112.8 kg (248 lb 10.9 oz), SpO2 99 %. Data: Pt is 68 y/o M admitted for STEMI. S/p LHC via RRA w/ 1xDES to LAD (99% ISR). SR/SB with occasional junctional beats and pvcs on tele, HR=30s-70s. A&Ox3. CG assist. Action: Pt medicated per NOV. Tele and VS monitored. Patient with intermittent bradycardia, junctional beats and pauses (2-3 seconds) overnight with associated dyspnea and reported dizziness - 2L NC applied. Dr. Bryan notified and 1L fluid administered. Pads applied to patient and [place] at bedside. Atropine at bedside. Neuros intact. + CSMTs. Encouraged bedrest overnight per Dr. Bryan. Care clustered to promote rest. Response: Pt resting in room with call light in reach. SB on tele. PRN tylenol administered for shoulder pain this AM. Pt denies other pain, dizziness and dyspnea this morning. CHERYL ESTRADA RN 10/20/2023 Problem: Daily Care Plan Goals Goal: Care Plan Documentation Outcome: Ongoing Flowsheets (Taken 10/19/2023 1948) Area of Focus: Circulatory Status Goal This Shift: vss * Plan of Care - Aida Anton RN - 10/19/2023 1221 EST Images from the original note were not included. Problem: Daily Care Plan Goals Goal: Care Plan Documentation Outcome: Ongoing Flowsheets (Taken 10/19/2023 0732) Area of Focus: Respiratory Goal This Shift: Patient will have decreased work of breathing BP 112/58 (BP Cuff Location: Left arm, BP Patient Position: Semi fowlers) Temp 36.6 ??C (97.9 ??F) Resp 20 Ht 175.3 cm (69.02) Wt (!) 112.8 kg (248 lb 10.9 oz) SpO2 98% BMI 36.71 kg/m?? Data: Assumed care 0700. STEMI S/P LHC with stent to LAD with in stent restenosis. Right radial site CDI +pulses & neuro's intact. BP was 140-180 systolic, WNL after taking AM meds. Patient reported inability to catch his breath at times. Questioned possibly side affect of Dr. Elliott Pires aware. Patient had a couple 3-5 sec pauses & restless at times, & falling asleep in mid conversation. Patient showered & slept for 3 hours & feeling much better after the nap. Action: Assessment documented. & medications given per NOV. Encouraged rest Response: Patient resting comfortably AIDA ANTON RN 10/19/2023 12:21 At 12:14 At 1215 * Plan of Care - Cheryl Estrada RN - 10/19/2023 0756 EST Blood pressure (!) 159/96, temperature 36.4 ??C (97.6 ??F), temperature source Oral, resp. rate 24,height 175.3 cm (69), weight (!) 112.8 kg (248 lb 9.6 oz), SpO2 98 %. Data: Pt is 68 y/o M admitted for STEMI. S/p LHC via RRA w/ 1xDES to LAD (99% ISR). NSR w/ HR=68-90s. A&Ox3. CG assist with walker. RA with SpO2 >92%. Action: Pt admitted to MR4 from lab courier at 0215. RRA site c/d/I. Pt endorsing moderate nausea withdizziness, expressing strong desire to get out of bed. Bed rest enforced and education provided on post procedure orders. Pt did get out of bed to commode prior to bedrest, provider aware - site remains intact. Provider notified of continued nausea and elevated SBP up to 180s. 1mg PO ativan ordered and administered per NOV. Pt denies chest pain, endorses abdominal pain. Neuros intact. + CSMTs. Provider notified of pt endorsing dyspnea at rest, SpO2 remained WNL on RA - pt also endorsing abdominal discomfort, nausea and dizziness. SBPs remain elevated - provider notified and aware Response: Pt continues to endorse dyspnea at rest this morning, LS clear with good aeration, SpO2 99% on RA - 2L NC applied for comfort per MD. Plan to manage pt symptoms. CHERYL ESTRADA RN 10/19/2023 Problem: Daily Care Plan Goals Goal: Care Plan Documentation Outcome: Ongoing Flowsheets (Taken 10/19/2023 0216) Area of Focus: Circulatory Status Goal This Shift: vss s/p LHC w/ PCI decrease nausea documented in this encounter Plan of Treatment Upcoming Encounters Date Type Department Care Team (Late st Contact Info) Description 07/12/2024 16:45 EDT Office Visit [facility] Cardiology - Lola Lola Goodman [place], [place] [id number] Wilberto Ocasio MD [address] [place] [address] [phone] Scheduled Orders Name Type Priority Associated Diagnoses Orde r Schedule EKG 12-LEAD ECG Routine Every Morning @ 7:00 AM Every AM 7:00 Every AM 7:00 until discontinued starting 10/21/2023, 2 completed documented as of this encounter Procedures Procedure Name Priority Date/Time Associated Diagnosis Comments ECG REPORT - SCANNED 10/26/2023 9:40 EST ECG REPORT - SCANNED 10/26/2023 7:15 EST ECG REPORT - SCANNED 10/23/2023 14:35 EST ECG REPORT - SCANNED 10/23/2023 11:39 EST EKG 12-LEAD Routine 10/22/2023 7:50 EST BASIC METABOLIC PANEL (BMP) Routine 10/22/2023 6:51 EST ECG REPORT - SCANNED 10/21/2023 10:10 EST TROPONIN I Routine 10/21/2023 10:08 EST ECG REPORT - SCANNED 10/21/2023 10:06 EST EKG 12-LEAD Routine 10/21/2023 7:36 EST COMPLETE BLOOD COUNT Routine 10/21/2023 6:47 EST BASIC METABOLIC PANEL (BMP) Routine 10/21/2023 6:47 EST TROPONIN I Routine 10/20/2023 18:43 EST EKG 12-LEAD Routine 10/20/2023 14:23 EST ECG REPORT - SCANNED 10/20/2023 13:25 EST TROPONIN I Routine 10/20/2023 11:32 EST TROPONIN I Routine 10/20/2023 2:36 EST COMPLETE BLOOD COUNT Routine 10/20/2023 2:36 EST BASIC METABOLIC PANEL (BMP) Routine 10/20/2023 2:36 EST TROPONIN I Routine 10/19/2023 18:16 EST ECG REPORT - SCANNED 10/19/2023 17:49 EST TROPONIN I Routine 10/19/2023 12:55 EST TRANSTHORACIC ECHO (TTE) COMPLETE Routine 10/19/2023 11:07 EST EKG 12-LEAD Routine 10/19/2023 9:38 EST TROPONIN I Routine 10/19/2023 3:25 EST COMPLETE BLOOD COUNT Routine 10/19/2023 3:25 EST HEMOGLOBIN A1C Routine 10/19/2023 3:25 EST HEPATIC FUNCTION PANEL (ALB,ALK PHOS,ALT,AST,DBIL,TOT NOEL,TOT PROT) Routine 10/19/2023 3:25 EST LIPID PROFILE (INCLUDES CHOLESTEROL, TRIGLYCERIDES, HDL, LDL) Routine 10/19/2023 3:25 EST BASIC METABOLIC PANEL (BMP) Routine 10/19/2023 3:25 EST EKG 12-LEAD Routine 10/19/2023 2:31 EST IVUS Routine 10/19/2023 2:01 EST STEMI (ST elevation myocardial infarction) (HCC-CMS) CARDIAC CATHETERIZATION Routine 10/19/19 2:01 EST STEMI (ST elevation myocardial infarction) (HCC-CMS) CARDIAC CATHETERIZATION Routine 10/19/19 2:01 EST STEMI (ST elevation myocardial infarction) (HCC-CMS) XR OUTSIDE IMAGES CHEST Routine 10/18/19 7:45 EST documented in this encounter Results * ECG REPORT - SCANNED (10/26/2023 9:40 EST) 10/26/2023 9:40 EST Scan 2 Sagger Maker PROCEDURE/MINOR SHARITA GICAL ORDERABLES * ECG REPORT - SCANNED (10/26/2023 7:15 EST) 10/26/2023 7:15 EST Scan 2 Sagger Maker PROCEDURE/MINOR SHARITA GICAL ORDERABLES * ECG REPORT - SCANNED (10/23/2023 14:35 EST) 10/23/2023 14:3 5 EST Scan 2 Sagger Maker PROCEDURE/MINOR SHARITA GICAL ORDERABLES * ECG REPORT - SCANNED (10/23/2023 11:39 EST) 10/23/2023 11:3 9 EST Scan 2 Sagger Maker PROCEDURE/MINOR SHARITA GICAL ORDERABLES * EKG 12-LEAD (10/22/2023 7:50 EST) 10/22/2023 7:50 EST Narrative [facility] EKG - 10/22/2023 18:59 EST ? [facility] ? Test Date: ?2023-10-22 Pat Name: ? RENÉ RIVERA ? Department: ?? [place] [facility] ? Room: ? [id number] Gender: ? Male ? Workers' Compensation Commissioner: ?? [id number] : ?1955 ? Requested By: CHIQUI Lee Order Number: [id number] ? Nancy WING: ?? JAMES BRYAN MD ? Measurements Intervals ?[place] ? Rate: ? 46 ? P: ?55 MS: ? 196 ?QRS: ?31 QRSD: ? 100 ?T: ?154 QT: ? 489 ? QTc: ?429 ? Interpretive Statements SINUS BRADYCARDIA ANTEROLATERAL MYOCARDIAL INFARCTION , PROBABLY RECENT ACUTE GA Compared to ECG 10/21/2023 07:36:11 T-wave abnormality no longer present Possible ischemia no longer present Myocardial infarct finding still present I reviewed the tracing and have either agreed or edited the findings in this report. Electronically Signed On 10-22-2023 18:59:15 EST by JAMES BRYAN MD. Procedure Note James Bryan MD - 10/22/2023 [facility] Test Date: 2023-10-22 Pat Name: RENÉ RIVERA Department: [place] [address] Room: [facility] Gender: Male Workers' Compensation Commissioner: [id number] : 1955 Requested By: CHIQUI Lee Order Number: [id number] Nancy MD: JAMES BRYAN MD Measurements Intervals [place] Rate: 46 P: 55 MS: 196 QRS: 31 QRSD: 100 T: 154 QT: 489 QTc: 429 Interpretive Statements SINUS BRADYCARDIA ANTEROLATERAL MYOCARDIAL INFARCTION , PROBABLY RECENT ACUTE GA Compared to ECG 10/21/2023 07:36:11 T-wave abnormality no longer present Possible ischemia no longer present Myocardial infarct finding still present I reviewed the tracing and have either agreed or edited the findings inthis report. Electronically Signed On 10-22-2023 18:59:15 EST by JAMES JUNG. James Bryan MD CARDIAC ECG ORDERABL ES [facility] EKG * BASIC METABOLIC PANEL (BMP) (10/22/2023 6:51 EST) Sodium 137 136 - 145 mmol/L 10/22/2023 8:18 EST [facility] Potassium 4.3 3.5 - 5.0 mmol/L 10/22/2023 8:18 [facility] Chloride 104 96 - 110 mmol/L 10/22/2023 8:18 [facility] CO2 Total 23 22 - 32 mmol/L 10/22/2023 8:18 [facility] Anion Gap 10 5 - 14 mmol/L 10/22/2023 8:18 [facility] Glucose 88 70 - 99 mg/dl 10/22/2023 8:18 [facility] Calcium 9.0 8.5 - 10.5 mg/dL 10/22/2023 8:18 [facility] BUN 16 10 - 26 mg/dL 10/22/2023 8:18 [facility] Creatinine 1.06 0.66 - 1.25 mg/dL 10/22/2023 8:18 [facility] eGFR 77 >60 mL/min/1.73 m2 10/22/2023 8:18 [facility] Blood VENOUS BLOOD / Unknown Venipuncture / Unknown 10/22/2023 6:51 EST 10/22/2023 7:41 EST Kathleen Mckeon NP CHEMISTRY & BLOOD G ORDERABLES [facility] [address] [place] [address] * ECG REPORT - SCANNED (10/21/2023 10:10 EST) 10/21/2023 10:1 0 EST Scan 2 Sagger Maker PROCEDURE/MINOR SHARITA GICAL ORDERABLES * (ABNORMAL) TROPONIN I (10/21/2023 10:08 EST) Troponin I (ng/mL) 2.530(H) <0.034 ng/mL 10/21/2023 10:40 EST [facility] Blood VENOUS BLOOD / Unknown Venipuncture / Unknown 10/21/2023 10:08 EST 10/21/2023 10:13 EST Narrative [facility] - 10/21/2023 10:40 EST The results of this assay can be falsely lowered due to the consumption of Biotin. Kathleen Mckeon NP CHEMISTRY & BLOOD G ORDERABLES [facility] [address] [place] [address] * ECG REPORT - SCANNED (10/21/2023 10:06 EST) 10/21/2023 10:0 6 EST Scan 2 Sagger Maker PROCEDURE/MINOR SHARITA GICAL ORDERABLES * EKG 12-LEAD (10/21/2023 7:36 EST) 10/21/2023 7:36 EST Narrative [facility] EKG - 10/21/2023 9:52 EST ? [facility] ? Test Date: ?2023-10-21 Pat Name: ? RENÉ RIVERA ? Department: ?? [place] [address] ? Room: ? [id number] Gender: ? Male ? Workers' Compensation Commissioner: ?? [id number] : ?1955 ? Requested By: CHIQUI JAMES M Order Number: [id number] ? Reading MD: ?? JAMES CHIQUI MD ? Measurements Intervals ?[place] ? Rate: ? 57 ? P: ?62 MS: ? 195 ?QRS: ?34 QRSD: ? 108 ?T: ?141 QT: ? 441 ? QTc: ?430 ? Interpretive Statements SINUS BRADYCARDIA POSSIBLE RIGHT VENTRICULAR CONDUCTION DELAY PROBABLE ANTERIOR MYOCARDIAL INFARCTION , OF INDETERMINATE AGE MODERATE T-WAVE ABNORMALITY, CONSIDER LATERAL ISCHEMIA Compared to ECG 10/20/2023 14:23:04 No significant changes I reviewed the tracing and have either agreed or edited the findings in this report. Electronically Signed On 10-21-2023 09:52:06 EST by JAMES BRYAN MD. Procedure Note James Bryan MD - 10/21/2023 [facility] Test Date: 2023-10-21 Pat Name: RENÉ RIVERA Department: [place] [address] Room: [facility] Gender: Male Workers' Compensation Commissioner: [id number] : 1955 Requested By: CHIQUI Lee Order Number: [id number] Reading MD: JAMES BRYAN MD Measurements Intervals [place] Rate: 57 P: 62 MS: 195 QRS: 34 QRSD: 108 T: 141 QT: 441 QTc: 430 Interpretive Statements SINUS BRADYCARDIA POSSIBLE RIGHT VENTRICULAR CONDUCTION DELAY PROBABLE ANTERIOR MYOCARDIAL INFARCTION , OF INDETERMINATE AGE MODERATE T-WAVE ABNORMALITY, CONSIDER LATERAL ISCHEMIA Compared to ECG 10/20/2023 14:23:04 No significant changes I reviewed the tracing and have either agreed or edited the findings inthis report. Electronically Signed On 10-21-2023 09:52:06 EST by JAMES JUNG. James Bryan MD CARDIAC ECG ORDERABL ES [facility] EKG * BASIC METABOLIC PANEL (BMP) (10/21/2023 6:47 EST) Sodium 138 136 - 145 mmol/L 10/21/2023 8:16 EST [facility] Potassium 3.8 3.5 - 5.0 mmol/L 10/21/2023 8:16 EST [facility] Chloride 104 96 - 110 mmol/L 10/21/2023 8:16 EST [facility] CO2 Total 24 22 - 32 mmol/L 10/21/2023 8:16 EST [facility] Anion Gap 10 5 - 14 mmol/L 10/21/2023 8:16 [facility] Glucose 84 70 - 99 mg/dl 10/21/2023 8:16 [facility] Calcium 8.9 8.5 - 10.5 mg/dL 10/21/2023 8:16 [facility] BUN 12 10 - 26 mg/dL 10/21/2023 8:16 [facility] Creatinine 0.98 0.66 - 1.25 mg/dL 10/21/2023 8:16 [facility] eGFR 85 >60 mL/min/1.73 m2 10/21/2023 8:16 [facility] Blood VENOUS BLOOD / Unknown Venipuncture / Unknown 10/21/2023 6:47 EST 10/21/2023 7:45 EST Kathleen Mckeon NP CHEMISTRY & BLOOD G ORDERABLES Performing Organization Address City/State/[facility] Co de Phone Number [facility] [address] [place] [address] * COMPLETE BLOOD COUNT (10/21/2023 6:47 EST) WBC 7.38 4.00 - 10.40 K/cmm 10/21/2023 7:51 [facility] RBC 4.49 4.36 - 5.78 M/cmm 10/21/2023 7:51 [facility] Hemoglobin 13.9 13.8 - 17.3 g/dL 10/21/2023 7:51 [facility] HCT 39.5 39.5 - 50.2 % 10/21/2023 7:51 [facility] MCV 88 81 - 95 fL 10/21/2023 7:51 [facility] MCH 31.0 27.6 - 33.0 pg 10/21/2023 7:51 [facility] MCHC 35.2 32.8 - 36.4 g/dL 10/21/2023 7:51 [facility] RDW-CV 13.0 <14.2 % 10/21/2023 7:51 [facility] RDW-SD 41.7 <46.0 fl 10/21/2023 7:51 EST [facility] PLT 165 141 - 377 K/cmm 10/21/2023 7:51 EST [facility] MPV 10.9 9.5 - 12.7 fL 10/21/2023 7:51 EST [facility] Blood VENOUS BLOOD / Unknown Venipuncture / Unknown 10/21/2023 6:47 EST 10/21/2023 7:44 EST Kathleen Mckeon CARE PROFESSIONAL HEMATOLOGY & PF4 OR DERABLES Performing Organization Address [facility] Co de Phone Number [facility] [address] [place] [address] * (ABNORMAL) TROPONIN I (10/20/2023 18:43 EST) Troponin I (ng/mL) 2.800(H) <0.034 ng/mL 10/20/2023 19:51 EST [facility] Blood VENOUS BLOOD / Unknown Venipuncture / Unknown 10/20/2023 18:43 EST 10/20/2023 19:10 EST Narrative [facility] - 10/20/2023 19:51 EST The results of this assay can be falsely lowered due to the consumption of Biotin. Kathleen Mckeon CARE PROFESSIONAL CHEMISTRY & BLOOD G ORDERABLES Performing Organization Address [facility] de Phone Number [facility] [address] [place] [address] * EKG 12-LEAD (10/20/2023 14:23 EST) 10/20/2023 14:2 3 EST Narrative [facility] EKG - 10/21/2023 9:51 EST ? [facility] ? Test Date: ?2023-10-20 Pat Name: ? RENÉ MIGUEL ? Department: ?? [place] [address] ? Room: ? [id number] Gender: ? Male ? Workers' Compensation Commissioner: ?? [id number] : ?1955 ? Requested By: CHIQUI RAMIREZ M Order Number: [id number] ? Reading MD: ?? JAMES CHIQUI MD ? Measurements Intervals ?[place] ? Rate: ? 54 ? P: ?54 MS: ? 204 ?QRS: ?57 QRSD: ? 98 ? T: ?165 QT: ? 465 ? QTc: ?444 ? Interpretive Statements SINUS BRADYCARDIA POSSIBLE ANTERIOR MYOCARDIAL INFARCTION , OF INDETERMINATE AGE MODERATE T-WAVE ABNORMALITY, CONSIDER LATERAL ISCHEMIA Compared to ECG 10/19/2023 09:38:05 T-wave abnormality now present Possible ischemia now present First degree AV block no longer present Myocardial infarct finding still present I reviewed the tracing and have either agreed or edited the findings in this report. Electronically Signed On 10-21-2023 09:51:44 EST by JAMES BRYAN MD. Procedure Note James Bryan MD - 10/21/2023 [facility] Test Date: 2023-10-20 Pat Name: ERNÉ RIVERA Department: [place] [address] Room: [facility] Gender: Male Workers' Compensation Commissioner: [id number] : 1955 Requested By: CHIQUI Lee Order Number: [id number] Reading MD: JAMES BRYAN MD Measurements Intervals [place] Rate: 54 P: 54 MS: 204 QRS: 57 QRSD: 98 T: 165 QT: 465 QTc: 444 Interpretive Statements SINUS BRADYCARDIA POSSIBLE ANTERIOR MYOCARDIAL INFARCTION , OF INDETERMINATE AGE MODERATE T-WAVE ABNORMALITY, CONSIDER LATERAL ISCHEMIA Compared to ECG 10/19/2023 09:38:05 T-wave abnormality now present Possible ischemia now present First degree AV block no longer present Myocardial infarct finding still present I reviewed the tracing and have either agreed or edited the findings inthis report. Electronically Signed On 10-21-2023 09:51:44 EST by JAMES JUNG. James Bryan MD CARDIAC ECG ORDERABL ES [facility] E[facility] * ECG REPORT - SCANNED (10/20/2023 13:25 EST) 10/20/2023 13:2 5 EST Scan 2 Sagger Maker PROCEDURE/MINOR SHARITA GICAL ORDERABLES * (ABNORMAL) TROPONIN I (10/20/2023 11:32 EST) Pathologist [facility] Troponin I (ng/mL) 3.020(H) <0.034 ng/mL 10/20/2023 12:31 EST [facility] Blood VENOUS BLOOD / Unknown Venipuncture / Unknown 10/20/2023 11:32 EST 10/20/2023 11:40 EST [facility] - 10/20/2023 12:31 EST The results of this assay can be falsely lowered due to the consumption of Biotin. Kathleen Mike HERNANDEZ CHEMISTRY & BLOOD G ORDERABLES Performing Organization Address [facility] de Phone Number [facility] [address] [place] [address] * (ABNORMAL) TROPONIN I (10/20/2023 2:36 EST) [facility] Troponin I (ng/mL) 3.970(H) <0.034 ng/mL 10/20/2023 3:18 EST [facility] Blood VENOUS BLOOD / Unknown Venipuncture / Unknown 10/20/2023 2:36 EST 10/20/2023 2:48 EST [facility] - 10/20/2023 3:18 EST The results of this assay can be falsely lowered due to the consumption of Biotin. Kathleen Sandygrace HERNANDEZ CHEMISTRY & BLOOD G ORDERABLES Performing Organization Address [facility] Co de Phone Number [facility] [address] [place] [address] * (ABNORMAL) BASIC METABOLIC PANEL (BMP) (10/20/2023 2:36 EST) Pathologist [facility] Sodium 134(L) 136 - 145 mmol/L 10/20/2023 3:04 EST [facility] Potassium 3.2(L) 3.5 - 5.0 mmol/L 10/20/2023 3:04 EST [facility] Chloride 100 96 - 110 mmol/L 10/20/2023 3:04 [facility] CO2 Total 28 22 - 32 mmol/L 10/20/2023 3:04 [facility] Anion Gap 6 5 - 14 mmol/L 10/20/2023 3:04 [facility] Glucose 103(H) 70 - 99 mg/dl 10/20/2023 3:04 [facility] Calcium 8.2(L) 8.5 - 10.5 mg/dL 10/20/2023 3:04 [facility] BUN 12 10 - 26 mg/dL 10/20/2023 3:04 [facility] Creatinine 0.92 0.66 - 1.25 mg/dL 10/20/2023 3:04 [facility] eGFR 92 >60 mL/min/1.73 m2 10/20/2023 3:04 [facility] Blood VENOUS BLOOD / Unknown Venipuncture / Unknown 10/20/2023 2:36 EST 10/20/2023 2:48 EST Kathleen Mckeon NP CHEMISTRY & BLOOD G ORDERABLES [facility] [address] [place] [address] * (ABNORMAL) COMPLETE BLOOD COUNT (10/20/2023 2:36 EST) WBC 7.17 4.00 - 10.40 K/cmm 10/20/2023 3:03 [facility] RBC 4.14(L) 4.36 - 5.78 M/cmm 10/20/2023 3:03 [facility] Hemoglobin 13.1(L) 13.8 - 17.3 g/dL 10/20/2023 3:03 [facility] HCT 37.1(L) 39.5 - 50.2 % 10/20/2023 3:03 [facility] MCV 90 81 - 95 fL 10/20/2023 3:03 [facility] MCH 31.6 27.6 - 33.0 pg 10/20/2023 3:03 EST [facility] MCHC 35.3 32.8 - 36.4 g/dL 10/20/2023 3:03 EST [facility] RDW-CV 12.8 <14.2 % 10/20/2023 3:03 EST [facility] RDW-SD 42.4 <46.0 fl 10/20/2023 3:03 EST [facility] PLT 152 141 - 377 K/cmm 10/20/2023 3:03 EST [facility] MPV 10.7 9.5 - 12.7 fL 10/20/2023 3:03 EST [facility] Blood VENOUS BLOOD / Unknown Venipuncture / Unknown 10/20/2023 2:36 EST 10/20/2023 2:48 EST Kathleen Mckeon NP HEMATOLOGY & PF4 OR DERABLES Performing Organization Address City/[facility]/ZIP Co de Phone Number [facility] [address] [place] [address] * (ABNORMAL) TROPONIN I (10/19/2023 18:16 EST) Troponin I (ng/mL) 4.760(H) <0.034 ng/mL 10/19/2023 19:03 EST [facility] Blood VENOUS BLOOD / Unknown Venipuncture / Unknown 10/19/2023 18:16 EST 10/19/2023 18:24 EST Narrative [facility] - 10/19/2023 19:03 EST The results of this assay can be falsely lowered due to the consumption of Biotin. Kathleen Mckeon NP CHEMISTRY & BLOOD G ORDERABLES Performing Organization Address City/[facility] Co de Phone Number [facility] [address] [place] [phone] * ECG REPORT - SCANNED (10/19/2023 17:49 EST) 10/19/2023 17:4 9 EST Scan 2 Sagger Maker PROCEDURE/MINOR SHARITA GICAL ORDERABLES * (ABNORMAL) TROPONIN I (10/19/2023 12:55 EST) Pathologist [facility] Troponin I (ng/mL) 5.040(H) <0.034 ng/mL 10/19/2023 15:05 EST [facility] Blood VENOUS BLOOD / Unknown Venipuncture / Unknown 10/19/2023 12:55 EST 10/19/2023 13:20 EST Narrative [facility] - 10/19/2023 15:05 EST The results of this assay can be falsely lowered due to the consumption of Biotin. Kathleen Mckeon NP CHEMISTRY & BLOOD G ORDERABLES [facility] [address] [place] [address] * TRANSTHORACIC ECHO (TTE) COMPLETE W/DOPPLER W/CF W/ CONTRAST (10/19/2023 11:07 EST) Pathologist [facility] LV ID, ED, PLAX 5.7 3.5 - 6.0 cm [facility] LV ID, ES, PLAX 4.6 2.1 - 4.0 cm [facility] LV PW thickness, ED, PLAX 1.1 0.6 - 1.1 cm [facility] LV ejection fraction, 1-p A4C 41 % [facility] LV end-diastolic volume, 1-p A4C 192 ml [facility] LV ejection fraction, 1-p A2C 45 % [facility] LV end diastolic volume 1-p A2C 118 ml [facility] EF 44 % [facility] LV IVRT, DP 79 msec [facility] PO INT OF CARE LVOT ID, S 2.1 cm [facility] POI NT OF CARE LVOT area 3.5 cm2 [facility] T [facility] LVOT peak velocity, S 1.1 m/s [facility] LVOT mean velocity, S 0.7 m/s [facility] LVOT VTI, S 24.3 cm [facility] PO INT OF CARE AV LVOT peak gradient 5 mmHg [facility] LVOT mean gradient, S 2 mmHg [facility] Stroke volume (SV), LVOT DP 84 ml [facility] Stroke index (SV/bsa) LVOT DP 37.0 ml/m2 [facility] LV Diastolic Volume 160 mL [facility] LV Systolic Volume 97 mL [facility] LVIDD BY MMODE 5.7 cm [facility] LV e', lateral 8.30 m/s [facility] LV e', medial 5.80 m/s [facility] LV E/e', medial 5.8 [facility] Mitral deceleration slope 425 cm/s2 [facility] Mitral deceleration time 229 ms [facility] Mitral E-wave peak velocity 1.0 m/s [facility] Mitral A-wave peak velocity 0.6 m/s [facility] LA Atrial Area A4C 25.0 cm2 [facility] LA Atrial Area A2C 25.0 cm2 [facility] LA volumes, ES, A4C 91.0 ml [facility] LA volume/bsa, ES, A4C 40.0 ml/m2 [facility] LA volume, ES, BP 77.0 ml [facility] LA volume/bsa, ES, BP 34.0 ml/m2 [facility] LA Atrial Length A4C 5.4 cm [facility] LA Atrial Length A2C 4.9 cm [facility] Aortic valve peak velocity, S 3.1 m/s [facility] Aortic valve mean velocity, S 2.1 m/s [facility] Aortic valve VTI, S 69.8 cm [facility] Aortic valve area VTI 1.2 cm2 [facility] Aortic valve area, peak velocity 1.2 cm2 [facility] Aortic peak gradient, S 41 mmHg [facility] Aortic mean gradient, S 21 mmHg [facility] AV DOI 0.35 [facility] Velocity ratio, mean, LVOT/AV 0.34 [facility] AVAI Pk Chinedu 0.5 cm2/m2 [facility] PO INT [facility] CARE AR Max Chinedu 3.98 m/s [facility] POI NT OF CARE Aortic Valve Regurgitant Pressure Gradient 63.4 mmHg [facility] Aortic Insufficiency Deceleration Time 253 cm/s2 [facility] AV regurgitation pressure 1/2 time 495 ms [facility] Mitral pressure half-time 67 ms [facility] Mitral peak gradient, D 4 mmHg [facility] Mitral valve area, PHT, DP 3.3 cm2 [facility] Aortic root ID 2.9 cm [facility] Ascending aorta ID, a-p 3.1 cm [facility] AV dimensionless index (DI) 0.5 [facility] Aortic valve area 1.2 cm2 [facility]INT [facility] Pulmonic valve mean velocity, S 1 cm/s [facility] Interventricular Septum to Posterior Wall Thickness Ratio 1 [facility] P OINT OF CARE Anatomical Region Laterality Modality Ultrasound Narrative 10/19/2023 11:50 EST ?Left??Ventricle: Left ventricular systolic function was mild to moderately decreased with an ejection fraction of 40-45%. There was hypokinesis of the apex. ?Right??Ventricle: Right ventricular systolic function was normal. ?Aortic??Valve: The aortic valve structure was trileaflet. The aortic leaflets were moderately thickened and moderately calcified. There was moderate aortic valve stenosis. AV Peak Velocity: 3.1 m/s. AV Mean Gradient: 21 mmHg. AV Area VTI: 1.2 cm2. ?Mitral??Valve: There was mild mitral regurgitation. Left Ventricle The left ventricular cavity was normal in size. Left ventricular systolic function was mild to moderately decreased with an ejection fraction of 40-45%. Left ventricular wall thickness was normal. There was hypokinesis of the apex. Right Ventricle The right ventricular cavity was normal in size. Right ventricular systolic function was normal. Right ventricular wall thickness was normal. Left Atrium The left atrium was normal in size. Right Atrium The right atrium was normal in size. IVC/SVC The inferior vena cava was normal in size. Mitral Valve Mitral valve structure was normal. There was mild mitral regurgitation. There was no significant mitral valve stenosis. Tricuspid Valve Tricuspid valve structure was normal. There was no significant tricuspid valve regurgitation. There was no tricuspid valve stenosis. Aortic Valve The aortic valve structure was trileaflet. The aortic leaflets were moderately thickened and moderately calcified. There was moderate aortic valve stenosis. There was trace aortic valve regurgitation. AV Peak Velocity: 3.1 m/s. AV Mean Gradient: 21 mmHg. AV Area VTI: 1.2 cm2. Pulmonic Valve There was no significant pulmonic valve regurgitation. There was no pulmonic valve stenosis. Ascending Aorta The aorta was normal in size. Pericardium There was no pericardial effusion. Pulmonic Artery Unable to assess PA pressure. Study Details Study status: Routine. Transthoracic echocardiography. M-Mode, complete 2D, complete spectral Doppler, and color Doppler.The study was interpreted by [facility]. Pertinent images and digital data are archived for permanent storage and are available for subsequent review. Scanning was performed from the apical, parasternal, subcostal and suprasternal acoustic windows. Definity contrast was used during the study. Overall the study quality was suboptimal. The study was difficult due to patient body habitus. Images were obtained using cardiac ultrasound machine EPIQ #[id number]. Kathleen Mckeon NP CARDIAC ECHO ORDERA BLES * EKG 12-LEAD (10/19/2023 9:38 EST) 10/19/2023 9:38 EST Narrative [facility] EKG - 10/20/2023 13:17 EST ? [facility] ? Test Date: ?2023-10-19 Pat Name: ? RENÉ RIVERA ? Department: ?? [place] [address] ? Room: ? [id number] Gender: ? Male ? Workers' Compensation Commissioner: ?? [id number] : ?1955 ? Requested By: ELLIOTT LYNDON Order Number: [id number] ? Reading MD: ?? JAMES CHIQUI MD ? Measurements Intervals ?[place] ? Rate: ? 56 ? P: ?43 MS: ? 213 ?QRS: ?38 QRSD: ? 94 ? T: ?142 QT: ? 471 ? QTc: ?455 ? Interpretive Statements SINUS BRADYCARDIA WITH FIRST DEGREE AV BLOCK ANTERIOR MYOCARDIAL INFARCTION , PROBABLY RECENT ACUTE GA Compared to ECG 10/19/2023 02:31:39 Sinus rhythm no longer present Myocardial infarct finding still present I reviewed the tracing and have either agreed or edited the findings in this report. Electronically Signed On 10-20-2023 13:17:14 EST by JAMES BRYAN MD. Procedure Note James Bryan MD - 10/20/2023 [facility] Test Date: 2023-10-19 Pat Name: RENÉ RIVERA Department: [place] [address] Room: [facility] Gender: Male Workers' Compensation Commissioner: [id number] : 1955 Requested By: ELLIOTT ROBISON Order Number: [id number] Reading MD: JAMES BRYAN MD Measurements Intervals [place] Rate: 56 P: 43 MS: 213 QRS: 38 QRSD: 94 T: 142 QT: 471 QTc: 455 Interpretive Statements SINUS BRADYCARDIA WITH FIRST DEGREE AV BLOCK ANTERIOR MYOCARDIAL INFARCTION , PROBABLY RECENT ACUTE GA Compared to ECG 10/19/2023 02:31:39 Sinus rhythm no longer present Myocardial infarct finding still present I reviewed the tracing and have either agreed or edited the findings inthis report. Electronically Signed On 10-20-2023 13:17:14 EST by JAMES JUNG. Lyndon Morin MD CARDIAC ECG ORDERAB LES [facility] E[facility] * (ABNORMAL) TROPONIN I (10/19/2023 3:25 EST) Troponin I (ng/mL) 3.310(H) <0.034 ng/mL 10/19/2023 4:05 EST [facility] Blood VENOUS BLOOD / Unknown Venipuncture / Unknown 10/19/2023 3:25 EST 10/19/2023 3:32 EST Narrative [facility] - 10/19/2023 4:05 EST The results of this assay can be falsely lowered due to the consumption of Biotin. Kathleen Falduto CARE PROFESSIONAL CHEMISTRY & BLOOD G ORDERABLES [facility] [address] [place] [address] * (ABNORMAL) BASIC METABOLIC PANEL (BMP) (10/19/2023 3:25 EST) Sodium 136 136 - 145 mmol/L 10/19/2023 3:51 [facility] Potassium 3.9 3.5 - 5.0 mmol/L 10/19/2023 3:51 [facility] Chloride 102 96 - 110 mmol/L 10/19/2023 3:51 [facility] CO2 Total 27 22 - 32 mmol/L 10/19/2023 3:51 [facility] Anion Gap 7 5 - 14 mmol/L 10/19/2023 3:51 [facility] Glucose 150(H) 70 - 99 mg/dl 10/19/2023 3:51 [facility] Calcium 8.6 8.5 - 10.5 mg/dL 10/19/2023 3:51 [facility] BUN 15 10 - 26 mg/dL 10/19/2023 3:51 [facility] Creatinine 0.89 0.66 - 1.25 mg/dL 10/19/2023 3:51 [facility] eGFR 95 >60 mL/min/1.73 m2 10/19/2023 3:51 [facility] Blood VENOUS BLOOD / Unknown Venipuncture / Unknown 10/19/2023 3:25 EST 10/19/2023 3:32 EST Kathleen Delgadograce CARE PROFESSIONAL CHEMISTRY & BLOOD G ORDERABLES [facility] [address] [place] [address] * COMPLETE BLOOD COUNT (10/19/2023 3:25 EST) WBC 8.14 4.00 - 10.40 K/cmm 10/19/2023 3:39 EST [facility] RBC 4.74 4.36 - 5.78 M/cmm 10/19/2023 3:39 [facility] Hemoglobin 14.7 13.8 - 17.3 g/dL 10/19/2023 3:39 [facility] HCT 42.8 39.5 - 50.2 % 10/19/2023 3:39 [facility] MCV 90 81 - 95 fL 10/19/2023 3:39 [facility] MCH 31.0 27.6 - 33.0 pg 10/19/2023 3:39 [facility] MCHC 34.3 32.8 - 36.4 g/dL 10/19/2023 3:39 [facility] RDW-CV 12.8 <14.2 % 10/19/2023 3:39 [facility] RDW-SD 42.1 <46.0 fl 10/19/2023 3:39 [facility] PLT 171 141 - 377 K/cmm 10/19/2023 3:39 [facility] MPV 10.7 9.5 - 12.7 fL 10/19/2023 3:39 [facility] Blood VENOUS BLOOD / Unknown Venipuncture / Unknown 10/19/2023 3:25 EST 10/19/2023 3:32 EST Kathleen Mckeon NP HEMATOLOGY & PF4 OR DERABLES Performing Organization Address City/State/[facility] Co de Phone Number [facility] LABORATORY SERVICES [address] [place] [id number] * HEPATIC FUNCTION PANEL (ALB,ALK PHOS,ALT,AST,DBIL,TOT NOEL,TOT PROT) (10/19/2023 3:25 EST) Total Protein 6.8 6.3 - 8.2 g/dL 10/19/2023 3:51 [facility] Albumin 3.8 3.4 - 4.9 g/dL 10/19/2023 3:51 [facility] Bilirubin, Total 0.5 <1.4 mg/dL 10/19/19 3:51 [facility] Conjugated Bilirubin 0.0 <=0.3 mg/dL 10/19/2023 3:51 [facility] Unconjugated Bilirubin 0.2 <=1.1 mg/dL 10/19/2023 3:51 [facility] Alkaline Phosphatase 76 38 - 126 U/L 10/19/2023 3:51 [facility] ALT 24 <50 U/L 10/19/2023 3:51 [facility] AST 41 15 - 46 U/L 10/19/2023 3:51 [facility] Calculated Total Bilirubin 0.2 <1.4 mg/dL 10/19/2023 3:51 [facility] Blood VENOUS BLOOD / Unknown Venipuncture / Unknown 10/19/2023 3:25 EST 10/19/2023 3:32 EST Kathleen Mckeon NP CHEMISTRY & BLOOD G ORDERABLES Performing Organization Address [facility] de Phone Number [facility] [address] [place] [address] * HEMOGLOBIN A1C (10/19/2023 3:25 EST) Hemoglobin A1c 5.6 <5.7 % 10/19/2023 10:58 [facility] Comment: Glycemic Status References: Normal: ??<5.7% Pre-Diabetes: ??5.7% - 6.4% Diagnostic of Diabetes: ??> or = 6.5% (if confirmed) Est Avg Glucose 114 mg/dL 10:58 [facility] Comment:The eAG represents t he A1c result expressed as average glucose in mg/dL. Blood VENOUS BLOOD / Unknown Venipuncture / Unknown 10/19/2023 3:25 EST 10/19/2023 3:32 EST Kathleen Mckeon NP CHEMISTRY & BLOOD G ORDERABLES [facility] [address] [place] [address] * LIPID PROFILE (INCLUDES CHOLESTEROL, TRIGLYCERIDES, HDL, LDL) (10/19/2023 3:25 EST) Cholesterol 145 <200 mg/dL 10/19/2023 3:51 EST [facility] Comment:Note that therapeuti c goals will differ between patients based on cardiac risk factors and current medical therapy. HDL 44 >=40 mg/dl 10/19/2023 3:51 EST [facility] Comment:Note that therapeuti c goals will differ between patients based on cardiac risk factors and current medical therapy. LDL, Calculated 92 <160 mg/dL 3:51 [facility] Comment:Note that therapeuti c goals will differ between patients based on cardiac risk factors and current medical therapy. Triglyceride 47 <=150 mg/dL 10/19/2023 3:51 [facility] Comment:Note that therapeuti c goals will differ between patients based on cardiac risk factors and current medical therapy. Chol/HDL Ratio 3.3 See Note 10/19/2023 3:51 [facility] Comment:No reference range h as been established for CHOL/HDL ratio. Non HDL Cholesterol 101 <160 mg/dL 10/19/2023 3:51 [facility] Comment:Note that therapeuti c goals will differ between patients based on cardiac risk factors and current medical therapy. Blood VENOUS BLOOD / Unknown Venipuncture / Unknown 10/19/2023 3:25 EST 10/19/2023 3:32 EST Kathleen Mckeon NP CHEMISTRY & BLOOD G ORDERABLES [facility] [address] [place] [address] * EKG 12-LEAD (10/19/2023 2:31 EST) 10/19/2023 2:31 EST Narrative [facility] EKG - 10/19/2023 17:36 EST ? [facility] ? Test Date: ?2023-10-19 Pat Name: ? RENÉ RIVERA ? Department: ?? [place] [facility] ? Room: ? FI8768 Gender: ? Male ? Workers' Compensation Commissioner: ?? [id number] : ?1955 ? Requested By: MIKE CARDENAS Order Number: [id number] ? Reading MD: ?? NALINI DENKMANN MD ? Measurements Intervals ?[place] ? Rate: ? 82 ? P: ?67 MS: ? 222 ?QRS: ?49 QRSD: ? 98 ? T: ?101 QT: ? 372 ? QTc: ?435 ? Interpretive Statements SINUS RHYTHM WITH FIRST DEGREE AV BLOCK WITH OCCASIONAL SUPRAVENTRICULAR PREMATURE COMPLEXES ANTERIOR MYOCARDIAL INFARCTION , PROBABLY RECENT [40+ ms Q WAVE AND/OR ST/T ABNORMALITY IN V3/V4] ACUTE GA Compared to ECG 11/13/2019 01:56:09 First degree AV block now present Myocardial infarct finding now present Sinus bradycardia no longer present I reviewed the tracing and have either agreed or edited the findings in this report. Electronically Signed On 10-19-2023 17:36:19 EST by NALINI MATT MD. Procedure Note Nalini Matt MD - 10/19/2023 [facility] Test Date: 2023-10-19 Pat Name: RENÉ RIVERA Department: [place] [address] Room: [facility] Gender: Male Workers' Compensation Commissioner: [id number] : 1955 Requested By: MIKE CARDENAS Order Number: [id number] Reading MD: NALINI MATT MD Measurements Intervals [place] Rate: 82 P: 67 MS: 222 QRS: 49 QRSD: 98 T: 101 QT: 372 QTc: 435 Interpretive Statements SINUS RHYTHM WITH FIRST DEGREE AV BLOCK WITH OCCASIONAL SUPRAVENTRICULAR PREMATURE COMPLEXES ANTERIOR MYOCARDIAL INFARCTION , PROBABLY RECENT [40+ ms Q WAVE AND/ORST/T ABNORMALITY IN V3/V4] ACUTE GA Compared to ECG 11/13/2019 01:56:09 First degree AV block now present Myocardial infarct finding now present Sinus bradycardia no longer present I reviewed the tracing and have either agreed or edited the findings inthis report. Electronically Signed On 10-19-2023 17:36:19 EST by NALINI MASON. Kathleen Mckeon NP CARDIAC ECG ORDERAB LES [facility] EKG * IVUS (10/19/2023 2:01 EST) Anatomical Region Laterality Modality Joinery Patternmaker Narrative 10/19/2023 2:01 EST Refer to the primary case's report for the procedure summary. James Bryan MD CARDIAC CATH ORDERAB LES * LEFT HEART CATH, PERCUTANEOUS CORONARY INTERVENTION (10/19/2023 2:01 EST) Anatomical Region Laterality Modality Joinery Patternmaker 10/19/2023 1:05 EST Narrative 10/20/2023 13:37 EST Cardiology [address] [place] [address] Catheterization Laboratory Study Patient: René Rivera Study Date: ??10/19/2023 ? : ? 1955 Referring: James Bryan MD Diagnostic Attending: ??James Bryan Interventional Attending: ?? James Bryan ATTESTATION: James Candelaria was present and supervising for the entire procedure. IKathleen NP-C was the initial author of this report. PROCEDURE PLAN: Based on the diagnostic study percutaneous coronary intervention is indicated. RESEARCH STUDY: Patient is not enrolled in any research studies. IMPRESSIONS: 1. ST-elevated myocardial infarction (STEMI), in the territory of the left anterior descending ?? coronary artery. The culprit lesion was identified and reperfusion was successfully achieved. 2. Using standard technique, the left anterior descending coronary vessel was stented using a single ?? LEBRON post dilated with a 3.5 mm NC balloon. SUMMARY: 1. LAD: Mid-vessel stenosis: The diagnostic study demonstrated a 99%stenosis. There is DOE grade 3 ?? flow (brisk flow) across the lesion. The distal vessel supplies a large vascular territory. The ?? lesion is a likely culprit for the patient's clinical presentation. The lesion presents an ?? ACC/AHA type B moderate risk lesion for intervention. Stent placement was performed, resulting ?? in an excellent angiographic appearance (see 1st lesion). Following intervention, there is a ?? residual 0% stenosis with DOE grade 3 flow (brisk flow). 2. Left circumflex: Prior intervention: stent, in the proximal left circumflex. The intervened ?? segment is patent. Distal vessel stenosis: There is a 40%stenosis. 3. Right coronary: Mid-vessel occlusion: There is a 100%chronic total occlusion. RECOMMENDATIONS: 1. Aspirin 81 mg daily. 2. Ticagrelor 90 mg BID. 3. High intensity statin therapy. 4. Transthoracic echocardiogram. 5. Referral for cardiac rehab evaluation. 6. ACC recommendation: PCI w/o planned CABG. STUDY DATA: Study status: ??Cardiac cath: urgent. ??Patient status: ??Inpatient. Location: ??Catheterization laboratory. Sex: male. Patient is 68year(s) old. PROCEDURES PERFORMED: ?Right radial artery access. ?Left coronary angiography. ?Right coronary angiography. ?Lesion intervention: ?? Percutaneous intervention on the 99% stenosis in the mid LAD. ?Balloon angioplasty. ?Stent placement. ?Balloon angioplasty. ?IVUS. ?Balloon angioplasty. ANESTHESIA: Conscious sedation was administered by cardiology staff. PROCEDURE: 1. The patient was brought to [...] the right radial artery access. 5. Selective left coronary angiography was performed. A 5 Fr Tig Catheter 4.0 catheter was ?? introduced. Contrast was injected. Images were obtained using multiple projections. 6. Selective right coronary angiography was performed. A 5F FR4 catheter was introduced. Contrast ?? was injected. Images were obtained using multiple projections. 7. A stent was placed in the stenosis in the mid LAD. See detailed description below (1st lesion ?? intervention). INTERVENTIONAL NARRATIVE: 1st lesion: Percutaneous intervention on the 99% stenosis in the mid LAD. 1. A 6F XB 3.5 100cm guiding catheter was placed. 2. A 180 Prowater wire was placed across the lesion. 3. Balloon angioplasty was performed. A 3.0/20 Euphora balloon was employed. The balloon was placed ?? across the lesion and given two inflations with a maximum inflation pressure of 14atm. 4. Stent placement was performed. A 3.0/22 MARILYN FRONTIER stent was used. The stent was advanced ?? across the lesion and deployed with two inflations and a maximum pressure of 18atm. 5. Balloon angioplasty was performed. A 3.5mm (D) x 15mm (L), NC EMERGE balloon was employed. The ?? balloon was placed across the lesion and given three inflations with a maximum inflation pressure ?? of 20atm. 6. Intravascular ultrasound evaluation was performed, using a 3.6 FR OptiCross 6 HD IVUS catheter. 7. Balloon angioplasty was performed. A 3.5/20 NC Euphora balloon was employed. The balloon was ?? placed across the lesion and given with a maximum inflation pressure of 20atm. STUDY COMPLETION: The estimated blood loss was 10ml. All catheters introduced during the procedure were removed. ?? The patient tolerated the procedure well. There were no complications. ??Radiation exposure: ??Fluoroscopy time: 13.6min. Total time: 13.6min. ??Contrast: ?? Isovue 120ml (total dose). Isovue 80ml (wasted). CORONARY ARTERIES: The coronary circulation is right dominant. Left main: The left main is normal. LAD: ??Mid-vessel stenosis: The diagnostic study demonstrated a 99% stenosis in the prior stent ??There is DOE grade 3 flow (brisk flow) across the lesion. ?? The distal vessel supplies a large vascular territory. The lesion is a likely culprit for the patient's clinical presentation. The lesion presents an ACC/AHA type B moderate risk lesion for intervention. ??Stent placement was performed, resulting in an excellent angiographic appearance (see 1st lesion). Following intervention, there is a residual 0% stenosis with DOE grade 3 flow (brisk flow). There were no site complications. Left circumflex: Prior intervention: stent, in the proximal left circumflex. The intervened segment is patent. ??Distal vessel stenosis: There is a 40%stenosis. Right coronary: ??Mid-vessel occlusion: There is a 100% chronic total occlusion with left ot right collaterals HEMODYNAMICS: ??LVEDP 21. There was no significant gradient across the aortic valve. Circulatory function: + + + Stage description ?? Condition 1 - ? + + + LV pressure s/d, ed 169/18, 21, dP/gs=[id number] Hg/s + + + Electronically signed by James Bryan MD 2023-10-20 13:37 Procedure Note James Bryan MD - 10/20/[address] [place] [id number] Catheterization Laboratory Study Patient: René Rivera Study Date: 10/19/2023 : 1955 Referring: James Bryan MD Diagnostic Attending: James Bryan Interventional Attending: James Bryan ATTESTATION: James Candelaria was present and supervising for the entire procedure. Kathleen Weber NP-C was the initial author of this report. PROCEDURE PLAN: Based on the diagnostic study percutaneous coronary intervention is indicated. RESEARCH STUDY: Patient is not enrolled in any research studies. IMPRESSIONS: 1. ST-elevated myocardial infarction (STEMI), in the territory of the leftanterior descending coronary artery. The culprit lesion was identified and reperfusion wassuccessfully achieved. 2. Using standard technique, the left anterior descending coronary vesselwas stented using a single LEBRON post dilated with a 3.5 mm NC balloon. SUMMARY: 1. LAD: Mid-vessel stenosis: The diagnostic study demonstrated a99%stenosis. There is DOE grade 3 flow (brisk flow) across the lesion. The distal vessel supplies a largevascular territory. The lesion is a likely culprit for the patient's clinical presentation. Thelesion presents an ACC/AHA type B moderate risk lesion for intervention. Stent placementwas performed, resulting in an excellent angiographic appearance (see 1st lesion). Followingintervention, there is a residual 0% stenosis with DOE grade 3 flow (brisk flow). 2. Left circumflex: Prior intervention: stent, in the proximal leftcircumflex. The intervened segment is patent. Distal vessel stenosis: There is a 40%stenosis. 3. Right coronary: Mid-vessel occlusion: There is a 100%chronic totalocclusion. RECOMMENDATIONS: 1. Aspirin 81 mg daily. 2. Ticagrelor 90 mg BID. 3. High intensity statin therapy. 4. Transthoracic echocardiogram. 5. Referral for cardiac rehab evaluation. 6. ACC recommendation: PCI w/o planned CABG. STUDY DATA: Study status: Cardiac cath: urgent. Patient status: Inpatient. Location: Catheterization laboratory. Sex: male. Patient is 68year(s) old. PROCEDURES PERFORMED: Right radial artery access. Left coronary angiography. Right coronary angiography. Lesion intervention: Percutaneous intervention on the 99% stenosis in the mid LAD. Balloon angioplasty. Stent placement. Balloon angioplasty. IVUS. Balloon angioplasty. ANESTHESIA: Conscious sedation was administered by cardiology staff. PROCEDURE: 1. The patient was brought to [...] in the right radial arteryaccess. 5. Selective left coronary angiography was performed. A 5 Fr Tig Catheter4.0 catheter was introduced. Contrast was injected. Images were obtained using multipleprojections. 6. Selective right coronary angiography was performed. A 5F FR4 catheterwas introduced. Contrast was injected. Images were obtained using multiple projections. 7. A stent was placed in the stenosis in the mid LAD. See detaileddescription below (1st lesion intervention). INTERVENTIONAL NARRATIVE: 1st lesion: Percutaneous intervention on the 99% stenosis in the mid LAD. 1. A 6F XB 3.5 100cm guiding catheter was placed. 2. A 180 Prowater wire was placed across the lesion. 3. Balloon angioplasty was performed. A 3.0/20 Euphora balloon wasemployed. The balloon was placed across the lesion and given two inflations with a maximum inflationpressure of 14atm. 4. Stent placement was performed. A 3.0/22 MARILYN FRONTIER stent was used.The stent was advanced across the lesion and deployed with two inflations and a maximumpressure of 18atm. 5. Balloon angioplasty was performed. A 3.5mm (D) x 15mm (L), NC EMERGEballoon was employed. The balloon was placed across the lesion and given three inflations with amaximum inflation pressure of 20atm. 6. Intravascular ultrasound evaluation was performed, using a 3.6 FROptiCross 6 HD IVUS catheter. 7. Balloon angioplasty was performed. A 3.5/20 NC Euphora balloon wasemployed. The balloon was placed across the lesion and given with a maximum inflation pressure of58vuv. STUDY COMPLETION: The estimated blood loss was 10ml. All catheters introduced during the procedure were removed. The patient tolerated the procedure well. There were no complications. Radiation exposure: Fluoroscopy time: 13.6min. Total time: 13.6min. Contrast: Isovue 120ml (total dose). Isovue 80ml (wasted). CORONARY ARTERIES: The coronary circulation is right dominant. Left main: The left main is normal. LAD: Mid-vessel stenosis: The diagnostic study demonstrated a 99% stenosis in the prior stent There is DOE grade 3 flow (brisk flow) across the lesion. The distal vessel supplies a large vascular territory. The lesion is a likely culprit for the patient's clinical presentation. The lesion presents an ACC/AHA type B moderate risk lesion for intervention. Stent placement was performed, resulting in an excellent angiographic appearance (see 1st lesion). Following intervention, there is a residual 0% stenosis with DOE grade 3 flow (brisk flow). There were no site complications. Left circumflex: Prior intervention: stent, in the proximal left circumflex. The intervened segment is patent. Distal vessel stenosis: There is a 40%stenosis. Right coronary: Mid-vessel occlusion: There is a 100% chronic total occlusion with left ot right collaterals HEMODYNAMICS: LVEDP 21. There was no significant gradient across the aortic valve. Circulatory function: + + + Stage description Condition 1 - + + + LV pressure s/d, ed 169/18, 21, dP/tf=7561sr Hg/s + + + Electronically signed by James Bryan MD 2023-10-20 13:37 James Bryan MD CARDIAC CATH ORDERAB LES * XR OUTSIDE IMAGES CHEST (10/18/2023 7:45 EST) Narrative 10/19/2023 7:45 EST This is a non-reportable exam. External Imaging IMG OTHER IMAGING OR DERABLES documented in this encounter Visit Diagnoses Diagnosis STEMI (ST elevation myocardial infarction) ([facility]) Acute myocardial infarction, unspecified site, episode of care unspecified STEMI (ST elevation myocardial infarction) ([facility])- Primary Acute myocardial infarction, unspecified site, episode of care unspecified documented in this encounter Admitting Diagnoses Diagnosis STEMI (ST elevation myocardial infarction) ([facility]) Acute myocardial infarction, unspecified site, episode of care unspecified documented in this encounter Administered Medications Inactive Administered Medications - up to 3 most recent administrations Medication Order MAR Action Action Date Dose Rate Site acetaminophen (TYLENOL) tablet 650 mg 650 mg, oral, EVERY 4 HOURS PRN, Starting on Thu10/19/23 at 0215, Until Thu10/22/23 at 1258, Pain, Routine, Release Given 10/22/2023 1:09 EST 650 mg Given 10/21/2023 21:08 EST 650 mg Given 10/21/2023 8:32 EST 650 mg aspirin EC tablet 81 mg 81 mg, oral, DAILY, First dose on Thu10/19/23 at 0900, Until Discontinued, Routine Given 10/22/2023 8:14 EST 81 mg Given 10/21/2023 8:31 EST 81 mg Given 10/20/2023 9:23 EST 81 mg atropine 0.1 mg/mL syringe 1 dose, Starting on Thu10/19/23 at 2307, Until Lu 10/22/23 at 1258 buPROPion (WELLBUTRIN XL) XL tablet 300 mg 300 mg, oral, DAILY, First dose on Thu10/19/23 at 0900, Until Discontinued, Routine Given 10/22/2023 8:14 EST 300 mg Given 10/21/2023 8:32 EST 300 mg Given 10/20/2023 9:23 EST 300 mg clopidogreL (PLAVIX) tablet 75 mg 75 mg, oral, DAILY, First dose on Thu10/20/23 at 0900, Until Discontinued, Routine Given 10/22/2023 8:14 EST 75 mg Given 10/21/2023 8:31 EST 75 mg Given 10/20/2023 9:27 EST 75 mg empagliflozin (JARDIANCE) tablet 10 mg 10 mg, oral, DAILY, First dose on Thu10/21/23 at 1315, Until Discontinued, Indications: chronic heart failure, Routine Given 10/22/2023 8:14 EST 10 mg Given 10/21/2023 13:16 EST 10 mg ezetimibe (ZETIA) tablet 10 mg 10 mg, oral, DAILY, First dose on Thu10/19/23 at 0945, Until Discontinued, Routine Given 10/22/2023 8:15 EST 10 mg Given 10/21/2023 8:31 EST 10 mg Given 10/20/2023 9:24 EST 10 mg furosemide (LASIX) tablet 20 mg 20 mg, oral, DAILY, First dose on Thu10/20/23 at 1345, Until Discontinued, Routine Given 10/22/2023 8:16 EST 20 mg Given 10/21/2023 8:32 EST 20 mg Given 10/20/2023 14:02 EST 20 mg hydroCHLOROthiazide tablet 25 mg 25 mg, oral, DAILY, First dose on Thu10/19/23 at 1015, Until Discontinued, Routine Given 10/19/2023 10:10 EST 25 mg irbesartan (AVAPRO) tablet 75 mg 75 mg, oral, DAILY, First dose on Thu10/21/23 at 1015, Until Discontinued, Routine Given 10/22/2023 8:15 EST 75 mg Given 10/21/2023 12:11 EST 75 mg isosorbide MONOnitrate (IMDUR) CR tablet 30 mg 30 mg, oral, DAILY, First dose on Thu10/21/23 at 1315, Until Discontinued, Routine Given 10/22/2023 8:14 EST 30 mg Given 10/21/2023 13:16 EST 30 mg LORazepam (ATIVAN) tablet 1 mg 1 mg, oral, Once (Time Specified), 1 dose, On Thu10/19/23 at 0345, Routine Given 10/19/2023 3:27 EST 1 mg losartan (COZAAR) tablet 100 mg 100 mg, oral, DAILY, First dose on Thu10/19/23 at 0900, Until Discontinued, Routine Given 10/19/2023 8:36 EST 100 mg metoprolol SUCCinate (TOPROL-XL) tablet 25 mg 25 mg, oral, DAILY, First dose (after last modification) on Thu10/22/23 at 0900, Until Discontinued, Routine Given 10/22/2023 8:14 EST 25 mg metoprolol SUCCinate (TOPROL-XL) tablet 50 mg 50 mg, oral, DAILY, First dose on Thu10/21/23 at 1315, Until Discontinued, Routine Given 10/21/2023 13:16 EST 50 mg metoprolol TARtrate (LOPRESSOR) tablet 25 mg 25 mg, oral, 2 TIMES DAILY, First dose on Thu10/19/23 at 0900, Until Discontinued, Routine Given 10/19/2023 8:37 EST 25 mg ondansetron (PF) (ZOFRAN) injection 4 mg 4 mg, intravenous, EVERY 8 HOURS PRN, Starting on Thu10/19/23 at 0247, Until Thu10/22/23 at 1258, Nausea, Routine perflutren lipid microspheres (DEFINITY) 0.165 mg in sodium chloride (PF) 1 mL 0.165 mg, intravenous, NOW X1, 1 dose, On Thu10/19/23 at 1130, Routine Given 10/19/2023 11:08 EST 2 mL potassium chloride SA (KLOR-CON M20) tablet 20 mEq 20 mEq, oral, 2 TIMES DAILY, First dose on Thu10/20/23 at 0900, Until Discontinued, Routine Given 10/21/2023 8:32 EST 20 mEq Given 10/20/2023 21:04 EST 20 mEq Given 10/20/2023 9:23 EST 20 mEq potassium chloride SA (KLOR-CON M20) tablet 40 mEq 40 mEq, oral, NOW X1, 1 dose, On Thu10/20/23 at 0415, Routine Given 10/20/2023 3:56 EST 40 mEq rosuvastatin (CRESTOR) tablet 40 mg 40 mg, oral, DAILY, First dose on Thu10/19/23 at 0900, Until Discontinued, Routine Given 10/22/2023 8:15 EST 40 mg Given 10/21/2023 8:31 EST 40 mg Given 10/20/2023 9:24 EST 40 mg sodium chloride 0.9 % (NS) infusion at 100 mL/hr, intravenous, CONTINUOUS, Starting on Thu10/20/23 at 0030, Until Thu10/20/23 at 1019, Routine New Bag 10/20/2023 0:20 EST 100 m L/hr spironolactone (ALDACTONE) tablet 25 mg 25 mg, oral, DAILY, First dose on Thu10/21/23 at 1015, Until Discontinued, Routine Given 10/22/2023 8:15 EST 25 mg Given 10/21/2023 11:01 EST 25 mg terazosin (HYTRIN) capsule 10 mg 10 mg, oral, AT BEDTIME, First dose on Thu10/19/23 at 2100, Until Discontinued, Routine Given 10/21/2023 21:08 EST 1 0 mg Given 10/20/2023 21:04 EST 10 mg Given 10/19/2023 21:05 EST 10 mg ticagrelor (BRILINTA) tablet 90 mg 90 mg, oral, 2 TIMES DAILY, First dose on Thu10/19/23 at 2100, Until Discontinued, Routine Given 10/19/2023 21:05 EST 9 0 mg documented in this encounter Discontinued Medications Medication Sig Discontinue Reason Start Date End Da te atorvastatin (LIPITOR) 80 mg tablet Take 1 Tab by mouth at bedtime Alternate therapy 10/09/2015 10/19/2023 clopidogrel (PLAVIX) 75 mg tablet Take 1 Tab by mouth daily 10/08/2015 10/19/2023 ticagrelor (BRILINTA) 90 mg tablet Take 1 Tablet by mouth 2 times daily. 10/19/2023 10/22/2023 metoprolol XL (TOPROL-XL) 25 mg tablet Take 1 Tab by mouth daily Reorder 10/09/2015 10/22/2023 rosuvastatin (CRESTOR) 40 mg tablet Take 40 mg by mouth daily. Reorder 10/22/2023 POTASSIUM CHLORIDE ORAL Take 20 mEq by mouth 10/22/2023 ibuprofen (MOTRIN) 800 mg tablet Take 800 mg by mouth every 6 hours as needed for Pain 10/22/2023 losartan (COZAAR) 100 mg tablet Take 1 Tab by mouth daily 10/09/2015 10/22/2023 furosemide (LASIX) 20 mg tablet Take 1 Tab by mouth daily. 11/13/2019 10/22/2023 documented as of this encounter Active and Recently Administered Medications Times are shown in EST. Scheduled Medication Order 10/20/2023 10/21/2023 10/22/2023 aspirin EC tablet 81 mg 81 mg, oral, DAILY, First dose on Thu10/19/23 at 0900, Until Discontinued, Routine 0923 (Given - Provider: Aida Anton RN) 0831 (Given - Provider: Tiffany Mcwilliams RN) 0814 (Given - Provider: Bisi Rojas RN) buPROPion (WELLBUTRIN XL) XL tablet 300 mg 300 mg, oral, DAILY, First dose on Thu10/19/23 at 0900, Until Discontinued, Routine 09 (Given - Provider: Aida Anton RN) 0832 (Given - Provider: Tiffany Mcwilliams RN) 0814 (Given - Provider: Bisi Rojas RN) clopidogreL (PLAVIX) tablet 75 mg 75 mg, oral, DAILY, First dose on Thu10/20/23 at 0900, Until Discontinued, Routine 09 (Given - Provider: Aida Anton RN) 0831 (Given - Provider: Tiffany Mcwilliams RN) 0814 (Given - Provider: Bisi Rojas RN) empagliflozin (JARDIANCE) tablet 10 mg 10 mg, oral, DAILY, First dose on Thu10/21/23 at 1315, Until Discontinued, Indications: chronic heart failure, Routine 1316 (Given - Provider: Tiffany Mcwilliams RN) 0814 (Given - Provider: Bisi Rojas RN) ezetimibe (ZETIA) tablet 10 mg 10 mg, oral, DAILY, First dose on Thu10/19/23 at 0945, Until Discontinued, Routine 0924 (Given - Provider: Aida Anton RN) 0831 (Given - Provider: Tiffany Mcwilliams RN) 0815 (Given - Provider: Bisi Rojas RN) furosemide (LASIX) tablet 20 mg 20 mg, oral, DAILY, First dose on Thu10/20/23 at 1345, Until Discontinued, Routine 1402 (Given - Provider: Aida Anton RN) 0832 (Given - Provider: Tiffany Mcwilliams RN) 0816 (Given - Provider: Bisi Rojas RN) irbesartan (AVAPRO) tablet 75 mg 75 mg, oral, DAILY, First dose on Thu10/21/23 at 1015, Until Discontinued, Routine 1211 (Given - Provider: Tiffany Mcwilliams RN) 0815 (Given - Provider: Bisi Rojas RN) isosorbide MONOnitrate (IMDUR) CR tablet 30 mg 30 mg, oral, DAILY, First dose on Thu10/21/23 at 1315, Until Discontinued, Routine 1316 (Given - Provider: Tiffany Mcwilliams RN) 0814 (Given - Provider: Bisi Rojas RN) metoprolol SUCCinate (TOPROL-XL) tablet 25 mg 25 mg, oral, DAILY, First dose (after last modification) on Thu10/22/23 at 0900, Until Discontinued, Routine 0814 (Given - Provider: Bisi Rojas RN) metoprolol SUCCinate (TOPROL-XL) tablet 50 mg (CANCELED) 50 mg, oral, DAILY, First dose on Thu10/21/23 at 1315, Until Discontinued, Routine 1316 (Given - Provider: Tiffany Mcwilliams RN) potassium chloride SA (KLOR-CON M20) tablet 20 mEq (CANCELED) 20 mEq, oral, 2 TIMES DAILY, First dose on Thu10/20/23 at 0900, Until Discontinued, Routine 0923 (Given - Provider: Aida Anton RN)2104 (Given - Provider: Cheryl Estrada RN) 0832 (Given - Provider: Tiffany Mcwilliams RN) potassium chloride SA (KLOR-CON M20) tablet 40 mEq (COMPLETED) 40 mEq, oral, NOW X1, 1 dose, On Thu10/20/23 at 0415, Routine 0356 (Given - Provider: Cheryl Estrada RN) rosuvastatin (CRESTOR) tablet 40 mg 40 mg, oral, DAILY, First dose on Thu10/19/23 at 0900, Until Discontinued, Routine 0924 (Given - Provider: Aida Anton RN) 0831 (Given - Provider: Tiffany Mcwilliams RN) 0815 (Given - Provider: Bisi Rojas RN) spironolactone (ALDACTONE) tablet 25 mg 25 mg, oral, DAILY, First dose on Thu10/21/23 at 1015, Until Discontinued, Routine 1101 (Given - Provider: Tiffany Mcwilliams, RN) 0815 (Given - Provider: Bisi Rojas RN) terazosin (HYTRIN) capsule 10 mg 10 mg, oral, AT BEDTIME, First dose on Thu10/19/23 at 2100, Until Discontinued, Routine 2104 (Given - Provider: Cheryl Estrada, RN) 210 (Given - Provider: Tameka Neville, CUONG) Continuous Medication Order 10/20/2023 10/21/2023 10/22/2023 sodium chloride 0.9 % (NS) infusion () at 100 mL/hr, intravenous, CONTINUOUS, Starting on Thu10/20/23 at 0030, Until Thu10/20/23 at 1019, Routine 0020 (New Bag - Provider: Cheryl Estrada, RN) PRN Medication Order 10/20/2023 10/21/2023 10/22/2023 acetaminophen (TYLENOL) tablet 650 mg 650 mg, oral, EVERY 4 HOURS PRN, Starting on Thu10/19/23 at 0215, Until Lu 10/22/23 at 1258, Pain, Routine, Release 0549 (Given - Provider: Cheryl Estrada, CUONG)1600 (Given - Provider: Aida Anton RN) 0832 (Given - Provider: Tiffany Mcwilliams, CUONG)2108 (Given - Provider: Tameka Neville, RN) 0109 (Given - Provider: Tameka Neville, RN) ondansetron (PF) (ZOFRAN) injection 4 mg 4 mg, intravenous, EVERY 8 HOURS PRN, Starting on Thu10/19/23 at 0247, Until Lu 10/22/23 at 1258, Nausea, Routine No Frequency Medication Order 10/20/2023 10/21/2023 10/22/2023 atropine 0.1 mg/mL syringe 1 dose, Starting on Thu10/19/23 at 2307, Until Lu 10/22/23 at 1258 documented in this encounter Orders Medications Ordered That Theron ht Not Have Been Administered Count Last Ordered Date First Ordered Date atropine 0.1 mg/mL syringe 1 10/19/2023 fentaNYL citrate (PF) 50 mcg/mL injection 1 10/19/2023 fentaNYL citrate (PF) injection 1 4 heparin 1,000 unit/mL injection 2 4 iopamidoL (ISOVUE-370) injection 1 10/19/19 lidocaine (PF) 20 mg/mL (2 %) injection 1 0 10/19/2023 midazolam (PF) (VERSED) 1 mg/mL injection 1 10/19/2023 midazolam (PF) (VERSED) injection 1 024 nitroglycerin 100 mcg/mL syringe 1 10/19/19 ondansetron (PF) (ZOFRAN) 4 mg/2 mL injection 1 10/19/2023 ondansetron (PF) (ZOFRAN) injection 1 10/19 ondansetron (PF) (ZOFRAN) injection 4 mg 1 10/19/2023 sodium chloride 0.9 % (NS) infusion 2 10/19 ticagrelor (BRILINTA) 90 mg tablet 2 2023 ticagrelor (BRILINTA) tablet 1 10/19/2023 verapamil (ISOPTIN) 2.5 mg/mL injection 1 0 10/19/2023 Nursing Count Last Ordered Date First Orde red Date PATIENT AT LOW RISK FOR VTE: RISK OF MECHANICAL PROPHYLAXIS OUTWEIGHS 1 10/19/2023 PATIENT AT LOW RISK FOR VTE: RISK OF PHARMACOLOGIC PROPHYLAXIS OUTWEIG 1 10/19/2023 Admission Count Last Ordered Date First Orde red Date ADMIT TO INPATIENT 1 10/19/2023 Discharge Count Last Ordered Date First Orde red Date DISCHARGE PATIENT 1 10/22/2023 documented in this encounter Care Teams Supervisor Compressed Yeast Relationship Specialty Start Date End Date Vladimir Simmons MD [address] [phone] PCP - General 10/08/15 05/26/24 documented as of this encounter
--- OUTSIDE RECORDS SUMMARY | 2024-06-23 16:42 | XMS_ITS | Encounter Summary ---
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 No 05/30/2024 Interpersonal Safety Answer [...] Office Visit [facility] Cardiology - [address] [address] Wilberto Ocasio MD 1 [facility] 1 [place] [address] documented as of this encounter Procedures Procedure Name Priority Date/Time Associated Diagnosis Comments US VEIN MAPPING Routine 05/30/2024 14:08 EDT documented in this encounter Results * US VEIN MAPPING: CABG (05/30/2024 14:08 [...] Hyperlipidemia, Former tobacco use and Hypertension. Oniel BADILLO VASCULAR ORDLorin ALLEN documented in this encounter Visit Diagnoses Not on filedocumented in this encounter Care Teams Band Saw Operator Cake Cutting Relationship Specialty Start Date End Date Jaz Lyon PA [address] [place] [address] PCP - General Family Medicine - Primary Care 05/27/24 documented as of this encounter
--- OUTSIDE RECORDS SUMMARY | 2024-06-23 16:43 | XMS_ITS | Encounter Summary ---
Author Organization [facility] Address [address] [place] [address] Care Team Providers Care Research Attorney Name Role Phone Vladimir Simmons MD Primary Care Provider [phone] Encounter Details Date Type Department Care Team (Latest Contact Info) Description 11/13/2019 Travel Social History Tobacco Use Types Packs/Day Years Used Date Smoking Tobacco: Former Cigarettes 0.5 20 1 - 07/08/2015 Smokeless Tobacco: Never Alcohol Use Standard Drinks/Week Comments Yes 8 (1 standard drink = 0.6 oz pur e alcohol) Sex and Gender Information Value Date Recorded Sex Assigned at Not on file Gender Identity Male 11/13/2019 2:37 EST Sexual Orientation Not on file documented as of this encounter Functional Status Functional Status Response Date of Assess ment Are you deaf or do you have serious difficulty h earing? No 10/08/2015 Are you blind or do you have serious difficulty seeing, even when wearing glasses? No 10/08/2015 Do you have serious difficul ty walking or climbing stairs? (5 years old or older) No 10/08/2015 Do you have difficulty dress ing or bathing? (5 years old or older) No 10/08/2015 Because of a physical, menta l, or emotional condition, do you have difficulty doing errands alone such as visiting a doctor's office or shopping? (15 years old or older) No 10/08/2015 Cognitive Status Response Date of Assessm ent Because of a physical, menta l, or emotional condition, do you have serious difficulty concentrating, remembering, or making decisions? (5 years old or older) No 10/08/2015 documented as of this encounter Plan of Treatment Upcoming Encounters Date Type Department Care Team (Late st Contact Info) Description 07/12/2024 16:45 EDT Office Visit [facility] Cardiology - [address] [place] [address] Wilberto Ocasio MD [address] [place] [address] 1 [place] [address] documented as of this encounter Visit Diagnoses Not on filedocumented in this encounter Care Teams Research Attorney Relationship Specialty Start Date End Date Vladimir Simmons MD [address] [address] PCP - General 10/08/15 05/26/24 documented as of this encounter
--- OUTSIDE RECORDS SUMMARY | 2024-06-23 16:43 | XMS_ITS | Encounter Summary ---
Author Organization [facility] Address [address] [place] [address] Care Team Providers Care Feature Writer Name Role Phone Vladimir Simmons MD Primary Care Provider [phone] Jaz Lyon Primary Care Provider Encounter Details Date Type Department Care Team (Late st Contact Info) Description 02/11/2023 Lab Requisition [facility] Pathology & Laboratory Medicine - [facility] [address] [place], [place] [id number] Outr Resulting Lab, Provider Social History Tobacco Use Types Packs/Day Years Used Date Smoking Tobacco: Former Cigarettes 0.5 20 1 - 07/08/2015 Smokeless Tobacco: Never Alcohol Use Standard Drinks/Week Comments Yes 8 (1 standard drink = 0.6 oz pur e alcohol) PHQ-2 Answer Date Recorded PHQ-2 Score 0 04/22/2020 Interpersonal Safety Answer Date Record ed Physically [...] Info) Description 07/12/2024 16:45 EDT Office Visit [facility] Cardiology - [address] [place] [address] Wilberto Ocasio MD [address] [place] [address] 1 [place] [address] documented as of this encounter Procedures Procedure Name Priority Date/Time Associated Diagnosis Comments HIV 1/2 ANTIGEN AND ANTIBODY, 4TH GENERATION Routine 02/10/2023 8:40 EDT documented in this encounter Results * HIV 1/2 ANTIGEN AND ANTIBODY, 4TH GENERATION (02/10/2023 8:40 EDT) HIV 1 and 2 Antibody/p24 Antigen, 4th Generation Negative Negative 02/12/2023 10:01 EDT [facility] Comment:If acute HIV-1 infec tion is suspected in a high risk patient, submit plasma specimen for HIV-1 RNA quantitation test. Blood VENOUS BLOOD / Unknown 02/10/2023 8:40 EDT 02/11/2023 18:03 EDT Narrative [facility] - 02/12/2023 10:01 EDT Fourth Generation assay performed on the [employer] XPT. Provider Outr Resulting Lab IMMUNOLOGY A ND SEROLOGY ORDERABLES [facility] [address] [place] [address] documented in this encounter Visit Diagnoses Not on filedocumented in this encounter Care Teams Feature Writer Relationship Specialty Start Date End Date Vladimir Simmons MD [address] [phone] PCP - General 10/08/15 05/26/24 Jaz Lyon PA [facility] [address] [place] [address] PCP - General Family Medicine - Primary Care 05/27/24 documented as of this encounter
--- OUTSIDE RECORDS SUMMARY | 2024-06-23 16:43 | XMS_ITS | Encounter Summary ---
Author Organization [facility] Address [address] [place] [address] Care Team Providers Care Cribber Name Role Phone Vladimir Simmons MD Primary Care Provider [phone] Reason for Visit * Reason Comments New Patient Visit recurrent abd hernia * Referral (Routine) - Closed Specialty Diagnoses / Procedures Referred By Clarissa salas Referred To Contact General Surgery Diagnoses Recurrent abdominal hernia Vladimir Simmons MD [address] [address] [place] [address] [address] [place] [address] Referral ID Status Reason Start Date Expiration Date Visits Re quested Visits Authorized [id number] Closed 1 1 Encounter Details Date Type Department Care Team (Late st Contact Info) Description 03/31/2019 11:00 EDT Office Visit [facility] General Surgery - [address] [address] Roumlo Layne MD [address] [place] [address], [address] [place] [address] Non-recurrent unilateral inguinal hernia without obstruction or gangrene (Primary Dx) Social History Tobacco Use Types Packs/Day Years [...] Sign Reading Time Taken Comments Blood Pressure 132/68 03/31/2019 1058 EDT Pulse 60 03/31/2019 1058 EDT Temperature - - Respiratory Rate 16 03/31/2019 1058 EDT Oxygen Saturation - - Inhaled Oxygen Concentration - - Weight 111.6 kg (246 lb) 03/31/2019 1058 EDT Height 180.3 cm (5' 11) 03/31/2019 1058 EDT Body Mass Index 34.31 03/31/2019 1058 EDT documented in this encounter Functional Status [...] No 10/08/2015 documented as of this encounter Progress Notes * Romulo Layne MD, - 03/31/2019 1100 EDT Division of General Surgery Date of Service: 03/31/2019 PROBLEM: 1. Non-recurrent unilateral inguinal hernia without obstruction or gangrene HISTORY OF PRESENT ILLNESS: I am seeing René Blackburn in the office today in consultation by Vladimir Simmons MD for 1. Non-recurrent unilateral inguinal hernia without obstruction or gangrene This is a 63 y.o. male He has had an intermittent bulge in his left groin over the last 2 years. Itreally has not changed much. He has never been to the emergency department for this. He describes adull pain in that area. He has had no significant change in bowel habits, no nausea or vomiting. Hehad a previous right inguinal hernia repair with Dr Topete in [facility] 7 years ago. He had seen this doctor for this and he was worried about the class action lawsuits of hernia mesh and wantedto discuss if he needed that mesh that he had previously placed for his right inguinal hernia repair removed. Past Medical History: Diagnosis Date ??? Heart attack (HCC-CMS) ??? Hypertension ??? Melanoma (HCC-CMS) 2009 excised ??? Obesity ??? Right inguinal hernia Past Surgical History: Procedure Laterality Date ??? CARDIAC SURGERY ??? HERNIA REPAIR ??? ORTHOPEDIC SURGERY Family History Problem Relation Age of Onset ??? Heart Attack Brother 65 Social History Socioeconomic History ??? Marital status: Spouse name: None ??? Number of children: None ??? Years of education: None ??? Highest education level: None Occupational History ??? None Social Needs ??? Financial resource strain: None ??? Food insecurity: Worry: None Inability: None ??? Transportation needs: Medical: None Non-medical: None Tobacco Use ??? Smoking status: Former Smoker Packs/day: 0.50 Years: 20.00 Pack years: 10.00 Types: Cigarettes Last attempt to quit: 07/08/2015 Years since quittin.7 ??? Smokeless tobacco: Never Used Substance and Sexual Activity ??? Alcohol use: Yes Alcohol/week: 4.8 oz Types: 8 Cans of beer per week ??? Drug use: None ??? Sexual activity: None Lifestyle ??? Physical activity: Days per week: None Minutes per session: None ??? Stress: None Relationships ??? Social connections: Talks on phone: None Gets together: None Attends confucianism service: None Active member of club or organization: None Attends meetings of clubs or organizations: None Relationship status: None ??? Intimate partner violence: Fear of current or ex partner: None Emotionally abused: None Physically abused: None Forced sexual activity: None Other Topics Concern ??? None Social History Narrative ??? None Current Outpatient Medications: acetaminophen (TYLENOL) 325 mg capsule aspirin 81 mg EC tablet atorvastatin (LIPITOR) 80 mg tablet buPROPion (WELLBUTRIN XL) 150 mg XL tablet clopidogrel (PLAVIX) 75 mg tablet hydrochlorothiazide (HYDRODIURIL) 25 mg tablet ibuprofen (MOTRIN) 800 mg tablet losartan (COZAAR) 100 mg tablet metoprolol XL (TOPROL-XL) 25 mg tablet Multivitamins with Minerals tablet POTASSIUM CHLORIDE ORAL rosuvastatin (CRESTOR) 40 mg tablet terazosin (HYTRIN) 10 mg capsule No current facility-administered medications for this visit. Allergies Allergen Reactions ??? Fosinopril Cough REVIEW OF SYSTEMS: A ten point review of systems was performed and all were negative except as listed below. Patient Active Problem List Diagnosis ??? ST elevation myocardial infarction (STEMI) (HCC-CMS) ??? BPH (benign prostatic hyperplasia) ??? Obesity ??? HLD (hyperlipidemia) ??? Depression ??? Tubular adenoma of colon ??? Melanoma (HCC-CMS) ??? HTN (hypertension) ??? Non-recurrent unilateral inguinal hernia without obstruction or gangrene OBJECTIVE: Vitals: 03/31/19 1058 BP: 132/68 Pulse: 60 Resp: 16 Weight: (!) 111.6 kg (246 lb) Height: 180.3 cm (71) Body mass index is 34.31 kg/m??. He is afebrile. General: No acute distress. HEENT: Normal. Neck: Supple. Skin: Normal. Lungs: Clear, bilaterally. Heart: Regular rate and rhythm. Abdomen: Soft, nondistended, nontender, no masses, no organomegaly. Obese abdomen, significant soft tissue, you can palpate a left inguinal hernia. It is not very large. The scar in the right groin is well healed. No right inguinal hernia. Testicles descended bilaterally and normal. Vascular: Normal. Musculoskeletal: Normal. Neurologic: Normal. ASSESSMENT & PLAN: A 63 y.o. male With a left inguinal hernia, relatively asymptomatic, it is small. He also had some concerns about his previous mesh that was placed. With regards to his small left inguinal hernia, I talked to him about watchful waiting. There is noneed for emergent surgery here and study performed in the past that showed that, for minimally symptomatic small inguinal hernias, a period of 5 years of watchful waiting caused no deleterious effects and no incarceration or strangulation or emergency surgery. He was pleased with that. Regarding the previously mesh placed for his right groin, this should not be excised as it likely is not one of the meshes that is on the lawsuit as the inguinal hernia mesh is in a relatively inert area, which, however, if trying to excise, we would have to remove a large piece of the abdominal wall in that area and he could also lose a testicle. He is having no pain there and no need for any further intervention. He will call in the future if he ever gets more symptomatic and wants his left inguinal hernia repaired. If so, I told him that we would use a plug and patch technique just like he had on the other side. The hernia surgery will be more difficult at his current weight and I recommended weight loss. --Romulo Layne MD CC: Primary Care Provider: Vladimir Simmons MD Referring Provider: Vladimir Simmons MD . documented in this encounter Plan of Treatment Upcoming Encounters Date Type Department Care Team (Late st Contact Info) Description 07/12/2024 16:45 EDT Office Visit [facility] Cardiology - [place] [address] [place] [address] Wilberto Ocasio MD 1 [facility] [address] [place] [phone] documented as of this encounter Visit Diagnoses Diagnosis Non-recurrent unilateral inguinal hernia without obstruction or gangrene- Primary documented in this encounter Historical Medications * This list may reflect changes made after this encounter. Medication Sig Dispensed Refills Start Date End Date acetaminophen (TYLENOL) 325 mg capsule Take by mouth as needed. rosuvastatin (CRESTOR) 40 mg tablet Take 40 mg by mouth daily. 10/22/2023 added in this encounter Care Teams Cribber Relationship Specialty Start Date End Date Vladimir Simmons MD [address] [phone] PCP - General 10/08/15 05/26/24 documented as of this encounter
--- OUTSIDE RECORDS SUMMARY | 2024-06-23 16:43 | XMS_ITS | Encounter Summary ---
Author Organization [facility] Address [address] [place] [address] Care Team Providers Care Child Center Assistant Name Role Phone Vladimir Simmons MD Primary Care Provider [phone] Jaz Lyon Primary Care Provider Encounter Details Date Type Department Care Team (Late st Contact Info) Description 02/11/2023 Lab Requisition [facility] Pathology & Laboratory Medicine - [facility] [address] [place], [place] [id number] Outr Resulting Lab, Provider Social History Tobacco [...] Info) Description 07/12/2024 16:45 EDT Office Visit [facility] Cardiology - [address] [place] [address] Wilberto Ocasio MD [address] [place] [address] 1 [place] [address] documented as of this encounter Procedures Procedure Name Priority Date/Time Associated Diagnosis Comments HEPATITIS C AB W REFLEX TO HCV RNA BY PCR Routine 02/10/2023 8:40 EDT documented in this encounter Results * HEPATITIS C AB W REFLEX TO HCV RNA BY PCR (02/10/2023 8:40 EDT) Hep C Antibody Negative Negative 02/12/2023 9:40 EDT [facility] Blood VENOUS BLOOD / Unknown 02/10/2023 8:40 EDT 02/11/2023 18:03 EDT Provider Outr Resulting Lab CHEMISTRY & BLOOD GAS ORDERABLES [facility] [address] [place] [address] documented in this encounter Visit Diagnoses Not on filedocumented in this encounter Care Teams Child Center Assistant Relationship Specialty Start Date End Date Vladimir Simmons MD [facility] [address] [place] [phone] PCP - General 10/08/15 05/26/24 Jaz Lyon PA [address] [place] [address] PCP - General Family Medicine - Primary Care 05/27/24 documented as of this encounter
--- OUTSIDE RECORDS SUMMARY | 2024-06-23 16:43 | XMS_ITS | Encounter Summary ---
Author Organization [facility] Address [address] [place] [address] Care Team Providers Care Identification Printing Machine Setter Name Role Phone Vladimir Simmons MD Primary Care Provider [phone] Encounter Details Date Type Department Care Team (Late st Contact Info) Description 10/19/2023 0:30 EST - 10/19/2023 1:[address] [facility] Invasive Cardiology Unit [address] [place] [address] James Bryan MD [address] [place] [address] [id number] Left Heart Cath Surgery Details Date/Time Status Location OR Service Patient Class Case Class Case Type Trauma Case? 10/19/23 0030 Posted [facility] Cafe Associate Cafe Associate 2 Interventional Cardiology Surgery Admit Emergent Panel 1 Procedure LRB Anes Op Region Wound Class Comments Left Heart Cath N/A None Chest Percutaneous Coronary Intervention N/A None Chest IVUS Left None Chest Surgeon Surgeon Role Service Panel James Bryan MD Primary Interventional Cardio logy 1 documented in this encounter Social History [...] Sign Reading Time Taken Comments Blood Pressure - - Pulse - - Temperature - - Respiratory Rate - - Oxygen Saturation - - Inhaled Oxygen Concentration - - Weight 112.8 kg (248 lb 9.6 oz) 10/19/2023 0100 EST Height 175.3 cm (5' 9) 10/19/2023 0100 EST Body Mass Index 36.71 10/19/2023 1107 [...] Rivera, when he presented in transfer from [facility] with an anterior ST elevation SC. He is an exceptionally pleasant 68-year-old gentleman [...] patient presented with an anterior ST elevation SC. He had a 99% lesion in the [...] Sincerely, James Bryan MD / RA Confirmation: [id number] Dictation ID: [id number] cc: Linus Kimbrough MD, [facility], [address] [place] [address] Vladimir Simmons MD, [facility], [address] [place] [address] James Bryan MD, [facility], [address] [place] [address] documented in this encounter Medications at Time [...] Means Destination Comment s Home or Self Detention documented in this encounter Progress Notes * Henrique Toscano - 10/21/2023 1600 EST [facility] Spiritual Care Note Encounter is through the ____ Palliative Care Service ____ Geriatric Service Re: René Rivera : 1955, AGE: 68 y.o. ROOM: [place] [address] Spirituality: Restorationist BACKGROUND Patient reported making progress in his treatment and looking at the possibility of discharge tomorrow. He requested for Communion and blessings. No immediate pastoral concern at this time. INTERVENTIONS Provided less anxious presence, Communion and blessings. CARE PLAN None RECOMMENDATIONS None TIME STAMP: 15 minutes HENRIQUE TOSCANO [facility] [employer] [place] [address] Thank you for the opportunity to provide for this patient's/family's spiritual needs. * James Bryan MD - 10/21/2023 1253 EST Daily Progress Note Admit Date: 10/19/2023 Hospital Day: LOS: 2 days Date of Service: 10/21/2023 Chief Complaint: Status post presentation with an anterior ST elevation SC 10/19/2023 with a thrombotic lesion in the stents that had been placed in the LAD in 2016. Treated with 1 additional drug-eluting stent. The circumflex stent was widely patent. The RCA is occluded which is new compared to prior angiograms. 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 Echo post SC showed an EF of 40 to 45% [...] Date Noted *(H)STEMI (ST elevation myocardial infarction) ([facility]) 10/19/2023 Priority: Medium Non-recurrent unilateral inguinal hernia without obstruction or gangrene 03/31/2019 Priority: Medium ST elevation myocardial infarction (STEMI) ([facility]) 10/08/2015 Priority: Medium BPH (benign prostatic hyperplasia) 10/08/2015 Priority: Medium Obesity 10/08/2015 Priority: Medium HLD (hyperlipidemia) 10/08/2015 Priority: Medium Depression 10/08/2015 Priority: Medium Tubular adenoma of colon 10/08/2015 Priority: Medium Melanoma ([facility]) 10/08/2015 Priority: Medium S/p excision 2009 HTN (hypertension) 10/08/2015 Priority: Medium Plan: Status post presentation with an anterior ST elevation SC 10/19/2023 with a thrombotic lesion in thestents that had been placed in the LAD in 2015. Treated with 1 additional drug-eluting stent. The circumflex stent was widely patent. The RCA is occluded which is new compared to prior angiograms. 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 Echo post SC showed an EF of 40 to 45% [...] post presentation with an anterior ST elevation SC 10/19/2023 with a thrombotic lesion in the stents that had been placed in the LAD in 2016. Treated with 1 additional drug-eluting stent. The circumflex stent was widely patent. The RCA is occluded which is new compared to prior angiograms. 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 Echo post SC showed an EF of 40 to 45% [...] Date Noted *(H)STEMI (ST elevation myocardial infarction) ([facility]) 10/19/2023 Priority: Medium Non-recurrent unilateral inguinal hernia without obstruction or gangrene 03/31/2019 Priority: Medium ST elevation myocardial infarction (STEMI) ([facility]) 10/08/2015 Priority: Medium BPH (benign prostatic hyperplasia) 10/08/2015 Priority: Medium Obesity 10/08/2015 Priority: Medium HLD (hyperlipidemia) 10/08/2015 Priority: Medium Depression 10/08/2015 Priority: Medium Tubular adenoma of colon 10/08/2015 Priority: Medium Melanoma ([facility]) 10/08/2015 Priority: Medium S/p excision 2009 HTN (hypertension) 10/08/2015 Priority: Medium Plan: Status post presentation with an anterior ST elevation SC 10/19/2023 with a thrombotic lesion in thestents that had been placed in the LAD in 2017. Treated with 1 additional drug-eluting stent. The circumflex stent was widely patent. The RCA is occluded which is new compared to prior angiograms. 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 Echo post SC showed an EF of 40 to 45% [...] is doing well. Coronary angiograms reviewed. The DIAMOND SETTER of the RCA would be amenable to PCI if the patient has ischemia and discharged. Discharge Plan: Home or self care Consults: None James Bryan MD 10/20/2023 13:19 * Henrique Toscano - 10/20/2023 1234 EST [facility] Spiritual Care Note Encounter is through the ____ Palliative Care Service ____ Geriatric Service Re: René Rivera : 1955, AGE: 68 y.o. ROOM: [facility]/[id number] Spirituality: Restorationist BACKGROUND Initial pastoral care visit during rounds. René was sitting comfortably in recliner when I stepped into his space/room. He was receptive, engaged and interactive. Patient related to the Dot Net Developer in a way that could be described as chatty and openly. Patient appears to be dealing with the following pastoral/spiritual issues - painful divorce, unresolved guilt, and the need to reconnect with God. ASSESSMENT Beliefs & Values He a devout Restorationist who takes delights in [employer]. Connections Patient has good family support system. [...] None TIME STAMP: 35 minutes HENRIQUE TOSCANO, [facility] [employer] [place] [address] Thank you for the opportunity to provide for this patient's/family's spiritual needs. * Aida Anton RN - 10/20/2023 0654 EST Images from the original note were not included. Data: STEMI S/P C with PCI, right radial site intact. +pulses & neuro's intact. +1-2 ANDREZ, Lasix 2 mg po given. Patient is [...] 10/20/2023 18:48 * Tanesha Donahue - 10/19/2023 3318 EST Initial Case Management/Social Work Assessment and Discharge Plan/Readmission Risk Assessment REASON FOR ADMISSION: STEMI (ST elevation myocardial infarction) ([facility]) Patient understands reason for admission: PATIENT INFO VERIFIED: Type of housing (single family, condo, apartment, intermediate, single room occupancy, [facility] funded hotel room, group long term) - private home Who does the patient live with? Lives alone Does the patient have access to their own bedroom/bathroom/kitchen - or is it shared with others? Yes Name of housing complex (ex [facility], [facility], etc)- N/A Housing Authority/Managing Organization - N/A Community Care Providers (trimming caser, [facility] nurse, etc) name and contact information- [...] Antibiotics: No Final Discharge Destination: Home CULTURAL, TAOIST and/or LANGUAGE factors affecting health care/discharge planning: Spiritual/Cultural Requests: None Insurance Information: None Nutrition: DISCHARGE RISK ASSESSMENT: Total # selected above: Tentative plan to address the risk of re-hospitalization for those at HIGH MODERATE RISK: RAPT TOOL: SBIRT: FUNCTIONAL STATUS: Activities patient requires assistance: None Assistive Devices: None COMMUNITY RESOURCES/SUPPORTS: Primary Care Provider: Vladimir Simmons PCP Verified: Specialists: Type of Home Health Services: None DME Provider: Pharmacy: [id number] - [place], [place] - [address] [facility] [address] Home Health: N/A Other: POST HOSPITAL TRANSITION PLAN: Patient lives in a ranch home alone in [place], [place]. He states he is independent with self care and home management. His daughter aMru is near by. Patient has no insurance. He has Medicare A because he is over 65, but no supplemental (Part B) or insurance for medication. He said he was working with someone at [facility]. I called there and she is no longer employed there but I was told that the patient should call [place] on Aging in his area ([phone]) and they could help him complete an application and also a Medicaid application. I checked with [facility] and was told that this would be [...] currently stable, and would benefit from a [facility] w/ PCI. Plan #STEMI Symptomatic. ECG with ST elevations in anterior leads. Troponin elevated. Etx: likely occlusive ischemia. Loaded with aspirin 324. - LHC - TTE complete - aspirin 81 mg daily - clopidogrel 75 mg daily - heparin gtt - telemetry - trop trend to peak - lipid profile and A1c - atorvostatin 80 mg daily Code status: full code, not discussed Diet: NPO for now VTE Prophylaxis: Hep gtt Consults: None Discharge: Unclear, pending resolution of above Nikki Kaminski MD, MPH Internal Medicine, PGY-[address] [facility] 10/19/23 0:48 Associated attestation - James Bryan MD - 10/19/2023 0211 EST Patient seen and examined with grill prep cook. Acute chest pain starting several hours prior to admission. EKG consistent with an anterior ST elevation SC. Prior coronary angiograms reviewed whichshow a long [...] artery Procedure: He was brought to [facility] for the procedure: [...] 40% distal lesion Right coronary artery: Dominant. DIAMOND SETTER mid vessel. Left to right collaterals. Grafts: [...] procedural complication required) James Bryan MD PagerNumber: [phone] 10/19/2023 2:06 documented in this encounter Miscellaneous Notes * Plan of Care - Bisi Rojas RN - 10/22/2023 0914 EST D: Pt s/p LHC w/ 1 stent to LDA. Endorses mild episodes of chest pain that resolve with rest. Denies SOB, nausea, and all other pain. NSR/SB on tele, VSS. A: Pt disconnected from tele, IV removed, discharge teaching and medication education provided. R: Pt discharged to home via cab. Denies further questions at this time. * Plan of Care - Tiffany Mcwilliams RN - 10/21/2023 1338 EST Data: Pt. Admitted for a STEMI, s/p LHC w/ 1x LEBRON to LAD. NSR on [...] Sampson, RN Outcome: Ongoing Flowsheets (Taken 10/21/2023 0019 by Cheryl Estrada, RN) Area of Focus: Circulatory Status Goal This Shift: vss 10/21/2023 0159 by Marcia Sampson RN Outcome: Ongoing * Plan of Care [...] Action: Assessment documented. & medications given per MAR. Encouraged rest Response: Patient resting comfortably AIDA [...] >92%. Action: Pt admitted to MR4 from laboratory coordinator at 0215. RRA site c/d/I. Pt endorsing [...] MD. Plan to manage pt symptoms. CHERYL ESTRADA, CUONG 10/19/2023 Problem: Daily Care Plan Goals Goal: Care Plan Documentation Outcome: Ongoing Flowsheets (Taken 10/19/2023 0216) Area of Focus: Circulatory Status Goal This Shift: vss s/p LHC w/ PCI decrease nausea documented in this encounter Plan of Treatment Upcoming Encounters Date Type Department Care Team (Late st Contact Info) Description 07/12/2024 16:45 EDT Office Visit [facility] Cardiology - [place] [address] [place] [address] Wilberto Ocasio MD [address] [facility] Level [address] [place] [address] Scheduled Orders Name Type Priority [...] 9:40 EST) 10/26/2023 9:40 EST Scan 2 Mri Manager PROCEDURE/MINOR SHARITA GICAL ORDERABLES * ECG REPORT - SCANNED (10/26/2023 7:15 EST) 10/26/2023 7:15 EST Scan 2 Mri Manager PROCEDURE/MINOR SHARITA GICAL ORDERABLES * ECG REPORT - SCANNED (10/23/2023 14:35 EST) 10/23/2023 14:3 5 EST Scan 2 Mri Manager PROCEDURE/MINOR SHARITA GICAL ORDERABLES * ECG REPORT - SCANNED (10/23/2023 11:39 EST) 10/23/2023 11:3 9 EST Scan 2 Mri Manager PROCEDURE/MINOR SHARITA GICAL ORDERABLES * EKG 12-LEAD (10/22/2023 7:50 EST) 10/22/2023 7:50 EST Narrative [facility] EKG - 10/22/2023 18:59 EST ? [facility] ? Test Date: ?2023-10-22 Pat Name: ? RENÉ RIVERA ? Department: ?? [place] ? Room: ? [id number] Gender: ? Male ? 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 [id number] : ?1955 ? Requested By: CHIQUI Lee Order Number: [id number] ? Reading MD: ?? JAMES BRYAN MD ? Measurements Intervals ?[place] ? Rate: ? 46 ? P: ?55 NV: ? 196 ?QRS: ?31 QRSD: ? 100 ?T: ?154 QT: ? 489 ? QTc: ?429 ? Interpretive Statements SINUS BRADYCARDIA ANTEROLATERAL MYOCARDIAL INFARCTION , PROBABLY RECENT ACUTE SC Compared to ECG 10/21/2023 07:36:11 T-wave abnormality no longer present Possible ischemia no longer present Myocardial infarct finding still present I reviewed the tracing and have either agreed or edited the findings in this report. Electronically Signed On 10-22-2023 18:59:15 EST by JAMES BRYAN MD. Procedure Note James Bryan MD - 10/22/2023 [facility] Test Date: 2023-10-22 Pat Name: RENÉ RIVERA Department: [place] [address] Room: [id number] Gender: Male Machine Bander And Cellophaner Helper: [id number] : 1955 Requested By: CHIQUI Lee Order Number: [id number] Nancy MD: JAMES BRYAN MD Measurements Intervals [place] Rate: 46 P: 55 NV: 196 QRS: 31 QRSD: 100 T: 154 QT: 489 QTc: 429 Interpretive Statements SINUS BRADYCARDIA ANTEROLATERAL MYOCARDIAL INFARCTION , PROBABLY RECENT ACUTE SC Compared to ECG 10/21/2023 07:36:11 T-wave abnormality no longer present Possible ischemia no longer present Myocardial infarct finding still present I reviewed the tracing and have either agreed or edited the findings inthis report. Electronically Signed On 10-22-2023 18:59:15 EST by JAMES JUNG. James Bryan MD CARDIAC ECG ORDERABL ES [facility] EKG * BASIC METABOLIC PANEL (BMP) (10/22/2023 6:51 EST) Sodium 137 136 - 145 mmol/L 10/22/2023 8:18 EST [facility] Potassium 4.3 3.5 - 5.0 mmol/L 10/22/2023 8:18 [facility] Chloride 104 96 - 110 mmol/L 10/22/2023 8:18 [facility] CO2 Total 23 22 - 32 mmol/L 10/22/2023 8:18 [facility] Anion Gap 10 5 - 14 mmol/L 10/22/2023 8:18 [facility] Glucose 88 70 - 99 mg/dl 10/22/2023 8:18 [facility] Calcium 9.0 8.5 - 10.5 mg/dL 10/22/2023 8:18 [facility] BUN 16 10 - 26 mg/dL 10/22/2023 8:18 [facility] Creatinine 1.06 0.66 - 1.25 mg/dL 10/22/2023 8:18 [facility] eGFR 77 >60 mL/min/1.73 m2 10/22/2023 8:18 [facility] Blood VENOUS BLOOD / Unknown Venipuncture / Unknown 10/22/2023 6:51 EST 10/22/2023 7:41 EST Kathleen Mckeon NP CHEMISTRY & BLOOD G ORDERABLES [facility] [address] [place] [address] * ECG REPORT - SCANNED (10/21/2023 10:10 EST) 10/21/2023 10:1 0 EST Scan 2 Mri Manager PROCEDURE/MINOR SHARITA GICAL ORDERABLES * (ABNORMAL) TROPONIN I (10/21/2023 10:08 EST) Troponin I (ng/mL) 2.530(H) <0.034 ng/mL 10/21/2023 10:40 EST [facility] Blood VENOUS BLOOD / Unknown Venipuncture / Unknown 10/21/2023 10:08 EST 10/21/2023 10:13 EST Narrative [facility] - 10/21/2023 10:40 EST The results of this assay can be falsely lowered due to the consumption of Biotin. Kathleen Mckeon NP CHEMISTRY & BLOOD G ORDERABLES [facility] [address] [place] [address] * ECG REPORT - SCANNED (10/21/2023 10:06 EST) 10/21/2023 10:0 6 EST Scan 2 Mri Manager PROCEDURE/MINOR SHARITA GICAL ORDERABLES * EKG 12-LEAD (10/21/2023 7:36 EST) 10/21/2023 7:36 EST Narrative [facility] EKG - 10/21/2023 9:52 EST ? [facility] ? Test Date: ?2023-10-21 Pat Name: ? RENÉ RIVERA ? Department: ?? [place] ? Room: ? [id number] Gender: ? Male ? 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 [id number] : ?1955 ? Requested By: CHIQUI JAMES M Order Number: [id number] ? Reading MD: ?? JAMES CHIQUI MD ? Measurements Intervals ?[place] ? Rate: ? 57 ? P: ?62 NV: ? 195 ?QRS: ?34 QRSD: ? 108 [...] Note James Bryan MD - 10/21/2023 [facility] Test Date: 2023-10-21 Pat Name: RENÉ RIVERA Department: Nain Gonzalez Room: [facility] Gender: Male Machine Bander And Cellophaner Helper: [id number] : 1955 Requested By: CHIQUI Lee Order Number: [id number] Reading MD: JAMES BRYAN MD Measurements Intervals [place] Rate: 57 P: 62 NV: 195 QRS: 34 QRSD: 108 T: 141 [...] James Bryan MD CARDIAC ECG ORDERABL ES [facility] EKG * BASIC METABOLIC PANEL (BMP) (10/21/2023 6:47 EST) Sodium 138 136 - 145 mmol/L 10/21/2023 8:16 EST [facility] Potassium 3.8 3.5 - 5.0 mmol/L 10/21/2023 8:16 EST [facility] Chloride 104 96 - 110 mmol/L 10/21/2023 8:16 EST [facility] CO2 Total 24 22 - 32 mmol/L 10/21/2023 8:16 [facility] Anion Gap 10 5 - 14 mmol/L 10/21/2023 8:16 [facility] Glucose 84 70 - 99 mg/dl 10/21/2023 8:16 [facility] Calcium 8.9 8.5 - 10.5 mg/dL 10/21/2023 8:16 [facility] BUN 12 10 - 26 mg/dL 10/21/2023 8:16 [facility] Creatinine 0.98 0.66 - 1.25 mg/dL 10/21/2023 8:16 [facility] eGFR 85 >60 mL/min/1.73 m2 10/21/2023 8:16 [facility] Blood VENOUS BLOOD / Unknown Venipuncture / Unknown 10/21/2023 6:47 EST 10/21/2023 7:45 EST Kathleen Mckeon NP CHEMISTRY & BLOOD G ORDERABLES Performing Organization Address City/State/[facility] Co de Phone Number [facility] [address] [place] [address] * COMPLETE BLOOD COUNT (10/21/2023 6:47 EST) WBC 7.38 4.00 - 10.40 K/cmm 10/21/2023 7:51 [facility] RBC 4.49 4.36 - 5.78 M/cmm 10/21/2023 7:51 [facility] Hemoglobin 13.9 13.8 - 17.3 g/dL 10/21/2023 7:51 [facility] HCT 39.5 39.5 - 50.2 % 10/21/2023 7:51 [facility] MCV 88 81 - 95 fL 10/21/2023 7:51 [facility] MCH 31.0 27.6 - 33.0 pg 10/21/2023 7:51 [facility] MCHC 35.2 32.8 - 36.4 g/dL 10/21/2023 7:51 [facility] RDW-CV 13.0 <14.2 % 10/21/2023 7:51 EST [facility] RDW-SD 41.7 <46.0 fl 10/21/2023 7:51 EST [facility] PLT 165 141 - 377 K/cmm 10/21/2023 7:51 EST [facility] MPV 10.9 9.5 - 12.7 fL 10/21/2023 7:51 EST [facility] Blood VENOUS BLOOD / Unknown Venipuncture / Unknown 10/21/2023 6:47 EST 10/21/2023 7:44 EST Kathleen Mckeon NP HEMATOLOGY & PF4 OR DERABLES Performing Organization Address [facility] Co de Phone Number [facility] [address] [place] [address] * (ABNORMAL) TROPONIN I (10/20/2023 18:43 EST) Troponin I (ng/mL) 2.800(H) <0.034 ng/mL 10/20/2023 19:51 EST [facility] Blood VENOUS BLOOD / Unknown Venipuncture / Unknown 10/20/2023 18:43 EST 10/20/2023 19:10 EST Narrative [facility] - 10/20/2023 19:51 EST The results of this assay can be falsely lowered due to the consumption of Biotin. Kathleen Mckeon NP CHEMISTRY & BLOOD G ORDERABLES Performing Organization Address [facility] [[email or web address]] de Phone Number [facility] [address] [place] [address] * EKG 12-LEAD (10/20/2023 14:23 EST) 10/20/2023 14:2 3 EST Narrative [facility] EKG - 10/21/2023 9:51 EST ? [facility] ? Test Date: ?2023-10-20 Pat Name: ? RENÉ RIVERA ? Department: ?? [place] [address] ? Room: ? [id number] Gender: ? Male ? 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 [id number] : ?1955 ? Requested By: CHIQUI JAMES M Order Number: [id number] ? Reading MD: ?? JAMES CHIQUI MD ? Measurements Intervals ?[place] ? Rate: ? 54 ? P: ?54 NV: ? 204 ?QRS: ?57 QRSD: ? 98 [...] Note James Bryan MD - 10/21/2023 [facility] Test Date: 2023-10-20 Pat Name: RENÉ RIVERA Department: [place] [address] Room: [facility] Gender: Male Machine Bander And Cellophaner Helper: [id number] : 1955 Requested By: CHIQUI Lee Order Number: [id number] Reading MD: JAMES BRYAN MD Measurements Intervals [place] Rate: 54 P: 54 NV: 204 QRS: 57 QRSD: 98 T: 165 [...] James Bryan MD CARDIAC ECG ORDERABL ES [facility] EKG * ECG REPORT - SCANNED (10/20/2023 13:25 EST) 10/20/2023 13:2 5 EST Scan 2 Mri Manager PROCEDURE/MINOR SHARITA GICAL ORDERABLES * (ABNORMAL) TROPONIN I (10/20/2023 11:32 EST) Troponin I (ng/mL) 3.020(H) <0.034 ng/mL 10/20/2023 12:31 EST [facility] Blood VENOUS BLOOD / Unknown Venipuncture / Unknown 10/20/2023 11:32 EST 10/20/2023 11:40 EST Narrative [facility] - 10/20/2023 12:31 EST The results of this assay can be falsely lowered due to the consumption of Biotin. Kathleen Mckeon CAPITAL PROJECT ENGINEER CHEMISTRY & BLOOD G ORDERABLES Performing Organization Address [facility] [[email or web address]] de Phone Number [facility] [address] [place] [address] * (ABNORMAL) TROPONIN I (10/20/2023 2:36 EST) Pathologist [facility] Troponin I (ng/mL) 3.970(H) <0.034 ng/mL 10/20/2023 3:18 EST [facility] Blood VENOUS BLOOD / Unknown Venipuncture / Unknown 10/20/2023 2:36 EST 10/20/2023 2:48 EST Narrative [facility] - 10/20/2023 3:18 EST The results of this assay can be falsely lowered due to the consumption of Biotin. Kathleen Mckeon CAPITAL PROJECT ENGINEER CHEMISTRY & BLOOD G ORDERABLES Performing Organization Address [facility] Co de Phone Number [facility] [address] [place] [address] * (ABNORMAL) BASIC METABOLIC PANEL (BMP) (10/20/2023 2:36 EST) Sodium 134(L) 136 - 145 mmol/L 10/20/2023 3:04 EST [facility] [facility] Potassium 3.2(L) 3.5 - 5.0 mmol/L 10/20/2023 3:04 [facility] Chloride 100 96 - 110 mmol/L 10/20/2023 3:04 [facility] CO2 Total 28 22 - 32 mmol/L 10/20/2023 3:04 [facility] Anion Gap 6 5 - 14 mmol/L 10/20/2023 3:04 [facility] Glucose 103(H) 70 - 99 mg/dl 10/20/2023 3:04 [facility] Calcium 8.2(L) 8.5 - 10.5 mg/dL 10/20/2023 3:04 [facility] BUN 12 10 - 26 mg/dL 10/20/2023 3:04 [facility] Creatinine 0.92 0.66 - 1.25 mg/dL 10/20/2023 3:04 [facility] eGFR 92 >60 mL/min/1.73 m2 10/20/2023 3:04 [facility] Blood VENOUS BLOOD / Unknown Venipuncture / Unknown 10/20/2023 2:36 EST 10/20/2023 2:48 EST Kathleen Mckeon NP CHEMISTRY & BLOOD G ORDERABLES [facility] [address] [place] [address] * (ABNORMAL) COMPLETE BLOOD COUNT (10/20/2023 2:36 EST) WBC 7.17 4.00 - 10.40 K/cmm 10/20/2023 3:03 [facility] RBC 4.14(L) 4.36 - 5.78 M/cmm 10/20/2023 3:03 [facility] Hemoglobin 13.1(L) 13.8 - 17.3 g/dL 10/20/2023 3:03 [facility] HCT 37.1(L) 39.5 - 50.2 % 10/20/2023 3:03 [facility] MCV 90 81 - 95 fL 10/20/2023 3:03 EST [facility] MCH 31.6 27.6 - 33.0 pg 10/20/2023 3:03 EST [facility] MCHC 35.3 32.8 - 36.4 g/dL 10/20/2023 3:03 EST [facility] RDW-CV 12.8 <14.2 % 10/20/2023 3:03 EST [facility] RDW-SD 42.4 <46.0 fl 10/20/2023 3:03 EST [facility] PLT 152 141 - 377 K/cmm 10/20/2023 3:03 [facility] MPV 10.7 9.5 - 12.7 fL 10/20/2023 3:03 EST [facility] Blood VENOUS BLOOD / Unknown Venipuncture / Unknown 10/20/2023 2:36 EST 10/20/2023 2:48 EST Kathleen Mckeon NP HEMATOLOGY & PF4 OR DERABLES Performing Organization Address City/[facility]/ZIP Co de Phone Number [facility] [address] [place] [address] * (ABNORMAL) TROPONIN I (10/19/2023 18:16 EST) Troponin I (ng/mL) 4.760(H) <0.034 ng/mL 10/19/2023 19:03 EST [facility] Blood VENOUS BLOOD / Unknown Venipuncture / Unknown 10/19/2023 18:16 EST 10/19/2023 18:24 EST Narrative [facility] - 10/19/2023 19:03 EST The results of this assay can be falsely lowered due to the consumption of Biotin. Kathleen Mckeon NP CHEMISTRY & BLOOD G ORDERABLES Performing Organization Address City/[facility] Co de Phone Number [facility] [address] [place] [address] * ECG REPORT - SCANNED (10/19/2023 17:49 EST) 10/19/2023 17:4 9 EST Scan 2 Mri Manager PROCEDURE/MINOR SHARITA GICAL ORDERABLES * (ABNORMAL) TROPONIN I (10/19/2023 12:55 EST) Troponin I (ng/mL) 5.040(H) <0.034 ng/mL 10/19/2023 15:05 EST [facility] Blood VENOUS BLOOD / Unknown Venipuncture / Unknown 10/19/2023 12:55 EST 10/19/2023 13:20 EST Narrative [facility] - 10/19/2023 15:05 EST The results of this assay can be falsely lowered due to the consumption of Biotin. Kathleen Mckeon CAPITAL PROJECT ENGINEER CHEMISTRY & BLOOD G ORDERABLES [facility] [address] [place] [address] * TRANSTHORACIC ECHO (TTE) COMPLETE W/DOPPLER W/CF W/ CONTRAST (10/19/2023 11:07 EST) LV ID, ED, PLAX 5.7 3.5 - [...] CARE LVOT mean velocity, S 0.7 m/s [facility] PO[facility] CARE LVOT VTI, S 24.3 cm [facility] PO INT OF CARE AV LVOT peak gradient 5 mmHg [facility] POINT OF CARE LVOT mean gradient, S 2 mmHg [facility] POINT OF CARE Stroke volume (SV), LVOT DP 84 ml [facility] POINT OF CARE Stroke index (SV/bsa) LVOT DP 37.0 ml/m2 [facility] LV Diastolic Volume 160 mL [facility] PO[facility] LV Systolic Volume 97 mL U [facility] POINT OF CARE LVIDD BY MMODE 5.7 cm [facility] POINT OF CARE LV e', lateral 8.30 m/s [facility] POINT OF CARE LV e', medial 5.80 m/s [facility] POINT OF CARE LV E/e', medial 5.8 [facility] Mitral deceleration slope 425 cm/s2 [facility] POINT OF CARE Mitral deceleration time 229 ms [facility] PO[facility]ARE Mitral E-wave peak velocity 1.0 m/s [facility] POINT OF CARE Mitral A-wave peak velocity 0.6 m/s [facility] POINT OF CARE LA Atrial Area A4C 25.0 cm2 U [facility] POINT OF CARE LA Atrial Area A2C 25.0 cm2 [facility] POINT OF CARE LA volumes, ES, A4C 91.0 ml [facility] POINT OF CARE LA volume/bsa, ES, A4C 40.0 ml/m2 [facility] POINT OF CARE LA volume, ES, BP 77.0 ml [facility] POINT OF CARE LA volume/bsa, ES, BP 34.0 ml/m2 [facility] POINT OF CARE LA Atrial Length A4C 5.4 cm [facility] POINT [facility]ARE LA Atrial Length A2C 4.9 cm [facility] PO[facility]ARE Aortic valve peak velocity, S 3.1 m/s [facility] PO[facility] CARE Aortic valve mean velocity, S 2.1 m/s [facility] PO[facility] CARE Aortic valve VTI, S 69.8 cm [facility] Aortic valve area VTI 1.2 cm2 [facility] Aortic valve area, peak velocity 1.2 cm2 [facility] PO[facility]ARE Aortic peak gradient, S 41 mmHg [facility] Aortic mean gradient, S [...] color Doppler.The study was interpreted by [facility]. Pertinent images and digital [...] (10/19/2023 9:38 EST) 10/19/2023 9:38 EST Narrative [facility] EKG - 10/20/2023 13:17 EST ? [facility] ? Test Date: ?2023-10-19 Pat Name: ? RENÉ RIVERA ? Department: ?? [place] [address] ? Room: ? [id number] Gender: ? Male ? 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 [id number] : ?1955 ? Requested By: ELLIOTT ROBISON Order Number: [id number] ? Reading MD: ?? JAMES CHIQUI MD ? Measurements Intervals ?[place] ? Rate: ? 56 ? P: ?43 NV: ? 213 ?QRS: ?38 QRSD: ? 94 ? T: ?142 QT: ? 471 ? QTc: ?455 ? Interpretive Statements SINUS BRADYCARDIA WITH FIRST DEGREE AV BLOCK ANTERIOR MYOCARDIAL INFARCTION , PROBABLY RECENT ACUTE SC Compared to ECG 10/19/2023 02:31:39 Sinus rhythm no longer present Myocardial infarct finding still present I reviewed the tracing and have either agreed or edited the findings in this report. Electronically Signed On 10-20-2023 13:17:14 EST by JAMES BRYAN MD. Procedure Note James Bryan MD - 10/20/2023 [facility] Test Date: 2023-10-19 Pat Name: RENÉ RIVERA Department: [place] [address] Room: [facility] Gender: Male Machine Bander And Cellophaner Helper: [id number] : 1955 Requested By: ELLIOTT ROBISON Order Number: [id number] Reading MD: JAMES BRYAN MD Measurements Intervals [place] Rate: 56 P: 43 NV: 213 QRS: 38 QRSD: 94 T: 142 QT: 471 QTc: 455 Interpretive Statements SINUS BRADYCARDIA WITH FIRST DEGREE AV BLOCK ANTERIOR MYOCARDIAL INFARCTION , PROBABLY RECENT ACUTE SC Compared to ECG 10/19/2023 02:31:39 Sinus rhythm no longer present Myocardial infarct finding still present I reviewed the tracing and have either agreed or edited the findings inthis report. Electronically Signed On 10-20-2023 13:17:14 EST by JAMES JUNG. Lyndon Morin MD CARDIAC ECG ORDERAB LES [facility] EKG * (ABNORMAL) TROPONIN I (10/19/2023 3:25 EST) Troponin I (ng/mL) 3.310(H) <0.034 ng/mL 10/19/2023 4:05 EST [facility] Blood VENOUS BLOOD / Unknown Venipuncture / Unknown 10/19/2023 3:25 EST 10/19/2023 3:32 EST Narrative [facility] - 10/19/2023 4:05 EST The results of this assay can be falsely lowered due to the consumption of Biotin. Kathleen Falgrace HERNANDEZ CHEMISTRY & BLOOD G ORDERABLES Performing Organization Address City/[facility]/ZIP Co de Phone Number [facility] [address] [place] [address] * (ABNORMAL) BASIC METABOLIC PANEL (BMP) (10/19/2023 3:25 EST) Sodium 136 136 - 145 mmol/L 10/19/2023 3:51 EST [facility] Potassium 3.9 3.5 - 5.0 mmol/L 10/19/2023 3:51 [facility] Chloride 102 96 - 110 mmol/L 10/19/2023 3:51 [facility] CO2 Total 27 22 - 32 mmol/L 10/19/2023 3:51 [facility] Anion Gap 7 5 - 14 mmol/L 10/19/2023 3:51 [facility] Glucose 150(H) 70 - 99 mg/dl 10/19/2023 3:51 [facility] Calcium 8.6 8.5 - 10.5 mg/dL 10/19/2023 3:51 [facility] BUN 15 10 - 26 mg/dL 10/19/2023 3:51 [facility] Creatinine 0.89 0.66 - 1.25 mg/dL 10/19/2023 3:51 [facility] eGFR 95 >60 mL/min/1.73 m2 10/19/2023 3:51 [facility] Blood VENOUS BLOOD / Unknown Venipuncture / Unknown 10/19/2023 3:25 EST 10/19/2023 3:32 EST Kathleen Delgadograce HERNANDEZ CHEMISTRY & BLOOD G ORDERABLES Performing Organization Address City/[facility] Co de Phone Number [facility] [address] [place] [address] * COMPLETE BLOOD COUNT (10/19/2023 3:25 EST) WBC 8.14 4.00 - 10.40 K/cmm 10/19/2023 3:39 [facility] RBC 4.74 4.36 - 5.78 M/cmm 10/19/2023 3:39 [facility] Hemoglobin 14.7 13.8 - 17.3 g/dL 10/19/2023 3:39 [facility] HCT 42.8 39.5 - 50.2 % 10/19/2023 3:39 [facility] MCV 90 81 - 95 fL 10/19/2023 3:39 [facility] MCH 31.0 27.6 - 33.0 pg 10/19/2023 3:39 [facility] MCHC 34.3 32.8 - 36.4 g/dL 10/19/2023 3:39 [facility] RDW-CV 12.8 <14.2 % 10/19/2023 3:39 [facility] RDW-SD 42.1 <46.0 fl 10/19/2023 3:39 [facility] PLT 171 141 - 377 K/cmm 10/19/2023 3:39 [facility] MPV 10.7 9.5 - 12.7 fL 10/19/2023 3:39 [facility] Blood VENOUS BLOOD / Unknown Venipuncture / Unknown 10/19/2023 3:25 EST 10/19/2023 3:32 EST Kathleen Mckeon NP HEMATOLOGY & PF4 OR DERABLES Performing Organization Address City/State/[facility] Co de Phone Number [facility] [address] [place] [address] * HEPATIC FUNCTION PANEL (ALB,ALK PHOS,ALT,AST,DBIL,TOT NOEL,TOT PROT) (10/19/2023 3:25 EST) Total Protein 6.8 6.3 - 8.2 g/dL 10/19/2023 3:51 [facility] Albumin 3.8 3.4 - 4.9 g/dL 10/19/2023 3:51 [facility] Bilirubin, Total 0.5 <1.4 mg/dL 10/19/19 3:51 [facility] Conjugated Bilirubin 0.0 <=0.3 mg/dL 10/19/2023 3:51 [facility] Unconjugated Bilirubin 0.2 <=1.1 mg/dL 10/19/2023 3:51 [facility] Alkaline Phosphatase 76 38 - 126 U/L 10/19/2023 3:51 [facility] ALT 24 <50 U/L 10/19/2023 3:51 [facility] AST 41 15 - 46 U/L 10/19/2023 3:51 [facility] Calculated Total Bilirubin 0.2 <1.4 mg/dL 10/19/2023 3:51 [facility] Blood VENOUS BLOOD / Unknown Venipuncture / Unknown 10/19/2023 3:25 EST 10/19/2023 3:32 EST Kathleen Mckeon NP CHEMISTRY & BLOOD G ORDERABLES [facility] [address] [place] [address] * HEMOGLOBIN A1C (10/19/2023 3:25 EST) Hemoglobin A1c 5.6 <5.7 % 10/19/2023 10:58 [facility] Comment: Glycemic Status References: Normal: ??<5.7% Pre-Diabetes: ??5.7% - 6.4% Diagnostic of Diabetes: ??> or = 6.5% (if confirmed) Est Avg Glucose 114 mg/dL 10:58 [facility] Comment:The eAG represents t he A1c result expressed as average glucose in mg/dL. Blood VENOUS BLOOD / Unknown Venipuncture / Unknown 10/19/2023 3:25 EST 10/19/2023 3:32 EST Kathleen Mckeon CAPITAL PROJECT ENGINEER CHEMISTRY & BLOOD G ORDERABLES Performing Organization Address [facility]/ZIP Co de Phone Number [facility] [address] [place] [address] * LIPID PROFILE (INCLUDES CHOLESTEROL, TRIGLYCERIDES, HDL, LDL) (10/19/2023 3:25 EST) Cholesterol 145 <200 mg/dL 10/19/2023 3:51 [facility] Comment:Note that therapeuti c goals will differ between patients based on cardiac risk factors and current medical therapy. HDL 44 >=40 mg/dl 10/19/2023 3:51 [facility] Comment:Note that therapeuti c goals will differ between patients based on cardiac risk factors and current medical therapy. LDL, Calculated 92 <160 mg/dL 3:51 [facility] Comment:Note that therapeuti c goals will differ between patients based on cardiac risk factors and current medical therapy. Triglyceride 47 <=150 mg/dL 10/19/2023 3:51 [facility] Comment:Note that therapeuti c goals will differ between patients based on cardiac risk factors and current medical therapy. Chol/HDL Ratio 3.3 See Note 10/19/2023 3:51 [facility] Comment:No reference range h as been established for CHOL/HDL ratio. Non HDL Cholesterol 101 <160 mg/dL 10/19/2023 3:51 [facility] Comment:Note that therapeuti c goals will differ between patients based on cardiac risk factors and current medical therapy. Blood VENOUS BLOOD / Unknown Venipuncture / Unknown 10/19/2023 3:25 EST 10/19/2023 3:32 EST Kathleen Mckeon CAPITAL PROJECT ENGINEER CHEMISTRY & BLOOD G ORDERABLES Performing Organization Address City/[facility] Co de Phone Number [facility] [address] [place] [address] * EKG 12-LEAD (10/19/2023 2:31 EST) 10/19/2023 2:31 EST Narrative [facility] EKG - 10/19/2023 17:36 EST ? [facility] ? Test Date: ?2023-10-19 Pat Name: ? RENÉ RIVERA ? Department: ?? [place] [address] ? Room: ? [id number] Gender: ? Male ? 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 [id number] : ?1955 ? Requested By: SIMON CARDENAS Order Number: [id number] ? Reading MD: ?? NALINI SHAKA MD ? Measurements Intervals ?[place] ? Rate: ? 82 ? P: ?67 NV: ? 222 ?QRS: ?49 QRSD: ? 98 ? T: ?101 QT: ? 372 ? QTc: ?435 ? Interpretive Statements SINUS RHYTHM WITH FIRST DEGREE AV BLOCK WITH OCCASIONAL SUPRAVENTRICULAR PREMATURE COMPLEXES ANTERIOR MYOCARDIAL INFARCTION , PROBABLY RECENT [40+ ms Q WAVE AND/OR ST/T ABNORMALITY IN V3/V4] ACUTE SC Compared to ECG 11/13/2019 01:56:09 First degree AV block now present Myocardial infarct finding now present Sinus bradycardia no longer present I reviewed the tracing and have either agreed or edited the findings in this report. Electronically Signed On 10-19-2023 17:36:19 EST by NALINI MATT MD. Procedure Note Nalini Matt MD - 10/19/2023 [facility] Test Date: 2023-10-19 Pat Name: RENÉ RIVERA Department: [place] [address] Room: [facility] Gender: Male Machine Bander And Cellophaner Helper: [id number] : 1955 Requested By: SIMON CARDENAS Order Number: [id number] Reading MD: NALINI MATT MD Measurements Intervals [place] Rate: 82 P: 67 NV: 222 QRS: 49 QRSD: 98 T: 101 QT: 372 QTc: 435 Interpretive Statements SINUS RHYTHM WITH FIRST DEGREE AV BLOCK WITH OCCASIONAL SUPRAVENTRICULAR PREMATURE COMPLEXES ANTERIOR MYOCARDIAL INFARCTION , PROBABLY RECENT [40+ ms Q WAVE AND/ORST/T ABNORMALITY IN V3/V4] ACUTE SC Compared to ECG 11/13/2019 01:56:09 First degree AV block now present Myocardial infarct finding now present Sinus bradycardia no longer present I reviewed the tracing and have either agreed or edited the findings inthis report. Electronically Signed On 10-19-2023 17:36:19 EST by NALINI MASON. Kathleen Mckeon NP CARDIAC ECG ORDERAB LES [facility] EKG * IVUS (10/19/2023 2:01 EST) Anatomical Region Laterality Modality Cafe Associate Narrative 10/19/2023 2:01 EST Refer to the primary case's report for the procedure summary. James Bryan MD CARDIAC CATH ORDERAB LES * LEFT HEART CATH, PERCUTANEOUS CORONARY INTERVENTION (10/19/2023 2:01 EST) Anatomical Region Laterality Modality Cafe Associate 10/19/2023 1:05 EST Narrative 10/20/2023 13:37 EST Cardiology [address] [place] [address] Catheterization Laboratory Study Patient: René Rivera Study Date: ??10/19/2023 ? : ? 1955 Referring: James Bryan MD Diagnostic Attending: ??James Bryan Interventional Attending: ?? James Bryan ATTESTATION: James Candelaria was present and supervising for the entire procedure. I, SHU iWn was the initial author of this report. [...] + LV pressure s/d, ed 169/18, 21, dP/tg=[id number] Hg/s + + + Electronically signed by James Bryan MD 2023-10-20 13:37 Procedure Note James Bryan MD - 10/20/[address] [place] [id number] Catheterization Laboratory Study Patient: René Rivera Study [...] and given with a maximum inflation pressure [id number]. STUDY COMPLETION: The estimated blood loss was [...] + LV pressure s/d, ed 169/18, 21, dP/pi=[id number] Hg/s + + + Electronically signed by James Bryan MD 2023-10-20 13:37 James Bryan MD CARDIAC CATH ORDERAB LES * XR OUTSIDE IMAGES CHEST (10/18/2023 7:45 EST) Narrative 10/19/2023 7:45 EST This is a non-reportable exam. External Imaging IMG OTHER IMAGING OR DERABLES documented in this encounter Visit Diagnoses Diagnosis STEMI (ST elevation myocardial infarction) ([facility]) Acute myocardial infarction, unspecified site, episode of care unspecified STEMI (ST elevation myocardial infarction) ([facility])- Primary Acute myocardial infarction, unspecified site, episode of care unspecified documented in this encounter Admitting Diagnoses Diagnosis STEMI (ST elevation myocardial infarction) ([facility]) Acute myocardial infarction, unspecified site, episode of care unspecified documented in this encounter Administered Medications Inactive Administered Medications - up to 3 most recent administrations Medication Order MAR Action Action Date Dose Rate Site acetaminophen (TYLENOL) tablet 650 mg 650 mg, oral, EVERY 4 HOURS PRN, Starting on Thu10/19/23 at 0215, Until Lu 10/22/23 at 1258, Pain, Routine, Release Given 10/22/2023 [...] mg Given 10/20/2023 9:24 EST 10 mg fentaNYL citrate (PF) injection PRN, Starting on Thu10/19/23 at 0106, Until Thu10/19/23 at 0158, Routine, Intraprocedure Given 10/19/2023 1:38 EST 50 mcg Given 10/19/2023 1:06 EST 50 mcg furosemide (LASIX) tablet 20 mg 20 mg, oral, DAILY, First dose on Thu10/20/23 at 1345, Until Discontinued, Routine Given 10/22/2023 8:16 EST 20 mg Given 10/21/2023 8:32 EST 20 mg Given 10/20/2023 14:02 EST 20 mg heparin 1,000 unit/mL injection PRN, Starting on Thu10/19/23 at 0119, Until Thu10/19/23 at 0158, Routine, Intraprocedure Given 10/19/2023 1:19 EST 4,500 Units iopamidoL (ISOVUE-370) injection PRN, Starting on Thu10/19/23 at 0154, Until Thu10/19/23 at 0158, Routine, Intraprocedure Given 10/19/2023 1:54 EST 110 mL irbesartan (AVAPRO) tablet 75 mg 75 mg, oral, DAILY, First dose on Thu10/21/23 at 1015, Until Discontinued, Routine Given 10/22/2023 8:15 EST 75 mg Given 10/21/2023 12:11 EST 75 mg isosorbide MONOnitrate (IMDUR) CR tablet 30 mg 30 mg, oral, DAILY, First dose on Thu10/21/23 at 1315, Until Discontinued, Routine Given 10/22/2023 8:14 EST 30 mg Given 10/21/2023 13:16 EST 30 mg metoprolol SUCCinate (TOPROL-XL) tablet 25 mg 25 mg, oral, DAILY, First dose (after last modification) on Thu10/22/23 at 0900, Until Discontinued, Routine Given 10/22/2023 8:14 EST 25 mg midazolam (PF) (VERSED) injection PRN, Starting on Thu10/19/23 at 0106, Until Thu10/19/23 at 0158, Routine, Intraprocedure Given 10/19/2023 1:21 EST 1 mg Given 10/19/2023 1:06 EST 1 mg ondansetron (PF) (ZOFRAN) injection 4 mg 4 mg, intravenous, EVERY 8 HOURS PRN, Starting on Thu10/19/23 at 0247, Until Thu10/22/23 at 1258, Nausea, Routine ondansetron (PF) (ZOFRAN) injection PRN, Starting on Thu10/19/23 at 0106, Until Thu10/19/23 at 0201, Routine, Intraprocedure Given 10/19/2023 1:06 EST 4 mg rosuvastatin (CRESTOR) tablet 40 mg 40 mg, oral, DAILY, First dose on Thu10/19/23 at 0900, Until Discontinued, Routine Given 10/22/2023 8:15 EST 40 mg Given 10/21/2023 8:31 EST 40 mg Given 10/20/2023 9:24 EST 40 mg sodium chloride 0.9 % (NS) infusion FA IP EQF CONTINUOUS PRN FOR ONE STEP MEDS, Starting on Thu10/19/23 at 0106, Until Thu10/19/23 at 0158, Routine, Intraprocedure New Bag 10/19/2023 1:06 EST 25 mL/hr 25 mL/hr spironolactone (ALDACTONE) tablet [...] 21:05 EST 10 mg ticagrelor (BRILINTA) tablet PRN, Starting on Thu10/19/23 at 0201, Until Thu10/19/23 at 0204, Routine, Intraprocedure Given 10/19/2023 2:01 EST 180 mg documented in this encounter Discontinued Medications [...] 0923 (Given - Provider: Aida Anton RN) 0832 (Given - Provider: Tiffany Mcwilliams RN) 0814 (Given - Provider: Bisi Rojas RN) clopidogreL (PLAVIX) tablet 75 mg 75 mg, oral, DAILY, First dose on Thu10/20/23 at 0900, Until Discontinued, Routine 0927 (Given - Provider: Aida Anton RN) 0831 [...] Until Discontinued, Routine 0924 (Given - Provider: Adia Anton RN) 0831 (Given - Provider: Tiffany [...] on Thu10/21/23 at 1315, Until Discontinued, Routine 131 (Given - Provider: Tiffany Mcwilliams RN) potassium chloride SA (KLOR-CON M20) tablet 20 mEq (CANCELED) 20 mEq, oral, 2 TIMES DAILY, First dose on Thu10/20/23 at 0900, Until Discontinued, Routine 09 (Given - Provider: Aida Anton RN)2103 (Given - Provider: Cheryl Estrada RN) 0832 [...] Mcwilliams RN) 0815 (Given - Provider: Bisi Rojas, CUONG) spironolactone (ALDACTONE) tablet 25 mg 25 mg, oral, DAILY, First dose on Thu10/21/23 at 1015, Until Discontinued, Routine 1101 (Given - Provider: Tiffany Mcwilliams RN) 0815 (Given - Provider: Bisi Rojas, CUONG) terazosin (HYTRIN) capsule 10 mg 10 mg, oral, AT BEDTIME, First dose on Thu10/19/23 at 2100, Until Discontinued, Routine 2103 (Given - Provider: Cheryl Estrada, RN) 2107 (Given - Provider: Tameka [place], CUONG) Continuous [...] Release 0549 (Given - Provider: Cheryl Estrada, RN)1600 (Given - Provider: Aida Anton RN) 0832 (Given - Provider: Tiffany Mcwilliams RN)210 (Given - Provider: Tameka [place], CUONG) 108 (Given - Provider: Tameka [place], CUONG) ondansetron (PF) (ZOFRAN) injection 4 mg 4 [...] Count Last Ordered Date First Ordered Date metoprolol SUCCinate (TOPROL -XL) tablet 25 mg 1 10/22/2023 empagliflozin (JARDIANCE) tablet 10 mg 1 irbesartan (AVAPRO) tablet 75 mg 1 10/21/19 isosorbide MONOnitrate (IMDU R) CR tablet 30 mg 1 10/21/2023 metoprolol SUCCinate (TOPROL -XL) tablet 50 mg 1 10/21/2023 spironolactone (ALDACTONE) tablet 25 mg 1 0 10/21/2023 furosemide (LASIX) tablet 20 mg potassium chloride SA (KLOR- CON M20) tablet 20 mEq 10/20/2023 potassium chloride SA (KLOR- CON M20) tablet 40 mEq 10/20/2023 sodium chloride 0.9 % (NS) infusion 2 10/2010/19/2023 acetaminophen (TYLENOL) tablet 650 mg aspirin EC tablet 81 mg 10/19/2023 atropine 0.1 mg/mL syringe 10/19/2023 buPROPion (WELLBUTRIN XL) XL tablet 300 mg 10/19/2023 clopidogreL (PLAVIX) tablet 75 mg 024 ezetimibe (ZETIA) tablet 10 mg 10/19/2023 fentaNYL citrate (PF) 50 mcg/mL injection 10/19/2023 heparin 1,000 unit/mL injection hydroCHLOROthiazide tablet 25 mg 10/19/19 lidocaine (PF) 20 mg/mL (2 %) injection 1 0 10/19/2023 LORazepam (ATIVAN) tablet 1 mg 10/19/2023 losartan (COZAAR) tablet 100 mg metoprolol TARtrate (LOPRESS OR) tablet 25 mg 10/19/2023 midazolam (PF) (VERSED) 1 mg/mL injection 10/19/2023 nitroglycerin 100 mcg/mL syringe 10/19/19 ondansetron (PF) (ZOFRAN) 4 mg/2 mL injection 10/19/2023 ondansetron (PF) (ZOFRAN) injection 4 mg 10/19/2023 perflutren lipid microsphere s (DEFINITY) 0.165 mg in sodium chloride (PF) 1 mL 10/19/2023 rosuvastatin (CRESTOR) tablet 40 mg 10/19 terazosin (HYTRIN) capsule 10 mg 10/19/19 24 ticagrelor (BRILINTA) 90 mg tablet 2 2023 ticagrelor (BRILINTA) tablet 90 mg 2023 verapamil (ISOPTIN) 2.5 mg/mL injection 1 0 [...] 10/22/2023 documented in this encounter Care Teams Identification Printing Machine Setter Relationship Specialty Start Date End Date Vladimir Simmons MD [address] [phone] PCP - General 10/08/15 05/26/24 documented as of this encounter
--- OUTSIDE RECORDS SUMMARY | 2024-06-23 16:43 | XMS_ITS | Encounter Summary ---
Author Organization [facility] Address [address] [place] [address] Care Team Providers Care Paint Crew Supervisor Name Role Phone Vladimir Simmons MD Primary Care Provider [phone] Encounter Details Date Type Department Care Team (Latest Contact Info) Description 10/18/2023 - 10/18/2023 23:59 EST Hospital Encounter [facility] Secondary Reads [place] Discharge Disposition: Home or Self Care Social [...] No 10/08/2015 documented as of this encounter Medications at Time of Discharge [...] mouth daily 90 Tab 3 10/09/2015 05/31/2024 atorvastatin (LIPITOR) 80 mg tablet Take 1 Tab by mouth at bedtime 90 Tab 3 10/09/2015 10/19/2023 buPROPion (WELLBUTRIN XL) 150 mg XL tablet Take 300 mg by mouth daily. 05/30/2024 clopidogrel (PLAVIX) 75 mg tablet Take 1 Tab by mouth daily 90 Tab 3 10/08/2015 10/19/2023 furosemide (LASIX) 20 mg tablet Take 1 Tab by mouth daily. 30 Tab 2 11/13/2019 10/22/2023 hydrochlorothiazide (HYDRODIURIL) 25 mg tablet Take 25 mg by mouth daily 05/30/2024 ibuprofen (MOTRIN) 800 mg tablet Take 800 mg by mouth every 6 hours as needed for Pain 10/22/2023 losartan (COZAAR) 100 mg tablet Take 1 Tab by mouth daily 90 Tab 3 10/09/2015 10/22/2023 metoprolol XL (TOPROL-XL) 25 mg tablet Take 1 Tab by mouth daily 90 Tab 3 10/09/2015 10/22/2023 nicotine polacrilex (COMMIT) 2 mg lozenge HOLD 1 PIECE TO INSIDE OF MOUTH (BUCCAL) EVERY TWO HOURS NEEDED NEEDED FOR NICOTINE CRAVINGS 07/08/2023 05/31/2024 POTASSIUM CHLORIDE ORAL Take 20 mEq by mouth 10/22/2023 rosuvastatin (CRESTOR) 40 mg tablet Take 40 mg by mouth daily. 10/22/2023 terazosin (HYTRIN) 10 mg capsule Take 10 mg by mouth at bedtime 05/31/2024 documented as of this encounter Discharge Disposition Disposition Code Departure Means Destination Home or Self Care documented in this encounter Plan of Treatment Upcoming Encounters Date Type Department Care Team (Late st Contact Info) Description 07/12/2024 16:45 EDT Office Visit [facility] Cardiology - [address] [place] [address] Wilberto Ocasio MD [address] [phone] documented as of this encounter Procedures Procedure Name Priority Date/Time Associated Diagnosis Comments XR OUTSIDE IMAGES CHEST Routine 10/18/2023 7:45 EST documented in this encounter Results * XR OUTSIDE IMAGES CHEST (10/18/2023 7:45 EST) Narrative 10/19/2023 7:45 EST This is a non-reportable exam. External Imaging IMG OTHER IMAGING OR DERABLES documented in this encounter Visit Diagnoses Not on filedocumented in this encounter Care Teams Paint Crew Supervisor Relationship Specialty Start Date End Date Vladimir Simmons MD [address] [phone] PCP - General 10/08/15 05/26/24 documented as of this encounter
--- OUTSIDE RECORDS SUMMARY | 2024-06-23 16:43 | XMS_ITS | Encounter Summary ---
Author Organization [facility] Address [address] [place] [address] Care Team Providers Care Transverse Abdominal Muscle Nurse Name Role Phone Vladimir Simmons MD Primary Care Provider [phone] Reason for Referral * Follow Up (3 - 10 Business Days) - New Request Specialty Diagnoses / Procedures Referred By Contac t Referred To Contact Diagnoses Volume overload state of [facility] Donato Smith MD [address] [facility] [place] [address] Vladimir Simmons MD [address] [address] Referral ID Status Reason Start Date Expiration Date Visits Requested Visits Authorized [id number] New Request Continuity of Care 11/13/2019 1 1 Question Answer Reason for Request: Follow-up ED visit and medication managment Reason for Visit * Reason Comments Shortness of Breath Pt arrived with New ort rescue d/t SOB. Pt stated that it has been periodic throughout the day and has gotten worse. Pt does not endorse CP but that the feeling is similar to his past GA with 5 stents placed. Pt has notable edema in the lower extremities, Pt on 324 mg of ASA given. Pt also stated that he had 2 nitro SL at 0000. Encounter Details Date Type Department Care Team (Late st Contact Info) Description 11/13/2019 1:48 EST - 11/13/2019 5:38 EST Emergency [facility] Emergency Department - [address] [place] [address], [place] [id number] Itz Pride, DO [address] [facility], [address] [place] [address] Volume overload state of heart (Primary Dx) Discharge Disposition: Home or Self Care Social [...] Sign Reading Time Taken Comments Blood Pressure 122/69 11/13/2019 0526 EST Pulse 97 11/13/2019 0526 EST Temperature 37 ??C (98.6 ??F) 11/13/2019 0526 EST Respiratory Rate 20 11/13/2019 0526 EST Oxygen Saturation 97% 11/13/2019 0526 EST Inhaled Oxygen Concentration - - Weight 111.1 kg (245 lb) 11/13/2019 0154 EST Height 175.3 cm (5' 9) 11/13/2019 0154 EST Body Mass Index 36.18 11/13/2019 0154 EST documented in this encounter Functional Status [...] No 10/08/2015 documented as of this encounter Discharge Instructions * Discharge Instructions* Donato Smith MD - 11/13/2019 5:19 EST Images from the original note were not included. [facility] Patient Instructions Learning About Fluid Overload What is fluid overload? Fluid overload means that your body has too much water. The extra fluid in your body can raise yourblood pressure and force your heart to work harder. It can also make it hard for you to breathe. Most of your body is made up of water. The body uses minerals like sodium and potassium to help organs such as your heart, kidneys, and liver balance how much water you need. For example, the heart pumps blood to move water around the body. And the kidneys work to get rid of the water that the bodydoesn't need. Health conditions like kidney disease, heart failure, and cirrhosis can cause fluid overload. Other things can cause extra fluid to build up. IV fluids, some medicines, too much salt (sodium) from food, and certain medical treatments can sometimes cause this fluid increase. What are the symptoms? Some of the most common symptoms are: ?? Gaining weight over a short period of time. ?? Swelling in the ankles or legs. ?? Shortness of breath. How is it treated? The goal of treatment is to remove the extra fluid in your body. Your treatment will depend on the cause. Your doctor may: ?? Give you medicines, such as diuretics (also called water pills). They help your body get rid of the extra fluid. ?? Restrict your fluid or salt intake. Follow-up care is a juarez part of your treatment and safety. Be sure to make and go to all appointments, and call your doctor if you are having problems. It's also a good idea to know your test resultsand keep a list of the medicines you take. Where can you learn more? Go to [email or web address] or log into your [employer] account at [email or web address] Enter O110 in the search box to learn more about Learning About Fluid Overload. Current as of: December 28, 2018 Content Version: 12.2 ?? [id number] [facility] CenterAd[facility], Incorporated. Care instructions adapted under license by [facility]. If you have questions about a medical condition or this instruction, always askyour healthcare professional. [employer] disclaims any warranty or liability for youruse of this information. documented in this encounter Medications at Time of Discharge Medication Sig Dispensed Refills Start Date End Date acetaminophen (TYLENOL) 325 mg capsule Take by mouth as needed. Multivitamins with Minerals tablet Take 1 Tab by mouth daily aspirin 81 mg EC tablet Take 1 [...] mouth daily 90 Tab 3 10/09/2015 10/22/2023 POTASSIUM CHLORIDE ORAL Take 20 mEq by mouth 10/22/2023 rosuvastatin (CRESTOR) 40 mg tablet Take 40 mg by mouth daily. 10/22/2023 terazosin (HYTRIN) 10 mg capsule Take 10 mg by mouth at bedtime 05/31/2024 documented as of this encounter Ordered Prescriptions Prescription Sig Dispensed Refills Start Date End Da te furosemide (LASIX) 20 mg tablet Take 1 Tab by mouth daily. 30 Tab 2 11/13/2019 10/22/2023 documented in this encounter Discharge Disposition Disposition Code Departure Means Destination Home or Self Senior Care documented in this encounter ED Notes * Itz Pride DO - 11/13/2019 0251 EST I, Mayuri Serna, am scribing for Itz Pride DO while he/she is personally performing the service. Mayuri Serna 11/13/2019 2:52 I performed a history and exam of this patient and discussed the case with the resident. I reviewedthis individual's note and I concur with the documented findings and plan of care except as documented differently. ROS as per resident chart. René Rivera is a 64 y.o. male with a history of STEMI s/p 5 stent placement, obesity, HLD, andHTN who presents to the ED via [place] rescue for shortness of breath. The patient reports that hisSOB started two days ago, but was acutely worsened today. According to the patient, he has had multiple episodes of chest tightness throughout the day. He explains that his Sx feel similar to past GA, but he denies chest pain. The patient notes that he has had increased BLE swelling over the past three days. He denies chest pain, fever, lightheadedness, dizziness, night sweats or recent illnesses. Of note, the patient took his blood pressure a few days ago at a pharmacy and it was 138/72. Heart monitor showed slower heart rate than expected. Per EMS, 324 mg of ASA and 2 nitro SL was given at 0000. On physical exam, the patient had BLE pitting edema. Patient had labs that were reviewed independently by myself, significant for negative troponin. BNP: 704. Patient had Chest X-ray, which was significant for Mild pulmonary edema. Patient had x-rays that were obtained, reviewed, and interpreted by myself and a radiologist. Please see radiology report for further details. 0300: The patient was given 20 mg IV furosemide with significant urine output. Patient was able to ambulate throughout the emergency department without hypoxia tachypnea lightheadedness chest pain orshortness of breath. Patient offered further period of observation and admission however they wouldprefer to go home and follow-up with her PCP. Patient's PCP office contacted by resident, plan to continue p.o. Lasix, red flags for return to the emergency department discussed at length The patient was discharged with instructions to follow up with his PCP. Prior to discharge usual and customary precautions were reviewed with the patient and/or family including follow-up instructions and reasons to return to the Emergency Department if condition worsens, does not improve as expected, or other new concerns arise. * Stefania Lewis RN - 11/13/2019 0229 EST 0154: Introduced self to patient. Pt placed on the continuous tele monitor and continuous pulse ox.EKG performed by tech. Pt stated that the SOB has been gradually getting worse today. Pt stated that the O2 helps the discomfort. Pt stated that he does not have any chest pain or chest pressure at this time but endorsed that the SOB and s/s experiencing are similar to the s/s pt was experiencing when he had an GA with 5 stent placements. Pt arrived from EMS with PIV that works well. Blood drawn and sent to the lab. 0220: RN notified MD that patient is bradycardic to 47-48. MD aware. Chest x-ray switched to portable. 0230: Portable chest x-ray performed. 0235: MD aware trop negative 0415: Pt ambulation trial complete lowest SpO2 96%. HR 52. Pt back to bed. Voided 300ml. documented in this encounter Miscellaneous Notes * Result Encounter Note - Donato Smith MD - 11/13/2019 0538 EST I have reviewed the labs/results. No action needed. * ED Resident - Donato Smith MD - 11/13/2019 0217 EST DOS: 11/13/2019 Chief Complaint Patient presents with ??? Shortness of Breath Pt arrived with Midkiff rescue d/t SOB. Pt stated that it has been periodic throughout the day and has gotten worse. Pt does not endorse CP but that the feeling is similar to his past GA with 5 stents placed. Pt has notable edema in the lower extremities, Pt on 324 mg of ASA given. Pt also stated that he had 2 nitro SL at 0000. HPI The patient is a 64 y.o. male past medical history significant for STEMI S/p cath with PCI & placement of 4 stents), hypertension, hyperlipidemia, obesity, BPH, melanoma and depression who presents today with with acute onset shortness of breath for approximately 2 days. Patient reports that hedecided to come into the ED today because shortness of breath worsened today and and he thinks his s ymptoms are similar to when he had a heart attack 12 years ago. Patient denies chest pain, chest pressure, chest tightness, headaches, lightheadedness, dizziness or syncope. Patient denies PND or orthopnea. He denies any recent illness or sick contacts, fevers, chills, night sweats, nausea, vomiting or diarrhea. Review of Systems Review of Systems Constitutional: Negative for chills and fever. HENT: Positive for congestion. Eyes: Negative. Respiratory: Positive for cough and shortness of breath. Negative for chest tightness and wheezing. Cardiovascular: Positive for leg swelling. Negative for chest pain and palpitations. Gastrointestinal: Positive for abdominal distention. Negative for abdominal pain, blood in stool, diarrhea and vomiting. Endocrine: Negative. Genitourinary: Negative. Musculoskeletal: Negative. Skin: Negative for rash. Allergic/Immunologic: Negative. Neurological: Negative for dizziness, weakness, light-headedness and headaches. Hematological: Negative. Psychiatric/Behavioral: Negative. The patient's past medical, family and social history was reviewed and updated as needed. Allergies Allergen Reactions ??? Fosinopril Cough Vital Signs Vitals Reassessment?: Yes Temp: 36.5 ??C (97.7 ??F) Temp src: Temporal Pulse: 54 Heart Rate: 55 BPM Cardiac Rhythm: Normal sinus rhythm, Sinus bradycardia Resp: 17 SpO2: 99 % BP: (!) 157/71 BP Device: BP Machine BP Cuff Location: Right arm O2 Flow Rate (L/min): 2 l/min O2 Device: Nasal cannula Physical Exam Constitutional: He is oriented to person, place, and time. He appears well- developed and well-nourished. Non-toxic appearance. He does not appear ill. No distress. HENT: Head: Normocephalic and atraumatic. Eyes: Pupils are equal, round, and reactive to light. EOM are normal. Neck: Normal range of motion. Neck supple. Cardiovascular: Regular rhythm. Exam reveals no gallop and no friction rub. Murmur heard. Bradycardic Pulmonary/Chest: No respiratory distress. He has no decreased breath sounds. He has no wheezes. He has no rhonchi. He has no rales. Abdominal: Soft. Bowel sounds are normal. He exhibits distension. Musculoskeletal: Right lower leg: He exhibits edema. Left lower leg: He exhibits edema. Neurological: He is alert and oriented to person, place, and time. Skin: Skin is warm and dry. No rash noted. Psychiatric: He has a normal mood and affect. His behavior is normal. RESULTS EKG orders: EKG 12-LEAD ECG Reviewed: Findings include: normal EKG, normal sinus rhythm, unchanged from previous tracings, sinus bradycardia. The study has been independently viewed by me. The study has been interpreted independently and contemporaneously by me. The EKG appears to be a good tracing. Attending cardiologistnot immediately available for acute interpretation. Radiology orders: XR CHEST 2 VIEWS Imaging Reviewed. I have independently reviewed the images. Results are notable for Mild pulmonary edema Procedures ED COURSE A medical screening exam was performed. Sickle exam significant for bradycardia, minimal crackles bilateral bases, 2+ lower extremity edema. Chest x-ray notable for mild pulmonary edema. Patient given 20 mg of IV Lasix with good response. Patient was able to ambulate off of oxygen without desaturation prior to discharge. Patient was prescribed 20 mg of PO Lasix daily. He was discharged home in a stable condition, referral to primary care placed and outpatient echocardiogram ordered. Prior to discharge usual and customary precautions were reviewed with the patient and/or family including follow-up instructions and reasons to return to the Emergency Department if condition worsens, does not improve as expected, or other new concerns arise. Final diagnoses: Volume overload state of heart DISPOSITION: Discharged The patient's pain was managed to an adequate level weighing risk vs. benefit of further medications. Upon departure from the Emergency Department, the patient's pain was 0 on a zero to ten scale. Any further pain treatment will be at the discretion of the provider following up with the patient based on their clinical assessment. Condition at departure from the Emergency Department: Stable PCP: Vladimir Simmons 11/13/2019 2:17 No flowsheet data found. Donato Smith MD PGY-1 Internal Medicine Pager [phone] documented in this encounter Plan of Treatment Upcoming Encounters Date Type Department Care Team (Late st Contact Info) Description 07/12/2024 16:45 EDT Office Visit [facility] Cardiology - [place] [address] Wilberto Ocasio MD [address] [facility] [address] [place] [address] Scheduled Referrals Name Type Priority Associated Diagnoses Orde r Schedule AMB CONS/FOLLOW UP PRIMARY CARE PHYSICIAN Outpatient Referral Routine Volume Overload State Of Heart Ordered: 11/13/2019 documented as of this encounter Procedures Procedure Name Priority Date/Time Associated Diagnosis Comments ECG REPORT - SCANNED 11/14/2019 10:12 EST XR CHEST PORTABLE 1 VIEW STAT 11/13/2019 2:31 EST HOLD BLUE TOP STAT 11/13/2019 1:57 EST SCREENING GLUCOSE STAT 11/13/2019 1:5 7 EST TROPONIN I STAT 11/13/2019 1:57 EST COMPLETE BLOOD COUNT AND DIFFERENTIAL STAT 11/13/2019 1:57 EST BUN STAT 11/13/2019 1:57 EST NT PRO BNP STAT Add-on 11/13/2019 1:57 EST MAGNESIUM STAT 11/13/2019 1:57 EST CREATININE STAT 11/13/2019 1:57 EST ELECTROLYTES STAT 11/13/2019 1:57 EST EKG 12-LEAD STAT 11/13/2019 1:56 EST documented in this encounter Results * ECG REPORT - SCANNED (11/14/2019 10:12 EST) 11/14/2019 10:1 2 EST Scan 2 Professor Of Food Biochemistry PROCEDURE/MINOR SHARITA GICAL ORDERABLES * XR CHEST PORTABLE 1 VIEW (11/13/2019 2:31 EST) Anatomical Region Laterality Modality Computed Radiogr aphy 11/13/2019 9:27 EST Impressions 11/13/2019 9:27 EST Perhaps mild pulmonary edema I have personally reviewed the images and the above interpretation and agree with the findings. Narrative 11/13/2019 9:27 EST XR CHEST PORTABLE 1 VIEW ??11/13/2019 2:18 AM CLINICAL HISTORY/COMMENTS: SOB COMPARISON: October 08 2015. FINDINGS: Single portable AP view of the chest. Lines/tubes: ??None Soft tissues, bones and extrathoracic findings: Degenerative change of the right shoulder. Cardiac and mediastinal contours: Cardiac silhouette is at the upper limit of normal in size Lungs: The pulmonary vascularity is slightly indistinct. There is a small amount of peribronchial cuffing. The lungs are otherwise well-expanded and clear Pleura: No visibile pleural abnormalities. Procedure Note Hebert Pillai MD - 11/13/2019 XR CHEST PORTABLE 1 VIEW 11/13/2019 2:18 AM CLINICAL HISTORY/COMMENTS: SOB COMPARISON: October 08 2015. FINDINGS: Single portable AP view of the chest. Lines/tubes: None Soft tissues, bones and extrathoracic findings: Degenerative change of theright shoulder. Cardiac and mediastinal contours: Cardiac silhouette is at the upper limitof normal in size Lungs: The pulmonary vascularity is slightly indistinct. There is a smallamount of peribronchial cuffing. The lungs are otherwise well-expanded andclear Pleura: No visibile pleural abnormalities. IMPRESSION Perhaps mild pulmonary edema I have personally reviewed the images and the above interpretation andagree with the findings. Donato Smith MD IMG DIAGNOSTIC IMAGI NG ORDERABLES * (ABNORMAL) NT PRO BNP (11/13/2019 1:57 EST) NT-pro BNP 704(H) <125 pg/mL 11/13/2019 2:51 EST [facility] Comment: The results of this assay can be falsely lowered due to consumption of Biotin. Blood VENOUS BLOOD / Unknown Venipuncture / Unknown 11/13/2019 1:57 EST 11/13/2019 2:03 EST Itz Pride DO CHEMISTRY & BLOOD GA S ORDERABLES Performing Organization Address [facility]/ZIP Co de Phone Number [facility] [address] [place] [address] * HOLD BLUE TOP (11/13/2019 1:57 EST) Hold Hold 11/13/2019 3:16 EST [facility] Blood VENOUS BLOOD / Unknown Venipuncture / Unknown 11/13/2019 1:57 EST 11/13/2019 2:03 EST Shannen Nichols MD LAB INFO SERV ICE AND SUPPORT & PHONE RESULT Performing Organization Address [facility] Co de Phone Number [facility] [address] [place] [address] * (ABNORMAL) SCREENING GLUCOSE (11/13/2019 1:57 EST) Glucose, Screening 103(H) 70 - 100 mg/dL 11/13/2019 2:21 EST [facility] Blood VENOUS BLOOD / Unknown Venipuncture / Unknown 11/13/2019 1:57 EST 11/13/2019 2:03 EST Shannen Nichols MD CHEMISTRY & B LOOD GAS ORDERABLES Performing Organization Address City/[facility]/ZIP Co de Phone Number [facility] [address] [place] [address] * MAGNESIUM (11/13/2019 1:57 EST) Magnesium 2.3 1.7 - 2.8 mg/dL 11/13/2019 2:21 EST [facility] Blood VENOUS BLOOD / Unknown Venipuncture / Unknown 11/13/2019 1:57 EST 11/13/2019 2:03 EST Shannen Nichols MD CHEMISTRY & B LOOD GAS ORDERABLES [facility] [address] [place] [address] * TROPONIN I (11/13/2019 1:57 EST) Troponin I (ng/mL) <0.034 <0.034 ng/mL 11/13/2019 2:35 EST [facility] Blood VENOUS BLOOD / Unknown Venipuncture / Unknown 11/13/2019 1:57 EST 11/13/2019 2:03 EST Narrative [facility] - 11/13/2019 2:35 EST The results of this assay can be falsely lowered due to the consumption of Biotin. Shannen Nichols MD CHEMISTRY & B LOOD GAS ORDERABLES Performing Organization Address [facility] Co de Phone Number [facility] [address] [place] [address] * ELECTROLYTES (11/13/2019 1:57 EST) Pathologist [facility] Sodium 138 136 - 145 mEq/L 11/13/2019 2:21 [facility] Potassium 3.9 3.5 - 5.0 mEq/L 11/13/2019 2:21 [facility] Chloride 107 96 - 110 mEq/L 11/13/2019 2:21 [facility] CO2 Total 30 22 - 32 mEq/L 11/13/2019 2:21 EST [facility] Blood VENOUS BLOOD / Unknown Venipuncture / Unknown 11/13/2019 1:57 EST 11/13/2019 2:03 EST Shannen Nichols MD CHEMISTRY & B LOOD GAS ORDERABLES Performing Organization Address [facility]/ZIP Co de Phone Number [facility] [address] [place] [address] * CREATININE (11/13/2019 1:57 EST) Creatinine 1.06 0.66 - 1.25 mg/dL 11/13/2019 2:21 EST [facility] eGFR 75 >60 mL/min/1.7 3m2 11/13/2019 2:21 [facility] Comment:eGFR calculated usin g CKD-EPI equation for non- Americans. Multiply eGFR by 1.16 for patients. Blood VENOUS BLOOD / Unknown Venipuncture / Unknown 11/13/2019 1:57 EST 11/13/2019 2:03 EST Shannen Nichols MD CHEMISTRY & B LOOD GAS ORDERABLES Performing Organization Address City/[facility] Co de Phone Number [facility] [address] [place] [address] * BUN (11/13/2019 1:57 EST) Pathologist [facility] BUN 15 10 - 26 mg/dL 11/13/2019 2:21 [facility] Blood VENOUS BLOOD / Unknown Venipuncture / Unknown 11/13/2019 1:57 EST 11/13/2019 2:03 EST Shannen Nichols MD CHEMISTRY & B LOOD GAS ORDERABLES Performing Organization Address [facility] de Phone Number [facility] [address] [place] [address] * (ABNORMAL) COMPLETE BLOOD COUNT AND DIFFERENTIAL (11/13/2019 1:57 EST) WBC 8.11 4.00 - 10.40 K/cmm 11/13/2019 2:20 [facility] RBC 3.99(L) 4.36 - 5.78 M/cmm 11/13/2019 2:20 [facility] Hemoglobin 12.1(L) 13.8 - 17.3 gm/dL 11/13/2019 2:20 [facility] HCT 38.0(L) 39.5 - 50.2 % 11/13/2019 2:20 [facility] MCV 95 81 - 95 fl 11/13/2019 2:20 [facility] MCH 30.3 27.6 - 33.0 pg 11/13/2019 2:20 [facility] MCHC 31.8(L) 32.8 - 36.4 gm/dL 11/13/2019 2:20 [facility] RDW-CV 13.2 <14.2 % 11/13/2019 2:20 [facility] RDW-SD 46.3(H) <46.0 fl 11/13/2019 2:20 [facility] PLT 166 141 - 377 K/cmm 11/13/2019 2:20 [facility] MPV 10.3 9.5 - 12.7 fl 11/13/2019 2:20 [facility] % Neutrophils 66.6 % 11/13/2019 2:20 [facility] % Lymphocytes 20.1 % 11/13/2019 2:20 [facility] % Monocytes 10.2 % 11/13/2019 2:20 [facility] % Eosinophils 2.3 % 11/13/2019 2:20 [facility] % Basophils 0.4 % 11/13/2019 2:20 [facility] % Immature Grans 0.4 % 11/13/19 20 2:20 [facility] Absolute Neutrophils 5.40 2.20 - 8.85 K/cmm 11/13/2019 2:20 [facility] Absolute Lymphocytes 1.63 1.09 - 3.30 K/cmm 11/13/2019 2:20 [facility] Absolute Monocytes 0.83(H) 0.10 - 0.80 K/cmm 11/13/2019 2:20 [facility] Absolute Eosinophils 0.19 0.03 - 0.61 K/cmm 11/13/2019 2:20 [facility] ABS Basophils 0.03 0.01 - 0.11 K/cmm 11/13/2019 2:20 [facility] Absolute Immature Grans 0.03 0.00 - 0.06 K/cmm 11/13/2019 2:20 [facility] Type of Differential: Auto 11/13/2019 2:20 [facility] SERVICES Blood VENOUS BLOOD / Unknown Venipuncture / Unknown 11/13/2019 1:57 EST 11/13/2019 2:03 EST Shannen Nichols MD PACKAGES & DN A PROBE ORDERABLES [facility] [address] [place] [id number] * EKG 12-LEAD (11/13/2019 1:56 EST) 11/13/2019 1:56 EST Narrative [facility] EKG - 11/14/2019 10:07 EST ?[facility] Emergency ? Test Date: ?2019-11-13 Pat Name: ? RENÉ RIVERA ? Department: ?? ED ? Room: ? AC14 Gender: ? Male ? Manager Of Quality: ?? [id number] : ?1955 ? Requested By: KAITLIN LINDQUIST Order Number: [id number] ? Nancy WING: ?? JAYJAY LOONEY MD ? Measurements Intervals ?Assumption ? Rate: ? 51 ? P: ?45 CA: ? 199 ?QRS: ?41 QRSD: ? 105 ?T: ?53 QT: ? 448 ? QTc: ?414 ? Interpretive Statements SINUS BRADYCARDIA POSSIBLE RIGHT VENTRICULAR CONDUCTION DELAY Compared to ECG 10/08/2015 05:09:28 Sinus rhythm no longer present Ventricular premature complex(es) no longer present Myocardial infarct finding no longer present I reviewed the tracing and have either agreed or edited the findings in this report. Electronically Signed On 11-14-2019 10:07:43 EST by JAYJAY LOONEY MD. Procedure Note Jayjay Looney MD - 11/14/2019 [facility] Emergency Test Date: 2019-11-13 Pat Name: RENÉ RIVERA Department: ED Room: [facility] Gender: Male Manager Of Quality: [id number] : 1955 Requested By: KAITLIN KHAN Order Number: [id number] Nancy MD: JAYJAY LOONEY MD Measurements Intervals Assumption Rate: 51 P: 45 CA: 199 QRS: 41 QRSD: 105 T: 53 QT: 448 QTc: 414 Interpretive Statements SINUS BRADYCARDIA POSSIBLE RIGHT VENTRICULAR CONDUCTION DELAY Compared to ECG 10/08/2015 05:09:28 Sinus rhythm no longer present Ventricular premature complex(es) no longer present Myocardial infarct finding no longer present I reviewed the tracing and have either agreed or edited the findings inthis report. Electronically Signed On 11-14-2019 10:07:43 EST by JAYJAY MERAZ. Shannen Nichols MD CARDIAC ECG O RDERABLES [facility] EKG documented in this encounter Visit Diagnoses Diagnosis Volume overload state of heart- Primary documented in this encounter Administered Medications Inactive Administered Medications - up to 3 most recent administrations Medication Order MAR Action Action Date Dose Rate Site furosemide (LASIX) injection 20 mg 20 mg, intravenous, NOW X1, 1 dose, On 11/13/19 at 0300, STAT Given 11/13/2019 3:17 EST 20 mg documented in this encounter Active and Recently Administered Medications Times are shown in EST. Scheduled Medication Order 11/11/2019 11/12/2019 11/13/2019 furosemide (LASIX) injection 20 mg (COMPLETED) 20 mg, intravenous, NOW X1, 1 dose, On 11/13/19 at 0300, STAT 0317 (Given - Provid er: Stefania Lewis RN) documented in this encounter Orders Medications Ordered That Theron ht Not Have Been Administered Count Last Ordered Date First Ordered Date furosemide (LASIX) injection 20 mg 1 2019 documented in this encounter Care Teams Transverse Abdominal Muscle Nurse Relationship Specialty Start Date End Date Vladimir Simmons MD [address] [phone] PCP - General 10/08/15 05/26/24 documented as of this encounter
--- OUTSIDE RECORDS SUMMARY | 2024-06-23 16:43 | XMS_ITS | Encounter Summary ---
Author Organization [facility] Address [address] [place] [address] Care Team Providers Care Hammer Mill Operator Name Role Phone Vladimir Simmons MD Primary Care Provider [phone] Reason for Visit * Reason Comments Other Encounter Details Date Type Department Care Team (Late st Contact Info) Description 02/06/2020 Refill [facility] [address] [id number] Donato Smith MD [address] [phone] Other Social History Tobacco Use Types Packs/Day Years [...] Info) Description 07/12/2024 16:45 EDT Office Visit [facility] Cardiology - [address] [place], [place] [phone] Wilberto Ocasio MD [address] [place] [phone] documented as of this encounter Visit Diagnoses Not on filedocumented in this encounter Care Teams Hammer Mill Operator Relationship Specialty Start Date End Date Vladimir Simmons MD [address] [phone] PCP - General 10/08/15 05/26/24 documented as of this encounter
--- OUTSIDE RECORDS SUMMARY | 2024-06-23 16:43 | XMS_ITS | Encounter Summary ---
Author Organization 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 Name Role Phone Vladimir Simmons MD Primary Care Provider [phone] Reason for Referral * Follow Up (Routine) - Closed Specialty Diagnoses / Procedures Referred By Contac t Referred To Contact Diagnoses ST elevation myocardial infarction (STEMI), unspecified artery (HCC-CMS) hRonda Clemente MD [address] [place] [address] Vladimir Simmons MD [address] [address] Referral ID Status Reason Start Date Expiration Date V isits Requested Visits Authorized [id number] Closed Continuity of Care 10/09/2015 1 1 Question Answer Reason for Request: CAD, systolic dysfunction Expected Discharge Date (Inpatient Only): 10/09/2015 * Consult (3 - 10 Business Days) - Closed Specialty Diagnoses / Procedures Referred By Contac t Referred To Contact Diagnoses ST elevation myocardial infarction (STEMI), unspecified artery (HCC-CMS) Rhonda Clemente MD [address] [place] [address] Linus Kimbrough MD Referral ID Status Reason Start Date Expiration Date V isits Requested Visits Authorized [id number] Closed Specialty Services Required 10/09/2015 1 1 Question Answer Reason for Request: cad Expected Discharge Date (Inpatient Only): 10/09/2015 * Consult (Routine) - Closed Specialty Diagnoses / Procedures Referred By Clarissa salas Referred To Contact Diagnoses ST elevation myocardial infarction (STEMI), unspecified artery ([facility]) Juni Torres PA-C [address] [facility] [place] [address] [place] [address] Referral ID Status Reason Start Date Expiration Date V isits Requested Visits Authorized [id number] Closed Specialty Services Required 10/08/2015 1 1 Question Answer Reason for Request: cad Expected Discharge Date (Inpatient Only): 10/09/2015 SITE [facility] Reason for Visit * Reason Comments Chest Pain tansfer from [facility] hostpital, STEMI, pt. refused label designer en route. Arives in NAD, team at the bedside. Encounter Details Date Type Department Care Team (Late st Contact Info) Description 10/08/2015 7:36 EST - 10/09/2015 14:05 EST Hospital Encounter [facility]iac[facility]Tele[facility] Unit [address] [place] [address] Doe Urbina MD [address] [place] [address] [place] [phone] Sonja Pandey MD [address] [facility] 1 [place] [address] ST elevation myocardial infarction (STEMI), unspecified artery ([facility]-HCC) (Primary Dx) Discharge Disposition: Home or Self Care Social History Tobacco Use Types Packs/Day Years Used Date Smoking Tobacco: Former Cigarettes 0.5 20 1 - 07/08/2015 Alcohol Use Standard Drinks/Week Comments Yes 8 (1 standard drink = 0.6 oz pur e alcohol) Sex and Gender Information Value Date Recorded Sex Assigned at Not on file Gender Identity Male 11/13/2019 2:37 EST Sexual Orientation Not on file documented as of this encounter Last Filed Vital Signs Vital Sign Reading Time Taken Comments Blood Pressure 125/71 10/09/2015 0839 EST Pulse 89 10/08/2015 0710 EST Temperature 36.4 ??C (97.5 ??F) 10/09/2015 0839 EST Respiratory Rate 18 10/09/2015 0839 EST Oxygen Saturation 99% 10/09/2015 0839 EST Inhaled Oxygen Concentration - - Weight 108.9 kg (240 lb 1.3 oz) 10/09/2015 0255 EST Height 180.3 cm (5' 10.98) 10/08/2015 0511 EST Body Mass Index 33.5 10/08/2015 0511 EST documented in this encounter Functional Status [...] 10/08/2015 documented as of this encounter Discharge Summaries * Rhonad Clemente MD - 10/08/2015 1116 EST Discharge Summary Attending Physician: Doe Urbina MD Date of Admission: 10/08/2015 Date of Discharge: 10/09/2015 Disposition: Home Reason for Admission: STEMI Hospital Problems: Active Problems: ST elevation myocardial infarction (STEMI) Principal Procedure: LHC 10/08/2015 Secondary Procedures: Echocardiogram 10/08/2015 Hospital Course: René Rivera is a 60 yo male with history of hypertension, HLD, BPH, obesity, and tobacco use (20 years, quit 3 months ago), and family history of PA who presents as a transfer from [facility] for STEMI. On day of admission, he developed palpitations and chest pressure 2/10 intensity at about 1 am. At [facility], an EKG demonstrated tachycardia HR 170 and GEENA in V2-4. He received 6mgof adenosine. GEENA demonstrated on two subsequent EKGs. Received aspirin 324 mg, ticagrelor 180mg, heparin bolus and drip, and he was transferred from [facility]. At arrival to [facility] around 05:00, he had persistent 1/10 chest pressure but felt his shortness of breath had improved. He was taken emergently for left heart catheterization where he was found to have 90% occlusions of LAD and LCX. Four drug eluting stents were placed to the LAD lesion and one to the LCX lesions. Right radial approach was taken and he had no complications from the vascular access site. An echocardiogram was performed 10/08/2014 demonstrating an EF of 35-40%. He was continued on aspirin 81mg, ticagrelor 90mg BID and started on atorvastatin 80mg daily and metoprolol XL 25mg daily. His home HTN medications losartan, terazosin, and HCTZ were continued. He was monitored on telemetry without incident and he was deemed safe for discharge on 10/09/2015 with appropriate follow up with cardiology (Dr. Kimbrough preferred) and cardiac rehab ordered. On day of discharge, he was entirely pain free and was walking the halls without SOB. He was switched to clopidogrel at discharge due to financial preference. Clinical Issues Needing Follow-up: 1. Systolic heart failure management - patient advised to monitor lower extremity edema and speak with his PCP if additional diuretics were to seem necessary 2. Post PA follow up - 100% compliance with aspirin and plavix is essential 3. Cardiac rehab/education 4. Cardiology follow up with Dr. Kimbrough ordered 10/08/2014: Diagnostic Cardiac Study Results Left main: Mild irregularities Left anterior descending: mid LAD subtotal 90+% probable culprit with initially diminished DOE 1 flow Leftcircumflex: Proximal 90% Right coronary artery: distal 60%, diffuse mid 60% Grafts: n/a Left Ventriculography and Hemodynamic Results LVEDP 16 There was no gradient across the aortic valve. Left ventricular function: Normal overall with possible anterior hypokinesis Interventional Procedure: Using standard technique, the LAD vessel was stented using a total of 4 Synergy stents of 3-2.5 mm diameters and the circumflex was stented with a 3.5x28 Synergy Drug eluting stent. 10/08/2014: Echocardiogram 1. Left ventricle: The cavity size was normal. Wall thickness was at the upper limits of normal.There was a discrete apical myocardial thinning. Systolic function was moderately reduced. The estimated ejection fraction was 35-40%. Moderate hypokinesis of the mid anteroseptum anteroerolateral, and lateral segments. Severe hypokiesis of the mid to distal anterior and distal anteroseptal segments. The apex was akinetic. There was an increased relative contribution of atrial contraction to ventricular filling. Doppler parameters are consistent with abnormal left ventricular relaxation (grade 1 diastolic dysfunction). 2. Right ventricle: The cavity size was normal. Wall thickness was normal. Systolic function was normal. Discharge Medications: START taking these medications Sig aspirin 81 mg EC tablet 81 mg, oral, DAILY atorvastatin 80 mg tablet Commonly known as: LIPITOR 80 mg, oral, AT BEDTIME clopidogrel 75 mg tablet Commonly known as: PLAVIX 75 mg, oral, DAILY metoprolol XL 25 mg tablet Commonly known as: TOPROL-XL 25 mg, oral, DAILY CHANGE how you take these medications Sig losartan 100 mg tablet Commonly known as: COZAAR What changed: medication strength 100 mg, oral, DAILY CONTINUE taking these medications Sig buPROPion 150 mg XL tablet Commonly known as: WELLBUTRIN XL 150 mg, oral, 2 TIMES DAILY hydrochlorothiazide 25 mg tablet Commonly known as: HYDRODIURIL 25 mg, oral, DAILY ibuprofen 800 mg tablet Commonly known as: MOTRIN 800 mg, oral, EVERY 6 HOURS PRN Multivitamins with Minerals tablet 1 Tab, oral, DAILY POTASSIUM CHLORIDE ORAL 20 mEq, oral terazosin 10 mg capsule Commonly known as: HYTRIN 10 mg, oral, AT BEDTIME STOP taking these medications simvastatin 10 mg tablet Commonly known as: ZOCOR Allergies: Review of patient's allergies indicates no known allergies. Follow-Up Appointments and Procedures Recommended to Patient: Follow-up appointments and procedures Amb Consult/Follow Up Cardiac Rehabilitation Reason for Request: cad Expected Discharge Date (Inpatient Only): 10/09/2015 Practice Site (External Referral Only): [facility] Authorizing Provider: Juni Torres PA Amb Consult/Follow Up Cardiology Reason for Request: cad Expected Discharge Date (Inpatient Only): 10/09/2015 Authorizing Provider: Juni Torres PA Amb Consult/Follow Up Primary Care Physician Reason for Request: cad Expected Discharge Date (Inpatient Only): 10/09/2015 Authorizing Provider: Juni Torres PA He will be called with these appointment times and dates. Follow-Up Labs and Tests: None Associated attestation - Doe Urbina MD - 10/10/2015 0724 EST I personally saw and examined the patient the morning of discharge. I reviewed the above note and agree with the documentation and plan. Follow-up is in place and the importance of medication compliance has been stressed to the patient. Doe Schultet. Prof. of Medicine [place] [address] [place] [address] documented in this encounter Discharge Instructions * Appointments* Tonya Rae - 10/08/2015 15:19 EST Please see your Primary Care Physician Dr Simmons on October 18, 2015 at 2:[address] Simmons telephone number is [phone] Please see your Flow Match Sofa Cutter Dr Kimbrough on October 25, 2015 at 9:[address] Kimbrough telephone number is [phone] documented in this encounter Medications at Time of Discharge Medication Sig Dispensed Refills Start Date End Date Multivitamins with Minerals tablet Take 1 Tab [...] mouth daily 90 Tab 3 10/08/2015 10/19/2023 hydrochlorothiazide (HYDRODIURIL) 25 mg tablet Take 25 [...] ORAL Take 20 mEq by mouth 10/22/2023 terazosin (HYTRIN) 10 mg capsule Take 10 mg by mouth at bedtime 05/31/2024 documented as of this encounter Ordered Prescriptions Prescription Sig Dispensed Refills Start Date End Da te metoprolol XL (TOPROL-XL) 25 mg tablet Take 1 Tab by mouth daily 90 Tab 3 10/09/2015 10/22/2023 losartan (COZAAR) 100 mg tablet Take 1 Tab by mouth daily 90 Tab 3 10/09/2015 10/22/2023 atorvastatin (LIPITOR) 80 mg tablet Take 1 Tab by mouth at bedtime 90 Tab 3 10/09/2015 10/19/2023 aspirin 81 mg EC tablet Take 1 Tab by mouth daily 90 Tab 3 10/09/2015 05/31/2024 clopidogrel (PLAVIX) 75 mg tablet Take 1 Tab by mouth daily 90 Tab 3 10/08/2015 10/19/2023 ticagrelor (BRILINTA) 90 mg tablet Take 1 Tab by mouth 2 times daily 180 Tab 1 10/08/2015 10/09/2015 documented in this encounter Discharge Disposition Disposition Code Departure Means Destination Home or Self Care documented in this encounter Progress Notes * Lasha Storm - 10/09/2015 1124 EST Spiritual Care Note Re: René Mitra Rivera : 1955, AGE: 60 y.o. Room: [place] [address] René who is listed as .holiness has received a visit from the Spiritual Care Department on 10/09/2015. Need/Assessment: ?? Doing well. Had stents placed and looking forward to going home. Intervention: ?? Provided a supportive and listening presence ?? Offered prayer and the sacraments: Anointing of the Sick and Communion Outcome: ?? Plan of Action: x No Follow up necessary - Needs met Continued Family Support Continued Support from Clinical Manager Home Care following patient Make a Referral to: Continued Support with Volunteer Visits Connect with Community Supports Ask for a consult from: Other: Visit Initiated by: Referral Time: End of Life / Comfort Care / Hospice Urgent Request - Time: 3 Level of Visit Services Provided: x Anointing of Sick x Prayer x Communion Relaxation through music Assist Advanced Directives Integrative therapies Assist Decision Making Carey and Prayer at dying Exploration of Ethical issues Present at time of Family Support Other Chaplain Jyotsna Dinero 131 Phone [phone] Spiritual Care is available 24 hours a day. Interfaith and Religious chaplains are available 24 hours a day. For routine consults please call and leave a message with the Spiritual Care Office ([phone]) and patients will be seen within 24 hours. For all emergent consults page the Mosque or Interfaith on-call Clinical Manager Home Care through [facility] ([phone]). * Lesley Donahue - 10/09/2015 1119 EST Patient scheduled for discharge home with outpatient follow up to [facility]. His neighbor will provide transportation. No needs identified, no referrals made on discharge. Lesley Donahue RN Case Manager #[phone] * Ellen Aguilar RN - 10/09/2015 1046 EST Nursing Discharge Note D: Patient noted with discharge orders to home. Pt is alert and oriented x 3. Pt denies pain. Pt removed from leak patcher A: Prescriptions e-scripted. Reviewed discharge instructions and prescriptions with Patient IV d/c'd. Pt tolerated procedure with no complications. Belongings collected and sent home with patient. R: Patient verbalized understanding of discharge instructions and denied further questions. Ellen Aguilar RN 10/09/2015 10:47 * Lesley Donahue - 10/08/2015 1626 EST Per insurance coverage Co-pay for one month of Ticagrelor is $45.00. Co-pay for one month of Plavix is $8.22. Patient would like to choose Plavix at this time. Lesley Donahue RN Case Manager #[phone] * Lesley Donahue - 10/08/2015 1529 EST Initial Case Management/Social Work Assessment and Discharge Plan/Readmission Risk Assessment Reason for Admission: STEMI Patient Contact Information: Spouse Casi Rivera [phone] LIVING ARRANGEMENTS AND ACCESSIBILITY ISSUES: Lives in [place] What in home social supports are available to the patient? Patient lives alone in [place], [place]. He states he is currently from his . He has three children who live in the area. He does not have a job at the moment but had an interview scheduled for tomorrow which he has rescheduled. ADVANCED DIRECTIVES, POA &/or COLST IN PLACE: No CULTURAL, VOODOO and/or LANGUAGE factors affecting health care/discharge planning: N/A Insurance in Place: Yes Type of Insurance: Commercial insurance COMMERCIAL INSURANCE: BC/BS DISCHARGE RISK ASSESSMENT: Total # selected above: Score: Zero Tentative plan to address the risk of re-hospitalization for those at HIGH MODERATE RISK: FUNCTIONAL & PSYCHOSOCIAL INFORMATION: No functional limitations, no assistive devices, drives. MEDICAL AND COMMUNITY SERVICES: Primary Care Provider: Vladimir Simmons Specialists: N/A Skilled home care services: N/A DME Provider: N/A Pharmacy: [facility] Other: N/A POST HOSPITAL TRANSITION PLAN: Case management will continue to follow through transition. Patient is awaiting treatment plan. Anticipate discharge home tomorrow. Patient said he hopes either his or neighbor can pick him up. His car is at [facility] ER parking lot. Lesley Donahue RN Case Manager #[phone] * Rhonda Clemente MD - 10/08/2015 1102 EST Cardiology Post Procedure Note s/p right radial access cardiac catheterization S: Pt resting comfortably. Denies palpitations, lightheadedness, dizziness, dyspnea, numbness or weakness. Mild chest pressure residual. Denies severe pain, bleeding or discharge from the cath site in right radial artery. Has not yet been ambulating. Had bleeding at 0900 when radial pressure dressing initially removed; however, it has been reapplied and then pressure reduced twice since without recurrent bleeding. O:Blood pressure 148/80, pulse 89, temperature 35.5 ??C (95.9 ??F), temperature source Tympanic, resp. rate 18, height 180.3 cm (70.98), weight 108.863 kg (240 lb), SpO2 99 %. Gen: NAD, resting comfortably Chest: CTAB, no w/r/r CV: RRR, S1/S2 normal, no m/r/g Extr: right radial cath site c/d/i, mild amount of dried blood, no hematoma or mass Pulse: 2+ Neuro: A+Ox3, 5/5 strength, grossly normal sensation A/P: 60 y.o.male s/p cardiac catheterization. -- stable as above, cont to monitor -- cont plan as per morning note Rhonda Clemente MD * Juni Torres PA - 10/08/2015 1033 EST Ticagrelor 90mg twice daily without interruption x 1 year and Aspirin 81 mg daily lifetime reviewedwith patient and the patient verbalizes understanding. Cardiac rehab reviewed with patient and the patient is willing to attend at [facility]. Referral sent and written material given to patient. Follow up has been requested with Kyalan at [facility]. * Rhonda Clemente MD - 10/08/2015 0802 EST Cardiology Progress Note Service Date: 10/08/2015 Admit Date: 10/08/2015 5:04 ( LOS: 0 days ) Reason for Admission: 60 y.o. male admitted with a chief complaint of chest pain and now with a principal diagnosis of STEMI. 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 with 4 LEBRON to LAD and 1 LEBRON to LCX - mild to no CP, no SOB, no palpitations, mild pain at site of catheterization entry, IVs, no abdominal pain, nausea, hungry Objective Vital Signs Temp: [35.5 ??C (95.9 ??F)] , Heart Rate: [65 BPM-72 BPM] , Resp: [16-18] , BP: (113-178)/(79-100) , SpO2: [98 %-100 %] Physical Exam General: Alert and oriented, appears well, in no acute distress, resting in bed CVS: RRR, S1+S2 normal, no murmurs appreciated Resp: Good air entry, clear to auscultation bilaterally, no crackles or wheeze Abdo: Soft, bowel sounds + Extremities: Right wrist with mild bleeding noted at 09[address] with pressure dressing in place Neuro: No focal sensory or motor deficits, good dorsalis pedis pulses Skin: No skin lesions, rashes or petechiae noted Medications Asa Clopidogrel Atorvastatin PRN morphine Metoprolol XL 25 Labs Notable for normal lytes and creatinine Notable for troponin 1.730 (no other values in our system) Imaging 10/08/2014 [facility] Diagnostic Cardiac Study Results Left main: Mild irregularities Left anterior descending: mid LAD subtotal 90+% probable culprit with initially diminished DOE 1 flow Leftcircumflex: Proximal 90% Right coronary artery: distal 60%, diffuse mid 60% Grafts: n/a Left Ventriculography and Hemodynamic Results LVEDP 16 There was no gradient across the aortic valve. Left ventricular function: Normal overall with possible anterior hypokinesis Interventional Procedure: Using standard technique, the LAD vessel was stented using a total of 4 Synergy stents of 3-2.5 mm diameters and the circumflex was stented with a 3.5x28 Synergy Drug eluting stent. Assessment/Plan Assessment Mr. Rivera is a 60 yo male with PMH of smoking (quit 06/2015), HTN, family history of PA in brother, obesity who presents with STEMI and was treated with stenting to LAD and LCX. Echocardiogram willbe performed today. Home medications were confirmed with PCP med list today. He does take losartan at home due to LEEANN-related cough. 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 [facility] Cardiology Admission H&P Admission Date: 10/08/2015 PCP: Doctor Unknown Date of Service: 10/08/2015 Hospital Day: LOS: 0 days Room: -TBD/NONE Time of Evaluation:3:37 CC: chest pain HPI René Rivera is a 60 y.o. male with history of hypertension and former tobacco use (20 years, quit 3 months ago) who presents as a transfer from [facility] for STEMI. He reports having three beers while watching the game this evening. He took his blood pressure medication (which he cannot identify)and an hour later, around 1AM, he started experiencing palpitations and 2/10 chest pressure. He went to the hospital because his brother had a similar issue and was found to have an PA. At [facility] a 02:53 EKG demonstrated tachycardia HR 170 and GEENA in V2- 4. He received 6mg of adenosine. GEENA demonstrated on two subsequent EKGs. Received aspirin 324 mg, ticagrelor 180mg, heparin bolus and gtt and was transferred from [facility]. At arrival to [facility] around 05:00 he had persistent 1/10 chest pressure but felt his shortness of breath and level of alertness had improved. Denies radiation of pain or nausea. He requested an EKG be done prior to proceeding to the label designer. Dr. Urbina and the cardiology teamevaluated him in the ED. No history of bleeding problems and no recent surgeries. No hemoptysis, melena, BRBPR. No history of stroke or syncope. Recent URI two weeks ago. ROS: 10 point review of systems limited by acuity. PMH PSH HTN - 3 years Obesity Inguinal hernia Melanoma s/p excision Orthopedic surgeries MEDICATIONS Losartan Lisinopril Potassium chloride Unable to confirm with patient. Listed on transfer records. ALLERGIES NKDA SOCIAL HISTORY FAMILY HISTORY Lives alone. Former smoker. Alcohol use. No illicit drug use. Reports family/friends already updated prior to transfer. Brother - PA age 67 Objective Current Vital Signs 146/100, pulse 89, 100% room air Body mass index is 33.49 kg/(m^2). Physical Exam General: middle age male resting comfortably HEENT: normocephalic, conjunctiva clear, no scleral icterus, no nasal drainage membranes CV: S1 and S2 normal, no murmurs/rubs/gallops appreciated, no peripheral edema, distal pulses intact Pulm: nonlabored breathing, clear to auscultation bilaterally Abdomen: soft, obese, nondistended, nontender to palpation Neuro: alert, speaking in full sentences, moving extremities spontaneously Skin: warm centrally and peripherally Labs at [facility] Hemoglobin 16.5 Platelets 212 Creatinine 1.19 Troponin negative EKG on arrival Assessment and Plan René Rivera is a 60 y.o. male history of hypertension and former tobacco use (20 years, quit 3months ago) who presents as a transfer from [facility] for STEMI. ACS-STEMI - emergent LHC - telemetry - aspirin 81 mg daily - ticagrelor 90 mg twice daily - heparin gtt - anticipate starting beta tiffani - atorvastatin 80 mg daily - echocardiogram, anticipate starting ACEi if EF <40% - lipid profile and A1c - cycle troponin - NPO - nitro prn - morphine prn - supplemental O2 as needed to maintain oxygen saturation >92% Jenn Moore MD PGY2 #[id number] 10/08/2015 5:44 I have seen and examined this critically ill patient prior to cardiac catheterization. The ECG confirms a possible anterior ST elevation myocardial infarction in the setting of an initial SVT The pre-procedure focused history (no signs of acute stroke, PE, GI bleeding, aortic dissection, pericarditis) and physical exam (no acute neurological changes, aortic stenosis murmur or severely diminished peripheral arterial pulses) are consistent with ACS/STEMI. The pt initially was reluctant to consider cardiac cath and extra time was required for discussion of the various options. I agree with the findings, history and plan as outlined in the above note. Ultimately proceeded to urgent cardiac cath. Doe Urbina MD documented in this encounter Procedure Notes * Doe Urbina MD - 10/08/2015 0713 EST Images from the original note were not included. Cardiovascular Catheterization Laboratory Preliminary Report -- Catheterization Date of Service/Procedure: 10/08/2015 Attending Physician: Doe Urbina MD Fellow: Saloni Soares MD Pre-Procedure Diagnosis/Indication: René Rivera is a 60 y.o. year old male with STEMI. NCDR Indication for PCI:STEMI Prior Stress Testing? No Cardiac Medications: On two or more anti anginal medications at the time of catheterization? No Anesthesia: A moderate level of anesthesia/conscious sedation was used in addition to local anesthesia. Access:Right radial artery Procedure: He was brought to [facility] for the procedure: Diagnostic coronary/graft angiography, LV gram, Left heart cath and Coronary intervention (PCI). Closure: TR Band Post-Procedure Condition: The condition of the patient was Fair. Complications: None. IV Contrast Total: 385 mL Estimated Blood Loss: Minimal. Unless otherwise noted,there were no specimens removed, cultures obtained, or drains retained. Research Study: Patient is not enrolled in a research study. Diagnostic Cardiac Study Results Left main: Mild irregularities Left anterior descending: mid LAD subtotal 90+% probable culprit with initially diminished DOE 1 flow Leftcircumflex: Proximal 90% Right coronary artery: distal 60%, diffuse mid 60% Grafts: n/a Left Ventriculography and Hemodynamic Results LVEDP 16 There was no gradient across the aortic valve. Left ventricular function: Normal overall with possible anterior hypokinesis Endovascular Study Results None Post-Procedure Diagnostic Conclusion: PCI is indicated. Interventional Procedure: Using standard technique, the LAD vessel was stented using a total of 4 Synergy stents of 3-2.5 mm diameters and the circumflex was stented with a 3.5x28 Synergy Drug eluting stent. Plan: Aspirin 81mg po daily. Ticagrelor 90mg po BID. Check echocardiogram for EF. Start LEEANN inhibitors if EF < 40 % or s/s of CHF. Smoking cessation encouraged. Evaluation for cardiac rehab program. beta tiffani and high intensity statin Post Procedure Follow Up: Patient to follow up with me in [address] Kimbrough at [facility] whichever pt prefers. Rehab would be at [facility] Post Interventional Conclusion/Physician Disposition: (check one main category) Inpatient procedure, continue inpatient status (no procedural complication required) Doe Urbina MD PagerNumber: [phone] 10/08/2015 7:13 documented in this encounter ED Notes * Shawna Hubbard - 10/08/2015 0515 EST 12 Lead EKG Performed by Shawna Hubbard and shown to Doe Urbina MD;Katherin*. * Ksenia Cabello, RN - 10/08/2015 0512 EST Heparin GTT started at 1500 units/HR as pt. Was transferred at this rate. * Sonja Pandey MD - 10/08/2015 0505 EST DOS: 10/08/2015 Chief Complaint Patient presents with ??? Chest Pain tansfer from [facility] hosttal, STEMI, pt. refused label designer en route. Delfino in [facility], team at the bedside. HPI HPI Comments: IAnthony, am scribing for Sonja Pandey MD while he/she is personally performing the service. Anthony Herrera 10/08/2015 5:05 René Rivera is a 60 y.o. male with a history of hypertension and a family history his brother having an PA at 67y.o. He presents in the ED with chest pressure associated with tachycardia and shortness of breath onset last night. He was going to bed and had just taken his hypertension medication when he began to have chest pressure and drove himself to an outside hospital. The patient presented with anterior ST elevations was in ST. He was successfully converted with adenosine though his STelevations persisted. He was then given heparin and Ticagrelor before being transported here. On arrival, his chest pressure was 1/10 and mild shortness of breath remained. The patient had 3 drinks of alcohol last night. He has not smoked in 3 months but smoked for 20 years prior to quitting. The history is provided by the patient, medical records and the EMS personnel. Review of Systems Review of Systems Respiratory: Positive for shortness of breath. Cardiovascular: Positive for chest pain and palpitations. All other systems reviewed and are negative. Allergies Allergen Reactions ??? Fosinopril Cough Vital Signs Vitals Reassessment?: Yes Temp: 36.4 ??C (97.5 ??F) Temp src: Tympanic Pulse: 89 Heart Rate: 64 BPM Cardiac Rhythm: Normal sinus rhythm Heart Block Type: 1st degree AVB Resp: 18 SpO2: 99 % BP: 125/71 mmHg BP Device: BP Machine Patient Position: Semi fowlers BP Cuff Location: Left arm O2 Device: None (Room air) Physical Exam Constitutional: He is oriented to person, place, and time. He appears well- developed and well-nourished. No distress. HENT: Head: Normocephalic and atraumatic. Eyes: Conjunctivae are normal. Pupils are equal, round, and reactive to light. Neck: Normal range of motion. No tracheal deviation present. Cardiovascular: Normal heart sounds. Tachycardia present. Pulmonary/Chest: Effort normal and breath sounds normal. No respiratory distress. Abdominal: Soft. He exhibits no distension. There is no tenderness. Musculoskeletal: Normal range of motion. He exhibits no edema. Neurological: He is alert and oriented to person, place, and time. He exhibits normal muscle tone. Skin: Skin is dry. Psychiatric: He has a normal mood and affect. Nursing note and vitals reviewed. RESULTS EKG orders: EKG 12-LEAD EKG 12-LEAD EKG 12-LEAD EKG 12-LEAD ECG Reviewed: Findings include: NSR with st elevations that appear somewhat improved compared to previous from OSH. The study has been independently viewed by me. The study has been interpreted independently and contemporaneously by me. The EKG appears to be a good tracing. Attending pad extractor tender not immediately available for acute interpretation. Radiology orders: OUTSIDE IMAGES - OTHER CHEST ED Lab Results Labs Reviewed TROPONIN I - Abnormal Troponin I 1.730 (*) Final ELECTROLYTES - Abnormal CO2 22 (*) Final Sodium 138 Final Potassium 4.1 Final Chloride 104 Final TROPONIN I - Abnormal Troponin I 2.050 (*) Final TROPONIN I - Abnormal Troponin I 1.800 (*) Final HEMAGRAM - Abnormal Hemoglobin 13.6 (*) Final HCT 38.7 (*) Final WBC 8.54 Final RBC 4.42 Final MCV 88 Final MCH 30.8 Final MCHC 35.1 Final RDW-CV 12.9 Final RDW-SD 41.4 Final PLT 180 Final MPV 10.2 Final BUN BUN 10 Final CREATININE Creatinine 0.98 Final GFR, Calculated 85 Final MAGNESIUM Magnesium 2.0 Final HEMAGRAM WBC 7.41 Final RBC 4.58 Final Hemoglobin 13.9 Final HCT 40.6 Final MCV 89 Final MCH 30.3 Final MCHC 34.2 Final RDW-CV 12.9 Final RDW-SD 41.7 Final PLT 190 Final MPV 10.2 Final PROTIME Pro Time 12.5 Final I.N.R. 1.1 Final HEMOGLOBIN A1C Hemoglobin A1C 5.3 Final Est Avg Glucose 105 Final ELECTROLYTES Sodium 138 Final Potassium 4.0 Final Chloride 103 Final CO2 25 Final BUN BUN 12 Final CREATININE Creatinine 0.99 Final GFR, Calculated 84 Final LIPID PROFILE (INCLUDES CHOLESTEROL, TRIGLYCERIDES, HDL, LDL) Cholesterol 144 Final Triglycerides 125 Final HDL 44 Final LDL, Calculated 75 Final Chol/HDL Ratio 3.3 Final Fasting? NO Final Non HDL Cholesterol 100 Final Procedures ED COURSE A medical screening exam was performed. René Rivera is a 60 y.o. Male transferred from an outside facility presenting in the ED with chest pain and shortness of breath. The patient presented in the outside hospital with anterior ST elevations was in ST. He was successfully converted with adenosine though his ST elevations persisted.He was then given heparin and Ticagrelor before being transported here. On arrival, his chest pressure was 1/10 and mild shortness of breath remained. The patient was scheduled to go straight to cardiac catheterization but had reservations about the procedure. The cardiology attending spoke with the patient who then agreed to have the cardiac catheterization. The patient was admitted to cardiology. ASSESSMENT AND PLAN Final diagnoses: ST elevation myocardial infarction (STEMI), unspecified artery DISPOSITION: Admitted The patient's pain was managed to an adequate level weighing risk vs. benefit of further medications. Upon departure from the Emergency Department, the patient's pain was 0 on a zero to ten scale. Condition at departure from the Emergency Department: Serious PCP: Vladimir BELLE This documentation is recorded by Anthony Herrera acting as Scribe under the direction and presence of Sonja Pandey MD. Sonja Pandey MD: I personally performed the services recorded by the scribe in my presence. I confirm the scribe's documentation has been reviewed by me to accurately and completely record my work, treatment, procedures, and medical decision making. 10/09/2015 15:05 No flowsheet data found. documented in this encounter Miscellaneous Notes * Plan of Care - Ellen Aguilar RN - 10/09/2015 1030 EST Problem: FALL RISK Goal: Patient Will Remain Free from Fall-Related Injury Outcome: Ongoing D: Assumed patient care at 0700. Pt is alert and oriented x 3. Pt is on leak patcher. Pt denies any pain. Lung sounds clear. Pt had 5 stents with right radial approach yesterday. Site is clean, dry, and intact. A: Plans to go home today. Pt received flu shot. Pt ambulating in hallway R: Pt denies any needs at time. Will continue to monitor. Goal: Patient will Remain Free of Falls due to Altered Mobility Outcome: Ongoing Goal: Patient will Remain Free of Falls due to Med. Side Effects Outcome: Ongoing Goal: Patient will Remain Free of Falls due to Dizziness/Vertigo Outcome: Ongoing Goal: Patient will Remain Free of Falls due to Altered Elimination Outcome: Ongoing Goal: Patient will Remain Free of Falls due to Confusion Add only for + Hendrich score Outcome: Ongoing Problem: Daily Care Plan Goals Goal: Care Plan Documentation Outcome: Ongoing 10/09/15 0839 Care Plan Focus Area of Focus Discharge Plan Goal This Shift home Problem: Safety: Goal: Will remain free from falls Outcome: Ongoing Goal: Will remain free from infection Outcome: Ongoing Problem: Pain: Goal: Pain level will decrease Outcome: Ongoing Problem: Cardiac: Goal: Ability to maintain clinical measurements within defined limits will improve Outcome: Ongoing Goal: Ability to achieve and maintain adequate cardiopulmonary perfusion will improve Outcome: Ongoing Goal: Hemodynamic stability will improve Outcome: Completed Date Met: 10/09/15 Goal: Will show no evidence of cardiac arrhythmias Outcome: Completed Date Met: 10/09/15 Goal: Complications related to the disease process, condition or treatment will be avoided or minimized Outcome: Completed Date Met: 10/09/15 Problem: Activity: Goal: Ability to avoid complications of mobility impairment will improve Outcome: Completed Date Met: 10/09/15 Patient waiting for ride to home. Pt has been discharged but had a little trouble with transportation but he has found friend that will be coming this afternoon * Plan of Care - Michelle Campbell RN - 10/09/2015 0222 EST Problem: Daily Care Plan Goals Goal: Care Plan Documentation Outcome: Met This Shift 10/09/15 0042 Care Plan Focus Area of Focus Circulatory Status Goal This Shift telemetry, VS wnl D: patient is post cath & STEMI. Rt radial cath site CDI, csmt +, patient is up to the bathroomindependently, telemetry NSR w/ 1st degree block, no ectopy. Pt has no c/o pain or SOB. VSS A: monitor, assess as ordered R: stable post-cath & PA, will continue to monitor * Plan of Care - Yolanda Chance - 10/08/2015 1040 EST Problem: Safety: Goal: Will remain free from falls Outcome: Met This Shift Goal: Will remain free from infection Outcome: Met This Shift Problem: Pain: Goal: Pain level will decrease Outcome: Met This Shift Problem: Cardiac: Goal: Ability to maintain clinical measurements within defined limits will improve Outcome: Met This Shift Goal: Ability to achieve and maintain adequate cardiopulmonary perfusion will improve Outcome: Met This Shift Goal: Hemodynamic stability will improve Outcome: Met This Shift Goal: Will show no evidence of cardiac arrhythmias Outcome: Met This Shift Goal: Complications related to the disease process, condition or treatment will be avoided or minimized Outcome: Met This Shift Problem: Activity: Goal: Ability to avoid complications of mobility impairment will improve Outcome: Met This Shift * Plan of Care - Yolanda Chance - 10/08/2015 1039 EST Problem: FALL RISK Goal: Patient Will Remain Free from Fall-Related Injury Outcome: Met This Shift Goal: Patient will Remain Free of Falls due to Altered Mobility Outcome: Met This Shift Goal: Patient will Remain Free of Falls due to Med. Side Effects Outcome: Met This Shift Goal: Patient will Remain Free of Falls due to Dizziness/Vertigo Outcome: Met This Shift Goal: Patient will Remain Free of Falls due to Altered Elimination Outcome: Met This Shift Goal: Patient will Remain Free of Falls due to Confusion Add only for + Hendrich score Outcome: Met This Shift Problem: Daily Care Plan Goals Goal: Care Plan Documentation Outcome: Met This Shift Data: Pt admitted from label designer at 0715 this am s/p STEMI/PTCA. Slightly hypertensive, HR 70's SR. Denies CP or SOB. States he lives home alone, lives nearby and is support system. Sodium bicarbinfusing x6hrs. Action: Admission completed, teaching provided. Metoprolol admin. Frequent Vs monitored and puncture site monitored. TR band slowly deflated, bleeding from site after first attempt to remove air at 2hrs, so waited 3 hrs. Bedrest maintained. Response: Pt is aware of plan and has asked questions. Verbalizes understanding of treatment. Knowswhen to call nurse for any changes or assistance. Yolanda Chance RN 10/08/2015 10:35 documented in this encounter Plan of Treatment Upcoming Encounters Date Type Department Care Team (Late st Contact Info) Description 07/12/2024 16:45 EDT Office Visit [facility] [place] [address] Wilberto Ocasio MD [address] [facility] [address] [place] [address] Pending Results Name Type Priority Associated Diagnoses Date /Time OUTSIDE IMAGES - OTHER CHEST Imaging 10/08/2015 6:52 EST Scheduled Referrals Name Type Priority Associated Diagnoses Order Schedule AMB CONS/FOLLOW UP CARDIAC REHABILITATION Outpatient Referral Routine ST elevation myocardial infarction (STEMI), unspecified artery (CMS-HCC) Ordered: 10/08/2015 AMB CONS/FOLLOW UP CARDIOLOGY Outpatient Referral Routine ST elevation myocardial infarction (STEMI), unspecified artery (CMS-HCC) Ordered: 10/09/2015 AMB CONS/FOLLOW UP PRIMARY CARE PHYSICIAN Outpatient Referral Routine ST elevation myocardial infarction (STEMI), unspecified artery (CMS-HCC) Ordered: 10/09/2015 documented as of this encounter Procedures Procedure Name Priority Date/Time Associated Diagnosis Comments ECG REPORT - SCANNED 10/12/2015 11:50 EST ECG REPORT - SCANNED 10/12/2015 11:50 EST INVASIVE CARDIOLOGY REPORT-SCANNED 10/12/2015 11:50 EST ECG REPORT - SCANNED 10/09/2015 7:23 EST COMPLETE BLOOD COUNT Routine 10/09/2015 5:36 EST BUN Routine 10/09/2015 5:36 EST CREATININE Routine 10/09/2015 5:36 EST LIPID PROFILE (INCLUDES CHOLESTEROL, TRIGLYCERIDES, HDL, LDL) Routine 10/09/2015 5:36 EST ELECTROLYTES Routine 10/09/2015 5:36 EST TROPONIN I Routine 10/09/2015 0:03 EST HEMOGLOBIN A1C Routine 10/09/2015 0:03 EST TROPONIN I Routine 10/08/2015 15:44 EST ECHOCARDIOGRAM Routine 10/08/2015 11:26 EST TROPONIN I Routine 10/08/2015 8:57 EST PROTIME Routine 10/08/2015 8:57 EST COMPLETE BLOOD COUNT Routine 10/08/2015 8:57 EST BUN Routine 10/08/2015 8:57 EST MAGNESIUM Routine 10/08/2015 8:57 EST CREATININE Routine 10/08/2015 8:57 EST ELECTROLYTES Routine 10/08/2015 8:57 EST LEFT HEART CATH 10/08/2015 5:33 EST EKG 12-LEAD STAT 10/08/2015 5:09 EST documented in this encounter Results * ECG REPORT - SCANNED (10/12/2015 11:50 EST) 10/12/2015 11:5 0 EST Scan 2 [place] PROCEDURE/MINOR SHARITA GICAL ORDERABLES * ECG REPORT - SCANNED (10/12/2015 11:50 EST) 10/12/2015 11:5 0 EST Scan 2 [place] PROCEDURE/MINOR SHARITA GICAL ORDERABLES * INVASIVE CARDIOLOGY REPORT-SCANNED (10/12/2015 11:50 EST) 10/12/2015 11:5 0 EST Scan 2 [place] PROCEDURE/MINOR SHARITA GICAL ORDERABLES * ECG REPORT - SCANNED (10/09/2015 7:23 EST) 10/09/2015 7:23 EST Scan 2 [place] PROCEDURE/MINOR SHARITA GICAL ORDERABLES * LIPID PROFILE (INCLUDES CHOLESTEROL, TRIGLYCERIDES, HDL, LDL) (10/09/2015 5:36 EST) Cholesterol 144 mg/dl 10/09/2015 6:58 EST [facility] Comment: Slight hemolysis Desirable:<200 Borderline High:200-239 High:>xl=749 Triglycerides 125 mg/dl 10/09/2015 6:58 EST [facility] Comment: Slight hemolysis Normal:<150 Borderline High:150-199 High:200-499 Very High:>mj=069 HDL 44 mg/dl 10/09/2015 6:58 [facility] Comment: Slight hemolysis Low:<40 Normal:40-60 Desirable: >60 LDL, Calculated 75 mg/dl 6 6:58 [facility] Comment: Optimal:<100 Near Optimal:100-129 Borderline High:130-159 High:160-189 Very High:>xo=680 Chol/HDL Ratio 3.3 10/09/2015 6:58 [facility] Fasting? NO 10/09/2015 0:31 [facility] Non HDL Cholesterol 100 mg/dl 10/09/2015 6:58 [facility] Comment: Slight hemolysis Desirable:<130 Borderline:130-159 High: 160-189 Very High: >sr=305 Blood specimen (specimen) BLOOD SPECIMEN / Unknown 10/09/2015 5:36 EST 10/09/2015 5:57 EST Denzel Soares MD CHEMISTRY & BLOOD GA S ORDERABLES Performing Organization Address City/[facility] Co de Phone Number [facility] [address] [place] [address] * CREATININE (10/09/2015 5:36 EST) Creatinine 0.99 0.66 - 1.25 mg/dl 10/09/2015 6:58 [facility] Comment:Slight hemolysis GFR, Calculated 84 >60 ml/min/1.7 3m2 10/09/2015 6:58 [facility] Comment: eGFR calculated using CKD-EPI equation for non Americans. Multiply eGFR by 1.16 for Americans. Blood specimen (specimen) BLOOD SPECIMEN / Unknown 10/09/2015 5:36 EST 10/09/2015 5:57 EST Denzel Soares MD CHEMISTRY & BLOOD GA S ORDERABLES Performing Organization Address City/[facility]/ZIP Co de Phone Number [facility] [address] [place] [address] * BUN (10/09/2015 5:36 EST) BUN 12 10 - 26 mg/dl 10/09/2015 6:58 [facility] Comment: Slight hemolysis Results may be affected due to hemolysis. Blood specimen (specimen) BLOOD SPECIMEN / Unknown 10/09/2015 5:36 EST 10/09/2015 5:57 EST Denzel Soares MD CHEMISTRY & BLOOD GA S ORDERABLES Performing Organization Address [facility] de Phone Number [facility] [address] [place] [address] * ELECTROLYTES (10/09/2015 5:36 EST) Sodium 138 136 - 145 mEq/L 10/09/2015 6:58 [facility] Comment:Slight hemolysis Potassium 4.0 3.5 - 5.0 mEq/L 10/09/2015 6:58 [facility] Comment: Slight hemolysis Hemolysis may elevate potassium result. Chloride 103 96 - 110 mEq/L 10/09/2015 6:58 [facility] Comment:Slight hemolysis CO2 25 24 - 32 mEq/L 10/09/2015 6:58 [facility] Comment:Slight hemolysis Blood specimen (specimen) BLOOD SPECIMEN / Unknown 10/09/2015 5:36 EST 10/09/2015 5:57 EST Denzel Soares MD CHEMISTRY & BLOOD GA S ORDERABLES Performing Organization Address [facility] de Phone Number [facility] [address] [place] [address] * (ABNORMAL) HEMAGRAM (10/09/2015 5:36 EST) WBC 8.54 4.0 - 10.4 K/cmm 10/09/2015 6:12 [facility] RBC 4.42 4.36 - 5.78 M/cmm 10/09/2015 6:12 [facility] Hemoglobin 13.6(L) 13.8 - 17.3 gm/dl 10/09/2015 6:12 [facility] HCT 38.7(L) 39.5 - 50.2 % 10/09/2015 6:12 [facility] MCV 88 81 - 95 fl 10/09/2015 6:12 [facility] MCH 30.8 27.6 - 33.0 pg 10/09/2015 6:12 [facility] MCHC 35.1 32.8 - 36.4 gm/dl 10/09/2015 6:12 [facility] RDW-CV 12.9 11.8 - 14.1 % 10/09/2015 6:12 [facility] RDW-SD 41.4 36.5 - 45.9 fl 10/09/2015 6:12 [facility] PLT 180 141 - 377 K/cmm 10/09/2015 6:12 [facility] Comment:Note new reference r michael effective 10/01/15 MPV 10.2 9.5 - 12.7 fl 10/09/2015 6:12 [facility] Comment:Note new reference r michael effective 10/01/15 Blood specimen (specimen) BLOOD SPECIMEN / Unknown 10/09/2015 5:36 EST 10/09/2015 5:57 EST Denzel Soares MD HEMATOLOGY & PF4 ORD ERABLES [facility] [address] [place] [address] * HEMOGLOBIN A1C (10/09/2015 0:03 EST) Hemoglobin A1C 5.3 % 10/09/2015 10:38 [facility] Comment: Reference Range: <5.7% Normal 5.7-6.4% Increased risk for diabetes =>6.5% Diagnostic for diabetes (if confirmed) The A1c goal for non adults in general is <7%. The A1c goal for selected patients may be significantly lower than 7% if this can be achieved without significant hypoglycemia or other adverse effects of treatment. Est Avg Glucose 105 mg/dl 6 10:38 [facility] Comment: eAG represents the A1c result expressed as average glucose in mg/dl. Blood specimen (specimen) BLOOD SPECIMEN / Unknown 10/09/2015 0:03 EST 10/09/2015 0:14 EST Jenn Moore MD CHEMISTRY & BLOOD GA S ORDERABLES Performing Organization Address City/[facility]/ZIP Co de Phone Number [facility] [address] [place] [address] * (ABNORMAL) TROPONIN I (10/09/2015 0:03 EST) Troponin I (ng/mL) 1.800(H) <0.034 ng/ml 10/09/2015 0:46 EST [facility] Blood specimen (specimen) BLOOD SPECIMEN / Unknown 10/09/2015 0:03 EST 10/09/2015 0:14 EST Jenn Moore MD CHEMISTRY & BLOOD GA S ORDERABLES Performing Organization Address [facility] Co de Phone Number [facility] [address] [place] [address] * (ABNORMAL) TROPONIN I (10/08/2015 15:44 EST) Troponin I (ng/mL) 2.050(H) <0.034 ng/ml 10/08/2015 16:57 EST [facility] Blood specimen (specimen) BLOOD SPECIMEN / Unknown 10/08/2015 15:44 EST 10/08/2015 16:11 EST Jenn Moore MD CHEMISTRY & BLOOD GA S ORDERABLES Performing Organization Address City/[facility] Co de Phone Number [facility] [address] [place] [address] * ECHOCARDIOGRAM (10/08/2015 11:26 EST) Anatomical Region Laterality Modality Other 10/08/2015 11:2 6 EST Narrative 10/08/2015 12:27 EST *Interpreting Group:* *[facility]* [address] [place] [address] ?? Date of study: 10/08/2015 ?? Transthoracic Echocardiography M-mode, complete 2D, complete spectral Doppler, color Doppler, and IV contrast *STUDY CONCLUSIONS* Summary: 1. Left ventricle: The cavity size was normal. Wall thickness was at the upper ?? limits of normal.There was a discrete apical myocardial thinning. Systolic ?? function was moderately reduced. The estimated ejection fraction was 35-40%. ?? Moderate hypokinesis of the mid anteroseptum anteroerolateral, and lateral ?? segments. Severe hypokiesis of the mid to distal anterior and distal ?? anteroseptal segments. The apex was akinetic. There was an increased relative ?? contribution of atrial contraction to ventricular filling. Doppler parameters ?? are consistent with abnormal left ventricular relaxation (grade 1 diastolic ?? dysfunction). 2. Right ventricle: The cavity size was normal. Wall thickness was normal. ?? Systolic function was normal. *PATIENT PRESENTATION* Height: ? 180.3cm (71in ) S/D Pressure: 178 / 95 Weight: ? 108.9kg (239.5lb ) BSA: ?2.37m^2 Test start time: ??10:30 AM. Test stop time: ??11:27 AM. ADMITTING ?Doe Urbina MD ATTENDING ?Doe Urbina MD REFERRING ?Vladimir Simmons FELLOW ? Keven Sosa ORDERING ? Jenn Moore CRUSHER TENDER ??Ashli Horn REFERRING ?Jenn Moore p PERFORMING ?? [facility], CRUSHER TENDER ??Delvin Guerin *PROCEDURE DATA* Procedure information: ??This study was interpreted by [facility]. Pertinent images and digital data are archived for permanent storage and are available for subsequent review. ??Study status: Routine. Transthoracic echocardiography. ??M-mode, complete 2D, complete spectral Doppler, color Doppler, and intravenous contrast injection. A Transthoracic Echocardiogram was performed. Scanning was performed from the parasternal, apical, subcostal, and suprasternal notch acoustic windows. Images were obtained using an MethylGeneq 13 cardiac ultrasound machine. Image quality was adequate. 3ml of Intravenous contrast (Definity) was administered by Ashli Horn DO to enhance delineation of left ventricular endocardial borders. Prior to administration at least two (2) contiguous segments of the left ventricular border were not visualized. A total of 1 vial(s) of Definity was used. ??Study completion: ??The patient tolerated the procedure well. There were no complications. *INDICATIONS AND HISTORY* Indications: ?? STEMI (I21.3). *CARDIAC ANATOMY* Left ventricle: ??The cavity size was normal. Wall thickness was at the upper limits of normal.There was a discrete apical myocardial thinning. Systolic function was moderately reduced. The estimated ejection fraction was 35-40%. Regional wall motion abnormalities: ??Moderate hypokinesis of the mid anteroseptum anteroerolateral, and lateral segments. Severe hypokiesis of the mid to distal anterior and distal anteroseptal segments. The apex was akinetic. There was an increased relative contribution of atrial contraction to ventricular filling. Doppler parameters are consistent with abnormal left ventricular relaxation (grade 1 diastolic dysfunction). Aortic valve: ?? Probably trileaflet; mildly thickened, mildly calcified leaflets. Mobility was not restricted. ??Doppler: ??Transvalvular velocity was within the normal range. There was no stenosis. ??No regurgitation. Aorta: ??Aortic root: The aortic root was normal in size. Ascending aorta: The ascending aorta was normal in size. Mitral valve: ?? Structurally normal valve. ?? Mobility was not restricted. Doppler: ??Transvalvular velocity was within the normal range. There was no evidence for stenosis. ??No regurgitation. Left atrium: ??The atrium was normal in size. Right ventricle: ??The cavity size was normal. Wall thickness was normal. Systolic function was normal. Pulmonic valve: ?? Poorly visualized. ??Doppler: ??Transvalvular velocity was within the normal range. There was no evidence for stenosis. ??No regurgitation. Tricuspid valve: ?? Structurally normal valve. ?Doppler: ??Transvalvular velocity was within the normal range. There was no evidence for stenosis. ??No regurgitation. Pulmonary artery: ?Systolic pressure could not be accurately estimated. Right atrium: ??The atrium was normal in size. Pericardium: ??There was no pericardial effusion. Systemic veins: Inferior vena cava: The vessel was normal in size; the respirophasic diameter changes were in the normal range (greater than or equal to 50%); findings are consistent with normal central venous pressure. *MEASUREMENT TABLES* 2D measurements ?Normal Left ventricle Volume, ED, MOD, 1-plane ?109 ml ? ------- Ejection fraction, MOD, 1-plane ?39.4 % ?------- Volume index, ED, MOD, 1-plane ? 46 ml/m^2 ------- Volume, ED, MOD, 2-plane ?123 ml ? 62-170 Ejection fraction, MOD, 2-plane ?39.9 % ?------- Volume index, ED, MOD, 2-plane ? 52 ml/m^2 ------- Aorta Root diameter, ED ?35 mm ? ------- Ascending aorta anterior-posterior diameter, S ?? 32 mm ? ------- Left atrium Anterior-posterior dimension ? 31 mm ? ------- Anterior-posterior dimension index ? 1.31 cm/m^2 <2.2 Superior-inferior dimension, A4C ? 31 mm ? 29-53 ?? Doppler measurements ? Normal Left ventricle IVRT ? *106 ms ? 60-100 Ea, lateral annulus, tissue Doppler ? 5 cm/s ?? ------- E/Ea, lateral annulus, tissue Doppler ?11.5 ?------- Mitral valve Peak E-wave velocity ? 57.5 cm/s ?? ------- Peak A-wave velocity ?108 cm/s ?? ------- Deceleration time ? 187 ms ? 150- 230 Peak E/A ratio ?0.5 ?------- Legend: Mean values are shown as u=mean value. Asterisk (*) naqvi values outside specified normal range. I have personally reviewed the images and have reviewed and edited the reported findings. Electronically signed by Daniel Kaur MD 10/08/2015 12:27 Procedure Note Daniel Thayer MD - 10/08/2015 *Interpreting Group:* *[facility]* [address] [place] [address] Date of study: 10/08/2015 Transthoracic Echocardiography M-mode, complete 2D, complete spectral Doppler, color Doppler, and IVcontrast *STUDY CONCLUSIONS* Summary: 1. Left ventricle: The cavity size was normal. Wall thickness was at theupper limits of normal.There was a discrete apical myocardial thinning.Systolic function was moderately reduced. The estimated ejection fraction dte27-16%. Moderate hypokinesis of the mid anteroseptum anteroerolateral, andlateral segments. Severe hypokiesis of the mid to distal anterior and distal anteroseptal segments. The apex was akinetic. There was an increasedrelative contribution of atrial contraction to ventricular filling. Dopplerparameters are consistent with abnormal left ventricular relaxation (grade 1diastolic dysfunction). 2. Right ventricle: The cavity size was normal. Wall thickness was normal. Systolic function was normal. *PATIENT PRESENTATION* Height: 180.3cm (71in ) S/D Pressure: 178 / 95 Weight: 108.9kg (239.5lb ) BSA: 2.37m^2 Test start time: 10:30 AM. Test stop time: 11:27 AM. ADMITTING Doe Urbina MD ATTENDING Doe Urbina MD REFERRING Vladimir Simmons FELLOW Keven Sosa ORDERING Jenn Moore CRUSHER TENDER Ashli Horn REFERRING Jenn Moore p PERFORMING [facility], CRUSHER TENDER Delvin Guerin *PROCEDURE DATA* Procedure information: This study was interpreted by [facility]. Pertinent images and digital data are archivedfor permanent storage and are available for subsequent review. Study status: Routine. Transthoracic echocardiography. M-mode, complete 2D, completespectral Doppler, color Doppler, and intravenous contrast injection. ATransthoracic Echocardiogram was performed. Scanning was performed from the parasternal, apical, subcostal, and suprasternal notch acoustic windows. Images wereobtained using an Epiq 13 cardiac ultrasound machine. Image quality was adequate.3ml of Intravenous contrast (Definity) was administered by Ashli Horn [facility] toenhance delineation of left ventricular endocardial borders. Prior toadministration at least two (2) contiguous segments of the left ventricular border were not visualized. A total of 1 vial(s) of Definity was used. Study completion:The patient tolerated the procedure well. There were no complications. *INDICATIONS AND HISTORY* Indications: STEMI (I21.3). *CARDIAC ANATOMY* Left ventricle: The cavity size was normal. Wall thickness was at theupper limits of normal.There was a discrete apical myocardial thinning. Systolic function was moderately reduced. The estimated ejection fraction bgm70-97%. Regional wall motion abnormalities: Moderate hypokinesis of the mid anteroseptum anteroerolateral, and lateral segments. Severe hypokiesis ofthe mid to distal anterior and distal anteroseptal segments. The apex wasakinetic. There was an increased relative contribution of atrial contraction to ventricular filling. Doppler parameters are consistent with abnormal left ventricular relaxation (grade 1 diastolic dysfunction). Aortic valve: Probably trileaflet; mildly thickened, mildly calcified leaflets. Mobility was not restricted. Doppler: Transvalvular velocitywas within the normal range. There was no stenosis. No regurgitation. Aorta: Aortic root: The aortic root was normal in size. Ascending aorta: The ascending aorta was normal in size. Mitral valve: Structurally normal valve. Mobility was not restricted. Doppler: Transvalvular velocity was within the normal range. There was no evidence for stenosis. No regurgitation. Left atrium: The atrium was normal in size. Right ventricle: The cavity size was normal. Wall thickness was normal. Systolic function was normal. Pulmonic valve: Poorly visualized. Doppler: Transvalvular velocity was within the normal range. There was no evidence for stenosis. Noregurgitation. Tricuspid valve: Structurally normal valve. Doppler: Transvalvular velocity was within the normal range. There was no evidence for stenosis.No regurgitation. Pulmonary artery: Systolic pressure could not be accurately estimated. Right atrium: The atrium was normal in size. Pericardium: There was no pericardial effusion. Systemic veins: Inferior vena cava: The vessel was normal in size; the respirophasicdiameter changes were in the normal range (greater than or equal to 50%); findingsare consistent with normal central venous pressure. *MEASUREMENT TABLES* 2D measurements Normal Left ventricle Volume, ED, MOD, 1-plane 109 ml ------- Ejection fraction, MOD, 1-plane 39.4 % ------- Volume index, ED, MOD, 1-plane 46 ml/m^2 ------- Volume, ED, MOD, 2-plane 123 ml 62-170 Ejection fraction, MOD, 2-plane 39.9 % ------- Volume index, ED, MOD, 2-plane 52 ml/m^2 ------- Aorta Root diameter, ED 35 mm ------- Ascending aorta anterior-posterior diameter, S 32 mm ------- Left atrium Anterior-posterior dimension 31 mm ------- Anterior-posterior dimension index 1.31 cm/m^2 <2.2 Superior-inferior dimension, A4C 31 mm 29-53 Doppler measurements Normal Left ventricle IVRT *106 ms 60-100 Ea, lateral annulus, tissue Doppler 5 cm/s ------- E/Ea, lateral annulus, tissue Doppler 11.5 ------- Mitral valve Peak E-wave velocity 57.5 cm/s ------- Peak A-wave velocity 108 cm/s ------- Deceleration time 187 ms 150-230 Peak E/A ratio 0.5 ------- Legend: Mean values are shown as u=mean value. Asterisk (*) naqvi values outside specified normal range. I have personally reviewed the images and have reviewed and edited thereported findings. Electronically signed by Daniel Kaur MD 10/08/2015 12:27 Jenn Moore MD CARDIAC ECHO ORDERAB LES * PROTIME (10/08/2015 8:57 EST) Pathologist [facility] Pro Time 12.5 10.1 - 13.0 secs 10/08/2015 9:28 [facility] I.N.R. 1.1 0.9 - 1.1 Ratio 10/08/2015 9:28 [facility] Comment: Moderate Intensity Coumadin INR = 2.0-3.0 Adjustments in anticoagulant therapy dose should be based upon the INR and NOT the Pro Time. Blood specimen (specimen) BLOOD SPECIMEN / Unknown 10/08/2015 8:57 EST 10/08/2015 9:13 EST Jenn Moore MD HEMATOLOGY & PF4 ORD ERABLES [facility] [address] [id number] * HEMAGRAM (10/08/2015 8:57 EST) WBC 7.41 4.0 - 10.4 K/cmm 10/08/2015 9:21 [facility] RBC 4.58 4.36 - 5.78 M/cmm 10/08/2015 9:21 [facility] Hemoglobin 13.9 13.8 - 17.3 gm/dl 10/08/2015 9:21 [facility] HCT 40.6 39.5 - 50.2 % 10/08/2015 9:21 [facility] MCV 89 81 - 95 fl 10/08/2015 9:21 [facility] MCH 30.3 27.6 - 33.0 pg 10/08/2015 9:21 [facility] MCHC 34.2 32.8 - 36.4 gm/dl 10/08/2015 9:21 [facility] RDW-CV 12.9 11.8 - 14.1 % 10/08/2015 9:21 [facility] RDW-SD 41.7 36.5 - 45.9 fl 10/08/2015 9:21 [facility] PLT 190 141 - 377 K/cmm 10/08/2015 9:21 [facility] Comment:Note new reference r michael effective 10/01/15 MPV 10.2 9.5 - 12.7 fl 10/08/2015 9:21 [facility] Comment:Note new reference r michael effective 10/01/15 Blood specimen (specimen) BLOOD SPECIMEN / Unknown 10/08/2015 8:57 EST 10/08/2015 9:13 EST Jenn Moore MD HEMATOLOGY & PF4 ORD ERABLES Performing Organization Address City/[facility]/ZIP Co de Phone Number [facility] [address] [place] [address] * MAGNESIUM (10/08/2015 8:57 EST) Magnesium 2.0 1.7 - 2.8 mg/dl 10/08/2015 9:58 EST [facility] Blood specimen (specimen) BLOOD SPECIMEN / Unknown 10/08/2015 8:57 EST 10/08/2015 9:13 EST Jenn Moore MD CHEMISTRY & BLOOD GA S ORDERABLES Performing Organization Address [facility]/RUST de Phone Number [facility] [address] [place] [address] * (ABNORMAL) ELECTROLYTES (10/08/2015 8:57 EST) Sodium 138 136 - 145 mEq/L 10/08/2015 9:58 [facility] Potassium 4.1 3.5 - 5.0 mEq/L 10/08/2015 9:58 [facility] Chloride 104 96 - 110 mEq/L 10/08/2015 9:58 [facility] CO2 22(L) 24 - 32 mEq/L 10/08/2015 9:58 [facility] Blood specimen (specimen) BLOOD SPECIMEN / Unknown 10/08/2015 8:57 EST 10/08/2015 9:13 EST Jenn Moore MD CHEMISTRY & BLOOD GA S ORDERABLES Performing Organization Address [facility] Co de Phone Number [facility] [address] [place] [address] * CREATININE (10/08/2015 8:57 EST) Creatinine 0.98 0.66 - 1.25 mg/dl 10/08/2015 9:58 EST [facility] GFR, Calculated 85 >60 ml/min/1.7 3m2 10/08/2015 9:58 EST [facility] Comment: eGFR calculated using CKD-EPI equation for non Americans. Multiply eGFR by 1.16 for Americans. Blood specimen (specimen) BLOOD SPECIMEN / Unknown 10/08/2015 8:57 EST 10/08/2015 9:13 EST Jenn Moore MD CHEMISTRY & BLOOD GA S ORDERABLES Performing Organization Address City/[facility] Co de Phone Number [facility] [address] [place] [address] * BUN (10/08/2015 8:57 EST) BUN 10 10 - 26 mg/dl 10/08/2015 9:58 EST [facility] Blood specimen (specimen) BLOOD SPECIMEN / Unknown 10/08/2015 8:57 EST 10/08/2015 9:13 EST Jenn Moore MD CHEMISTRY & BLOOD GA S ORDERABLES Performing Organization Address [facility] de Phone Number [facility] [address] [place] [address] * (ABNORMAL) TROPONIN I (10/08/2015 8:57 EST) Troponin I (ng/mL) 1.730(H) <0.034 ng/ml 10/08/2015 10:03 EST [facility] Blood specimen (specimen) BLOOD SPECIMEN / Unknown 10/08/2015 8:57 EST 10/08/2015 9:13 EST Jenn Moore MD CHEMISTRY & BLOOD GA S ORDERABLES Performing Organization Address [facility] Co de Phone Number [facility] [address] [place] [address] * LEFT HEART CATH (10/08/2015 5:33 EST) Anatomical Region Laterality Modality Other 10/08/2015 5:33 EST Narrative 10/08/2015 12:16 EST Cardiology [address] [place] [address] ?? Catheterization Laboratory Study Patient: René Rivera ?Study Date: ? 10/08/2015 ? Accession #: ?[id number] : ? 1955 Referring Physician: Vladimir Simmons Diagnostic Attending: ??Doe Urbina Interventional Attending: ?? Doe Urbina Diagnostic Fellow: Dirk Stockton Interventional Fellow: Jason Soares ATTESTATION: Dr. Doe Urbina was present and supervising for the entire procedure, I Dr. Saloni Soares was the initial author of this report. I, Dr. Doe Urbina have reviewed and agree with the findings of this report. PROCEDURE PLAN: Based on the diagnostic study percutaneous coronary intervention is indicated. RESEARCH STUDY: Patient is not enrolled in any research studies. IMPRESSIONS: 1. Severe triple vessel coronary artery disease. 2. ST-elevated myocardial infarction (STEMI). The culprit lesion was identified, ?? reperfusion was successfully achieved, and myocardial function was restored. 3. Patient presents with acute occlusion and PA as defined by Positive ?? biomarkers and Q-wave/ ST elevation (STEMI). 4. Culprit artery which has a subtotal occlusion 5. That resulted in the AMI was LAD. SUMMARY: 1. HPI and indications: ST-elevated myocardial infarction. 2. Left main: Normal. 3. LAD: Proximal vessel lesion: There is a diffuse, 30mm (L), 99%stenosis. This ?? lesion is irregularly contoured, complex, and eccentric. There is DOE grade ?? 2 flow (partial perfusion) across the lesion. The lesion is significant by ?? visual estimate. The distal vessel supplies a moderate-sized vascular ?? territory. The lesion is a likely culprit for the patient's anginal symptoms, ?? recent myocardial infarction, and clinical presentation and an ACC/AHA type ?? B2 moderate risk lesion for intervention, with 2 or more adverse ?? characteristics. The lesion was stented using a drug-eluting stent (see 1st ?? lesion intervention), with balloon angioplasty. Following intervention, there ?? is a residual 0% stenosis with an excellent angiographic appearance and DOE ?? grade 3 flow (brisk flow). 4. Left circumflex: Proximal vessel lesion: There is a diffuse, 28mm (L), ?? 95%stenosis. This lesion is irregularly contoured, hazy, and eccentric. There ?? is DOE grade 3 flow (brisk flow) across the lesion. The lesion is ?? significant by visual estimate. The distal vessel supplies a moderate-sized ?? vascular territory. The lesion is a likely culprit for the patient's anginal ?? symptoms, recent myocardial infarction, and clinical presentation and an ?? ACC/AHA type B1 moderate risk lesion for intervention, with 1 adverse ?? characteristic. The lesion was stented using a drug-eluting stent (see 2nd ?? lesion intervention), with balloon angioplasty. Following intervention, there ?? is a residual 0% stenosis with an excellent angiographic appearance and DOE ?? grade 3 flow (brisk flow). 5. Right coronary: Mid-vessel lesion: There is a 60% stenosis. Distal vessel ?? lesion: There is a 60% stenosis. RECOMMENDATIONS: 1. The patient should undergo coronary percutaneous coronary intervention. 2. Patient management should include aggressive medical therapy, risk factor ?? modification, lifestyle change to reduce stress, smoking cessation, ?? counseling to assist with smoking cessation, avoidance of all tobacco ?? products, avoidance of alcohol, an exercise program, a cardiac rehabilitation ?? program, weight reduction, low fat diet, and low calorie diet. 3. Aspirin, 81mgPOdaily. 4. Tricagrelor (Brilinta), loading dose 180mgPO, standing dose 90mgPObid. 5. Atorvastatin, 80mgPOdaily. HISTORY: ST-elevated myocardial infarction. ??Functional status: ?? CCS class IV (angina at rest or with any physical activity). ??Risk factors: ??Family history of coronary artery disease. Current tobacco use. Hypertension. Dyslipidemia. LABS, PRIOR TESTS, PROCEDURES AND SURGERY: Serum creatinine (current admission) of 1.2 mg/dl. ??Hematocrit of 49 %. Platelet count of 212 th/ul. ??Blood urea nitrogen of 12 mg/dl. ??Hemoglobin (pre-procedure) of 16.5 g/dl. STUDY DATA: Study status: ??Cardiac cath: emergent. Percutaneous coronary intervention: emergent. ??Patient status: ??Outpatient. ??Location: ??Catheterization laboratory. Sex: male. Patient is 60yr old. Weight: 104.5kg. Procedures performed: ?Right radial artery access. ?Left coronary angiography. ?Right coronary angiography. ?Lesion intervention: Percutaneous intervention on the 99% stenosis in the proximal LAD. ?Balloon angioplasty. ?Balloon angioplasty. ?Stent placement. ?Stent placement. Stent placement. ?Stent placement. ?Lesion intervention: Percutaneous intervention on the 95% stenosis in the proximal left circumflex. ?? Balloon angioplasty. ?Stent placement. ANESTHESIA: Conscious sedation for pain control by cardiology staff. PROCEDURE: 1. Initial setup. The patient was brought to the laboratory in the fasting ?? state. A baseline ECG was recorded. Surface ECG leads, automatic cuff blood ?? pressure measurements, and pulse oximetric signals were monitored. 2. Skin preparation. The planned puncture sites were prepped with chlorhexidine ?? and draped in the usual sterile manner. 3. Right radial artery access. A 6 FR/10/.021 [place] [employer] SLENDER sheath was ?? advanced into the vessel. 4. Selective left coronary angiography. A 5 Fr Tig Catheter 4.0 catheter was ?? advanced into the left coronary vessel ostium under fluoroscopic guidance. ?? Contrast was injected by hand. Images were obtained in multiple projections. 5. Selective right coronary angiography. A 5 Fr Tig Catheter 4.0 catheter was ?? advanced into the right coronary vessel ostium under fluoroscopic guidance. ?? Contrast was injected by hand. Images were obtained in multiple projections. 6. Right radial artery hemostasis. Mechanical compression was applied. 1st lesion intervention: Percutaneous intervention on the 99% stenosis in the proximal LAD. 1. Vessel setup was performed. A 6F XB3 guiding catheter was advanced into the ?? vessel. 2. Vessel setup was performed. A 180 Prowater wire was used to cross the lesion. 3. Vessel setup was performed. A 190 cm [employer] Manager 50 wire was used. 4. Balloon angioplasty. A 2mm (D) x 12mm (L), [place] RX balloon was positioned ?? across the lesion and given a single inflation with a maximum inflation ?? pressure of 8atm. 5. Balloon angioplasty. A 2.5mm (D) x 15mm (L), [place] RX balloon was positioned ?? across the lesion and given three inflations with a maximum inflation ?? pressure of 11atm. 6. Stent placement. A 2.75mm (D) x 24mm (L), Synergy stent was advanced across ?? the lesion and deployed with a single inflation and a maximum pressure of ?? 14atm. 7. Stent placement. A 2.5mm (D) x 12mm (L), Synergy stent was advanced across ?? the lesion and deployed with a single inflation and a maximum pressure of ?? 12atm. 8. Stent placement. A 2.7mm (D) x 16mm (L), Synergy stent was advanced across ?? the lesion and deployed with a single inflation and a maximum pressure of ?? 16atm. 9. Stent placement. A 3mm (D) x 16mm (L), Synergy stent was advanced across the ?? lesion and deployed with two inflations and a maximum pressure of 12atm. 2nd lesion intervention: Percutaneous intervention on the 95% stenosis in the proximal left circumflex. 1. Vessel setup was performed. A 180 Prowater wire was used to cross the lesion. 2. Balloon angioplasty. A 180 Prowater balloon was positioned across the lesion ?? and given three inflations with a maximum inflation pressure of 12atm. 3. Stent placement. A 3.5mm (D) x 28mm (L), Synergy stent was advanced across ?? the lesion and deployed with a single inflation and a maximum pressure of ?? 14atm. STUDY COMPLETION: The estimated blood loss was 10ml. All catheters inserted during the procedure were removed. The patient tolerated the procedure well and was discharged from the lab. There were no complications. ??Contrast: ?? Omnipaque 385ml (total dose). Fluoroscopy time: ??32.4min. ??Fluoroscopy dose: ??273.8cGy. CORONARY ARTERIES: The coronary circulation is right dominant. Left main: ??Normal. LAD: ??Proximal vessel lesion: There is a diffuse, 30mm (L), 99%stenosis. This lesion is irregularly contoured, complex, and eccentric. There is DOE grade 2 flow (partial perfusion) across the lesion. The lesion is significant by visual estimate. The distal vessel supplies a moderate-sized vascular territory. The lesion is a likely culprit for the patient's anginal symptoms, recent myocardial infarction, and clinical presentation and an ACC/AHA type B2 moderate risk lesion for intervention, with 2 or more adverse characteristics. The lesion was stented using a drug-eluting stent (see 1st lesion intervention), with balloon angioplasty. Following intervention, there is a residual 0% stenosis with an excellent angiographic appearance and DOE grade 3 flow (brisk flow). There were no site complications. Left circumflex: ??Proximal vessel lesion: There is a diffuse, 28mm (L), 95%stenosis. This lesion is irregularly contoured, hazy, and eccentric. There is DOE grade 3 flow (brisk flow) across the lesion. The lesion is significant by visual estimate. The distal vessel supplies a moderate-sized vascular territory. The lesion is a likely culprit for the patient's anginal symptoms, recent myocardial infarction, and clinical presentation and an ACC/AHA type B1 moderate risk lesion for intervention, with 1 adverse characteristic. The lesion was stented using a drug-eluting stent (see 2nd lesion intervention), with balloon angioplasty. Following intervention, there is a residual 0% stenosis with an excellent angiographic appearance and DOE grade 3 flow (brisk flow). There were no site complications. Right coronary: ??Minor luminal irregularities. ??Mid-vessel lesion: There is a 60% stenosis. ??Distal vessel lesion: There is a 60% stenosis. HEMODYNAMICS: End diastolic pressure in the left ventricle is normal. Pressure measurements across the aortic valve show no evidence of stenosis. + + + Stage description ? Condition1:Condition 1 - + + + LV pressure s/ed ? 106/16 ? + + + Arterial pressure s/d (m) 118/79 (96) ? + + + * Electronically signed by Doe Urbina MD 2015-10-08 12:16 Procedure Note Doe Urbina MD - 10/08/[address] [place] [id number] Catheterization Laboratory Study Patient: René Rivera Study Date:10/08/2015 : 1955 Referring Physician: Vladimir Simmons Diagnostic Attending: Doe Urbina Interventional Attending: Doe Urbina Diagnostic Fellow: Dirk Stockton Interventional Fellow: Jason Soares ATTESTATION: Dr. Doe Urbina was present and supervising for the entire procedure, IDrMazin Soares was the initial author of this report. I, Dr. Doe Urbina have reviewed and agree with the findings of this report. PROCEDURE PLAN: Based on the diagnostic study percutaneous coronary intervention isindicated. RESEARCH STUDY: Patient is not enrolled in any research studies. IMPRESSIONS: 1. Severe triple vessel coronary artery disease. 2. ST-elevated myocardial infarction (STEMI). The culprit lesion wasidentified, reperfusion was successfully achieved, and myocardial function wasrestored. 3. Patient presents with acute occlusion and PA as defined by Positive biomarkers and Q-wave/ ST elevation (STEMI). 4. Culprit artery which has a subtotal occlusion 5. That resulted in the AMI was LAD. SUMMARY: 1. HPI and indications: ST-elevated myocardial infarction. 2. Left main: Normal. 3. LAD: Proximal vessel lesion: There is a diffuse, 30mm (L), 99%stenosis.This lesion is irregularly contoured, complex, and eccentric. There is TIMIgrade 2 flow (partial perfusion) across the lesion. The lesion is significantby visual estimate. The distal vessel supplies a moderate-sized vascular territory. The lesion is a likely culprit for the patient's anginalsymptoms, recent myocardial infarction, and clinical presentation and an ACC/AHAtype B2 moderate risk lesion for intervention, with 2 or more adverse characteristics. The lesion was stented using a drug-eluting stent (see1st lesion intervention), with balloon angioplasty. Following intervention,there is a residual 0% stenosis with an excellent angiographic appearance andTIMI grade 3 flow (brisk flow). 4. Left circumflex: Proximal vessel lesion: There is a diffuse, 28mm (L), 95%stenosis. This lesion is irregularly contoured, hazy, and eccentric.There is DOE grade 3 flow (brisk flow) across the lesion. The lesion is significant by visual estimate. The distal vessel supplies amoderate-sized vascular territory. The lesion is a likely culprit for the patient'sanginal symptoms, recent myocardial infarction, and clinical presentation andan ACC/AHA type B1 moderate risk lesion for intervention, with 1 adverse characteristic. The lesion was stented using a drug-eluting stent (see2nd lesion intervention), with balloon angioplasty. Following intervention,there is a residual 0% stenosis with an excellent angiographic appearance andTIMI grade 3 flow (brisk flow). 5. Right coronary: Mid-vessel lesion: There is a 60% stenosis. Distalvessel lesion: There is a 60% stenosis. RECOMMENDATIONS: 1. The patient should undergo coronary percutaneous coronary intervention. 2. Patient management should include aggressive medical therapy, riskfactor modification, lifestyle change to reduce stress, smoking cessation, counseling to assist with smoking cessation, avoidance of all tobacco products, avoidance of alcohol, an exercise program, a cardiacrehabilitation program, weight reduction, low fat diet, and low calorie diet. 3. Aspirin, 81mgPOdaily. 4. Tricagrelor (Brilinta), loading dose 180mgPO, standing dose 90mgPObid. 5. Atorvastatin, 80mgPOdaily. HISTORY: ST-elevated myocardial infarction. Functional status: CCS class IV(angina at rest or with any physical activity). Risk factors: Family history ofcoronary artery disease. Current tobacco use. Hypertension. Dyslipidemia. LABS, PRIOR TESTS, PROCEDURES AND SURGERY: Serum creatinine (current admission) of 1.2 mg/dl. Hematocrit of 49 %. Platelet count of 212 th/ul. Blood urea nitrogen of 12 mg/dl. Hemoglobin (pre-procedure) of 16.5 g/dl. STUDY DATA: Study status: Cardiac cath: emergent. Percutaneous coronary intervention: emergent. Patient status: [facility] Sex: male. Patient is 60yr old. Weight: 104.5kg. Procedures performed: Right radial artery access. Left coronary angiography. Right coronary angiography. Lesionintervention: Percutaneous intervention on the 99% stenosis in the proximal LAD.Balloon angioplasty. Balloon angioplasty. Stent placement. Stentplacement. Stent placement. Stent placement. Lesion intervention: Percutaneous intervention on the 95% stenosis in the proximal leftcircumflex. Balloon angioplasty. Stent placement. ANESTHESIA: Conscious sedation for pain control by cardiology staff. PROCEDURE: 1. Initial setup. The patient was brought to the laboratory in the fasting state. A baseline ECG was recorded. Surface ECG leads, automatic cuffblood pressure measurements, and pulse oximetric signals were monitored. 2. Skin preparation. The planned puncture sites were prepped withchlorhexidine and draped in the usual sterile manner. 3. Right radial artery access. A 6 FR/10/.021 [place] Sheath SLENDER sheathwas advanced into the vessel. 4. Selective left coronary angiography. A 5 Fr Tig Catheter 4.0 catheterwas advanced into the left coronary vessel ostium under fluoroscopicguidance. Contrast was injected by hand. Images were obtained in multipleprojections. 5. Selective right coronary angiography. A 5 Fr Tig Catheter 4.0 catheterwas advanced into the right coronary vessel ostium under fluoroscopicguidance. Contrast was injected by hand. Images were obtained in multipleprojections. 6. Right radial artery hemostasis. Mechanical compression was applied. 1st lesion intervention: Percutaneous intervention on the 99% stenosis in the proximal LAD. 1. Vessel setup was performed. A 6F XB3 guiding catheter was advanced intothe vessel. 2. Vessel setup was performed. A 180 Prowater wire was used to cross thelesion. 3. Vessel setup was performed. A 190 cm [employer] 50 wire was used. 4. Balloon angioplasty. A 2mm (D) x 12mm (L), [place] RX balloon waspositioned across the lesion and given a single inflation with a maximum inflation pressure of 8atm. 5. Balloon angioplasty. A 2.5mm (D) x 15mm (L), [place] RX balloon waspositioned across the lesion and given three inflations with a maximum inflation pressure of 11atm. 6. Stent placement. A 2.75mm (D) x 24mm (L), Synergy stent was advancedacross the lesion and deployed with a single inflation and a maximum pressureof 14atm. 7. Stent placement. A 2.5mm (D) x 12mm (L), Synergy stent was advancedacross the lesion and deployed with a single inflation and a maximum pressureof 12atm. 8. Stent placement. A 2.7mm (D) x 16mm (L), Synergy stent was advancedacross the lesion and deployed with a single inflation and a maximum pressureof 16atm. 9. Stent placement. A 3mm (D) x 16mm (L), Synergy stent was advancedacross the lesion and deployed with two inflations and a maximum pressure [id number]. 2nd lesion intervention: Percutaneous intervention on the 95% stenosis in the proximal leftcircumflex. 1. Vessel setup was performed. A 180 Prowater wire was used to cross thelesion. 2. Balloon angioplasty. A 180 Prowater balloon was positioned across thelesion and given three inflations with a maximum inflation pressure of 12atm. 3. Stent placement. A 3.5mm (D) x 28mm (L), Synergy stent was advancedacross the lesion and deployed with a single inflation and a maximum pressureof 14atm. STUDY COMPLETION: The estimated blood loss was 10ml. All catheters inserted during theprocedure were removed. The patient tolerated the procedure well and was dischargedfrom the lab. There were no complications. Contrast: Omnipaque 385ml (totaldose). Fluoroscopy time: 32.4min. Fluoroscopy dose: 273.8cGy. CORONARY ARTERIES: The coronary circulation is right dominant. Left main: Normal. LAD: Proximal vessel lesion: There is a diffuse, 30mm (L), 99%stenosis.This lesion is irregularly contoured, complex, and eccentric. There is TIMIgrade 2 flow (partial perfusion) across the lesion. The lesion is significant byvisual estimate. The distal vessel supplies a moderate-sized vascular territory.The lesion is a likely culprit for the patient's anginal symptoms, recentmyocardial infarction, and clinical presentation and an ACC/AHA type B2 moderaterisk lesion for intervention, with 2 or more adverse characteristics. Thelesion was stented using a drug-eluting stent (see 1st lesion intervention), withballoon angioplasty. Following intervention, there is a residual 0% stenosis withan excellent angiographic appearance and DOE grade 3 flow (brisk flow).There were no site complications. Left circumflex: Proximal vessel lesion: There is a diffuse, 28mm (L), 95%stenosis. This lesion is irregularly contoured, hazy, and eccentric.There is DOE grade 3 flow (brisk flow) across the lesion. The lesion issignificant by visual estimate. The distal vessel supplies a moderate-sized vascularterritory. The lesion is a likely culprit for the patient's anginal symptoms, recent myocardial infarction, and clinical presentation and an ACC/AHA type B1 moderate risk lesion for intervention, with 1 adverse characteristic.The lesion was stented using a drug-eluting stent (see 2nd lesionintervention), with balloon angioplasty. Following intervention, there is a residual 0% stenosis with an excellent angiographic appearance and DOE grade 3 flow(brisk flow). There were no site complications. Right coronary: Minor luminal irregularities. Mid-vessel lesion: Thereis a 60% stenosis. Distal vessel lesion: There is a 60% stenosis. HEMODYNAMICS: End diastolic pressure in the left ventricle is normal. Pressuremeasurements across the aortic valve show no evidence of stenosis. + + + Stage description Condition1:Condition 1 - + + + LV pressure s/ed 106/16 + + + Arterial pressure s/d (m) 118/79 (96) + + + * Electronically signed by Doe Urbina MD 2015-10-08 12:16 Doe Urbina MD CARDIAC CATH ORDERAB LES * EKG 12-LEAD (10/08/2015 5:09 EST) 10/08/2015 5:09 EST Narrative [facility] EKG - 10/08/2015 8:42 EST ?[facility] Emergency ? Test Date: ?2015-10-08 Pat Name: ? RENÉ RIVERA ? Department: ?? ED ? Room: ? AC02 Gender: ? M ?Barker Peeler: ?? [id number] : ?1955 ? Requested By: CARLITOS SURESH T Order Number: [id number] ? Reading MD: ?? DOE URBINA MD ? Measurements Intervals ?Fred ? Rate: ? 79 ? P: ?48 SD: ? 196 ?QRS: ?14 QRSD: ? 92 ? T: ?51 QT: ? 391 ? QTc: ?449 ? Interpretive Statements SINUS RHYTHM WITH OCCASIONAL VENTRICULAR PREMATURE COMPLEXES POSSIBLE RIGHT VENTRICULAR CONDUCTION DELAY SEPTAL MYOCARDIAL INFARCTION, OF INDETERMINATE AGE No previous ECG available for comparison I reviewed the tracing and have either agreed or edited the findings in this report. Electronically Signed On 10-08-15 08:42:25 EST by DOE URBINA MD. Procedure Note Doe Urbina MD - 10/08/2015 [facility] Test Date: 2015-10-08 Pat Name: RENÉ RIVERA Department: ED Room: [facility] Gender: M Barker Peeler: [id number] : 1955 Requested By: CARLITOS Salas Order Number: [id number] Reading MD: DOE URBINA MD Measurements Intervals Fred Rate: 79 P: 48 SD: 196 QRS: 14 QRSD: 92 T: 51 QT: 391 QTc: 449 Interpretive Statements SINUS RHYTHM WITH OCCASIONAL VENTRICULAR PREMATURE COMPLEXES POSSIBLE RIGHT VENTRICULAR CONDUCTION DELAY SEPTAL MYOCARDIAL INFARCTION, OF INDETERMINATE AGE No previous ECG available for comparison I reviewed the tracing and have either agreed or edited the findings inthis report. Electronically Signed On 10-08-15 08:42:25 EST by DOE TELLEZ. Doe Urbina MD CARDIAC ECG ORDERABL ES [facility] EKG documented in this encounter Visit Diagnoses Diagnosis ST elevation myocardial infarction (STEMI), unspecified artery (HCC-CMS)- Primary ST elevation myocardial infarction (STEMI) (HCC-CMS) Acute myocardial infarction, unspecified site, episode of care unspecified documented in this encounter Administered Medications Inactive Administered Medications - up to 3 most recent administrations Medication Order MAR Action Action Date Dose Rate Site aspirin EC tablet 81 mg 81 mg, oral, DAILY, First dose on Thu10/09/15 at 0900, Until Discontinued, Routine Given 10/09/2015 8:42 EST 81 mg atorvastatin (LIPITOR) tablet 80 mg 80 mg, oral, AT BEDTIME, First dose on Thu10/08/15 at 2100, Until Discontinued, Routine Given 10/08/2015 20:25 EST 80 mg buPROPion (WELLBUTRIN SR) SR tablet 150 mg 150 mg, oral, 2 TIMES DAILY, First dose on Thu10/08/15 at 1200, Until Discontinued, Routine Given 10/09/2015 8:42 EST 150 mg Given 10/08/2015 20:27 EST 150 mg Given 10/08/2015 13:05 EST 150 mg fentaNYL citrate (PF) 50 mcg/mL injection intravenous, PRN, Starting on Thu10/08/15 at 0529, Until Thu10/08/15 at 0647, Routine Given 10/08/2015 6:47 EST 25 mcg IV Given 10/08/2015 6:23 EST 25 mcg IV Given 10/08/2015 6:18 EST 25 mcg IV heparin 1,000 unit/mL injection intravenous, PRN, Starting on Thu10/08/15 at 0557, Until Thu10/08/15 at 0713, Routine Given 10/08/2015 5:57 EST 5,000 Units heparin injection 5,000 Units 5,000 Units, subcutaneous, EVERY 8 HOURS, First dose on Thu10/09/15 at 0000, Until Discontinued, Routine Given 10/09/2015 8:42 EST 5,000 Units Given 10/09/2015 0:38 EST 5,000 Units hydrochlorothiazide (HYDRODIURIL) tablet 25 mg 25 mg, oral, DAILY, First dose on Thu10/09/15 at 1000, Until Discontinued, Routine Given 10/09/2015 10:59 EST 25 mg losartan (COZAAR) tablet 100 mg 100 mg, oral, DAILY, First dose on Thu10/08/15 at 1200, Until Discontinued, Routine Given 10/09/2015 8:42 EST 100 mg Given 10/08/2015 13:05 EST 100 mg metoprolol XL (TOPROL-XL) tablet 25 mg 25 mg, oral, DAILY, First dose on Thu10/08/15 at 0900, Until Discontinued, Routine Given 10/09/2015 8:43 EST 25 mg Given 10/08/2015 10:00 EST 25 mg midazolam (PF) (VERSED) 1 mg/mL injection intravenous, PRN, Starting on Thu10/08/15 at 0530, Until Thu10/08/15 at 0623, Routine Given 10/08/2015 6:23 EST 1 mg IV Given 10/08/2015 6:14 EST 1 mg IV Given 10/08/2015 5:45 EST 1 mg IV sodium bicarbonate 8.4 % 150 mEq in dextrose 5% (D5W) 1,000 mL infusion 1 mL/kg/hr ? 108.9 kg (108.9 mL/hr), intravenous, CONTINUOUS, Starting on Thu10/08/15 at 0645, Until Thu10/08/15 at 1619, Routine New Bag 10/08/2015 10:20 EST 1 mL/kg/hr 108.9 mL/hr sodium chloride 0.9 % (NS) infusion at 75 mL/hr, intravenous, CONTINUOUS, Starting on Thu10/08/15 at 0730, Until Thu10/08/15 at 1114, Routine Given by Other 10/08/2015 7:15 EST 75 mL/hr sodium chloride 0.9 % flush 3 mL 3 mL, intravenous, EVERY 8 HOURS, First dose on Thu10/08/15 at 0800, Until Discontinued, Routine Given 10/09/2015 8:43 EST 3 mL Given 10/09/2015 0:38 EST 3 mL Given 10/08/2015 10:01 EST 3 mL terazosin (HYTRIN) capsule 10 mg 10 mg, oral, AT BEDTIME, First dose on Thu10/08/15 at 2100, Until Discontinued, Routine Given 10/08/2015 20:26 EST 1 0 mg ticagrelor (BRILINTA) tablet 90 mg 90 mg, oral, 2 TIMES DAILY, First dose (after last modification) on Thu10/08/15 at 2100, Until Discontinued, Routine Given 10/09/2015 8:42 EST 90 mg Given 10/08/2015 20:26 EST 90 mg documented in this encounter Discontinued Medications Medication Sig Discontinue Reason Start Date End Da te lisinopril (PRINIVIL, ZESTRIL) 10 mg tablet Take 10 mg by mouth daily Error 10/08/2015 ticagrelor (BRILINTA) 90 mg tablet Take 1 Tab by mouth 2 times daily 10/08/2015 10/09/2015 losartan (COZAAR) 25 mg tablet Take 100 mg by mouth daily 10/09/2015 simvastatin (ZOCOR) 10 mg tablet Take 20 mg by mouth every evening 10/09/2015 documented as of this encounter Historical Medications * This list may reflect changes made after this encounter. Medication Sig Dispensed Refills Start Date End Date Multivitamins with Minerals tablet Take 1 Tab by mouth daily hydrochlorothiazide (HYDRODIURIL) 25 mg tablet Take 25 mg by mouth daily 05/30/2024 ibuprofen (MOTRIN) 800 mg tablet Take 800 mg by mouth every 6 hours as needed for Pain 10/22/2023 terazosin (HYTRIN) 10 mg capsule Take 10 mg by mouth at bedtime 05/31/2024 simvastatin (ZOCOR) 10 mg tablet Take 20 mg by mouth every evening 10/09/2015 buPROPion (WELLBUTRIN XL) 150 mg XL tablet Take 300 mg by mouth daily. 05/30/2024 POTASSIUM CHLORIDE ORAL Take 20 mEq by mouth 10/22/2023 lisinopril (PRINIVIL, ZESTRIL) 10 mg tablet Take 10 mg by mouth daily 10/08/2015 losartan (COZAAR) 25 mg tablet Take 100 mg by mouth daily 10/09/2015 added in this encounter Active and Recently Administered Medications Times are shown in EST. Scheduled Medication Order 10/07/2015 10/08/2015 10/09/2015 aspirin EC tablet 81 mg 81 mg, oral, DAILY, First dose on Thu10/09/15 at 0900, Until Discontinued, Routine 0842 (Given - Provid er: Ellen Aguilar RN) atorvastatin (LIPITOR) tablet 80 mg 80 mg, oral, AT BEDTIME, First dose on Thu10/08/15 at 2100, Until Discontinued, Routine 2024 (Given - Provider: Chanda Merritt RN) buPROPion (WELLBUTRIN SR) SR tablet 150 mg (CANCELED) 150 mg, oral, 2 TIMES DAILY, First dose on Thu10/08/15 at 1200, Until Discontinued, Routine 1305 (Given - Provider: Yolanda Chance)2026 (Given - Provider: Chanda Merritt RN) 0842 (Given - Provider: Ellen Aguilar RN) heparin injection 5,000 Units (CANCELED) 5,000 Units, subcutaneous, EVERY 8 HOURS, First dose on Thu10/09/15 at 0000, Until Discontinued, Routine 0038 (Given - Provid er: Michelle Campbell RN)0842 (Given - Provider: Ellen Aguilar RN) hydrochlorothiazide (HYDRODIURIL) tablet 25 mg (CANCELED) 25 mg, oral, DAILY, First dose on Thu10/09/15 at 1000, Until Discontinued, Routine 1059 (Given - Provid er: Ellen Aguilar RN) losartan (COZAAR) tablet 100 mg (CANCELED) 100 mg, oral, DAILY, First dose on Thu10/08/15 at 1200, Until Discontinued, Routine 1305 (Given - Provider: Yolanda Chance) 0842 (Given - Provider: Eleln Aguilar RN) metoprolol XL (TOPROL-XL) tablet 25 mg 25 mg, oral, DAILY, First dose on Thu10/08/15 at 0900, Until Discontinued, Routine 1000 (Given - Provider: Yolanda Chance) 0843 (Given - Provider: Ellen Aguilar RN) sodium chloride 0.9 % flush 3 mL (CANCELED) 3 mL, intravenous, EVERY 8 HOURS, First dose on Thu10/08/15 at 0800, Until Discontinued, Routine 1001 (Given - Provider: Yolanda Chance)1643 (Not Given - Provider: Chanda Merritt RN - Reason: Other - Comment: iv infusing) 0038 (Given - Provider: Michelle Campbell RN)0843 (Given - Provider: Ellen Aguilar RN) terazosin (HYTRIN) capsule 10 mg (CANCELED) 10 mg, oral, AT BEDTIME, First dose on Thu10/08/15 at 2100, Until Discontinued, Routine 2025 (Given - Provider: Chanda Merritt, RN) ticagrelor (BRILINTA) tablet 90 mg (CANCELED) 90 mg, oral, 2 TIMES DAILY, First dose (after last modification) on Thu10/08/15 at 2100, Until Discontinued, Routine 2025 (Given - Provider: Chanda Merritt RN) 0842 (Given - Provider: Ellen Aguilar RN) Continuous Medication Order 10/07/2015 10/08/2015 10/09/2015 sodium bicarbonate 8.4 % 150 mEq in dextrose 5% (D5W) 1,000 mL infusion(Linked Group 1) 1 mL/kg/hr ? 108.9 kg (108.9 mL/hr), intravenous, CONTINUOUS, Starting on Thu10/08/15 at 0645, Until Thu10/08/15 at 1619, Routine 1020 (New Bag - Provider: Jenelle Chance - Comment: Admin now per MD post [facility]) sodium chloride 0.9 % (NS) infusion at 75 mL/hr, intravenous, CONTINUOUS, Starting on Thu10/08/15 at 0730, Until Thu10/08/15 at 1114, Routine 0715 (Given by Other - Provider: Yolanda Chance - Comment: post cath iv fluids administered, bag from label designer) PRN Medication Order 10/07/2015 10/08/2015 10/09/2015 fentaNYL citrate (PF) 50 mcg/mL injection (COMPLETED) intravenous, PRN, Starting on Thu10/08/15 at 0529, Until Thu10/08/15 at 0647, Routine 0529 (Given - Provider: Tarun Ivan RN)0535 (Given - Provider: Hebert Ivan RN)0618 (Given - Provider: Hebert Ivan RN)0623 (Given - Provider: Hebert Ivan RN)0647 (Given - Provider: Hebert Ivan RN) heparin 1,000 unit/mL injection (CANCELED) intravenous, PRN, Starting on Thu10/08/15 at 0557, Until Thu10/08/15 at 0713, Routine 0557 (Given - Provider: Tarun Ivan RN) midazolam (PF) (VERSED) 1 mg/mL injection (COMPLETED) intravenous, PRN, Starting on Thu10/08/15 at 0530, Until Thu10/08/15 at 0623, Routine 0530 (Given - Provider: Tarun Ivan RN)0532 (Given - Provider: Hebert Ivan RN)0545 (Given - Provider: Hebert Ivan RN)0614 (Given - Provider: Hebert Ivan RN)0623 (Given - Provider: Hebert Ivan RN) Linked Groups Order Group 1: sodium bicarbonate 8.4 % 150 mEq in dextrose 5% (D5W) 1,000 mL infusion () 3 mL/kg/hr ? 108.9 kg (326.7 mL/hr), intravenous, CONTINUOUS, Starting on Thu10/08/15 at 0545, Until Thu10/08/15 at 0644, Routine Followed by sodium bicarbonate 8.4 % 150 mEq in dextrose 5% (D5W) 1,000 mL infusionJump to med 1 mL/kg/hr ? 108.9 kg (108.9 mL/hr), intravenous, CONTINUOUS, Starting on Thu10/08/15 at 0645, Until Thu10/08/15 at 1619, Routine documented in this encounter Orders Medications Ordered That Theron ht Not Have Been Administered Count Last Ordered Date First Ordered Date acetaminophen (TYLENOL) tablet 650 mg 2 aspirin EC tablet 81 mg 1 10/08/2015 atorvastatin (LIPITOR) tablet 80 mg 1 10/08 heparin 1,000 unit/mL inject ion 3,100 Units 1 10/08/2015 heparin 1,000 unit/mL inject ion 35 Units/kg (Adjusted) 1 10/08/2015 heparin 1,000 unit/mL inject ion 6,200 Units 1 10/08/2015 heparin 1,000 unit/mL inject ion 70 Units/kg (Adjusted) 10/08/2015 heparin in 09/22 NS 25,000 uni t/250 mL infusion 2 10/08/2015 lidocaine-EPINEPHrine 2 %-1: 100,000 injection 5-10 mL 1 10/08/2015 morphine injection 2-4 mg 1 10/08/2015 sodium bicarbonate 8.4 % 150 mEq in dextrose 5% (D5W) 1,000 mL infusion 1 10/08/2015 ticagrelor (BRILINTA) tablet 90 mg 2 2015 Diet Count Last Ordered Date First Orde red Date DISCHARGE DIET 3 10/08/2015 Nursing Count Last Ordered Date First Orde red Date ACTIVITY INSTRUCTIONS 2 10/08/2015 BATHING INSTRUCTIONS 2 10/08/2015 PATIENT AT LOW RISK FOR VTE: RISK OF MECHANICAL PROPHYLAXIS OUTWEIGHS 10/08/2015 PATIENT AT LOW RISK FOR VTE: RISK OF PHARMACOLOGIC PROPHYLAXIS OUTWEIG 1 10/08/2015 VTE PHARMACOLOGIC PROPHYLAXI S CURRENTLY ORDERED OR ON ALTERNATIVE THER 1 10/08/2015 WOUND CARE INSTRUCTIONS 2 10/08/2015 Admission Count Last Ordered Date First Orde red Date ED BED REQUEST 1 10/08/2015 STATUS: INPATIENT ACUTE ADMISSION 1 016 Transfer Count Last Ordered Date First Orde red Date NOTIFY PPS OF DISCHARGE COMPLETE 1 10/09/19 16 PPS NOTIFICATION OF PATIENT ARRIVAL ON UNIT 1 10/08/2015 UR PATIENT STATUS CHANGE 1 10/08/2015 Discharge Count Last Ordered Date First Orde red Date DISCHARGE PATIENT 1 10/09/2015 Legal Count Last Ordered Date First Orde red Date MISCELLANEOUS DISCHARGE INSTRUCTIONS 6 09/21 documented in this encounter Care Teams Poultry Farmer Egg Relationship Specialty Start Date End Date Vladimir Simmons MD [address] [id number] PCP - General 10/08/15 05/26/24 documented as of this encounter
--- OUTSIDE RECORDS SUMMARY | 2024-06-23 16:43 | XMS_ITS | Encounter Summary ---
Author Organization [facility] Address [address] [place] [address] Care Team Providers Care Documentation Billing Clerk Name Role Phone Vladimir Simmons MD Primary Care Provider [phone] Encounter Details Date Type Department Care Team (Latest Contact Info) Description 10/18/2023 Travel Social History Tobacco Use Types Packs/Day [...] Info) Description 07/12/2024 16:45 EDT Office Visit [facility] Cardiology - [place] [address] [facility] [place], [place] [id number] Wilberto Ocasio MD [address] [facility] [address] [place] [id number] documented as of this encounter Visit Diagnoses Not on filedocumented in this encounter Care Teams Documentation Billing Clerk Relationship Specialty Start Date End Date Vladimir Simmons MD [facility] [address] [place] [id number] PCP - General 10/08/15 05/26/24 documented as of this encounter
== END 2024-06-23 16:26 | disposition home or self-care (01) ==
LOC: NCHCN 16:25
PROVIDERS: PCP Nurse Practitioner Family; Visit Provider Nurse Practitioner Family
DX: I10 Essential (primary) hypertension (principal); E78.00 Pure hypercholesterolemia, unspecified
CPT/HCPCS: 80053; 80061